=== PATIENT | female | born 1950 | race Caucasian/White ===

== ENCOUNTER → 2017-09-18 14:18 | Outpatient (CLI) | payer MEDICARE, OTHER, SELFPAY ==
[2017-09-18 15:44] LABS: Absolute Lymphocyte Count 3.12 X10^3/ul (0.83-4.51); Absolute Neutrophil Count 6.2 X10^3/uL (2.0-7.7); Basophil# 0.08 X10^3/uL; Basophil% 0.8 % (0-1); Eosinophil# 0.17 X10^3/uL; Eosinophils% 1.6 % (0-5); Hemoglobin 14.3 g/dl (12.0-15.0); Lymphocyte # 3.12 X10^3/ul (4.0); Lymphocyte % 29.4 % (19-41); Mean Corpuscular Hgb 29.7 pg (27.0-32.0); Mean Corpuscular Volume 87.3 fL (81-99); Mean Platelet Vol. 9.9 fl (6.2-12.0); Monocyte# 1.05 X10^3/uL; Monocyte% 9.9 % (0-10); Neutrophil # 6.16 X10^3/uL (2.7-7.7); Neutrophil % 58.1 % (47-70); Platelet Count 394 K/mm3 (150-450); RBC Distribution Width CV 14.7 % (11.6-14.6); RBC Distribution Width SD 46.4 fl (35.1-43.9); Red Blood Count 4.81 M/mm3 (4.2-5.4); White Blood Count 10.6 K/mm3 (4.4-11.0)
[2017-09-18 15:49] LABS: POSITIVE COUNT NO; POSITIVE DIFFERENTIAL NO; POSITIVE MORPHOLOGY NO
[2017-09-18 16:03] LABS: ALB/GLOB Ratio 1.1 RATIO (0.9-2.4); AST(SGOT) 21 U/L (15-37); Alanine Aminotransfer ALT/SGPT 29 U/L (13-56); Albumin, Serum 4.1 g/dL (3.2-5.0); Alkaline Phosphatase 84 U/L (45-117); Anion Gap 7 (5-15); BUN 15 mg/dL (7-18); BUN/Creat Ratio 17.7 RATIO (10-20); Calcium,Total 9.2 mg/dL (8.5-10.1); Chloride 105 mmol/L (98-107); Creatinine, Serum 0.85 mg/dL (0.55-1.02); EST Glomerular Filtration Rate 71 mL/min (>60); Est Glom Filt Rate - Afr Amer 86 mL/min (>60); Free T3 2.6 pg/mL (2.18-3.98); Globulin 3.7 g/dL (2.2-4.2); Glucose 93 mg/dL (74-106); Potassium 4.1 mmol/L (3.5-5.1); Protein, Total 7.8 g/dL (6.4-8.2); Sodium Level 137 mmol/L (136-145); T4 Free Direct 1.05 ng/dL (0.76-1.46); Thyroid Stim Hormone (TSH) 1.61 uIU/mL (0.358-3.74)
[2017-09-19 10:20] LABS: Vitamin D,25 Hydroxy 59.5 ng/mL (29.95-100.01)
== END ==
PROVIDERS: Family Provider Family Medicine; PCP Family Medicine; Visit Provider Family Medicine
DX: E03.9 Hypothyroidism, unspecified (principal); M79.7 Fibromyalgia; K21.9 Gastro-esophageal reflux disease without esophagitis
CPT/HCPCS: 36415; 80053; 82306; 84439; 84443; 84481; 85025

== ENCOUNTER → 2017-09-19 11:09 | Outpatient (CLI) | payer MEDICARE, OTHER, SELFPAY ==
[2017-09-24 11:34] LABS: H. PYLORI STOOL AG Negative (Negative)
== END ==
PROVIDERS: Family Provider Family Medicine; PCP Family Medicine; Visit Provider Family Medicine
DX: E03.9 Hypothyroidism, unspecified (principal); M79.7 Fibromyalgia; K21.9 Gastro-esophageal reflux disease without esophagitis
CPT/HCPCS: 83986

== ENCOUNTER → 2018-03-23 12:36 | Outpatient (CLI) | payer MEDICARE, SELFPAY ==
[2018-01-27 11:46] VITALS: BMI 26.7
--- NOTE | 2018-03-23 12:42 | BI_ITS ---
MAMMOGRAPHY - BILATERAL SCREENING REASON FOR EXAM: Female, 67 years old. Routine annual screening examination. PERTINENT HISTORY: Non-contributory. Remote right stereotactic biopsy. TECHNIQUE: Digital bilateral breast katalina (3D mammographic acquisition) in the CC and MLO projections. 2-D mediolateral oblique (MLO) and craniocaudad (CC) views of both breasts were obtained. CAD: Full Field Digital Mammography with Computer Added Detection was performed. COMPARISON: Comparison is made with prior study dated February 27, 2017. FINDINGS: Breast Composition: There are scattered areas of fibroglandular density. There are no dominant masses or suspicious calcifications. A tissue clip marker is once again seen in the upper anterior lateral portion of the right breast No other significant abnormalities are identified. There has been no significant change since the prior study. BI/SCREENING MAMM (CAD), BILAT IMPRESSION: Stable bilateral screening mammogram. Yearly follow-up mammogram recommended. (A) ASSESSMENT CATEGORY: BIRADS Category 2: Benign. A letter regarding these results will be sent to the patient by the facility within 30 days. Approximately 10% of breast cancers are not detected by mammography. A normal mammogram should not delay biopsy of a clinically suspicious abnormality. [id number] Electronically Signed: Charli Wayne MD at 8:34 EST , Service support ,
== END ==
PROVIDERS: Family Provider Family Medicine; PCP Family Medicine; Referring Provider Obstetrics & Gynecology; Visit Provider Obstetrics & Gynecology
DX: Z12.31 Encounter for screening mammogram for malignant neoplasm of breast (principal)
CPT/HCPCS: 77063; 77067

== ENCOUNTER → 2018-06-12 09:15 | Outpatient (CLI) | payer MEDICARE, SELFPAY ==
[2018-01-27 11:46] VITALS: BMI 26.7
[2018-06-12 10:11] LABS: Absolute Lymphocyte Count 2.01 X10^3/ul (0.83-4.51); Absolute Neutrophil Count 5.3 X10^3/uL (2.0-7.7); Basophil# 0.06 X10^3/uL; Basophil% 0.7 % (0-1); Eosinophil# 0.19 X10^3/uL; Eosinophils% 2.2 % (0-5); Hematocrit 42.8 % (37-47); Hemoglobin 14.7 g/dl (12.0-15.0); Lymphocyte # 2.01 X10^3/ul (4.0); Lymphocyte % 23.7 % (19-41); Mean Corp Hgb Conc 34.3 g/gl (32-36); Mean Corpuscular Hgb 29.5 pg (27.0-32.0); Mean Corpuscular Volume 85.8 fL (81-99); Mean Platelet Vol. 9.7 fl (6.2-12.0); Monocyte# 0.86 X10^3/uL; Monocyte% 10.1 % (0-10); Neutrophil # 5.34 X10^3/uL (2.7-7.7); Neutrophil % 63.1 % (47-70); Platelet Count 330 K/mm3 (150-450); RBC Distribution Width CV 14.2 % (11.6-14.6); RBC Distribution Width SD 43.8 fl (35.1-43.9); Red Blood Count 4.99 M/mm3 (4.2-5.4); White Blood Count 8.5 K/mm3 (4.4-11.0)
[2018-06-12 10:12] LABS: POSITIVE COUNT NO; POSITIVE DIFFERENTIAL NO; POSITIVE MORPHOLOGY NO
[2018-06-12 10:40] LABS: Vitamin D,25 Hydroxy 43.1 ng/mL (29.95-100.01)
[2018-06-12 11:26] LABS: ALB/GLOB Ratio 1.3 RATIO (0.9-2.4); AST(SGOT) 19 U/L (15-37); Alanine Aminotransfer ALT/SGPT 25 U/L (13-56); Albumin, Serum 4.1 g/dL (3.2-5.0); Alkaline Phosphatase 75 U/L (45-117); Anion Gap 8 (5-15); BUN 14 mg/dL (7-18); BUN/Creat Ratio 14.7 RATIO (10-20); Chloride 104 mmol/L (98-107); Creatinine, Serum 0.95 mg/dL (0.55-1.02); EST Glomerular Filtration Rate 62 mL/min (>60); Est Glom Filt Rate - Afr Amer 75 mL/min (>60); Free T3 2.9 pg/mL (2.18-3.98); Globulin 3.2 g/dL (2.2-4.2); Glucose 85 mg/dL (74-106); Potassium 4.3 mmol/L (3.5-5.1); Protein, Total 7.3 g/dL (6.4-8.2); Sodium Level 136 mmol/L (136-145); T4 Free Direct 1.36 ng/dL (0.76-1.46); Thyroid Stim Hormone (TSH) 2.25 uIU/mL (0.358-3.74)
== END ==
PROVIDERS: Family Provider Family Medicine; PCP Family Medicine; Referring Provider Family Medicine; Visit Provider Family Medicine
DX: E55.9 Vitamin D deficiency, unspecified (principal); E03.9 Hypothyroidism, unspecified; M79.7 Fibromyalgia
CPT/HCPCS: 36415; 80053; 82306; 84439; 84443; 84481; 84482; 85025

== ENCOUNTER → 2018-06-22 13:41 | Outpatient (CLI) | payer MEDICARE, SELFPAY ==
[2018-01-27 11:46] VITALS: BMI 26.7
[2018-06-22 13:43] LABS: Mucous, Urine 0 SEEN /hpf (<or=2+); Red Blood Cells-Urine 0 SEEN /hpf (0-5); Squamous Epithelial Cells - UA 0 SEEN /hpf (5-10)
[2018-06-22 15:31] LABS: Color, Urine Yellow (Yellow); Glucose, Dipstick Normal (Normal); Ketone-Dipstick 5 mg/dl (Negative); Leukocyte Esterase-Dipstick 25 /ul (Negative); Nitrite-Dipstick Positive (Negative); Occult Blood-Urine 10 /ul (Negative); Protein-Dipstick Negative (Negative); Specific Gravity, Urine 1.015 (1.002-1.030); Urine Clarity Cloudy (Clear); Urine Urobilinogen 1 mg/dl (Normal); Urine pH 6.5 (5.0 - 8.0)
[2018-06-22 15:34] LABS: Urine Bilirubin Dipstick 1 mg/dL (Negative)
[2018-06-22 15:44] LABS: Bacteria 4+ /hpf (None Seen); White Blood Cells 0-5 SEEN /hpf (0-5)
== END ==
PROVIDERS: Family Provider Family Medicine; PCP Family Medicine; Referring Provider Family Medicine; Visit Provider Family Medicine
DX: R39.9 Unspecified symptoms and signs involving the genitourinary system (principal)
CPT/HCPCS: 81001; 87086; 87088; 87186

== ENCOUNTER → 2018-07-23 | Outpatient (CLI) | payer MEDICARE, SELFPAY ==
[2018-01-27 11:46] VITALS: BMI 26.7
== END | disposition home or self-care (01) ==
LOC: LABSPEC 15:38
PROVIDERS: Family Provider Family Medicine; PCP Family Medicine; Referring Provider Family Medicine; Visit Provider Family Medicine
DX: N39.0 Urinary tract infection, site not specified (principal)
CPT/HCPCS: 87086; 87088; 87186

== ENCOUNTER → 2018-08-17 16:55 | Outpatient (CLI) | payer MEDICARE, SELFPAY ==
[2018-08-25 14:32] VITALS: BMI 26.7
== END ==
PROVIDERS: Family Provider Family Medicine; PCP Family Medicine; Referring Provider Obstetrics & Gynecology; Visit Provider Obstetrics & Gynecology
DX: R30.0 Dysuria (principal)
CPT/HCPCS: 87086

== ENCOUNTER → 2018-08-17 16:56 | Outpatient (CLI) | payer MEDICARE, SELFPAY ==
[2018-08-17 14:11] VITALS: BMI 26.7
== END ==
PROVIDERS: Family Provider Family Medicine; PCP Family Medicine; Referring Provider Obstetrics & Gynecology; Visit Provider Obstetrics & Gynecology
DX: R30.0 Dysuria (principal)
CPT/HCPCS: 87086; 87088; 87186

== ENCOUNTER → 2018-09-01 | Outpatient (CLI) | payer MEDICARE, SELFPAY ==
[2018-08-25 14:32] VITALS: BMI 26.7
[2018-09-01 13:15] LABS: Erythrocyte Sedimentation Rate 7 mm/hr (0-30)
[2018-09-01 13:17] LABS: Absolute Lymphocyte Count 3.12 X10^3/uL (0.83-4.51); Absolute Neutrophil Count 5.5 X10^3/uL (2.0-7.7); Basophil# 0.08 X10^3/uL; Basophil% 0.8 % (0-1); Eosinophil# 0.11 X10^3/uL; Eosinophils% 1.1 % (0-5); Hematocrit 44.2 % (37-47); Lymphocyte # 3.12 X10^3/ul (4.0); Lymphocyte % 31.6 % (19-41); Mean Corp Hgb Conc 33.9 g/dL (32-36); Mean Corpuscular Hgb 29.8 pg (27.0-32.0); Mean Corpuscular Volume 87.9 fL (81-99); Monocyte# 0.98 X10^3/uL; Monocyte% 9.9 % (0-10); NRBC Flagged by Analyzer 0 % (0-5); Neutrophil # 5.54 X10^3/uL (2.7-7.7); Neutrophil % 56.3 % (47-70); Platelet Count 338 K/mm3 (150-450); RBC Distribution Width CV 14.1 % (11.6-14.6); RBC Distribution Width SD 44.6 fl (35.1-43.9); Red Blood Count 5.03 M/mm3 (4.2-5.4); White Blood Count 9.9 K/mm3 (4.4-11.0)
[2018-09-01 13:22] LABS: CRP < 2.90 mg/L (0.0-3.0); Rheumatoid Factor < 10.0 IU/mL (<15)
[2018-09-02 14:38] LABS: ANTINUCLEAR ANTIBODIES DIRECT Negative (Negative)
== END | disposition home or self-care (01) ==
PROVIDERS: Family Provider Family Medicine; PCP Family Medicine; Referring Provider Family Medicine; Visit Provider Family Medicine
DX: M54.9 Dorsalgia, unspecified (principal)
CPT/HCPCS: 36415; 85025; 85652; 86038; 86140; 86431

== ENCOUNTER → 2018-09-15 09:56 | Outpatient (CLI) | payer MEDICARE, SELFPAY ==
[2018-08-25 14:32] VITALS: BMI 26.7
--- NOTE | 2018-09-15 09:59 | NM_ITS ---
CLINICAL: 68-year-old female with reported history of arthralgia and fibromyalgia. WHOLE BODY 99m Tc MDP RADIONUCLIDE BONE SCINTIGRAPHY COMPARISON: None available FINDINGS: Following the intravenous administration of 25.5 mCi of 99m Tc MDP, whole body bone images reveal: 1. Increased radiopharmaceutical concentration is identified in the upper cervical spine posteriorly on the left, lower cervical spine posteriorly on the right, the 10th-11th thoracic vertebra posteriorly on the right, left wrist, bilateral hands, the patellofemoral compartments of both knees. 2. The remaining skeletal structures are scintigraphically unremarkable with normal-appearing renal images and urinary bladder activity identified. NM/Bone Scan Whole Body IMPRESSION: 1. The increase in radiopharmaceutical concentration identified in the cervical and thoracic spine, left wrist, both hands, knee articulations bilaterally is commensurate with degenerative arthritis. 2. No other definitive scintigraphic abnormalities are visualized. There is no current evidence of large articulation synovial inflammation or trauma-fracture on the current examination. Electronically Signed: Alverto Roca DO at 23:32 EDT Tel , Service support ,
== END ==
PROVIDERS: Family Provider Family Medicine; PCP Family Medicine; Referring Provider Family Medicine; Visit Provider Family Medicine
DX: M54.9 Dorsalgia, unspecified (principal)
CPT/HCPCS: 78306

== ENCOUNTER → 2018-10-21 13:47 | Outpatient (CLI) | payer MEDICARE, SELFPAY ==
[2018-08-25 14:32] VITALS: BMI 26.7
--- NOTE | 2018-10-21 14:00 | US_ITS ---
STUDY: SUPERFICIAL ULTRASOUND - LYMPHADENOPATHY AND GROIN REASON FOR EXAM: Female, 68 years old. Bilateral lymphadenopathy TECHNIQUE: A superficial ultrasound was performed with real-time and static montoya-scale imaging. COMPARISON: None. FINDINGS: Bilateral inguinal lymph nodes measuring up to 1.3 x 2 x 0.5 cm on the right. The largest measures 2.3 x 1.2 x 0.4 cm in the medial thigh on the left. US/Ext Non Vasc Limited/Soft Tiss IMPRESSION: Bilateral nonspecific inguinal lymphadenopathy Electronically Signed: Jordi Loco MD at 22:39 EDT , Service support ,
--- NOTE | 2018-10-21 14:00 | US_ITS ---
STUDY: NECK ULTRASOUND REASON FOR EXAM: Female, 68 years old. Lymphadenopathy TECHNIQUE: Ultrasound evaluation of the neck was performed with real-time and static montoya-scale imaging. COMPARISON: None. FINDINGS: 2.6 x 1.6 x 0.7 cm lymph node with a fatty hilus is identified in the right neck. Superolateral to this is a 1.3 x 1.1 x 0.4 cm oval hypoechoic structure that may also be a lymph node. On the left, a 1.5 x 1.0 x 0.9 cm oval hypoechoic structure with a fatty hilus consistent with a lymph node is seen above the left lobe of thyroid gland. Nearby is a second 6 x 9 x 4 mm lymph node. There is no other demonstrated solid neck mass or fluid collection. US/Head/Neck Soft Tissue IMPRESSION: A few upper normal-sized bilateral cervical lymph nodes are identified. No suspicious adenopathy or other mass seen. Electronically Signed: Herman Bauman MD at 20:02 EDT , Service support ,
--- NOTE | 2018-10-21 14:30 | US_ITS ---
STUDY: SUPERFICIAL ULTRASOUND - AXILLAE - BILATERAL REASON FOR EXAM: Female, 68 years old. Axillary adenopathy. TECHNIQUE: Ultrasound of the bilateral axillae was performed with real-time and static montoya-scale imaging. COMPARISON: None. FINDINGS: There is no demonstrated soft tissue mass or fluid collection in the right axilla. No adenopathy demonstrated. On the left, a benign-appearing 11 x 7 x 4 mm lymph node with a fatty hilus was identified. No other adenopathy is apparent. No other demonstrated soft tissue mass or fluid collection. US/Ext Non Vasc Limited/Soft Tiss IMPRESSION: Single benign-appearing 11 mm left axillary lymph node noted. No other adenopathy or axillary mass seen. Electronically Signed: Herman Bauman MD at 20:04 EDT , Service support ,
[2018-10-21 17:23] LABS: Absolute Lymphocyte Count 3.31 X10^3/uL (0.83-4.51); Absolute Neutrophil Count 6.1 X10^3/uL (2.0-7.7); Basophil# 0.07 X10^3/uL; Basophil% 0.7 % (0-1); Eosinophil# 0.15 X10^3/uL; Eosinophils% 1.4 % (0-5); Hematocrit 41.2 % (37-47); Hemoglobin 13.8 g/dL (12.0-15.0); Lymphocyte # 3.31 X10^3/ul (4.0); Lymphocyte % 31.5 % (19-41); Mean Corp Hgb Conc 33.5 g/dL (32-36); Mean Corpuscular Hgb 29.5 pg (27.0-32.0); Mean Platelet Vol. 10.1 fl (6.2-12.0); Monocyte# 0.83 X10^3/uL; Monocyte% 7.9 % (0-10); NRBC Flagged by Analyzer 0 % (0-5); Neutrophil # 6.12 X10^3/uL (2.7-7.7); Neutrophil % 58.1 % (47-70); Platelet Count 339 K/mm3 (150-450); RBC Distribution Width CV 13.8 % (11.6-14.6); RBC Distribution Width SD 44.6 fl (35.1-43.9); Red Blood Count 4.68 M/mm3 (4.2-5.4); White Blood Count 10.5 K/mm3 (4.4-11.0)
== END ==
PROVIDERS: Family Provider Family Medicine; PCP Family Medicine; Referring Provider Family Medicine; Visit Provider Family Medicine
DX: R59.1 Generalized enlarged lymph nodes (principal)
CPT/HCPCS: 36415; 76536; 76882; 85025

== ENCOUNTER → 2019-01-13 14:39 | Outpatient (CLI) | payer MEDICARE, SELFPAY ==
[2018-08-25 14:32] VITALS: BMI 26.7
[2019-01-13 14:42] LABS: Bacteria 0 SEEN /hpf (None Seen); Mucous, Urine 0 SEEN /hpf (<or=2+); Red Blood Cells-Urine 0 SEEN /hpf (0-5); Squamous Epithelial Cells - UA 0 SEEN /hpf (5-10); White Blood Cells 0 SEEN /hpf (0-5)
[2019-01-13 17:44] LABS: Color, Urine Yellow (Yellow); Glucose, Dipstick Normal (Normal); Ketone-Dipstick Negative (Negative); Leukocyte Esterase-Dipstick Negative /ul (Negative); Nitrite-Dipstick Negative (Negative); Occult Blood-Urine 10 /ul (Negative); Protein-Dipstick Negative (Negative); Urine Bilirubin Dipstick Negative (Negative); Urine Clarity Clear (Clear); Urine Urobilinogen Normal (Normal)
== END ==
PROVIDERS: Family Provider Family Medicine; PCP Family Medicine; Referring Provider Family Medicine; Visit Provider Family Medicine
DX: N30.90 Cystitis, unspecified without hematuria (principal)
CPT/HCPCS: 81001; 87086

== ENCOUNTER 2019-03-19 10:30 | Outpatient (RCR) | payer MEDICARE, SELFPAY ==
[2018-08-25 14:32] VITALS: BMI 26.7
[2019-02-26 10:50] VITALS: BP 135/74; PULSE 94; RESP 16; TEMP 35.9; BMI 26.7
--- NOTE | 2019-02-26 14:01 | PCM.WC.HP ---
(1) Non-healing surgical wound Status: Chronic Current Visit: Yes Qualifiers: Encounter type: initial encounter Qualified Code(s): T81.89XA - Other complications of procedures, not elsewhere classified, initial encounter Code(s): T81.89XA - Other complications of procedures, not elsewhere classified, initial encounter (2) Open wound of right great toe Status: Chronic Current Visit: Yes Qualifiers: Encounter type: initial encounter Qualified Code(s): S91.101A - Unspecified open wound of right great toe without damage to nail, initial encounter Code(s): S91.101A - Unspecified open wound of right great toe without damage to nail, initial encounter (3) Open wound of second toe of right foot Status: Chronic Current Visit: Yes Qualifiers: Encounter type: initial encounter Qualified Code(s): S91.104A - Unspecified open wound of right lesser toe(s) without damage to nail, initial encounter Code(s): S91.104A - Unspecified open wound of right lesser toe(s) without damage to nail, initial encounter (4) Fibromyalgia Status: Chronic Current Visit: Yes Code(s): M79.7 - Fibromyalgia (5) Hypothyroidism Status: Chronic Current Visit: No Code(s): E03.9 - Hypothyroidism, unspecified (6) GERD (gastroesophageal reflux disease) Status: Chronic Current Visit: No Qualifiers: Esophagitis presence: without esophagitis Qualified Code(s): K21.9 - Gastro-esophageal reflux disease without esophagitis Code(s): K21.9 - Gastro-esophageal reflux disease without esophagitis History of Present Illness Date of Service: 02/26/19 Chief Complaint: Nonhealing surgcial wound of right great toe and right second toe History of Wound: Letha is a 68 yo female who presented to the wound healing center for consultation regarding treatment with hyperbaric oxygen for her nonhealing surgical wounds s/p surgery for bunion and hammer toes by Dr. Marx. During her evaluation, she requested to be seen for wound care at the wound healing center. Unfortunately, she is not eligible for hyperbaric oxygen treatment as her diagnosis is not a reimbursable diagnosis for hyperbaric oxygen treatment. If she were diabetic or if she had a failed/compromised skin graft or flap or chronic refractory osteomyelitis she would be eligible. She underwent surgery for hammertoe and bunionectomy on 01/18/2019 and was doing well with healing until 2 weeks ago when she had dehiscence of surgical incisions of her right second and great toes. She initially was using Aquacel but this dried the wounds out too much. She was prescribed Santyl to apply to the wounds but this was too exxpensive. She has been applying antibiotic ointment to the wounds daily and then gauze and she allows the wounds to be open to air usually twice daily. She was referred to ID to assess for infection by Dr. Marx and saw them yesterday. They did not feel that she had active infection and did not culture her wound per the patient. She had xrays which did not show osteomyelitis but showed appropriate post-operative changes for the surgery that she underwent. She is using a surgical shoe for offloading and ELIECER bandage for compression. She states that when she is on her feet she has significant swelling to her right foot. She denies any fever or chills, drainage or increased pain. Past Medical History Past Medical History: Chronic Problems (This Medical Record has been edited. Action required.) Non-healing surgical wound (Chronic) Open wound of right great toe (Chronic) Open wound of second toe of right foot (Chronic) Fibromyalgia (Chronic) Hypothyroidism (Chronic) GERD (gastroesophageal reflux disease) (Chronic) Lichen sclerosus et atrophicus (Chronic) clobetasol Surgical History: appendectomy, cholecystectomy, hysterectomy Allergies/Adverse Reactions: Allergies albuterol Allergy (Verified 12/04/18 14:50) Other gabapentin Adverse Reaction (Verified 12/04/18 14:50) Other Sulfa (Sulfonamide Antibiotics) Adverse Reaction (Verified 12/04/18 14:50) Vomiting Home Medications: Ambulatory Orders Medication Instructions Recorded Levothyroxine [Synthroid] 50 mcg PO DAILY 11/29/15 bupropion HCl 150 mg tablet,12 hr 150 mg PO BID 01/27/18 sustained-release clobetasol 0.05 % topical ointment 1 applic TOPICAL QHS #30 g 01/27/18 estradiol 0.5 mg tablet 0.5 mg PO DAILY 01/27/18 ipratropium bromide 17 1 puff INHALATION Q6H 01/27/18 mcg/actuation HFA aerosol inhaler - Family History Maternal Family History: Family History (This Medical Record has been edited. Action required.) Father Myocardial infarction Leukemia Mother Hypertension Alzheimer disease No pertinent history Lives: Spouse/ Significant Other Smoking Status: Never smoker Tobacco Use: Non-smoker Alcohol: None Drugs: None Review of Systems Constitutional: Denies: Chills, Fever, Weight Change Eyes: Denies: Pain, Vision Change HEENT: Denies: Difficulty Hearing, Difficulty Swallowing, Sinus Congestion Cardiovascular: Reports: Edema. Denies: Chest Pain, Palpitations Respiratory: Denies: Cough, Shortness of Breath Gastrointestinal: Denies: Diarrhea, Nausea, Vomiting Genitourinary: Denies: Dysuria, Hematuria Musculoskeletal: Reports: Foot Pain, Muscle pain Skin: Reports: Wounds Neurological: Denies: Balance problems, Numbness, Tingling Endocrine: Denies: Heat/ Cold Intolerance, Polydipsia, Polyuria Hematologic/ Lymphatic: Denies: Easy Bruising, Easy Bleeding - Physical Exam Vital Signs Temp Pulse Resp BP 96.6 F L 94 16 135/74 H 02/26/19 10:50 02/26/19 10:50 02/26/19 10:50 02/26/19 10:50 General: Alert, Oriented x3, Cooperative, No apparent distress HEENT: Atraumatic, Normocephalic Oral: Moist Mucosa Neck: Supple Lungs: Clear to auscultation Cardiovascular: Regular rate, Regular Rhythm Abdomen: Soft, Non Tender Extremities: Edema Skin: Ulcer/ Wound Wound Measurements and Assessment WC - Nurse 1 - General Ulcer Measurement Start: 02/26/19 10:50 Freq: Status: Active Protocol: Activity Type Activity Date Activity User E-Sign Co-Sign Detail Recorded Client Recorded Date Recorded By Document 02/26/19 10:50 MW [id number] 02/26/19 11:15 MW 02/26/19 10:50 Wound Center Nurse 1 [Ulcer Assessment] #2 R 2ND TOE DORSAL -Current Size (cm) - Length 3.4 -Current Size (cm) - Width 0.7 -Current Size (cm) - Depth 0.2 -Total Square Cm 2.38 -Photo Taken Yes -Classification - Thickness Full Thickness without Exposed Support Structure -Exudate Amt Small -Exudate Type Serosanguineous -Wound Margin Distinct, Outline Attached -Granulation Amt None Present (0 %) -Necrosis Amt Large (67-100%) -Necrotic Tissue Type Adherent Slough -Structure Exposed N/A -Texture (Re-wound Skin Appearance) Localized Edema ,Scarring -Moisture (Re-wound Skin Appearance No Abnormality ) -Color (Re-wound Skin Appearance) Erythema -Temperature (Re-wound Skin No Abnormality Appearance) (Pt Warm) -Tenderness on Palpation (Re-wound No Skin Appearance) -Ulcer Cleansing Wound Cleanser -Foul Odor after Cleansing No -Anesthetic Used 5% Lidocaine Gel #1 R GRT TOE DORSAL -Current Size (cm) - Length 1.8 -Current Size (cm) - Width 0.5 -Current Size (cm) - Depth 0.2 -Total Square Cm 0.90 -Photo Taken Yes -Classification - Thickness Full Thickness without Exposed Support Structure -Exudate Amt Small -Exudate Type Serosanguineous -Wound Margin Distinct, Outline Attached -Granulation Amt Small (1-33%) -Granulation Quality [place],Red -Necrosis Amt Small (1-33%) -Necrotic Tissue Type Adherent Slough -Structure Exposed N/A -Texture (Re-wound Skin Appearance) Localized Edema ,Scarring -Moisture (Re-wound Skin Appearance No Abnormality ) -Color (Re-wound Skin Appearance) Erythema,Rubor -Temperature (Re-wound Skin No Abnormality Appearance) (Pt Warm) -Tenderness on Palpation (Re-wound No Skin Appearance) -Ulcer Cleansing Wound Cleanser -Foul Odor after Cleansing No -Anesthetic Used 5% Lidocaine Gel WC - Nurse 2 - General Ulcer CM Notes Start: 02/26/19 10:50 Freq: Status: Active Protocol: Activity Type Activity Date Activity User E-Sign Co-Sign Detail Recorded Client Recorded Date Recorded By Document 02/26/19 11:35 MW [id number] 02/26/19 11:57 MW 02/26/19 11:35 Wound Center Nurse 2 [Procedure/Treatment] #2 R 2ND TOE DORSAL -Time 11:35 -Correct Patient Yes -Correct Side, Site, Position Yes -Correct Procedure Yes -Procedure Performed Yes -Type of Procedure Debridement -Clinical Debridement Subcutaneous -Post Debridement Size (cm) - Length 4.1 -Post Debridement Size (cm) - Width 0.9 -Post Debridement Size (cm) - Depth 0.2 -Total Square Cm 3.69 -Wound/Ulcer Outcome Not Healed -Ulcer Cleansing Rinsed/ Irrigated with Saline -Foul Odor after Cleansing No -Bioengineered Tissue No -Bleeding Controlled with Pressure -Offloading No -Treatment Response Procedure Tolerated Well #1 R GRT TOE DORSAL -Time 11:35 -Correct Patient Yes -Correct Side, Site, Position Yes -Correct Procedure Yes -Procedure Performed Yes -Type of Procedure Debridement -Clinical Debridement Subcutaneous -Post Debridement Size (cm) - Length 2.0 -Post Debridement Size (cm) - Width 0.5 -Post Debridement Size (cm) - Depth 0.3 -Total Square Cm 1.00 -Wound/Ulcer Outcome Not Healed -Ulcer Cleansing Rinsed/ Irrigated with Saline -Foul Odor after Cleansing No -Bioengineered Tissue No -Bleeding Controlled with Pressure -Offloading No -Treatment Response Procedure Tolerated Well [See Physician Procedure note for Specifics] Pain Scale: 0-10 Numeric [Pain] -Is Patient Pain Free? Yes Psych/Mental Status: Normal Affect, Appropriate Debridement Note Post-Debridement Measurements/Treatment WC - Nurse 2 - General Ulcer CM Notes Start: 02/26/19 10:50 Freq: Status: Active Protocol: Activity Type Activity Date Activity User E-Sign Co-Sign Detail Recorded Client Recorded Date Recorded By Document 02/26/19 11:35 MW [id number] 02/26/19 11:57 MW 02/26/19 11:35 Wound Center Nurse 2 #2 R 2ND TOE DORSAL -Time 11:35 -Correct Patient Yes -Correct Side, Site, Position Yes -Correct Procedure Yes -Procedure Performed Yes -Type of Procedure Debridement -Clinical Debridement Subcutaneous -Post Debridement Size (cm) - Length 4.1 -Post Debridement Size (cm) - Width 0.9 -Post Debridement Size (cm) - Depth 0.2 -Total Square Cm 3.69 -Wound/Ulcer Outcome Not Healed -Ulcer Cleansing Rinsed/ Irrigated with Saline -Foul Odor after Cleansing No -Bioengineered Tissue No -Bleeding Controlled with Pressure -Offloading No -Treatment Response Procedure Tolerated Well #1 R GRT TOE DORSAL -Time 11:35 -Correct Patient Yes -Correct Side, Site, Position Yes -Correct Procedure Yes -Procedure Performed Yes -Type of Procedure Debridement -Clinical Debridement Subcutaneous -Post Debridement Size (cm) - Length 2.0 -Post Debridement Size (cm) - Width 0.5 -Post Debridement Size (cm) - Depth 0.3 -Total Square Cm 1.00 -Wound/Ulcer Outcome Not Healed -Ulcer Cleansing Rinsed/ Irrigated with Saline -Foul Odor after Cleansing No -Bioengineered Tissue No -Bleeding Controlled with Pressure -Offloading No -Treatment Response Procedure Tolerated Well Pain Scale: 0-10 Numeric Is Patient Pain Free? Yes Wound debrided: right second toe dorsal Laterality: Right Type of Debridement: Excisional debridement Anesthesia Used: 4% Lidocaine Solution, 5% Lidocaine Gel Depth: Down to and including healthy tissue, in the subcutaneous layer, to muscle Percentage of wound debrided: 100 Instrument Used: 5mm curette Tissue Removed: yellow slough, devitalized tissue Severity: Fat Layer Exposed Amount of bleeding with debridement: Mild Bleeding Controlled with: Compression and gauze Patient tolerated procedure well - Additional Wound Wound debrided: right great toe dorsal Laterality: Right Type of Debridement: Excisional debridement Anesthesia Used: 4% Lidocaine Solution, 5% Lidocaine Gel Depth: Down to and including healthy tissue, in the subcutaneous layer Percentage of wound debrided: 100 Instrument Used: 5mm curette Tissue Removed: yellow slough, devitalized tissue Severity: Fat Layer Exposed Amount of bleeding with debridement: Mild Bleeding Controlled with: Compression and gauze Patient tolerated procedure: Patient tolerated procedure well Assessment/Plan Active Problems (This Medical Record has been edited. Action required.) Non-healing surgical wound (Chronic) Open wound of right great toe (Chronic) Open wound of second toe of right foot (Chronic) Fibromyalgia (Chronic) Assessment: nonhealing surgical wounds of right great and second toes Plan: Letha'ajith wounds were evaluated and debrided today. She tolerated procedure well. Wound culture was taken and she will be treated with antibiotics based on results of wound culture if needed. She will dress her wounds with collagen hydrogel and adaptic with changes daily and continue to use ELIECER wrap for compression and offload with her surgical shoe. She will follow post-op instructions per Dr. Marx as far as weight bearing status goes. She was encouraged to elevate and offload her foot to promote healing. She was also encouraged to increase protein intake. She was advised to call or go to ER if she develops fever, chills, increased erythema, excessive bleeding, odor, increased drainage or pain. She may benefit from application of advanced wound care treatments if she does not have improvement with standard wound care. She will follow up in 1 week.
[2019-03-05 12:11] VITALS: BP 130/78; PULSE 90; RESP 18; TEMP 36.1; BMI 26.7
--- NOTE | 2019-03-05 17:45 | PCM.WC.PN ---
(1) Non-healing surgical wound Status: Chronic Current Visit: Yes Qualifiers: Encounter type: initial encounter Qualified Code(s): T81.89XA - Other complications of procedures, not elsewhere classified, initial encounter Code(s): T81.89XA - Other complications of procedures, not elsewhere classified, initial encounter (2) Open wound of right great toe Status: Chronic Current Visit: Yes Qualifiers: Encounter type: subsequent encounter Qualified Code(s): S91.101D - Unspecified open wound of right great toe without damage to nail, subsequent encounter Code(s): S91.101A - Unspecified open wound of right great toe without damage to nail, initial encounter (3) Open wound of second toe of right foot Status: Chronic Current Visit: Yes Qualifiers: Encounter type: subsequent encounter Qualified Code(s): S91.104D - Unspecified open wound of right lesser toe(s) without damage to nail, subsequent encounter Code(s): S91.104A - Unspecified open wound of right lesser toe(s) without damage to nail, initial encounter (4) Fibromyalgia Status: Chronic Current Visit: Yes Code(s): M79.7 - Fibromyalgia (5) Hypothyroidism Status: Chronic Current Visit: No Code(s): E03.9 - Hypothyroidism, unspecified (6) GERD (gastroesophageal reflux disease) Status: Chronic Current Visit: No Qualifiers: Esophagitis presence: without esophagitis Qualified Code(s): K21.9 - Gastro-esophageal reflux disease without esophagitis Code(s): K21.9 - Gastro-esophageal reflux disease without esophagitis Type of Wound Date of Service: 03/05/19 Chief Complaint: Nonhealing surgcial wound of right great toe and right second toe History of Wound: Letha is a 68 yo female who presented to the wound healing center for consultation regarding treatment with hyperbaric oxygen for her nonhealing surgical wounds s/p surgery for bunion and hammer toes by Dr. Marx. During her evaluation, she requested to be seen for wound care at the wound healing center. Unfortunately, she is not eligible for hyperbaric oxygen treatment as her diagnosis is not a reimbursable diagnosis for hyperbaric oxygen treatment. If she were diabetic or if she had a failed/compromised skin graft or flap or chronic refractory osteomyelitis she would be eligible. She underwent surgery for hammertoe and bunionectomy on 01/18/2019 and was doing well with healing until 2 weeks ago when she had dehiscence of surgical incisions of her right second and great toes. She initially was using Aquacel but this dried the wounds out too much. She was prescribed Santyl to apply to the wounds but this was too exxpensive. She has been applying antibiotic ointment to the wounds daily and then gauze and she allows the wounds to be open to air usually twice daily. She was referred to ID to assess for infection by Dr. Marx and saw them yesterday. They did not feel that she had active infection and did not culture her wound per the patient. She had xrays which did not show osteomyelitis but showed appropriate post-operative changes for the surgery that she underwent. She is using a surgical shoe for offloading and ELIECER bandage for compression. She states that when she is on her feet she has significant swelling to her right foot. She denies any fever or chills, drainage or increased pain. Progress of Wound: Letha is here today for follow up of her nonhealing surgical wounds. She tolerated treatment with hydrogel and adaptic and was applying hydrogel twice daily to her wounds due to them being dry. She tolerated ELIECER bandage but still admits to swelling of her leg when she is on it for a significant amount of time. Wound culture was negative for infection. She denies any fever, chills, increased drainage, or erythema. - Physical Exam Vital Signs Temp Pulse Resp BP 97 F L 90 18 130/78 H 03/05/19 12:11 03/05/19 12:11 03/05/19 12:11 03/05/19 12:11 General: Alert, Oriented x3, Cooperative, No apparent distress HEENT: Atraumatic, Normocephalic Oral: Moist Mucosa Neck: Supple Extremities: Edema Skin: Ulcer/ Wound Wound Measurements and Assessment WC - Nurse 1 - General Ulcer Measurement Start: 02/26/19 10:50 Freq: Status: Active Protocol: Activity Type Activity Date Activity User E-Sign Co-Sign Detail Recorded Client Recorded Date Recorded By Document 03/05/19 12:11 RB [id number] 03/05/19 12:15 RB 03/05/19 12:11 Wound Center Nurse 1 [Ulcer Assessment] #2 R 2ND TOE DORSAL -Combined with other wound No -Current Size (cm) - Length 1 -Current Size (cm) - Width 0.7 -Current Size (cm) - Depth 0.2 -Total Square Cm 0.7 -Tunneling No -Undermining/Tunneling No -Circular Undermining No -Exudate Amt Small -Exudate Type Serosanguineous -Wound Margin Flat & Intact -Granulation Amt Medium (34-66%) -Granulation Quality Aucilla -Slough/Fibrin Yes -Necrosis Amt Small (1-33%) -Necrotic Tissue Type Adherent Slough -Structure Exposed N/A -Texture (Re-wound Skin Appearance) Assessed, Scarring -Moisture (Re-wound Skin Appearance Assessed ) -Color (Re-wound Skin Appearance) Assessed -Temperature (Re-wound Skin No Abnormality Appearance) (Pt Warm) -Tenderness on Palpation (Re-wound No Skin Appearance) -Ulcer Cleansing Wound Cleanser -Foul Odor after Cleansing No -Anesthetic Used 5% Lidocaine Gel #1 R GRT TOE DORSAL -Combined with other wound No -Current Size (cm) - Length 1.2 -Current Size (cm) - Width 0.6 -Current Size (cm) - Depth 0.3 -Total Square Cm 0.72 -Photo Taken No -Tunneling No -Undermining/Tunneling No -Circular Undermining No -Exudate Amt Small -Exudate Type Serosanguineous -Wound Margin Flat & Intact -Granulation Amt Medium (34-66%) -Granulation Quality Aucilla -Necrosis Amt Small (1-33%) -Necrotic Tissue Type Adherent Slough -Structure Exposed N/A -Texture (Re-wound Skin Appearance) Assessed, Scarring -Moisture (Re-wound Skin Appearance Assessed ) -Color (Re-wound Skin Appearance) Assessed -Temperature (Re-wound Skin No Abnormality Appearance) (Pt Warm) -Tenderness on Palpation (Re-wound No Skin Appearance) -Ulcer Cleansing Wound Cleanser -Foul Odor after Cleansing No -Anesthetic Used 5% Lidocaine Gel WC - Nurse 2 - General Ulcer CM Notes Start: 02/26/19 10:50 Freq: Status: Active Protocol: Activity Type Activity Date Activity User E-Sign Co-Sign Detail Recorded Client Recorded Date Recorded By Document 03/05/19 12:49 DV [id number] 03/05/19 12:53 DV 03/05/19 12:49 Wound Center Nurse 2 [Procedure/Treatment] #2 R 2ND TOE DORSAL -Time 12:50 -Correct Patient Yes -Correct Side, Site, Position Yes -Correct Procedure Yes -Procedure Performed Yes -Type of Procedure Debridement -Clinical Debridement Subcutaneous -Post Debridement Size (cm) - Length 1.3 -Post Debridement Size (cm) - Width 0.9 -Post Debridement Size (cm) - Depth 0.3 -Total Square Cm 1.17 -Wound/Ulcer Outcome Not Healed -Ulcer Cleansing Rinsed/ Irrigated with Saline -Foul Odor after Cleansing No -Bioengineered Tissue No -Bleeding Controlled with Pressure -Offloading Yes -Type of Offloading Surgical Shoe -Treatment Response Procedure Tolerated Well #1 R GRT TOE DORSAL -Time 12:50 -Correct Patient Yes -Correct Side, Site, Position Yes -Correct Procedure Yes -Procedure Performed Yes -Type of Procedure Debridement -Clinical Debridement Subcutaneous -Post Debridement Size (cm) - Length 3.8 -Post Debridement Size (cm) - Width 0.9 -Post Debridement Size (cm) - Depth 0.2 -Total Square Cm 3.42 -Wound/Ulcer Outcome Not Healed -Ulcer Cleansing Rinsed/ Irrigated with Saline -Foul Odor after Cleansing No -Bioengineered Tissue No -Bleeding Controlled with Pressure -Offloading Yes -Type of Offloading Surgical Shoe -Treatment Response Procedure Tolerated Well [See Physician Procedure note for Specifics] Pain Scale: 0-10 Numeric [Pain] -Is Patient Pain Free? Yes Psych/Mental Status: Normal Affect, Appropriate Debridement Note Post-Debridement Measurements/Treatment WC - Nurse 2 - General Ulcer CM Notes Start: 02/26/19 10:50 Freq: Status: Active Protocol: Activity Type Activity Date Activity User E-Sign Co-Sign Detail Recorded Client Recorded Date Recorded By Document 02/26/19 11:35 MW [id number] 02/26/19 11:57 MW Document 03/05/19 12:49 DV [id number] 03/05/19 12:53 DV 02/26/19 03/05/19 11:35 12:49 Wound Center Nurse 2 #2 R 2ND TOE DORSAL -Time 11:35 12:50 -Correct Patient Yes Yes -Correct Side, Site, Position Yes Yes -Correct Procedure Yes Yes -Procedure Performed Yes Yes -Type of Procedure Debridement Debridement -Clinical Debridement Subcutaneous Subcutaneous -Post Debridement Size (cm) - Length 4.1 1.3 -Post Debridement Size (cm) - Width 0.9 0.9 -Post Debridement Size (cm) - Depth 0.2 0.3 -Total Square Cm 3.69 1.17 -Wound/Ulcer Outcome Not Healed Not Healed -Ulcer Cleansing Rinsed/ Rinsed/ Irrigated with Irrigated with Saline Saline -Foul Odor after Cleansing No No -Bioengineered Tissue No No -Bleeding Controlled with Pressure Pressure -Offloading No Yes -Type of Offloading Surgical Shoe -Treatment Response Procedure Procedure Tolerated Well Tolerated Well #1 R GRT TOE DORSAL -Time 11:35 12:50 -Correct Patient Yes Yes -Correct Side, Site, Position Yes Yes -Correct Procedure Yes Yes -Procedure Performed Yes Yes -Type of Procedure Debridement Debridement -Clinical Debridement Subcutaneous Subcutaneous -Post Debridement Size (cm) - Length 2.0 3.8 -Post Debridement Size (cm) - Width 0.5 0.9 -Post Debridement Size (cm) - Depth 0.3 0.2 -Total Square Cm 1.00 3.42 -Wound/Ulcer Outcome Not Healed Not Healed -Ulcer Cleansing Rinsed/ Rinsed/ Irrigated with Irrigated with Saline Saline -Foul Odor after Cleansing No No -Bioengineered Tissue No No -Bleeding Controlled with Pressure Pressure -Offloading No Yes -Type of Offloading Surgical Shoe -Treatment Response Procedure Procedure Tolerated Well Tolerated Well Pain Scale: 0-10 Numeric Is Patient Pain Free? Yes Yes Wound debrided: right second toe dorsal Laterality: Right Type of Debridement: Excisional debridement Anesthesia Used: 4% Lidocaine Solution, 5% Lidocaine Gel Depth: Down to and including healthy tissue, in the subcutaneous layer, to muscle Percentage of wound debrided: 100 Instrument Used: 5mm curette Tissue Removed: yellow slough, devitalized tissue Severity: Fat Layer Exposed Amount of bleeding with debridement: Mild Bleeding Controlled with: Compression and gauze Patient tolerated procedure well - Additional Wound Wound debrided: right great toe dorsal Laterality: Right Type of Debridement: Excisional debridement Anesthesia Used: 4% Lidocaine Solution, 5% Lidocaine Gel Depth: Down to and including healthy tissue, in the subcutaneous layer, to muscle Percentage of wound debrided: 100 Instrument Used: 5mm curette Tissue Removed: yellow slough, devitalized tissue Severity: Fat Layer Exposed Amount of bleeding with debridement: Mild Bleeding Controlled with: Compression and gauze Patient tolerated procedure: Patient tolerated procedure well Assessment/Plan Active Problems (This Medical Record has been edited. Action required.) Non-healing surgical wound (Chronic) Open wound of right great toe (Chronic) Open wound of second toe of right foot (Chronic) Fibromyalgia (Chronic) Assessment: nonhealing surgical wounds of right great and second toes Plan: Letha'ajith wounds were evaluated and debrided today. She tolerated procedure well. Her right great toe wound does probe to the plate that is in place from her bunionectomy but there is tendon covering this partially. She will continue to dress her wounds with collagen hydrogel and adaptic with changes daily and continue to use ELIECER wrap for compression and offload with her surgical shoe. She will follow post-op instructions per Dr. Marx as far as weight bearing status goes. She was encouraged to elevate and offload her foot to promote healing. She was also encouraged to increase protein intake. She was advised to call or go to ER if she develops fever, chills, increased erythema, excessive bleeding, odor, increased drainage or pain. She may benefit from application of advanced wound care treatments to salvage her great toe and second toe due to the high risk of osteomyelitis given the depth of the wounds and lack of significant progress with conventional wound care treatments for 4 weeks. She will follow up in 1 week.
[2019-03-12 12:05] VITALS: BMI 26.7
--- NOTE | 2019-03-12 16:07 | PCM.WC.PN ---
(1) Non-healing surgical wound Status: Chronic Current Visit: Yes Qualifiers: Encounter type: initial encounter Qualified Code(s): T81.89XA - Other complications of procedures, not elsewhere classified, initial encounter Code(s): T81.89XA - Other complications of procedures, not elsewhere classified, initial encounter (2) Open wound of right great toe Status: Chronic Current Visit: Yes Qualifiers: Encounter type: subsequent encounter Qualified Code(s): S91.101D - Unspecified open wound of right great toe without damage to nail, subsequent encounter Code(s): S91.101A - Unspecified open wound of right great toe without damage to nail, initial encounter (3) Open wound of second toe of right foot Status: Chronic Current Visit: Yes Qualifiers: Encounter type: subsequent encounter Qualified Code(s): S91.104D - Unspecified open wound of right lesser toe(s) without damage to nail, subsequent encounter Code(s): S91.104A - Unspecified open wound of right lesser toe(s) without damage to nail, initial encounter (4) Fibromyalgia Status: Chronic Current Visit: Yes Code(s): M79.7 - Fibromyalgia (5) Hypothyroidism Status: Chronic Current Visit: No Code(s): E03.9 - Hypothyroidism, unspecified (6) GERD (gastroesophageal reflux disease) Status: Chronic Current Visit: No Qualifiers: Esophagitis presence: without esophagitis Qualified Code(s): K21.9 - Gastro-esophageal reflux disease without esophagitis Code(s): K21.9 - Gastro-esophageal reflux disease without esophagitis Type of Wound Date of Service: 03/12/19 Chief Complaint: Nonhealing surgcial wound of right great toe and right second toe History of Wound: Letha is a 68 yo female who presented to the wound healing center for consultation regarding treatment with hyperbaric oxygen for her nonhealing surgical wounds s/p surgery for bunion and hammer toes by Dr. Marx. During her evaluation, she requested to be seen for wound care at the wound healing center. Unfortunately, she is not eligible for hyperbaric oxygen treatment as her diagnosis is not a reimbursable diagnosis for hyperbaric oxygen treatment. If she were diabetic or if she had a failed/compromised skin graft or flap or chronic refractory osteomyelitis she would be eligible. She underwent surgery for hammertoe and bunionectomy on 01/18/2019 and was doing well with healing until 2 weeks ago when she had dehiscence of surgical incisions of her right second and great toes. She initially was using Aquacel but this dried the wounds out too much. She was prescribed Santyl to apply to the wounds but this was too exxpensive. She has been applying antibiotic ointment to the wounds daily and then gauze and she allows the wounds to be open to air usually twice daily. She was referred to ID to assess for infection by Dr. Marx and saw them yesterday. They did not feel that she had active infection and did not culture her wound per the patient. She had xrays which did not show osteomyelitis but showed appropriate post-operative changes for the surgery that she underwent. She is using a surgical shoe for offloading and ELIECER bandage for compression. She states that when she is on her feet she has significant swelling to her right foot. She denies any fever or chills, drainage or increased pain. Progress of Wound: Letha is here today for follow up of her nonhealing surgical wounds. She tolerated treatment with hydrogel and adaptic and continued applying hydrogel twice daily to her wounds. She was ill this week with a GI illness with vomiting and rested more than normal. She denies any fever, chills, increased drainage, or erythema. - Physical Exam Vital Signs Temp Pulse Resp BP 97 F L 90 18 130/78 H 03/05/19 12:11 03/05/19 12:11 03/05/19 12:11 03/05/19 12:11 General: Alert, Oriented x3, Cooperative, No apparent distress HEENT: Atraumatic, Normocephalic Oral: Moist Mucosa Extremities: Edema Skin: Ulcer/ Wound Wound Measurements and Assessment WC - Nurse 1 - General Ulcer Measurement Start: 02/26/19 10:50 Freq: Status: Active Protocol: Activity Type Activity Date Activity User E-Sign Co-Sign Detail Recorded Client Recorded Date Recorded By Document 03/12/19 12:05 DV [id number] 03/12/19 12:10 DV 03/12/19 12:05 Wound Center Nurse 1 [Ulcer Assessment] #2 R 2ND TOE DORSAL -Combined with other wound No -Current Size (cm) - Length 1.0 -Current Size (cm) - Width 0.7 -Current Size (cm) - Depth 0.3 -Total Square Cm 0.70 -Photo Taken No -Epithelialization None Present -Tunneling No -Undermining/Tunneling No -Circular Undermining No -Classification - Thickness Full Thickness without Exposed Support Structure -Exudate Amt Medium -Exudate Type Serosanguineous -Wound Margin Indistinct, Non -Visible -Granulation Quality N/A -Slough/Fibrin Yes -Necrosis Amt Large (67-100%) -Necrotic Tissue Type Adherent Slough -Structure Exposed None/Limited to Skin Breakdown -Texture (Re-wound Skin Appearance) Assessed, Scarring -Moisture (Re-wound Skin Appearance Assessed, ) Weeping -Color (Re-wound Skin Appearance) No Abnormality, Assessed -Temperature (Re-wound Skin No Abnormality Appearance) (Pt Warm) -Ulcer Cleansing Rinsed/ Irrigated with Saline -Foul Odor after Cleansing No -Anesthetic Used 4% Lidocaine Solution #1 R GRT TOE DORSAL -Combined with other wound No -Current Size (cm) - Length 1.3 -Current Size (cm) - Width 0.5 -Current Size (cm) - Depth 0.3 -Total Square Cm 0.65 -Photo Taken No -Epithelialization None Present -Tunneling No -Undermining/Tunneling No -Circular Undermining No -Classification - Thickness Full Thickness without Exposed Support Structure -Exudate Amt Medium -Exudate Type Serosanguineous -Wound Margin Indistinct, Non -Visible -Granulation Amt None Present (0 %) -Granulation Quality N/A -Slough/Fibrin Yes -Necrosis Amt Large (67-100%) -Necrotic Tissue Type Adherent Slough -Structure Exposed None/Limited to Skin Breakdown -Texture (Re-wound Skin Appearance) Assessed, Localized Edema ,Scarring -Moisture (Re-wound Skin Appearance Assessed, ) Weeping -Color (Re-wound Skin Appearance) No Abnormality, Assessed -Temperature (Re-wound Skin No Abnormality Appearance) (Pt Warm) -Ulcer Cleansing Rinsed/ Irrigated with Saline -Foul Odor after Cleansing No -Anesthetic Used 4% Lidocaine Solution WC - Nurse 2 - General Ulcer CM Notes Start: 02/26/19 10:50 Freq: Status: Active Protocol: Activity Type Activity Date Activity User E-Sign Co-Sign Detail Recorded Client Recorded Date Recorded By Document 03/12/19 12:11 DV [id number] 03/12/19 12:30 DV 03/12/19 12:11 Wound Center Nurse 2 [Procedure/Treatment] #2 R 2ND TOE DORSAL -Time 12:19 -Correct Patient Yes -Correct Side, Site, Position Yes -Correct Procedure Yes -Procedure Performed Yes -Type of Procedure Debridement -Clinical Debridement Subcutaneous -Post Debridement Size (cm) - Length 3.5 -Post Debridement Size (cm) - Width 0.4 -Post Debridement Size (cm) - Depth 0.2 -Total Square Cm 1.40 -Wound/Ulcer Outcome Not Healed -Ulcer Cleansing Rinsed/ Irrigated with Saline -Foul Odor after Cleansing No -Bioengineered Tissue No -Bleeding Controlled with Pressure -Offloading No -Type of Offloading Surgical Shoe -Treatment Response Procedure Tolerated Well #1 R GRT TOE DORSAL -Time 12:19 -Correct Patient Yes -Correct Side, Site, Position Yes -Correct Procedure Yes -Procedure Performed Yes -Type of Procedure Debridement -Clinical Debridement Subcutaneous -Post Debridement Size (cm) - Length 1.4 -Post Debridement Size (cm) - Width 0.5 -Post Debridement Size (cm) - Depth 0.3 -Total Square Cm 0.70 -Wound/Ulcer Outcome Not Healed -Ulcer Cleansing Rinsed/ Irrigated with Saline -Foul Odor after Cleansing No -Bioengineered Tissue No -Bleeding Controlled with Pressure -Offloading No -Type of Offloading Surgical Shoe -Treatment Response Procedure Tolerated Well [See Physician Procedure note for Specifics] Pain Scale: 0-10 Numeric [Pain] -Is Patient Pain Free? Yes Psych/Mental Status: Normal Affect, Appropriate Debridement Note Post-Debridement Measurements/Treatment WC - Nurse 2 - General Ulcer CM Notes Start: 02/26/19 10:50 Freq: Status: Active Protocol: Activity Type Activity Date Activity User E-Sign Co-Sign Detail Recorded Client Recorded Date Recorded By Document 02/26/19 11:35 MW [id number] 02/26/19 11:57 MW Document 03/05/19 12:49 DV [id number] 03/05/19 12:53 DV Document 03/12/19 12:11 DV [id number] 03/12/19 12:30 DV 02/26/19 03/05/19 03/12/19 11:35 12:49 12:11 Wound Center Nurse 2 #2 R 2ND TOE DORSAL -Time 11:35 12:50 12:19 -Correct Patient Yes Yes Yes -Correct Side, Site, Position Yes Yes Yes -Correct Procedure Yes Yes Yes -Procedure Performed Yes Yes Yes -Type of Procedure Debridement Debridement Debridement -Clinical Debridement Subcutaneous Subcutaneous Subcutaneous -Post Debridement Size (cm) - Length 4.1 1.3 3.5 -Post Debridement Size (cm) - Width 0.9 0.9 0.4 -Post Debridement Size (cm) - Depth 0.2 0.3 0.2 -Total Square Cm 3.69 1.17 1.40 -Wound/Ulcer Outcome Not Healed Not Healed Not Healed -Ulcer Cleansing Rinsed/ Rinsed/ Rinsed/ Irrigated with Irrigated with Irrigated with Saline Saline Saline -Foul Odor after Cleansing No No No -Bioengineered Tissue No No No -Bleeding Controlled with Pressure Pressure Pressure -Offloading No Yes No -Type of Offloading Surgical Shoe Surgical Shoe -Treatment Response Procedure Procedure Procedure Tolerated Well Tolerated Well Tolerated Well #1 R GRT TOE DORSAL -Time 11:35 12:50 12:19 -Correct Patient Yes Yes Yes -Correct Side, Site, Position Yes Yes Yes -Correct Procedure Yes Yes Yes -Procedure Performed Yes Yes Yes -Type of Procedure Debridement Debridement Debridement -Clinical Debridement Subcutaneous Subcutaneous Subcutaneous -Post Debridement Size (cm) - Length 2.0 3.8 1.4 -Post Debridement Size (cm) - Width 0.5 0.9 0.5 -Post Debridement Size (cm) - Depth 0.3 0.2 0.3 -Total Square Cm 1.00 3.42 0.70 -Wound/Ulcer Outcome Not Healed Not Healed Not Healed -Ulcer Cleansing Rinsed/ Rinsed/ Rinsed/ Irrigated with Irrigated with Irrigated with Saline Saline Saline -Foul Odor after Cleansing No No No -Bioengineered Tissue No No No -Bleeding Controlled with Pressure Pressure Pressure -Offloading No Yes No -Type of Offloading Surgical Shoe Surgical Shoe -Treatment Response Procedure Procedure Procedure Tolerated Well Tolerated Well Tolerated Well Pain Scale: 0-10 Numeric Is Patient Pain Free? Yes Yes Yes Wound debrided: right great toe dorsal Laterality: Right Type of Debridement: Excisional debridement Anesthesia Used: 4% Lidocaine Solution, 5% Lidocaine Gel Depth: Down to and including healthy tissue, in the subcutaneous layer Percentage of wound debrided: 100 Instrument Used: 3mm curette Tissue Removed: yellow slough, devitalized tissue Severity: Fat Layer Exposed Amount of bleeding with debridement: Mild Bleeding Controlled with: Compression and gauze Patient tolerated procedure well - Additional Wound Wound debrided: right second toe dorsal Laterality: Right Type of Debridement: Excisional debridement Anesthesia Used: 4% Lidocaine Solution, 5% Lidocaine Gel Depth: Down to and including healthy tissue, in the subcutaneous layer Percentage of wound debrided: 100 Instrument Used: 3mm curette Tissue Removed: yellow slough, devitalized tissue Severity: Fat Layer Exposed Amount of bleeding with debridement: Mild Bleeding Controlled with: Compression and gauze Patient tolerated procedure: Patient tolerated procedure well Assessment/Plan Active Problems (This Medical Record has been edited. Action required.) Non-healing surgical wound (Chronic) Open wound of right great toe (Chronic) Open wound of second toe of right foot (Chronic) Fibromyalgia (Chronic) Assessment: nonhealing surgical wounds of right great and second toes Plan: Letha'aijth wounds were evaluated and debrided today. She tolerated procedure well. Her right great toe wound continues to probe to the plate that is in place from her bunionectomy but hardware is not exposed. She is noncompliant with compression and elevation of her leg. She will continue to dress her wounds with collagen hydrogel and adaptic with changes daily and continue to use ELIECER wrap for compression and offload with her surgical shoe. She was encouraged to elevate and offload her foot to promote healing. She was also encouraged to increase protein intake. She was advised to call or go to ER if she develops fever, chills, increased erythema, excessive bleeding, odor, increased drainage or pain. She would benefit from application of advanced wound care treatments to salvage her great toe and second toe due to the high risk of osteomyelitis given the depth of the wounds and lack of significant progress with conventional wound care treatments for 4 weeks. She will follow up in 1 week.
[2019-03-19 10:36] VITALS: BMI 26.7
--- NOTE | 2019-03-19 17:08 | PCM.WC.PN ---
(1) Non-healing surgical wound Status: Chronic Current Visit: Yes Qualifiers: Encounter type: subsequent encounter Qualified Code(s): T81.89XD - Other complications of procedures, not elsewhere classified, subsequent encounter Code(s): T81.89XA - Other complications of procedures, not elsewhere classified, initial encounter (2) Open wound of right great toe Status: Chronic Current Visit: Yes Qualifiers: Encounter type: subsequent encounter Qualified Code(s): S91.101D - Unspecified open wound of right great toe without damage to nail, subsequent encounter Code(s): S91.101A - Unspecified open wound of right great toe without damage to nail, initial encounter (3) Open wound of second toe of right foot Status: Chronic Current Visit: Yes Qualifiers: Encounter type: subsequent encounter Qualified Code(s): S91.104D - Unspecified open wound of right lesser toe(s) without damage to nail, subsequent encounter Code(s): S91.104A - Unspecified open wound of right lesser toe(s) without damage to nail, initial encounter (4) Fibromyalgia Status: Chronic Current Visit: Yes Code(s): M79.7 - Fibromyalgia (5) Hypothyroidism Status: Chronic Current Visit: No Code(s): E03.9 - Hypothyroidism, unspecified (6) GERD (gastroesophageal reflux disease) Status: Chronic Current Visit: No Qualifiers: Esophagitis presence: without esophagitis Qualified Code(s): K21.9 - Gastro-esophageal reflux disease without esophagitis Code(s): K21.9 - Gastro-esophageal reflux disease without esophagitis Type of Wound Date of Service: 03/19/19 Chief Complaint: Nonhealing surgcial wound of right great toe and right second toe History of Wound: Letha is a 68 yo female who presented to the wound healing center for consultation regarding treatment with hyperbaric oxygen for her nonhealing surgical wounds s/p surgery for bunion and hammer toes by Dr. Marx. During her evaluation, she requested to be seen for wound care at the wound healing center. Unfortunately, she is not eligible for hyperbaric oxygen treatment as her diagnosis is not a reimbursable diagnosis for hyperbaric oxygen treatment. If she were diabetic or if she had a failed/compromised skin graft or flap or chronic refractory osteomyelitis she would be eligible. She underwent surgery for hammertoe and bunionectomy on 01/18/2019 and was doing well with healing until 2 weeks ago when she had dehiscence of surgical incisions of her right second and great toes. She initially was using Aquacel but this dried the wounds out too much. She was prescribed Santyl to apply to the wounds but this was too exxpensive. She has been applying antibiotic ointment to the wounds daily and then gauze and she allows the wounds to be open to air usually twice daily. She was referred to ID to assess for infection by Dr. Marx and saw them yesterday. They did not feel that she had active infection and did not culture her wound per the patient. She had xrays which did not show osteomyelitis but showed appropriate post-operative changes for the surgery that she underwent. She is using a surgical shoe for offloading and ELIECER bandage for compression. She states that when she is on her feet she has significant swelling to her right foot. She denies any fever or chills, drainage or increased pain. Progress of Wound: Letha is here today for follow up of her nonhealing surgical wounds. She tolerated treatment with hydrogel and adaptic to her second toe twice daily and there has been improvement in this wound. The great toe wound she tolerated dressings with Karen moistened with hydrogel. She continues to try to offload and remain off of her feet but finds it difficult. She denies any fever, chills, increased drainage, or erythema. - Physical Exam Vital Signs Temp Pulse Resp BP 97 F L 90 18 130/78 H 03/05/19 12:11 03/05/19 12:11 03/05/19 12:11 03/05/19 12:11 General: Alert, Oriented x3, Cooperative, No apparent distress HEENT: Atraumatic, Normocephalic Oral: Moist Mucosa Neck: Supple Lungs: Clear to auscultation Extremities: Edema Skin: Ulcer/ Wound Wound Measurements and Assessment WC - Nurse 1 - General Ulcer Measurement Start: 02/26/19 10:50 Freq: Status: Active Protocol: Activity Type Activity Date Activity User E-Sign Co-Sign Detail Recorded Client Recorded Date Recorded By Document 03/19/19 10:36 RB [id number] 03/19/19 10:50 RB 03/19/19 10:36 Wound Center Nurse 1 [Ulcer Assessment] #2 R 2ND TOE DORSAL -Combined with other wound No -Current Size (cm) - Length 0.3 -Current Size (cm) - Width 0.3 -Current Size (cm) - Depth 0.1 -Total Square Cm 0.09 -Tunneling No -Undermining/Tunneling No -Circular Undermining No -Exudate Amt Small -Exudate Type Serosanguineous -Wound Margin Flat & Intact -Granulation Amt Medium (34-66%) -Granulation Quality [place] -Slough/Fibrin Yes -Necrosis Amt Small (1-33%) -Necrotic Tissue Type Adherent Slough -Structure Exposed N/A -Texture (Re-wound Skin Appearance) Assessed -Moisture (Re-wound Skin Appearance Assessed ) -Color (Re-wound Skin Appearance) Assessed -Temperature (Re-wound Skin No Abnormality Appearance) (Pt Warm) -Tenderness on Palpation (Re-wound No Skin Appearance) -Ulcer Cleansing Wound Cleanser -Foul Odor after Cleansing No -Anesthetic Used 5% Lidocaine Gel #1 R GRT TOE DORSAL -Combined with other wound No -Current Size (cm) - Length 1.1 -Current Size (cm) - Width 0.4 -Current Size (cm) - Depth 0.3 -Total Square Cm 0.44 -Tunneling No -Undermining/Tunneling No -Circular Undermining No -Exudate Amt Small -Exudate Type Serosanguineous -Wound Margin Thickened & Rolled Under -Granulation Amt Small (1-33%) -Granulation Quality [place] -Necrosis Amt Large (67-100%) -Necrotic Tissue Type Adherent Slough -Structure Exposed N/A -Texture (Re-wound Skin Appearance) Scarring -Moisture (Re-wound Skin Appearance Assessed ) -Color (Re-wound Skin Appearance) Assessed -Temperature (Re-wound Skin No Abnormality Appearance) (Pt Warm) -Tenderness on Palpation (Re-wound No Skin Appearance) -Ulcer Cleansing Wound Cleanser -Foul Odor after Cleansing No -Anesthetic Used 5% Lidocaine Gel WC - Nurse 2 - General Ulcer CM Notes Start: 02/26/19 10:50 Freq: Status: Active Protocol: Activity Type Activity Date Activity User E-Sign Co-Sign Detail Recorded Client Recorded Date Recorded By Document 03/19/19 11:09 DV [id number] 03/19/19 11:12 DV 03/19/19 11:09 Wound Center Nurse 2 [Procedure/Treatment] #2 R 2ND TOE DORSAL -Time 11:10 -Correct Patient Yes -Correct Side, Site, Position Yes -Correct Procedure Yes -Procedure Performed Yes -Type of Procedure Debridement -Clinical Debridement Subcutaneous -Post Debridement Size (cm) - Length 0.5 -Post Debridement Size (cm) - Width 0.4 -Post Debridement Size (cm) - Depth 0.2 -Total Square Cm 0.20 -Wound/Ulcer Outcome Not Healed -Ulcer Cleansing Rinsed/ Irrigated with Saline -Foul Odor after Cleansing No -Bioengineered Tissue No -Bleeding Controlled with Pressure -Offloading No -Treatment Response Procedure Tolerated Well #1 R GRT TOE DORSAL -Time 11:10 -Correct Patient Yes -Correct Side, Site, Position Yes -Correct Procedure Yes -Procedure Performed Yes -Type of Procedure Debridement -Clinical Debridement Subcutaneous -Post Debridement Size (cm) - Length 1.8 -Post Debridement Size (cm) - Width 0.5 -Post Debridement Size (cm) - Depth 0.3 -Total Square Cm 0.90 -Wound/Ulcer Outcome Not Healed -Bleeding Controlled with Pressure -Offloading No -Treatment Response Procedure Tolerated Well [See Physician Procedure note for Specifics] Pain Scale: 0-10 Numeric [Pain] -Is Patient Pain Free? Yes Psych/Mental Status: Normal Affect, Appropriate Debridement Note Post-Debridement Measurements/Treatment WC - Nurse 2 - General Ulcer CM Notes Start: 02/26/19 10:50 Freq: Status: Active Protocol: Activity Type Activity Date Activity User E-Sign Co-Sign Detail Recorded Client Recorded Date Recorded By Document 02/26/19 11:35 MW [id number] 02/26/19 11:57 MW Document 03/05/19 12:49 DV [id number] 03/05/19 12:53 DV Document 03/12/19 12:11 DV [id number] 03/12/19 12:30 DV Document 03/19/19 11:09 DV [id number] 03/19/19 11:12 DV 02/26/19 03/05/19 03/12/19 11:35 12:49 12:11 Wound Center Nurse 2 #2 R 2ND TOE DORSAL -Time 11:35 12:50 12:19 -Correct Patient Yes Yes Yes -Correct Side, Site, Position Yes Yes Yes -Correct Procedure Yes Yes Yes -Procedure Performed Yes Yes Yes -Type of Procedure Debridement Debridement Debridement -Clinical Debridement Subcutaneous Subcutaneous Subcutaneous -Post Debridement Size (cm) - Length 4.1 1.3 3.5 -Post Debridement Size (cm) - Width 0.9 0.9 0.4 -Post Debridement Size (cm) - Depth 0.2 0.3 0.2 -Total Square Cm 3.69 1.17 1.40 -Wound/Ulcer Outcome Not Healed Not Healed Not Healed -Ulcer Cleansing Rinsed/ Rinsed/ Rinsed/ Irrigated with Irrigated with Irrigated with Saline Saline Saline -Foul Odor after Cleansing No No No -Bioengineered Tissue No No No -Bleeding Controlled with Pressure Pressure Pressure -Offloading No Yes No -Type of Offloading Surgical Shoe Surgical Shoe -Treatment Response Procedure Procedure Procedure Tolerated Well Tolerated Well Tolerated Well #1 R GRT TOE DORSAL -Time 11:35 12:50 12:19 -Correct Patient Yes Yes Yes -Correct Side, Site, Position Yes Yes Yes -Correct Procedure Yes Yes Yes -Procedure Performed Yes Yes Yes -Type of Procedure Debridement Debridement Debridement -Clinical Debridement Subcutaneous Subcutaneous Subcutaneous -Post Debridement Size (cm) - Length 2.0 3.8 1.4 -Post Debridement Size (cm) - Width 0.5 0.9 0.5 -Post Debridement Size (cm) - Depth 0.3 0.2 0.3 -Total Square Cm 1.00 3.42 0.70 -Wound/Ulcer Outcome Not Healed Not Healed Not Healed -Ulcer Cleansing Rinsed/ Rinsed/ Rinsed/ Irrigated with Irrigated with Irrigated with Saline Saline Saline -Foul Odor after Cleansing No No No -Bioengineered Tissue No No No -Bleeding Controlled with Pressure Pressure Pressure -Offloading No Yes No -Type of Offloading Surgical Shoe Surgical Shoe -Treatment Response Procedure Procedure Procedure Tolerated Well Tolerated Well Tolerated Well Pain Scale: 0-10 Numeric Is Patient Pain Free? Yes Yes Yes 03/19/19 11:09 Wound Center Nurse 2 #2 R 2ND TOE DORSAL -Time 11:10 -Correct Patient Yes -Correct Side, Site, Position Yes -Correct Procedure Yes -Procedure Performed Yes -Type of Procedure Debridement -Clinical Debridement Subcutaneous -Post Debridement Size (cm) - Length 0.5 -Post Debridement Size (cm) - Width 0.4 -Post Debridement Size (cm) - Depth 0.2 -Total Square Cm 0.20 -Wound/Ulcer Outcome Not Healed -Ulcer Cleansing Rinsed/ Irrigated with Saline -Foul Odor after Cleansing No -Bioengineered Tissue No -Bleeding Controlled with Pressure -Offloading No -Type of Offloading -Treatment Response Procedure Tolerated Well #1 R GRT TOE DORSAL -Time 11:10 -Correct Patient Yes -Correct Side, Site, Position Yes -Correct Procedure Yes -Procedure Performed Yes -Type of Procedure Debridement -Clinical Debridement Subcutaneous -Post Debridement Size (cm) - Length 1.8 -Post Debridement Size (cm) - Width 0.5 -Post Debridement Size (cm) - Depth 0.3 -Total Square Cm 0.90 -Wound/Ulcer Outcome Not Healed -Ulcer Cleansing -Foul Odor after Cleansing -Bioengineered Tissue -Bleeding Controlled with Pressure -Offloading No -Type of Offloading -Treatment Response Procedure Tolerated Well Pain Scale: 0-10 Numeric Is Patient Pain Free? Yes Wound debrided: right second toe dorsal Laterality: Right Type of Debridement: Excisional debridement Anesthesia Used: 4% Lidocaine Solution, 5% Lidocaine Gel Depth: Down to and including healthy tissue, in the subcutaneous layer Percentage of wound debrided: 100 Instrument Used: 3mm curette Tissue Removed: yellow slough, devitalized tissue Severity: Fat Layer Exposed Amount of bleeding with debridement: Mild Bleeding Controlled with: Compression and gauze Patient tolerated procedure well - Additional Wound Wound debrided: right great toe dorsal Laterality: Right Type of Debridement: Excisional debridement Anesthesia Used: 4% Lidocaine Solution, 5% Lidocaine Gel Depth: Down to and including healthy tissue, in the subcutaneous layer, to muscle Percentage of wound debrided: 100 Instrument Used: 3mm curette Tissue Removed: yellow slough, devitalized tissue Severity: Fat Layer Exposed Amount of bleeding with debridement: Mild Bleeding Controlled with: Compression and gauze Patient tolerated procedure: Patient tolerated procedure well Assessment/Plan Active Problems (This Medical Record has been edited. Action required.) Non-healing surgical wound (Chronic) Open wound of right great toe (Chronic) Open wound of second toe of right foot (Chronic) Fibromyalgia (Chronic) Assessment: nonhealing surgical wounds of right great and second toes Plan: Letha's wounds were evaluated and debrided today. She tolerated procedure well. Her right great toe wound continues to probe to the plate that is in place from her bunionectomy but hardware is not exposed and it is not improved but has not worsened. She is noncompliant with compression and elevation of her leg. She will continue to dress her wounds with collagen hydrogel and adaptic and Karen and hydrogel to her great toe with changes daily and continue to use ELIECER wrap for compression and offload with her surgical shoe. She was encouraged to elevate and offload her foot to promote healing. She was also encouraged to increase protein intake. She was advised to call or go to ER if she develops fever, chills, increased erythema, excessive bleeding, odor, increased drainage or pain. She would benefit from application of advanced wound care treatments to salvage her great toe and second toe due to the high risk of osteomyelitis given the depth of the wounds and lack of significant progress with conventional wound care treatments for 4 weeks. She will follow up in 1 week.
== END 2019-03-19 23:59 ==
LOC: WC 10:30
PROVIDERS: Family Provider Family Medicine; PCP Family Medicine; Referring Provider Family Medicine; Visit Provider Family Medicine
DX: T81.31XA Disruption of external operation (surgical) wound, not elsewhere classified, initial encounter (principal); Y83.8 Other surgical procedures as the cause of abnormal reaction of the patient, or of later complication, without mention of misadventure at the time of the procedure; M79.7 Fibromyalgia; E03.9 Hypothyroidism, unspecified; K21.9 Gastro-esophageal reflux disease without esophagitis; Z91.19 Patient's noncompliance with other medical treatment and regimen
CPT/HCPCS: 11042; 87070; 87075; 87205; 99213; G0463

== ENCOUNTER → 2019-03-24 10:20 | Outpatient (CLI) | payer MEDICARE, SELFPAY ==
[2018-08-25 14:32] VITALS: BMI 26.7
[2019-03-19 10:36] VITALS: BMI 26.7
--- NOTE | 2019-03-24 10:21 | BI_ITS ---
MAMMOGRAPHY - BILATERAL SCREENING REASON FOR EXAM: Female, 68 years old. Routine annual screening examination. PERTINENT HISTORY: Non-contributory. Remote right stereotactic breast biopsy. TECHNIQUE: Digital bilateral breast tanya (3D mammographic acquisition) in the CC and MLO projections. 2-D mediolateral oblique (MLO) and craniocaudad (CC) views of both breasts were obtained. CAD: Full Field Digital Mammography with Computer Added Detection was performed. COMPARISON: Comparison is made with prior study dated March 23, 2018 and February 27, 2017. FINDINGS: Breast Composition: There are scattered areas of fibroglandular density. There are no dominant masses or suspicious calcifications. Stable secretory calcifications. A tissue clip marker is once again seen in the upper anterior lateral aspect of the right breast. No other significant abnormalities are identified. There has been no significant change since the prior study. BI/SCREEN MAMM (CAD) W/TANYA BILAT IMPRESSION: Stable bilateral screening mammogram. Yearly follow-up mammogram recommended. (A) ASSESSMENT CATEGORY: BIRADS Category 2: Benign. A letter regarding these results will be sent to the patient by the facility within 30 days. Approximately 10% of breast cancers are not detected by mammography. A normal mammogram should not delay biopsy of a clinically suspicious abnormality. [id number] Electronically Signed: Charli Wayne, at 15:23 EST , Service support ,
== END ==
PROVIDERS: Family Provider Family Medicine; PCP Family Medicine; Referring Provider Obstetrics & Gynecology; Visit Provider Obstetrics & Gynecology
DX: Z12.31 Encounter for screening mammogram for malignant neoplasm of breast (principal)
CPT/HCPCS: 77063; 77067

== ENCOUNTER 2019-04-09 10:00 | Outpatient (RCR) | payer MEDICARE, SELFPAY ==
[2019-03-20 01:08] VITALS: BP 130/78; PULSE 90; RESP 18; TEMP 36.1
[2019-03-24 10:55] VITALS: BMI 26.7
[2019-03-26 10:33] VITALS: BP 142/78; PULSE 78; RESP 18; TEMP 36.4; BMI 26.7
--- NOTE | 2019-03-26 13:52 | PN.PCM_ITS ---
(1) Non-healing surgical wound Status: Chronic Current Visit: Yes Qualifiers: Encounter type: subsequent encounter Code(s): T81.89XA - Other complications of procedures, not elsewhere classified, initial encounter (2) Open wound of right great toe Status: Chronic Current Visit: Yes Qualifiers: Encounter type: subsequent encounter Code(s): S91.101A - Unspecified open wound of right great toe without damage to nail, initial encounter (3) Open wound of second toe of right foot Status: Chronic Current Visit: Yes Qualifiers: Encounter type: subsequent encounter Code(s): S91.104A - Unspecified open wound of right lesser toe(s) without damage to nail, initial encounter Type of Wound Date of Service: 03/26/19 Chief Complaint: Nonhealing surgcial wound of right great toe and right second toe History of Wound: Letha is a 68 yo female who presented to the wound healing center for consultation regarding treatment with hyperbaric oxygen for her nonhealing surgical wounds s/p surgery for bunion and hammer toes by Dr. Marx. During her evaluation, she requested to be seen for wound care at the wound healing center. Unfortunately, she is not eligible for hyperbaric oxygen treatment as her diagnosis is not a reimbursable diagnosis for hyperbaric oxygen treatment. If she were diabetic or if she had a failed/compromised skin graft or flap or chronic refractory osteomyelitis she would be eligible. She underwent surgery for hammertoe and bunionectomy on 01/18/2019 and was doing well with healing until 2 weeks ago when she had dehiscence of surgical incisions of her right second and great toes. She initially was using Aquacel but this dried the wounds out too much. She was prescribed Santyl to apply to the wounds but this was too exxpensive. She has been applying antibiotic ointment to the wounds daily and then gauze and she allows the wounds to be open to air usually twice daily. She was referred to ID to assess for infection by Dr. Marx and saw them yesterday. They did not feel that she had active infection and did not culture her wound per the patient. She had xrays which did not show osteo myelitis but showed appropriate post-operative changes for the surgery that she underwent. She is using a surgical shoe for offloading and ELIECER bandage for compression. She states that when she is on her feet she has significant swelling to her right foot. She denies any fever or chills, drainage or increased pain. Progress of Wound: Letha is here today for follow up of her nonhealing surgical wounds. She is tolerating treatment with hydrogel and adaptic to her second toe twice daily and there has been improvement in this wound. The great toe wound she tolerated dressings with Karen moistened with hydrogel but is not showing much improvement in the depth of the wound. She continues to try to offload and remain off of her feet as best as she can. She denies any fever, chills, increased drainage, or erythema. - Physical Exam Vital Signs Temp Pulse Resp BP 97.6 F L 78 18 142/78 H 03/26/19 10:33 03/26/19 10:33 03/26/19 10:33 03/26/19 10:33 General: Alert, Oriented x3, Cooperative, No apparent distress HEENT: Atraumatic, Normocephalic Oral: Moist Mucosa Extremities: Edema Skin: Ulcer/ Wound Wound Measurements and Assessment WC - Nurse 1 - General Ulcer Measurement Start: 03/26/19 10:33 Freq: Status: Active Protocol: Activity Type Activity Date Activity User E-Sign Co-Sign Detail Recorded Client Recorded Date Recorded By Document 03/26/19 10:33 DL [id number] 03/26/19 10:42 DL 03/26/19 10:33 Wound Center Nurse 1 [Ulcer Assessment] #2 R 2ND TOE DORSAL -Current Size (cm) - Length 1 -Current Size (cm) - Width 0.5 -Current Size (cm) - Depth 0.3 -Total Square Cm 0.5 -Photo Taken No -Exudate Amt Small -Exudate Type Serosanguineous -Wound Margin Distinct, Outline Attached -Granulation Amt None Present (0 %) -Necrosis Amt Large (67-100%) -Necrotic Tissue Type Adherent Slough -Structure Exposed N/A -Texture (Re-wound Skin Appearance) Scarring -Moisture (Re-wound Skin Appearance No Abnormality ) -Color (Re-wound Skin Appearance) Rubor -Temperature (Re-wound Skin No Abnormality Appearance) (Pt Warm) -Tenderness on Palpation (Re-wound No Skin Appearance) -Ulcer Cleansing Wound Cleanser -Foul Odor after Cleansing No -Anesthetic Used 4% Lidocaine Solution #1 R GRT TOE DORSAL -Current Size (cm) - Length 0.3 -Current Size (cm) - Width 0.2 -Current Size (cm) - Depth 0.1 -Total Square Cm 0.06 -Photo Taken No -Exudate Amt None Present -Wound Margin Distinct, Outline Attached -Granulation Amt None Present (0 %) -Slough/Fibrin Yes -Necrosis Amt Large (67-100%) -Necrotic Tissue Type Adherent Slough -Structure Exposed N/A -Texture (Re-wound Skin Appearance) Scarring -Moisture (Re-wound Skin Appearance No Abnormality ) -Color (Re-wound Skin Appearance) Rubor -Temperature (Re-wound Skin No Abnormality Appearance) (Pt Warm) -Tenderness on Palpation (Re-wound No Skin Appearance) -Ulcer Cleansing Wound Cleanser -Foul Odor after Cleansing No -Anesthetic Used 5% Lidocaine Gel WC - Nurse 2 - General Ulcer CM Notes Start: 03/26/19 10:33 Freq: Status: Active Protocol: Activity Type Activity Date Activity User E-Sign Co-Sign Detail Recorded Client Recorded Date Recorded By Document 03/26/19 10:52 MW [id number] 03/26/19 11:02 MW 03/26/19 10:52 Wound Center Nurse 2 [Procedure/Treatment] #2 R 2ND TOE DORSAL -Time 10:53 -Correct Patient Yes -Correct Side, Site, Position Yes -Correct Procedure Yes -Procedure Performed Yes -Type of Procedure Debridement -Clinical Debridement Subcutaneous -Post Debridement Size (cm) - Length 0.5 -Post Debridement Size (cm) - Width 0.2 -Post Debridement Size (cm) - Depth 0.1 -Total Square Cm 0.10 -Wound/Ulcer Outcome Not Healed -Ulcer Cleansing Rinsed/ Irrigated with Saline -Foul Odor after Cleansing No -Bioengineered Tissue No -Bleeding Controlled with Pressure -Offloading No -Treatment Response Procedure Tolerated Well #1 R GRT TOE DORSAL -Time 10:53 -Correct Patient Yes -Correct Side, Site, Position Yes -Correct Procedure Yes -Procedure Performed Yes -Type of Procedure Debridement -Clinical Debridement Subcutaneous -Post Debridement Size (cm) - Length 1.1 -Post Debridement Size (cm) - Width 0.4 -Post Debridement Size (cm) - Depth 0.3 -Total Square Cm 0.44 -Wound/Ulcer Outcome Not Healed -Ulcer Cleansing Rinsed/ Irrigated with Saline -Foul Odor after Cleansing No -Bioengineered Tissue No -Bleeding Controlled with Pressure -Offloading No -Treatment Response Procedure Tolerated Well [See Physician Procedure note for Specifics] Pain Scale: 0-10 Numeric [Pain] -Is Patient Pain Free? Yes Psych/Mental Status: Normal Affect, Appropriate Debridement Note Post-Debridement Measurements/Treatment WC - Nurse 2 - General Ulcer CM Notes Start: 03/26/19 10:33 Freq: Status: Active Protocol: Activity Type Activity Date Activity User E-Sign Co-Sign Detail Recorded Client Recorded Date Recorded By Document 03/26/19 10:52 MW [id number] 03/26/19 11:02 MW 03/26/19 10:52 Wound Center Nurse 2 #2 R 2ND TOE DORSAL -Time 10:53 -Correct Patient Yes -Correct Side, Site, Position Yes -Correct Procedure Yes -Procedure Performed Yes -Type of Procedure Debridement -Clinical Debridement Subcutaneous -Post Debridement Size (cm) - Length 0.5 -Post Debridement Size (cm) - Width 0.2 -Post Debridement Size (cm) - Depth 0.1 -Total Square Cm 0.10 -Wound/Ulcer Outcome Not Healed -Ulcer Cleansing Rinsed/ Irrigated with Saline -Foul Odor after Cleansing No -Bioengineered Tissue No -Bleeding Controlled with Pressure -Offloading No -Treatment Response Procedure Tolerated Well #1 R GRT TOE DORSAL -Time 10:53 -Correct Patient Yes -Correct Side, Site, Position Yes -Correct Procedure Yes -Procedure Performed Yes -Type of Procedure Debridement -Clinical Debridement Subcutaneous -Post Debridement Size (cm) - Length 1.1 -Post Debridement Size (cm) - Width 0.4 -Post Debridement Size (cm) - Depth 0.3 -Total Square Cm 0.44 -Wound/Ulcer Outcome Not Healed -Ulcer Cleansing Rinsed/ Irrigated with Saline -Foul Odor after Cleansing No -Bioengineered Tissue No -Bleeding Controlled with Pressure -Offloading No -Treatment Response Procedure Tolerated Well Pain Scale: 0-10 Numeric Is Patient Pain Free? Yes Wound debrided: right second toe dorsal Laterality: Right Type of Debridement: Excisional debridement Anesthesia Used: 4% Lidocaine Solution, 5% Lidocaine Gel Depth: Down to and including healthy tissue, in the subcutaneous layer Percentage of wound debrided: 100 Instrument Used: 3mm curette Tissue Removed: yellow slough, devitalized tissue Severity: Fat Layer Exposed Amount of bleeding with debridement: Mild Bleeding Controlled with: Compression and gauze Patient tolerated procedure well - Additional Wound Wound debrided: right great toe Laterality: Right Type of Debridement: Excisional debridement Anesthesia Used: 4% Lidocaine Solution, 5% Lidocaine Gel Depth: Down to and including healthy tissue, in the subcutaneous layer Percentage of wound debrided: 100 Instrument Used: 3mm curette Tissue Removed: yellow slough, devitalized tissue Severity: Fat Layer Exposed Amount of bleeding with debridement: Mild Bleeding Controlled with: Compression and gauze Patient tolerated procedure: Patient tolerated procedure well Operative Diagnosis: hardware visible Assessment/Plan Active Problems (Last Reviewed 03/24/19 @ 10:54 by Marilou Sahu) Non-healing surgical wound (Chronic) Open wound of right great toe (Chronic) Open wound of second toe of right foot (Chronic) Assessment: nonhealing surgical wounds of right great and second toes Plan: Letha's wounds were evaluated and debrided today. She tolerated procedure well. Her right great toe wound continues to probe to the plate and the screw is visible now. The length of the wound has decreased but the depth is unchanged and lacks granulation. She is using and ELIECER bandage for compression and continues to elevate her leg. She will continue to dress her wounds with collagen hydrogel and adaptic and Karen and hydrogel to her great toe with changes daily and continue to use ELIECER wrap for compression and offload with her surgical shoe. We have discussed removal of the hardware if she is not approved for any of the skin substitutes and does not have any improvement in her wound. She is agreeable to this. She was encouraged to elevate and offload her foot to promote healing. She was also encouraged to increase protein intake. She was advised to call or go to ER if she develops fever, chills, increased erythema, excessive bleeding, odor, increased drainage or pain. She would benefit from application of advanced wound care treatments to salvage her great toe and second toe due to the high risk of osteomyelitis given the depth of the wounds and lack of significant progress with conventional wound care treatments for 4 weeks. She will follow up in 1 week.
[2019-04-09 10:05] VITALS: BP 147/63; PULSE 75; RESP 16; TEMP 36.2; BMI 26.7
--- NOTE | 2019-04-09 10:10 | WC ---
DR TRINH PERFORED SURGERY ON RIGHT GREAT TOE REMOVED PLATE AND 2 SCREWS STATED BY PT. INCISION WELL APROXIMATED AND SUTURES INTACT ON RIGHT GREAT TOE
--- NOTE | 2019-04-09 12:30 | PCM.WC.PN ---
(1) Non-healing surgical wound Status: Chronic Current Visit: Yes Qualifiers: Encounter type: subsequent encounter Code(s): T81.89XA - Other complications of procedures, not elsewhere classified, initial encounter (2) Open wound of right great toe Status: Chronic Current Visit: Yes Qualifiers: Encounter type: subsequent encounter Code(s): S91.101A - Unspecified open wound of right great toe without damage to nail, initial encounter (3) Open wound of second toe of right foot Status: Chronic Current Visit: Yes Qualifiers: Encounter type: subsequent encounter Code(s): S91.104A - Unspecified open wound of right lesser toe(s) without damage to nail, initial encounter Type of Wound Date of Service: 04/09/19 Chief Complaint: Nonhealing surgcial wound of right great toe and right second toe History of Wound: Letha is a 68 yo female who presented to the wound healing center for consultation regarding treatment with hyperbaric oxygen for her nonhealing surgical wounds s/p surgery for bunion and hammer toes by Dr. Marx. During her evaluation, she requested to be seen for wound care at the wound healing center. Unfortunately, she is not eligible for hyperbaric oxygen treatment as her diagnosis is not a reimbursable diagnosis for hyperbaric oxygen treatment. If she were diabetic or if she had a failed/compromised skin graft or flap or chronic refractory osteomyelitis she would be eligible. She underwent surgery for hammertoe and bunionectomy on 01/18/2019 and was doing well with healing until 2 weeks ago when she had dehiscence of surgical incisions of her right second and great toes. She initially was using Aquacel but this dried the wounds out too much. She was prescribed Santyl to apply to the wounds but this was too exxpensive. She has been applying antibiotic ointment to the wounds daily and then gauze and she allows the wounds to be open to air usually twice daily. She was referred to ID to assess for infection by Dr. Marx and saw them yesterday. They did not feel that she had active infection and did not culture her wound per the patient. She had xrays which did not show osteomyelitis but showed appropriate post-operative changes for the surgery that she underwent. She is using a surgical shoe for offloading and ELIECER bandage for compression. She states that when she is on her feet she has significant swelling to her right foot. She denies any fever or chills, drainage or increased pain. Progress of Wound: Letha is here today for follow up of her nonhealing surgical wounds. She underwent surgery to remove the hardware from her bunionectomy on 03/31/[address] Marx with closure of the great toe wound. She has been doing well since surgery and feels much less pain. The sutures are intact and incision remains closed. She continues to try to offload and remain off of her feet as best as she can. She denies any fever, chills, increased drainage, or erythema. - Physical Exam Vital Signs Temp Pulse Resp BP 97.2 F L 75 16 147/63 H 04/09/19 10:05 04/09/19 10:05 04/09/19 10:05 04/09/19 10:05 General: Alert, Oriented x3, Cooperative, No apparent distress HEENT: Atraumatic, Normocephalic Oral: Moist Mucosa Neck: Supple Extremities: Edema Skin: Ulcer/ Wound Wound Measurements and Assessment WC - Nurse 1 - General Ulcer Measurement Start: 03/26/19 10:33 Freq: Status: Active Protocol: Activity Type Activity Date Activity User E-Sign Co-Sign Detail Recorded Client Recorded Date Recorded By Document 04/09/19 10:05 [facility] [id number] 04/09/19 10:13 [facility] 04/09/19 10:05 Wound Center Nurse 1 [Ulcer Assessment] #2 R 2ND TOE DORSAL -Combined with other wound No -Current Size (cm) - Length 0.1 -Current Size (cm) - Width 0.1 -Current Size (cm) - Depth 0.1 -Total Square Cm 0.01 -Tunneling No -Undermining/Tunneling No -Circular Undermining No -Exudate Amt None Present -Wound Margin Flat & Intact -Granulation Amt Medium (34-66%) -Granulation Quality [place] -Slough/Fibrin Yes -Necrosis Amt Small (1-33%) -Necrotic Tissue Type Adherent Slough -Structure Exposed N/A -Texture (Re-wound Skin Appearance) Assessed, Scarring -Moisture (Re-wound Skin Appearance Assessed ) -Color (Re-wound Skin Appearance) Assessed -Temperature (Re-wound Skin No Abnormality Appearance) (Pt Warm) -Tenderness on Palpation (Re-wound No Skin Appearance) -Ulcer Cleansing Wound Cleanser -Foul Odor after Cleansing No #1 R GRT TOE DORSAL POST OP -Combined with other wound No -Current Size (cm) - Length 0.1 -Current Size (cm) - Width 0.1 -Current Size (cm) - Depth 0.1 -Total Square Cm 0.01 -Exudate Amt Small -Exudate Type Serosanguineous -Wound Margin Flat & Intact -Granulation Amt Large (67-100%) -Granulation Quality [place] -Slough/Fibrin No -Necrosis Amt None Present (0 %) -Structure Exposed N/A -Texture (Re-wound Skin Appearance) Assessed -Moisture (Re-wound Skin Appearance Assessed ) -Color (Re-wound Skin Appearance) Assessed -Temperature (Re-wound Skin No Abnormality Appearance) (Pt Warm) -Tenderness on Palpation (Re-wound No Skin Appearance) -Ulcer Cleansing Wound Cleanser -Foul Odor after Cleansing No 04/09/19 10:10 Wound Center by Rae Goff DR PERFORED SURGERY ON RIGHT GREAT TOE REMOVED PLATE AND 2 SCREWS STATED BY PT. INCISION WELL APROXIMATED AND SUTURES INTACT ON RIGHT GREAT TOE Initialized on 04/09/19 10:10 - END OF NOTE WC - Nurse 2 - General Ulcer CM Notes Start: 03/26/19 10:33 Freq: Status: Active Protocol: Activity Type Activity Date Activity User E-Sign Co-Sign Detail Recorded Client Recorded Date Recorded By Document 04/09/19 10:24 MW [id number] 04/09/19 10:34 MW 04/09/19 10:24 Wound Center Nurse 2 [Procedure/Treatment] #2 R 2ND TOE DORSAL -Time 10:32 -Correct Patient Yes -Correct Side, Site, Position Yes -Correct Procedure Yes -Procedure Performed No -Post Debridement Size (cm) - Length 0 -Post Debridement Size (cm) - Width 0 -Post Debridement Size (cm) - Depth 0 -Total Square Cm 0 -Wound/Ulcer Outcome Healed- Epithelialized #1 R GRT TOE DORSAL POST OP -Time 10:33 -Correct Patient Yes -Correct Side, Site, Position Yes -Correct Procedure Yes -Procedure Performed No -Post Debridement Size (cm) - Length 0 -Post Debridement Size (cm) - Width 0 -Post Debridement Size (cm) - Depth 0 -Total Square Cm 0 -Wound/Ulcer Outcome Healed- Epithelialized [See Physician Procedure note for Specifics] Pain Scale: 0-10 Numeric [Pain] -Is Patient Pain Free? Yes Psych/Mental Status: Normal Affect, Appropriate Debridement Note Post-Debridement Measurements/Treatment WC - Nurse 2 - General Ulcer CM Notes Start: 03/26/19 10:33 Freq: Status: Active Protocol: Activity Type Activity Date Activity User E-Sign Co-Sign Detail Recorded Client Recorded Date Recorded By Document 03/26/19 10:52 MW [id number] 03/26/19 11:02 MW Document 04/09/19 10:24 MW [id number] 04/09/19 10:34 MW 03/26/19 04/09/19 10:52 10:24 Wound Center Nurse 2 #2 R 2ND TOE DORSAL -Time 10:53 10:32 -Correct Patient Yes Yes -Correct Side, Site, Position Yes Yes -Correct Procedure Yes Yes -Procedure Performed Yes No -Type of Procedure Debridement -Clinical Debridement Subcutaneous -Post Debridement Size (cm) - Length 0.5 0 -Post Debridement Size (cm) - Width 0.2 0 -Post Debridement Size (cm) - Depth 0.1 0 -Total Square Cm 0.10 0 -Wound/Ulcer Outcome Not Healed Healed- Epithelialized -Ulcer Cleansing Rinsed/ Irrigated with Saline -Foul Odor after Cleansing No -Bioengineered Tissue No -Bleeding Controlled with Pressure -Offloading No -Treatment Response Procedure Tolerated Well #1 R GRT TOE DORSAL POST OP -Time 10:53 10:33 -Correct Patient Yes Yes -Correct Side, Site, Position Yes Yes -Correct Procedure Yes Yes -Procedure Performed Yes No -Type of Procedure Debridement -Clinical Debridement Subcutaneous -Post Debridement Size (cm) - Length 1.1 0 -Post Debridement Size (cm) - Width 0.4 0 -Post Debridement Size (cm) - Depth 0.3 0 -Total Square Cm 0.44 0 -Wound/Ulcer Outcome Not Healed Healed- Epithelialized -Ulcer Cleansing Rinsed/ Irrigated with Saline -Foul Odor after Cleansing No -Bioengineered Tissue No -Bleeding Controlled with Pressure -Offloading No -Treatment Response Procedure Tolerated Well Pain Scale: 0-10 Numeric Is Patient Pain Free? Yes Yes Wound debrided: right great toe dorsal Laterality: Right No debridement was completed today - Sutures intact and incision closed - Additional Wound Wound debrided: right second toe dorsal Laterality: Right Patient tolerated procedure: Patient tolerated procedure well Operative Diagnosis: no debridement completed. Wound is healed. Assessment/Plan Active Problems (Last Reviewed 03/24/19 @ 10:54 by Marilou Sahu) Non-healing surgical wound (Chronic) Open wound of right great toe (Chronic) Open wound of second toe of right foot (Chronic) Assessment: nonhealing surgical wounds of right great and second toes Plan: Letha's wounds were evaluated today. She will continue to use ELIECER wrap for compression and offload with her surgical shoe. She was encouraged to elevate and offload her foot to promote healing. She was also encouraged to increase protein intake. She was advised to call or go to ER if she develops fever, chills, increased erythema, excessive bleeding, odor, increased drainage or pain. She will be discharged and will follow up if needed in the future.
== END 2019-04-17 23:59 ==
LOC: WC 10:00
PROVIDERS: Family Provider Family Medicine; PCP Family Medicine; Referring Provider Family Medicine; Visit Provider Family Medicine
DX: T81.31XA Disruption of external operation (surgical) wound, not elsewhere classified, initial encounter (principal); Y83.8 Other surgical procedures as the cause of abnormal reaction of the patient, or of later complication, without mention of misadventure at the time of the procedure; M79.89 Other specified soft tissue disorders
CPT/HCPCS: 11042; 99213; G0463

== ENCOUNTER → 2019-07-14 08:43 | Outpatient (CLI) | payer MEDICARE, SELFPAY ==
--- NOTE | 2019-07-14 09:00 | CT_ITS ---
STUDY: CT SOFT TISSUE NECK WITHOUT CONTRAST REASON FOR EXAM: Female, 68 years old. RT SUBMANDIBULAR SIALOADENITIS RADIATION DOSAGE (If Supplied By Facility): CTDIvol = ( 18.16 ) mGy, DLP = ( 498.76 ) mGycm TECHNIQUE: The patient was scanned in a multi-detector CT scanner. High resolution transaxial imaging was performed without the administration of intravenous contrast material. Sagittal and coronal images were reconstructed. Individualized dose optimization techniques were used for this CT. COMPARISON: None. FINDINGS: Normal bilateral parotid glands. Normal bilateral cable systems installer spaces. Normal bilateral parapharyngeal spaces. Normal bilateral carotid spaces. Normal bilateral sublingual and submandibular glands and spaces. Normal visualized nasopharynx. Normal retropharyngeal space. Normal perivertebral space. Normal visualized bilateral faucial tonsils. The visualized tongue, tongue base and oropharynx are normal. There are enlarged right cervical lymph nodes with the most prominent lymph node at the right jugulodigastric region measuring up to 2.3 cm There is no demonstrated solid or cystic mass lesion. Normal epiglottis, bilateral vallecula and hypopharynx. The pre-epiglottic and paraglottic adipose spaces are normal. Normal visualized bilateral piriform sinuses, aryepiglottic folds, vocal cords, and arytenoid-cricoid articulations. Normal subglottic trachea. Normal bilateral lobes of the thyroid gland. Normal visualized pulmonary apices. Normal visualized paranasal sinuses. There is multilevel degenerative changes of the cervical spine. CT/Soft Tissue Neck without Contr IMPRESSION: No demonstrated sialolithiasis. Right neck lymphadenopathy. Differential considerations are infectious, inflammatory and neoplastic disease. Electronically Signed: Denia Addison MD at 8:22 EDT Tel , Service support ,
[2019-07-14 09:46] LABS: Erythrocyte Sedimentation Rate 10 mm/hr (0-30)
[2019-07-14 09:50] LABS: PTHIN 35.1 pg/mL (18.4-80.1)
[2019-07-14 09:54] LABS: Vitamin D,25 Hydroxy 57.2 ng/mL
[2019-07-14 10:10] LABS: CRP < 2.90 mg/L (0.0-3.0); Rheumatoid Factor < 10.0 IU/mL (<15); Thyroid Stim Hormone (TSH) 2.22 uIU/mL (0.358-3.74)
[2019-07-15 13:45] LABS: ANTINUCLEAR ANTIBODIES DIRECT Negative (Negative)
== END ==
PROVIDERS: PCP Family Medicine; Referring Provider Otolaryngology Otolaryngology/Facial Plastic Surgery; Visit Provider Otolaryngology Otolaryngology/Facial Plastic Surgery
DX: K11.20 Sialoadenitis, unspecified (principal); M25.50 Pain in unspecified joint; M79.7 Fibromyalgia
CPT/HCPCS: 36415; 70490; 82306; 83970; 84443; 85652; 86038; 86140; 86431

== ENCOUNTER → 2019-07-26 15:12 | Outpatient (CLI) | payer MEDICARE, SELFPAY ==
[2019-07-26 17:45] LABS: Absolute Lymphocyte Count 4.37 X10^3/uL (0.83-4.51); Absolute Neutrophil Count 2.8 X10^3/uL (2.0-7.7); Basophil# 0.05 X10^3/uL; Basophil% 0.6 % (0-1); Eosinophil# 0.11 X10^3/uL; Eosinophils% 1.3 % (0-5); Hematocrit 39.9 % (37-47); Hemoglobin 13.2 g/dL (12.0-15.0); Lymphocyte # 4.37 X10^3/ul (4.0); Lymphocyte % 52.5 % (19-41); Mean Corp Hgb Conc 33.1 g/dL (32-36); Mean Corpuscular Hgb 29.3 pg (27.0-32.0); Mean Corpuscular Volume 88.7 fL (81-99); Mean Platelet Vol. 10.1 fl (6.2-12.0); Monocyte# 0.99 X10^3/uL; Monocyte% 11.9 % (0-10); NRBC Flagged by Analyzer 0 % (0-5); Neutrophil # 2.76 X10^3/uL (2.7-7.7); Neutrophil % 33.2 % (47-70); POSITIVE MORPHOLOGY YES; Platelet Count 238 K/mm3 (150-450); RBC Distribution Width CV 14.4 % (11.6-14.6); RBC Distribution Width SD 46.3 fl (35.1-43.9); White Blood Count 8.3 K/mm3 (4.4-11.0)
[2019-07-26 17:48] LABS: Differential Indicated SCAN CRITERIA MET
[2019-07-26 18:04] LABS: ALB/GLOB Ratio 0.9 RATIO (0.9-2.4); AST(SGOT) 43 U/L (15-37); Alanine Aminotransfer ALT/SGPT 64 U/L (13-56); Albumin, Serum 3.2 g/dL (3.2-5.0); Alkaline Phosphatase 126 U/L (45-117); Anion Gap 7 (5-15); BUN 7 mg/dL (7-18); BUN/Creat Ratio 8.7 RATIO (10-20); Calcium,Total 8.4 mg/dL (8.5-10.1); Chloride 105 mmol/L (98-107); EST Glomerular Filtration Rate 76 mL/min (>60); Est Glom Filt Rate - Afr Amer 91 mL/min (>60); Globulin 3.5 g/dL (2.2-4.2); Glucose 116 mg/dL (74-106); Potassium 3.4 mmol/L (3.5-5.1); Protein, Total 6.7 g/dL (6.4-8.2); Sodium Level 140 mmol/L (136-145)
[2019-07-26 18:32] LABS: Platelet Estimate ADEQUATE (ADEQ); Red Cell Morphology NORM C+C NORMAL (NORM C&C)
[2019-07-26 18:33] LABS: Atypical Lymphocyte 1+ %
== END ==
PROVIDERS: PCP Family Medicine; Visit Provider Family Medicine
DX: M79.7 Fibromyalgia (principal); R31.9 Hematuria, unspecified; E78.5 Hyperlipidemia, unspecified
CPT/HCPCS: 36415; 80053; 82140; 85025; 86141; 87086; 87088

== ENCOUNTER → 2019-07-29 12:18 | Outpatient (CLI) | payer MEDICARE, SELFPAY | PROVIDERS: PCP Family Medicine; Referring Provider Family Medicine; Visit Provider Family Medicine | DX: R19.7 Diarrhea, unspecified (principal) | CPT/HCPCS: 87506 ==

== ENCOUNTER → 2019-08-06 09:36 | Outpatient (CLI) | payer MEDICARE, SELFPAY ==
[2019-08-06 12:19] LABS: Absolute Lymphocyte Count 3.84 X10^3/uL (0.83-4.51); Absolute Neutrophil Count 3.5 X10^3/uL (2.0-7.7); Basophil# 0.07 X10^3/uL; Basophil% 0.9 % (0-1); Eosinophil# 0.03 X10^3/uL; Eosinophils% 0.4 % (0-5); Hematocrit 39.2 % (37-47); Hemoglobin 12.4 g/dL (12.0-15.0); Lymphocyte # 3.84 X10^3/ul (4.0); Lymphocyte % 47.1 % (19-41); Mean Corp Hgb Conc 31.6 g/dL (32-36); Mean Corpuscular Volume 91.8 fL (81-99); Mean Platelet Vol. 10.3 fl (6.2-12.0); Monocyte# 0.66 X10^3/uL; Monocyte% 8.1 % (0-10); NRBC Flagged by Analyzer 0 % (0-5); Neutrophil # 3.51 X10^3/uL (2.7-7.7); Neutrophil % 42.9 % (47-70); Platelet Count 210 K/mm3 (150-450); RBC Distribution Width CV 15.8 % (11.6-14.6); RBC Distribution Width SD 52.1 fl (35.1-43.9); Red Blood Count 4.27 M/mm3 (4.2-5.4); White Blood Count 8.2 K/mm3 (4.4-11.0)
[2019-08-06 13:27] LABS: ALB/GLOB Ratio 0.8 RATIO (0.9-2.4); AST(SGOT) 58 U/L (15-37); Alanine Aminotransfer ALT/SGPT 85 U/L (13-56); Alkaline Phosphatase 174 U/L (45-117); Anion Gap 10 (5-15); BUN 12 mg/dL (7-18); BUN/Creat Ratio 11.9 RATIO (10-20); Chloride 103 mmol/L (98-107); Creatinine, Serum 1.01 mg/dL (0.55-1.02); EST Glomerular Filtration Rate 58 mL/min (>60); Est Glom Filt Rate - Afr Amer 70 mL/min (>60); Globulin 3.9 g/dL (2.2-4.2); Glucose 238 mg/dL (74-106); Potassium 3.9 mmol/L (3.5-5.1); Protein, Total 6.9 g/dL (6.4-8.2); Sodium Level 137 mmol/L (136-145); Thyroid Stim Hormone (TSH) 3.36 uIU/mL (0.358-3.74)
[2019-08-11 09:03] LABS: Lipase 79 U/L (73-393)
[2019-08-11 09:51] LABS: Hemoglobin A1c 5.8 % (3.8-5.6)
== END ==
PROVIDERS: PCP Family Medicine; Visit Provider Family Medicine
DX: R53.81 Other malaise (principal); R73.9 Hyperglycemia, unspecified; R74.0 Nonspecific elevation of levels of transaminase and lactic acid dehydrogenase [LDH]
CPT/HCPCS: 36415; 80053; 83036; 83690; 84443; 85025; 86140

== ENCOUNTER → 2019-08-19 16:45 | Outpatient (CLI) | payer MEDICARE, SELFPAY ==
--- NOTE | 2019-08-19 16:48 | CT_ITS ---
STUDY: CT ABDOMEN AND PELVIS WITH CONTRAST REASON FOR EXAM: Female, 68 years old. ABD PAIN, BLOATING, NAUSEA, WT GAIN, CHOLECYSTECTOMY, APPENDECTOMY, PARTIAL HYSTERECTOMY RADIATION DOSAGE (If Supplied By Facility): CTDIvol = ( 20.29 ) mGy, DLP = ( 1151.28 ) mGycm TECHNIQUE: Transaxial images were obtained from the dome of the diaphragm to the symphysis pubis without oral contrast. Oral and amp; IV Readi-CAT and amp; 100mL Isovue-300 was administered. Sagittal and coronal images were reconstructed. Individualized dose optimization techniques were used for this CT. COMPARISON: None. FINDINGS: The visualized lung bases are unremarkable. The visualized portions of the heart are within normal limits. Normal liver. The gallbladder is surgically absent. Normal spleen. Normal pancreas. Normal bilateral adrenal glands. Normal right kidney. Normal left kidney. Normal visualized stomach. Normal small intestine. There is moderately severe sigmoid diverticulosis. There is no evidence of associated diverticulitis. There is non-visualization of the appendix. There are calcified plaques of the abdominal aorta. Normal inferior vena cava. Normal retroperitoneum. Normal urinary bladder. There is absence of the uterus consistent with a prior hysterectomy. Normal abdominal wall. There are diffuse degenerative changes of the visualized lumbar spine. CT/Abdomen/Pelvis WITH Contrast IMPRESSION: Status post hysterectomy, appendectomy, and cholecystectomy. Moderately severe sigmoid diverticulosis with no evidence of associated diverticulitis. There is no evidence of free intra-abdominal or intrapelvic air, fluid, or inflammatory process. Electronically Signed: Heber Escobar MD at 20:58 EDT , Service support ,
== END ==
PROVIDERS: PCP Family Medicine; Referring Provider Family Medicine; Visit Provider Family Medicine
DX: R74.0 Nonspecific elevation of levels of transaminase and lactic acid dehydrogenase [LDH] (principal)
CPT/HCPCS: 74177; Q9967; A4216

== ENCOUNTER → 2019-09-02 17:34 | Outpatient (CLI) | payer MEDICARE, SELFPAY | PROVIDERS: PCP Family Medicine; Referring Provider Family Medicine; Visit Provider Family Medicine | DX: R39.9 Unspecified symptoms and signs involving the genitourinary system (principal) | CPT/HCPCS: 87086; 87088; 87186 ==

== ENCOUNTER 2019-10-04 07:40 | Day surgery (SDC) | payer MEDICARE, SELFPAY ==
[2019-10-04 08:04] VITALS: BP 141/72; PULSE 73; RESP 16; TEMP 36.8; O2SAT 94; BMI 29.5
--- NOTE | 2019-10-04 08:18 | PCM.HP.STD ---
Problem List (1) Screening for intestinal cancer Status: Acute History of Present Illness Date of Admission: 10/04/19 The patient is a 69 year old F who presents for screening colonoscopy today. She presents via open access. Apparently at least a couple months ago she had some abdominal pain. She states that she had a CT scan that showed diverticulosis she does not recall being told that she had diverticulitis. In any case she currently is without pain. No bright red blood per rectum or melena. No family history of colon cancer. Her previous colonoscopy was about 12 years ago. Past Medical History Past Medical History (Chronic Problems): Chronic Problems (Last Reviewed 03/24/19 @ 10:54 by Marilou Sahu) Non-healing surgical wound (Chronic) Open wound of right great toe (Chronic) Open wound of second toe of right foot (Chronic) Fibromyalgia (Chronic) Hypothyroidism (Chronic) GERD (gastroesophageal reflux disease) (Chronic) Lichen sclerosus et atrophicus (Chronic) clobetasol Medical History: Medical History (Last Reviewed 03/24/19 @ 10:54 by Marilou Sahu) Fibromyalgia M79.7 Post concussion syndrome F07.81 Scoliosis M41.9 Allergies albuterol Allergy (Verified 09/23/19 10:21) Other gabapentin Adverse Reaction (Verified 09/23/19 10:21) Other Sulfa (Sulfonamide Antibiotics) Adverse Reaction (Verified 09/23/19 10:21) Vomiting Home Medications: Ambulatory Orders Medication Instructions Recorded Levothyroxine [Synthroid] 50 mcg PO DAILY 11/29/15 estradiol 1 g VAGINAL .TWICE WEEKLY 03/24/19 Duloxetine HCl 30 mg PO DAILY 09/23/19 Naltrexone HCl 2 mg PO DAILY 09/23/19 Omeprazole 20 mg PO BID 09/23/19 Pilocarpine HCl 5 mg PO TID 09/23/19 traZODone [Desyrel] 50 mg PO .SUPPER 09/23/19 traZODone [Desyrel] 100 mg PO QHS 09/23/19 Surgical History: Surgical History (Last Reviewed 03/24/19 @ 10:54 by Marilou Sahu) 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 History of bunionectomy Z98.890 Surgical History: appendectomy, cholecystectomy, hysterectomy Smoking Status: Former smoker Tobacco Use: Non-smoker - *Family History Maternal Family History: Family History (Last Reviewed 03/24/19 @ 10:54 by Marilou Sahu) Father Myocardial infarction Leukemia Mother Hypertension Alzheimer disease History Items: No pertinent history Review of Systems Constitutional: Denies: Fever HEENT: Denies: Dysphasia Cardiovascular: Denies: Chest Pain Respiratory: Denies: Cough Gastrointestinal: Denies: Abdominal Pain, Melena VTE Information - Inpt Only VTE Present on Admission: No Patient Problems: Active and Suspected Problems (Last Reviewed 03/24/19 @ 10:54 by Marilou Sahu) Screening for intestinal cancer (Acute) - Physical Exam Vitals/I&O's: Vital Signs Temp Pulse Resp BP Pulse Ox 98.2 F 73 16 141/72 H 94 10/04/19 08:04 10/04/19 08:04 10/04/19 08:04 10/04/19 08:04 10/04/19 08:04 Oxygen Delivery Method Room Air Weight: 177 lb 0.499 oz Body Mass Index (BMI) 29.5 General: Alert, Oriented x3, Cooperative Oral: Moist Mucosa Lungs: Clear to auscultation, Normal air movement Cardiovascular: Regular rate, Regular Rhythm Abdomen: Bowel Sounds Present, Soft, Non Tender Extremities: No Calf Tenderness Psych/Mental Status: Normal Affect Assessment/Plan All Active Problems (Last Reviewed 03/24/19 @ 10:54 by Marilou Sahu) Screening for intestinal cancer (Acute) Recurrent UTI (Acute) I recommended the patient a colonoscopy with possible biopsy or polypectomy is indicated. She has had an opportunity to ask and have questions answered. She presents via open access today. We will proceed as noted. Jordy Deluna M.D., F.A.C.S. Procedure Criteria Procedure Type: Elective COVID Risk Discussion: The surgeon/proceduralist and patient have discussed in detail the risk of exposure to and/or potential harm posed by the COVID-19 virus with having a surgery/procedure at this time versus the risk of delaying the surgery/procedure. It is not possible to know either the risk of delaying the surgery or procedure or chance of getting an infection with perfect accuracy, but a joint decision was made between the patient and the surgeon/proceduralist to proceed at this time with the scheduled surgery/procedure as indicated on the consent form.
[2019-10-04] MEDS: Lactated Ringers 1,000 ML 100 ML IV (08:19)
--- NOTE | 2019-10-04 08:45 | COLBX_PTH ---
PATIENT: GALLO STEELE LOC: EN U#:[id number] AGE/SX: 69/F ROOM: RE10/04/[address]: Dr. Jordy Deluna MD : 1950 BED: DIS: 10/04/2019 SPEC #: [id number] RECD: 10/04/19 10:41 STATUS: [place] #: [id number] RICK: 10/04/19 08:[address]: Jordy Deluna DEPT: SURGICAL PATHOLOGY RECD BY: Michoacano Hart ENTERED: 10/04/19 11:29 SP TYPE: COLON BX OTHR DR: Dr. Obi Woodward MD Tissues: A - Cecum, NOS B - Transverse colon Procedures: Surgery Specimen Level IV HEADER OPERATION: Colonoscopy - open access (MAC) PRE-OP DIAGNOSIS: Screening TISSUE SUBMITTED: A - Cecum biopsy, B - Distal transverse polyp biopsy MICROSCOPIC DIAGNOSIS A. Cecum, biopsy: A fragment of colonic mucosa with pigment laden macrophages consistent with melanosis coli. B. Distal transverse colon polyp, biopsy: Fragments of tubular adenoma. 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 DANE:lenora 10/05/19 MICROSCOPIC DESCRIPTION Slides are reviewed. GROSS DESCRIPTION A - Received in fixative is one container labeled with the patient's name and designated cecum biopsy. The specimen consists of one irregular fragment of light schroeder soft tissue that measures 0.5 x 0.3 x 0.1 cm. The specimen is totally submitted in one cassette. B - Received in fixative is one container labeled with the patient's name and designated distal transverse polyp biopsy. The specimen consists of multiple irregular fragments of light schroeder soft tissue that in aggregate measure 1 x 0.3 x 0.1 cm. The specimen is totally submitted in one cassette. / DANE:lenora 10/04/19 TC:1 CPT: 74810 x2
[2019-10-04 09:21] VITALS: BP 116/73; BP 141/72; PULSE 71; RESP 16; TEMP 36.2; O2SAT 98
--- NOTE | 2019-10-04 09:21 | OP.CCLET_ITS ---
10/04/2019 Obi Woodward [address] [place] [address] Re : Colonoscopy procedure for Letha Umer Dear Dr. Woodward This procedure was performed on Friday, October 04, 2019. My impressions and recommendations are as follows: Impressions : - Hemorrhoids found on perianal exam. - One 7 mm polyp in the distal transverse colon, removed with a cold biopsy forceps. Resected and retrieved. - Melanosis in the colon. Biopsied. - Diverticulosis in the sigmoid colon. Recommendations : - Discharge patient to home. - Resume previous diet. - Continue present medications. - Repeat colonoscopy in 5 years for surveillance based on pathology results. - Telephone my office for pathology results in 1 week. My findings are described in the full procedure note, which is enclosed. If I can be of further assistance, please feel free to contact me at Doctor phone number(s): Work: . Sincerely, Jordy Deluna MD 10/04/2019 9:21:03 AM This report has been signed electronically.
--- NOTE | 2019-10-04 09:21 | OP.COLON_ITS ---
Patient Name: Letha Owusu Procedure Date: 10/04/2019 8:48 AM Date of : 1950 Age: 69 Procedure: Colonoscopy Indications: Screening for colorectal malignant neoplasm Providers: Jordy Deluna MD Referring MD: Obi Woodward Medicines: See the Anesthesia note for documentation of the administered medications Patient Profile: Last Colonoscopy: more than 10 years ago. Complications: No immediate complications. Procedure: Pre-Anesthesia Assessment: - Prior to the procedure, a History and Physical was performed, and patient medications and allergies were reviewed. The patient's tolerance of previous anesthesia was also reviewed. The risks and benefits of the procedure and the sedation options and risks were discussed with the patient. All questions were answered, and informed consent was obtained. Prior Anticoagulants: The patient has taken no previous anticoagulant or antiplatelet agents. ASA Grade Assessment: II - A patient with mild systemic disease. After reviewing the risks and benefits, the patient was deemed in satisfactory condition to undergo the procedure. After I obtained informed consent, the scope was passed under direct vision. Throughout the procedure, the patient's blood pressure, pulse, and oxygen saturations were monitored continuously. The colonoscope was introduced through the anus and advanced to the cecum, identified by appendiceal orifice and ileocecal valve. The colonoscopy was performed without difficulty. The patient tolerated the procedure well. The quality of the bowel preparation was adequate to identify polyps. The ileocecal valve and the appendiceal orifice were photographed. The ileocecal valve and the appendiceal orifice were photographed. Scope In: 8:58:52 AM Scope Withdrawal Time 0 hours 8 minutes 28 seconds Scope Out: 9:14:55 AM Total Procedure Duration Time 0 hours 16 minutes 3 seconds Findings: Hemorrhoids were found on perianal exam. A 7 mm polyp was found in the distal transverse colon. The polyp was sessile. The polyp was removed with a cold biopsy forceps. Resection and retrieval were complete. A diffuse area of severe melanosis was found in the entire colon. Biopsies were taken with a cold forceps for histology of the cecum Multiple diverticula were found in the sigmoid colon. Impression: - Hemorrhoids found on perianal exam. - One 7 mm polyp in the distal transverse colon, removed with a cold biopsy forceps. Resected and retrieved. - Melanosis in the colon. Biopsied. - Diverticulosis in the sigmoid colon. Recommendation: - Discharge patient to home. - Resume previous diet. - Continue present medications. - Repeat colonoscopy in 5 years for surveillance based on pathology results. - Telephone my office for pathology results in 1 week. Procedure Code(s): --- Professional --- 55124, Colonoscopy, flexible; with biopsy, single or multiple Diagnosis Code(s): --- Professional --- Z12.11, Encounter for screening for malignant neoplasm of colon K64.9, Unspecified hemorrhoids D12.3, Benign neoplasm of transverse colon (hepatic flexure or splenic flexure) K63.89, Other specified diseases of intestine K57.30, Diverticulosis of large intestine without perforation or abscess without bleeding CPT copyright 2017 [employer]. All rights reserved. The codes documented in this report are preliminary and upon byproducts extractor review may be revised to meet current compliance requirements. Jordy Deluna MD 10/04/2019 9:21:03 AM This report has been signed electronically. Number of Addenda: 0 Note Initiated On: 10/04/2019 8:48 AM
[2019-10-04 09:25] VITALS: BP 117/76; BP 141/72; PULSE 77; RESP 16; O2SAT 97
[2019-10-04 09:30] VITALS: BP 117/68; BP 141/72; PULSE 68; RESP 16; O2SAT 98
[2019-10-04 09:36] VITALS: BP 126/72; BP 141/72; PULSE 67; RESP 16; TEMP 36.3; O2SAT 100
[2019-10-04 09:50] VITALS: BP 141/72
== END 2019-10-04 09:59 | disposition home or self-care (01) ==
LOC: EN 07:41 → AC 07:41
PROVIDERS: Anesthesiology; PCP Family Medicine; Referring Provider Family Medicine; Visit Provider Surgery
PROC: 0DJD8ZZ Inspection of Lower Intestinal Tract, Via Natural or Artificial Opening Endoscopic (ICD-10-PCS; CPT 45378; principal; 2019-10-04 08:40)
DX: Z12.11 Encounter for screening for malignant neoplasm of colon (principal); K64.9 Unspecified hemorrhoids; K63.89 Other specified diseases of intestine; D12.3 Benign neoplasm of transverse colon; K57.30 Diverticulosis of large intestine without perforation or abscess without bleeding; M79.7 Fibromyalgia; K21.9 Gastro-esophageal reflux disease without esophagitis; E03.9 Hypothyroidism, unspecified; M41.9 Scoliosis, unspecified; Z82.49 Family history of ischemic heart disease and other diseases of the circulatory system; Z87.440 Personal history of urinary (tract) infections; Z87.891 Personal history of nicotine dependence; Z88.2 Allergy status to sulfonamides; Z88.8 Allergy status to other drugs, medicaments and biological substances; Z90.49 Acquired absence of other specified parts of digestive tract; Z90.710 Acquired absence of both cervix and uterus
CPT/HCPCS: 45380; 87635; 88305; 94799; J7120; U0003

== ENCOUNTER → 2019-10-18 13:58 | Outpatient (CLI) | payer MEDICARE, SELFPAY ==
[2019-10-04 08:04] VITALS: BMI 29.5
--- NOTE | 2019-10-18 14:00 | US_ITS ---
STUDY: Right submandibular ULTRASOUND REASON FOR EXAM: Female, 69 years old. SIALOADENITIS TECHNIQUE: Ultrasound evaluation of the thyroid was performed with real-time and static montoya-scale imaging. COMPARISON: None. FINDINGS: Examination of the right submandibular gland demonstrates mildly enlarged gland measuring 2.3 x 1.4 x 1.8 cm which appears somewhat heterogeneous and increased vascularity consistent with nonspecific sialoadenitis. There is a heterogeneous appearing density within the gland measuring 1.8 x 2.3 x 1.4 cm. of indeterminate etiology. There are also mildly enlarged lymph nodes largest measuring 2 x 1.5 x 0.8 cm and US/Head/Neck Soft Tissue IMPRESSION: Enlarged right submandibular gland with heterogeneous nodule measuring 1.8 x 2.3 x 1.4 cm and mildly enlarged nodes. CT recommended for further evaluation Electronically Signed: Christopher Gallegos MD at 21:20 EDT , Service support ,
== END ==
PROVIDERS: PCP Family Medicine; Referring Provider Otolaryngology; Visit Provider Otolaryngology
DX: K11.23 Chronic sialoadenitis (principal)
CPT/HCPCS: 76536

== ENCOUNTER → 2019-10-28 08:53 | Outpatient (CLI) | payer MEDICARE, SELFPAY ==
[2019-10-04 08:04] VITALS: BMI 29.5
== END ==
PROVIDERS: PCP Family Medicine; Referring Provider Otolaryngology; Visit Provider Otolaryngology
DX: K11.23 Chronic sialoadenitis (principal)

== ENCOUNTER 2019-11-05 08:50 | Day surgery (SDC) | payer MEDICARE, SELFPAY ==
--- NOTE | 2019-10-28 08:59 | EKG12_ITS ---
Test Reason : PREOP Blood Pressure : / mmHG Vent. Rate : 079 BPM Atrial Rate : 079 BPM P-R Int : 118 ms QRS Dur : 078 ms QT Int : 382 ms P-R-T Axes : 043 -01 048 degrees QTc Int : 438 ms Normal sinus rhythm Increased R/S ratio in V1, consider early transition or posterior infarct Abnormal ECG When compared with ECG of 06-JUL-2008 05:15, No significant change was found Confirmed by POPEYE LUGO, HO ([id number]), managing editor SADIA OG ([id number]) on 11/01/2019 1:33:50 PM Referred By: CHILANGO Confirmed By:KEN NYE MD
[2019-10-28 11:57] LABS: Anion Gap 6 (5-15); BUN 10 mg/dL (7-18); BUN/Creat Ratio 9.8 RATIO (10-20); Calcium,Total 9.2 mg/dL (8.5-10.1); Chloride 105 mmol/L (98-107); Creatinine, Serum 1.02 mg/dL (0.55-1.02); EST Glomerular Filtration Rate 57 mL/min (>60); Est Glom Filt Rate - Afr Amer 69 mL/min (>60); Glucose 88 mg/dL (74-106); Sodium Level 136 mmol/L (136-145)
[2019-11-05 09:08] VITALS: BP 131/70; PULSE 72; RESP 16; TEMP 36.8; O2SAT 96; BMI 29.4
[2019-11-05] MEDS: Lactated Ringers 1,000 ML 100 ML IV ×2 (09:26→12:24)
--- NOTE | 2019-11-05 10:40 | SUBM_PTH ---
PATIENT: GALLO STEELE LOC: [facility] [place] U#:[id number] AGE/SX: 69/F ROOM: RE11/05/[address]: Dr. Obi Thurston MD : 1950 BED: DIS: 11/05/2019 SPEC #: [id number] RECD: 11/05/19 11:47 STATUS: [place]A REE[place]er #: [id number] RICK: 11/05/19 10:[address]: Obi Thurston DEPT: SURGICAL PATHOLOGY RECD BY: Darrin Gibson ENTERED: 11/05/19 13:15 SP TYPE: SUBMAN GL OTHR DR: Dr. Obi Woodward MD Tissues: Salivary gland, NOS Procedures: Surgery Specimen Level V HEADER OPERATION: Excision submandibular gland PRE-OP DIAGNOSIS: Chronic sialadenitis TISSUE SUBMITTED: Submandibular gland, right MICROSCOPIC DIAGNOSIS Submandibular gland, right, excision: Major salivary glands with marked chronic inflammation and extensive lymphoid aggregate formation, favor benign. See comment. DANE:lenora 11/08/19 COMMENT Clinical correlation and appropriate follow up are necessary. MICROSCOPIC DESCRIPTION Slides are reviewed. GROSS DESCRIPTION Received in fixative is one container labeled with the patient's name and designated submandibular gland, right. The specimen consists of a piece of glandular tissue weighing 7.9 gm and measuring 3.5 x 2.3 x 2 cm. The specimen is inked, serially sectioned and do not reveal any mass lesion. The entire specimen is submitted in seven cassettes from one end to another end. / DANE:lenora 11/05/19 TC:3 CPT: 79526
--- NOTE | 2019-11-05 11:55 | PCM.OPRPT ---
Problem List (1) Chronic sialoadenitis Status: Chronic Report of Operation Date of Procedure: 11/05/19 Pre-Operative Diagnosis: Chronic sialadenitis of right submandibular gland Post-Operative Diagnosis: Same Surgery/Procedure Performed:: Excision of right submandibular gland Description of Surgical Findings:: Letha is a 69-year-old female with persistent swelling and tenderness of the right submandibular gland. Initially this had had a stone within the duct however on extraction of this she continued to suffer tender nest and swelling over the gland and ultrasound showed possibility of a mass involving the entirety of the gland versus chronic inflammatory change but no further stone and excision for relief and further evaluation was offered. The risk of coronavirus exposure in this period was discussed and she is agreeable to accept this risk in exchange for relief of her chronic complaints. The risks, alternatives, potential complications, and benefits were discussed at length and any questions answered to the patient and/or caregiver's satisfaction. Witnessed informed consent was obtained in the office, and the patient and/or caregiver was agreeable to proceed. Procedure went as follows: The patient was identified in the preoperative holding area and brought to the operating room and were placed under general anesthesia and intubated. When appropriate anesthesia obtained, the right neck was prepped and draped in usual sterile fashion. Using a marking pen the planned incision was then marked 2 fingerbreadths below the angle of the mandible and injected with 1% lidocaine with 100,000 epinephrine for a total of 3 mL. After allowing for vasoconstriction, a 15 blade scalpel was then used to incise the skin and subcutaneous tissue. The platysma was then encountered and sharply transected. The inferior aspect of the submandibular gland was then identified. This was then dissected in a subcapsular fashion with the intervening connective tissue cauterized with bipolar cautery and sharply transected. Anteriorly the mylohyoid was then retracted and dissected free and the vascular connections individually clamped and ligated with 3-0 silk sutures. This was then dissected free along the digastric muscle and the hypoglossal and sublingual nerves identified. The submandibular duct was then clamped transected and ligated with 3-0 silk suture as was the nervous attachment at the ganglion. Posteriorly the arterial branches of the venous and arterial blood supplies were individually clamped and ligated freeing the gland which was then sent as pathologic specimen. The wound bed was then irrigated copiously with saline solution. This was then closed deeply to close the space with interrupted 3-0 Vicryl suture followed by reapproximation of the platysma and subcutaneous tissues. The skin was then closed with a running subcuticular stitch of 5-0 Monocryl suture. Cavilon and Steri-Strips were then applied. The patient was then returned to anesthesia revived and extubated without complication having tolerated the procedure well. Type of Anesthesia:: General Anesthesiologist: Enoc Whiting Special Medications: none Specimen's removed: right submandibular gland Drains: none Estimated Blood Loss (mL): 10 mL Fluids Replaced: 900 mL Grafts/Implants Used: none - Complications none - Admit VTE Documentation VTE Present on Admission: No VTE Mechan Device Prophylaxis: SCD's VTE Pharm Prophylaxis ordered?: No
[2019-11-05 12:05] VITALS: BP 131/70; BP 145/74; PULSE 88; RESP 16; TEMP 36.2; O2SAT 96
[2019-11-05 12:15] VITALS: BP 131/70; BP 142/75; PULSE 84; RESP 16; O2SAT 97
--- NOTE | 2019-11-05 12:21 | DCINST_ITS ---
- Discharge Diagnoses Current Active Problems: Current Active and Chronic Problems (Last Reviewed 03/24/19 @ 10:54 by Marilou Sahu) Chronic sialoadenitis (Chronic) You will use the following diet at home:: No restrictions Discharge Activity: Return to Normal Activity Call your doctor if your incision/area has: Increased Pain/ Swelling, Foul Smelling Discharge Call your doctor if you observe: Fever of 101 or Higher, Uncontrolled pain Allergies/Adverse Reactions: Allergies albuterol Allergy (Verified 11/05/19 09:05) Other gabapentin Adverse Reaction (Verified 11/05/19 09:05) Other Sulfa (Sulfonamide Antibiotics) Adverse Reaction (Verified 11/05/19 09:05) Vomiting Medications to take at Discharge Levothyroxine [Synthroid] 50 mcg PO DAILY 11/29/15 estradiol 1 g VAGINAL .TWICE WEEKLY 03/24/19 Duloxetine HCl 30 mg PO DAILY 09/23/19 Naltrexone HCl 2 mg PO DAILY 09/23/19 Omeprazole 20 mg PO BID 09/23/19 traZODone [Desyrel] 50 mg PO .SUPPER 09/23/19 traZODone [Desyrel] 100 mg PO QHS 09/23/19 Primary Care Physician: Obi Woodward MD [Primary Care Provider] - Test Results: Test results from this visit will be discussed in further detail at your follow- up appointment, if applicable. Please Follow Up With: Obi Thurston MD When: 10 days
[2019-11-05 12:32] VITALS: BP 131/70; BP 147/75; PULSE 83; RESP 16; O2SAT 94
[2019-11-05 12:34] VITALS: BP 131/70; BP 147/74; PULSE 80; RESP 16; TEMP 36.2; O2SAT 94
[2019-11-05] MEDS: Ibuprofen 200 MG Tablet 400 MG PO (13:18)
[2019-11-05 13:20] VITALS: BP 131/70; BP 146/76; PULSE 69; RESP 16; TEMP 36.2; O2SAT 95
== END 2019-11-05 13:45 | disposition home or self-care (01) ==
LOC: SDC 08:51 → AC 08:51
PROVIDERS: Anesthesiology; PCP Family Medicine; Referring Provider Otolaryngology; Visit Provider Otolaryngology
PROC: (CPT 42440; principal; 2019-11-05 10:10)
DX: K11.23 Chronic sialoadenitis (principal); Z87.891 Personal history of nicotine dependence
CPT/HCPCS: 00100; 42440; 36415; 80048; 87635; 88307; 93005; C9803; J7120; J2405; J3490; U0003

== ENCOUNTER → 2019-11-30 15:23 | Outpatient (CLI) | payer MEDICARE, SELFPAY ==
[2019-11-05 09:08] VITALS: BMI 29.4
--- NOTE | 2019-11-30 15:26 | RAD_ITS ---
STUDY: X-RAY - PELVIS AND BILATERAL HIPS REASON FOR EXAM: Female, 69 years old. chronic hip pain, left TECHNIQUE: AP view of the pelvis.? 2 views of the right hip, and 2 views of the left hip were obtained. COMPARISON: August 19 2019 FINDINGS: There is a non-specific bowel gas pattern. Normal visualized soft tissue structures. There are minor age appropriate changes in the greater trochanters. Normal bilateral iliac wings, sacroiliac joints and visualized sacrum. Normal bilateral superior and inferior pubic rami. Normal pubic symphysis. Normal bilateral ischial tuberosities. Normal visualized right femoral head. Normal right acetabulum. Normal right hip joint. Normal visualized left femoral head. Normal left acetabulum. Normal left hip joint. RAD/Hips B/L min 2 views w/ Pelvis IMPRESSION: Normal x-ray examination of the pelvis and bilateral hips. Electronically Signed: Jose Kathleen, at 9:38 EDT Tel , Service support ,
== END ==
PROVIDERS: PCP Family Medicine; Referring Provider Family Medicine; Visit Provider Family Medicine
DX: M25.552 Pain in left hip (principal)
CPT/HCPCS: 73521

== ENCOUNTER → 2019-12-07 15:17 | Outpatient (CLI) | payer MEDICARE, SELFPAY ==
--- NOTE | 2019-12-07 15:19 | RAD_ITS ---
STUDY: X-RAY - LUMBAR SPINE REASON FOR EXAM: Female, 69 years old. PAIN ACROSS LOW BACK ESPECIALLY ON RT SIDE. NO INJURY. HX OF OSTEO ARTHRITIS AND FIBROMYALGIA TECHNIQUE: 5 view(s) of the lumbar spine were obtained including oblique views. COMPARISON: None FINDINGS: There is an exaggerated lumbar lordosis. There is no substantial scoliosis. Minimal anterior listhesis of L4 on L5. There is multilevel endplate spondylosis of the lumbar vertebrae. Normal disc space heights. Facet joint osteoarthritis. The soft tissue structures are unremarkable. RAD/L/S Spine Min 4 Views IMPRESSION: Degenerative changes of the spine, as detailed above. Electronically Signed: Charli Wayne, at 13:00 EDT , Service support ,
--- NOTE | 2019-12-07 15:19 | RAD_ITS ---
STUDY: X-RAY - THORACIC SPINE REASON FOR EXAM: Female, 69 years old. PAIN IN RT SCAPULA AND ABOUT LEVELS OF T6-T8. NO INJURY . HX OF OSTEO ARTHRITIS AND FIBROMYALGIA TECHNIQUE: 3 view(s) of the thoracic spine were obtained. COMPARISON: None. FINDINGS: There is an increase in the normal thoracic kyphosis. There is no substantial scoliosis. There is demineralization of the thoracic spine with endplate spondylosis. There is multilevel disc space narrowing of the thoracic spine. The soft tissue structures are unremarkable. RAD/Thoracic Spine 3 Views IMPRESSION: Increased kyphosis. Multi level disc space narrowing and spondylosis. Electronically Signed: Charli Wayne, at 13:02 EDT , Service support ,
--- NOTE | 2019-12-07 15:20 | RAD_ITS ---
STUDY: X-RAY - CERVICAL SPINE REASON FOR EXAM: Female, 69 years old. PAIN IN LOWER NECK RADIATING DOWN INTO RIGHT SCAPULA. NO INJURY. HX OF FIBROMYALGIA AND OSTEO ARTHRITIS TECHNIQUE: 5 view(s) of the cervical spine were obtained including oblique views. COMPARISON: None FINDINGS: There are degenerative changes of the anterior atlantoaxial articulation. Normal odontoid process. Normal cervical lordosis. Normal vertebral bodies and endplates. Normal disc space heights. Normal visualized intervertebral neuroforamina. The soft tissue structures are unremarkable. RAD/Cerv Spine 4 or 5 Views IMPRESSION: No acute abnormality is seen. Electronically Signed: Charli Wayne, at 12:59 EDT , Service support ,
== END ==
PROVIDERS: PCP Family Medicine; Referring Provider Anesthesiology; Visit Provider Anesthesiology
DX: M54.6 Pain in thoracic spine (principal)
CPT/HCPCS: 72050; 72072; 72110

== ENCOUNTER 2020-01-25 10:03 | Outpatient (RCR) | payer MEDICARE, SELFPAY ==
--- NOTE | 2020-01-25 11:25 | HP.PTEVAL_ITS ---
Patient's Visit Information GALLO STEELE is a 69 year old F referred to Physical Therapy by Dr. Brittany Rodriguez MD with a diagnosis of BACK PAIN. Date of Evaluation: 01/25/20 Physical Therapist: Clay Thomas PT, Cert MDT, OCS - Visit Plan Frequency: 2x /Week Duration: 4 Weeks Plan: PT INTERVENTIONS DLS ABD/MARY ,POSTURAL EX'S,THORACIC STRENGTEHNING,UE/LE STRENGTHENING - Subjective This 69 y/o female presents to physical therapy with back pain. Patient has lumbar pain for for many years. Patient also has contributing factors with fibromalgia.Patient has more pain with thoracic region > lumbar . Patient seen DR Felder recommended . Patient wants to try different procedures -epidural injections. Patient has pain decresibed sharp,dull ache raditaing type of pain. In past tried ,aquatic therapy made symptoms wosre .Agrraveting b ending,lifting,standing worse with housework tasks and dishes ,sitting. Allevating factors rest. MEDS but tried vicodine. Tray parathesia/tingling some in hands. Coghing/sneezing -. Bowel/bladder-.Plan for MRI . Patient symptoms affects QOL and function due to pain. SOCIAL: . VOCATION: retired - Pain Bilateral Back Pain Intensity (Out of 10): 5 Pain Intensity Range: 10 Comment: thoracic - Objective POSTURE : mild thoracic kyphois. PALPATION: tender thoracic paraspinals. NEURO: denies paratehsai/tingling ,reflexes intact 2/3 C5-6-7,L3-4,L4-5,L5-S1 2/3. AROM: BUE WFL. MMT: BUE grossly 4/5 ,shoulder 4-/5,quads/hams 4-/5,3+/5 hip flexion. LUMBAR ROM: mild/mod loss,extension mod loss pain ,side glides mod loss. FLEXABLITY: hams mild tight - Special Tests Thoracic Sitting: Flexion - Mechanical Response: No effect Thoracic Sitting: Flexion - Symptoms During Testing: Increases Thoracic Sitting: Flexion - Symptoms After Testing: No worse Thoracic Sitting: Extension - Mechanical Response: No effect Thoracic Sitting: Extension - Symptoms During Testing: Abolishes Thoracic Sitting: Extension - Symptoms After Testing: No worse Thoracic Sitting: Right rotation - Mechanical Response: No effect Thoracic Sitting: Right Rotation - Symptoms During Testing: No effect Thoracic Sitting: Right Rotation - Symptoms After Testing: No effect Thoracic Sitting: Left rotation - Mechanical Response: No effect Thoracic Sitting: Left Rotation - Symptoms During Testing: No effect Thoracic Sitting: Left Rotation - Symptoms After Testing: No effect L/S Slump test left side: Negative L/S Slump test right side: Negative L/S Left Straight Leg Raise: Negative L/S Right Straight Leg Raise: Negative Lumbar Standing: Flexion - Mechanical Response: No effect Lumbar Standing: Flexion - Symptoms During Testing: Increases Lumbar Standing: Flexion - Symptoms After Testing: No worse Lumbar Standing: Extension - Mechanical Response: No effect Lumbar Standing: Extension - Symptoms During Testing: Increases Lumbar Standing: Extension - Symptoms After Testing: No worse Lumbar Standing: Right Side Glides - Mechanical Response: No effect Lumbar Standing: Right Side [place] - Symptoms During Testing: No effect Lumbar Standing: Right Side [place] - Symptoms After Testing: No effect Lumbar Standing: Left Side [place] - Mechanical Response: No effect Lumbar Standing: Left Side [place] - Symptoms During Testing: No effect Lumbar Standing: Left Side [place] - Symptoms After Testing: No effect - Goals Goal 1:: Patient to be I with HEP Goal Time Frame: 4-6 Weeks Goal 2:: Patient to improve posture for ADLS' Goal Time Frame: 4-6 Weeks Goal 3:: Patient decrease back pain by 40% or > to improve function and QOL . Goal Time Frame: 4-6 Weeks Goal 4:: Patient to improve lumbar ROM for function of recovery. Goal Time Frame: 4-6 Weeks Goal 5:: Patient to improrove back owestry score by 5 points or > to imporove QOL. Goal Time Frame: 4-6 Weeks Goal 6:: Patient to increase strength of UE/LE WFL to improvevfunction with walking as]nd standing Goal Time Frame: 4-6 Weeks - Rehabilitation Potential Physical Therapy Diagnosis: This patient has thoracic pain and lumbar pain with pain during position and motion testing aling with weakness impoairs activiteis with standing walking impairs ADLS'and housework tasks thus benifit from skilled PT Rehabilitation Potential: Good - Anticipated Interventions Patient/Client Instruction: Educate patient on: Condition, Plan of Care For the Purpose of:: To decrease pain, To increase ROM, To improve muscle performance and motor function, To improve ability to perform ADL's, To improve performance and independence with ADL's, To improve ability of physical actions for home/community/work/leisure, To improve health of tissue, To decrease soft tissue restriction, To increase flexibility/ROM, To reduce risk of recurrence Therapeutic Exercise to Include: Strength training, Postural training, Flexibilty training, Dynamic Lumbar Stabilization For the Purpose of:: To decrease pain, To increase ROM, To improve muscle performance and motor function, To increase tolerance to activity/condition/position, To improve ability of physical actions for home/community/work/leisure, To improve health of tissue, To decrease soft tissue restriction, To increase flexibility/ROM, To reduce risk of recurrence TENS: Yes IF ES: Yes Cryotherapy (ice pack, ice massage): Yes Thermo therapy (hot pack): Yes Ultrasound (thermal/non thermal): Yes For the Purpose of:: To decrease pain, To increase ROM, To improve health of tissue, To decrease soft tissue restriction, To increase flexibility/ROM Thank you for the opportunity to evaluate your patient. For Medicare and Medicare HMO plans, please review the plan of care and approve it. It will need to be FAXED BACK to us at [phone] for Medicare purposes. For Medicare only, by signing this I certify the plan of care. Please let me know if there are questions or concerns regarding this plan of care. Physician Signature: Date:
== END 2020-01-25 19:00 | disposition home or self-care (01) ==
LOC: PT 10:03
PROVIDERS: PCP Family Medicine; Referring Provider Anesthesiology Pain Medicine; Visit Provider Anesthesiology Pain Medicine
DX: M54.9 Dorsalgia, unspecified (principal)
CPT/HCPCS: 97110; 97162

== ENCOUNTER → 2020-02-03 16:48 | Outpatient (CLI) | payer MEDICARE, SELFPAY ==
[2020-02-03 14:05] VITALS: BMI 29.6
== END ==
PROVIDERS: PCP Family Medicine; Referring Provider Nurse Practitioner Women's Health; Visit Provider Nurse Practitioner Women's Health
DX: N39.0 Urinary tract infection, site not specified (principal)
CPT/HCPCS: 87086; 87088; 87186

== ENCOUNTER → 2020-02-21 13:18 | Outpatient (CLI) | payer MEDICARE, SELFPAY ==
[2020-02-03 14:05] VITALS: BMI 29.6
[2020-02-21 15:35] LABS: Amphetamine Urine VISTA NEGATIVE (<1000 ng/mL); Barbiturate Urine VISTA NEGATIVE (< 200 ng/mL); Benzodiazepine Urine VISTA NEGATIVE (< 200 ng/mL); Cocaine Urine VISTA NEGATIVE (< 300 ng/mL); Ecstacy Urine VISTA POSITIVE (< 500 ng/mL); Methadone Urine VISTA NEGATIVE (< 300 ng/mL); PCP Urine VISTA NEGATIVE (< 25 ng/mL); THC Urine VISTA NEGATIVE (< 50 ng/mL); Vista UDS pH Range 5
== END ==
PROVIDERS: PCP Family Medicine; Referring Provider Anesthesiology Pain Medicine; Visit Provider Anesthesiology Pain Medicine
DX: F11.20 Opioid dependence, uncomplicated (principal)
CPT/HCPCS: 80307

== ENCOUNTER → 2020-03-23 13:44 | Outpatient (CLI) | payer MEDICARE, SELFPAY ==
[2020-02-03 14:05] VITALS: BMI 29.6
--- NOTE | 2020-03-23 13:50 | RAD_ITS ---
HISTORY: MID- BACK PAIN COMPARISON: December 07, 2019 x-rays of the thoracic spine FINDINGS: # of images incl. paperwork: 3 XR Spine Thoracic 2 Views: Cholecystectomy clips remain Thoracic vertebral bodies are normal in height. No acute thoracic spine fracture or subluxation. Loss of disc height with endplate sclerosis and anterior enthesophytes is similar. Kyphosis is similar. RAD/Thoracic Spine 2 Views IMPRESSION: No acute thoracic spine fracture or subluxation. Kyphosis with degenerative disc disease and anterior enthesophytes to a similar degree severity the previous study of December 06 0.1 at 2242 Reported and signed by: Amarjit Prado MD Electronically Signed: Amarjit Prado MD at 22:41 EST Tel , Service support ,
== END ==
PROVIDERS: PCP Family Medicine; Referring Provider Anesthesiology Pain Medicine; Visit Provider Anesthesiology Pain Medicine
DX: M54.9 Dorsalgia, unspecified (principal)
CPT/HCPCS: 72070

== ENCOUNTER → 2020-03-27 13:58 | Outpatient (CLI) | payer MEDICARE, SELFPAY ==
[2020-02-03 14:05] VITALS: BMI 29.6
--- NOTE | 2020-03-27 14:00 | BI_ITS ---
MAMMOGRAPHY - BILATERAL SCREENING REASON FOR EXAM: Female, 69 years old. Routine annual screening examination. PERTINENT HISTORY: Non-contributory. Remote right stereotactic breast biopsy. TECHNIQUE: Digital bilateral breast tanya (3D mammographic acquisition) in the CC and MLO projections. 2-D mediolateral oblique (MLO) and craniocaudad (CC) views of both breasts were obtained. CAD: Full Field Digital Mammography with Computer Added Detection was performed. COMPARISON: Comparison is made with prior examination of 03/24/2019 and 03/23/2018. FINDINGS: Breast Composition: There are scattered areas of fibroglandular density. There are no dominant masses or suspicious calcifications. A tissue clip marker is once again seen in the upper anterior lateral aspect of the right breast. Stable secretory calcifications bilaterally. No other significant abnormalities are identified. There has been no significant change since the prior study. BI/SCRN MAMM (CAD)W/TANYA BILAT IMPRESSION: Stable bilateral screening mammogram. Yearly follow-up mammogram recommended. (A) ASSESSMENT CATEGORY: BIRADS Category 2: Benign. A letter regarding these results will be sent to the patient by the facility within 30 days. Approximately 10% of breast cancers are not detected by mammography. A normal mammogram should not delay biopsy of a clinically suspicious abnormality. [id number] Electronically Signed: Charli Wayne MD at 14:56 EST , Service support ,
== END ==
PROVIDERS: PCP Family Medicine; Referring Provider Obstetrics & Gynecology; Visit Provider Obstetrics & Gynecology
DX: Z12.31 Encounter for screening mammogram for malignant neoplasm of breast (principal)
CPT/HCPCS: 77063; 77067

== ENCOUNTER 2020-05-01 16:00 | Emergency (ER) | payer MEDICARE, SELFPAY ==
[2020-03-27 14:30] VITALS: BMI 31.4
[2020-05-01 16:01] VITALS: BP 140/78; PULSE 92; RESP 16; TEMP 36.7; O2SAT 97; BMI 29.9
--- NOTE | 2020-05-01 16:13 | CT_ITS ---
STUDY: CT FACIAL BONES WITHOUT CONTRAST REASON FOR EXAM: Female, 69 years old. FELL 3 DAYS AGO INTO BRICK FIREPLACE RADIATION DOSAGE (If Supplied By Facility): CTDIvol = ( 29.38 ) mGy, DLP = ( 584.19 ) mGycm TECHNIQUE: Axial CT images of the facial bones were obtained with multiplanar reconstruction. The protocol utilizes one or more of the following dose reduction techniques: automated exposure control, adjustment of the mA and/or KV according to the patient size, and/or use of iterative reconstruction techniques. Individualized dose optimization techniques were used for this CT. COMPARISON: Head CT dated May 01, 2020 FINDINGS: Soft Tissues: Mild soft tissue swelling present at the inferior aspect of the left orbital rim. A small subcutaneous focal hematoma is also present in the left mid facial region with surrounding swelling. Facial Bones: Normal: No fracture or destructive process. Mandible/TMJ: Normal. Orbital Contents: Normal globes, extraocular muscles, optic nerves, intraconal and extraconal spaces. Normal lamina papyracea. Visualized Paranasal Sinuses: Normal. Visualized Mastoid Air Cells: Normal. CT/Sinus/Facial Bone IMPRESSION: 1. Mild soft tissue swelling present at the inferior aspect of the left orbital rim. A small subcutaneous focal hematoma is also present in the left mid facial region with surrounding swelling. Electronically Signed: Efrain Mccray MD at 17:04 EDT , Service support ,
--- NOTE | 2020-05-01 16:13 | CT_ITS ---
STUDY: CT BRAIN WITHOUT CONTRAST REASON FOR EXAM: Female, 69 years old. FELL 3 DAYS AGO INTO BRICK FIREPLACE RADIATION DOSAGE (If Supplied By Facility): CTDIvol = ( 44.99 ) mGy, DLP = ( 846.73 ) mGycm TECHNIQUE: Transaxial CT imaging of the brain was performed without administration of intravenous contrast material. Individualized dose optimization techniques were used for this CT. COMPARISON: CT of the facial bones dated May 01, 2020 FINDINGS: Normal soft tissue structures. Normal calvarium. No visualized skull fracture or hemorrhagic contusions of the brain parenchyma. There is mild cerebral atrophy with widening of the extra-axial spaces and ventricular dilatation. There are areas of decreased attenuation within the white matter tracts of the supratentorial brain, consistent with microvascular disease changes. Normal basal ganglia and thalami. Normal brainstem. Normal cerebellum. There is no intracranial hemorrhage. There are no findings of an acute ischemic infarction. Normal visualized paranasal sinuses. Mild left inferior orbital rim soft tissue swelling is present. CT/Brain/Head without Contrast IMPRESSION: Chronic involutional changes of the brain. Electronically Signed: Efrain Mccray MD at 16:59 EDT , Service support ,
--- NOTE | 2020-05-01 16:18 | ED.VIS.GEN ---
History of Present Illness Chief Complaint: Fall Informant: Patient Onset: Days Context: Onset with activity Timing: Continuous Current Severity: Mild Maximum Severity: Mild Narrative: The patient is a 69-year-old female who is on no anticoagulants presents to the emergency department with left-sided facial injury. The patient states that she is kyphotic. She states that she walks hunched over. She does go to pain management. She states that she was reaching over the fireplace and fell forwards. She states that she struck her left face on the bricks. She did not lose consciousness. She was wearing glasses and her glasses broke. She states she had a little swelling around the eye over the weekend which it is improved. She denies any visual change. She denies any headaches. She states she also twisted and hurt her left ribs. Prior similar symptoms: No Recent Illness/Hospitalization: No Past Medical History - Allergies and Home Meds Allergies/Adverse Reactions: Allergies albuterol Allergy (Verified 05/01/20 16:01) Other gabapentin Adverse Reaction (Verified 05/01/20 16:01) Other Sulfa (Sulfonamide Antibiotics) Adverse Reaction (Verified 05/01/20 16:01) Vomiting Primary Care Physician: Obi Woodward MD [Primary Care Provider] - Prior records reviewed: Yes Past Medical History: - - Hypertension Surgical History: appendectomy, cholecystectomy, hysterectomy Smoking Status: Former smoker - Family History Maternal Family History: Family History (Last Reviewed 03/24/19 @ 10:54 by Marilou Sahu) Father Myocardial infarction Leukemia Mother Hypertension Alzheimer disease Family History: Reports: No pertinent history Review of Systems General: Denies: Chills, Fever, Sweats Eyes: Denies: Visual changes - bilaterally, Diplopia ENT: Denies: Rhinorrhea, Sore throat Cardiovascular: Denies: Chest pain, Palpitations Respiratory: Denies: Dyspnea, Cough, Dyspnea on exertion Gastrointestinal: Denies: Abdominal pain, Nausea, Vomiting, Diarrhea, Melena, Hematochezia Genitourinary: Denies: Dysuria, Hematuria, Frequency Musculoskeletal: Denies: Back pain, Extremity Pain Skin: Denies: Rash, Wounds Neurological: Denies: Headache, Weakness, Numbness Physical Exam Vital Signs/Narrative: Vital Signs Temp Pulse Resp BP Pulse Ox 05/01/20 16:01 98.1 F 92 16 140/78 H 97 Inital Vital Signs reviewed: Yes General: Well nourished, Well developed, No Acute Distress Head: Normocephalic, Trauma, - - Periorbital ecchymosis around the left eye. No entrapment. No hyphema. Eyes: Perrl, EOMI ENT: Moist mucous membranes, No rhinorrhea Neck: Supple, Nontender Cardiovascular: Regular rate, Regular rhythm, No murmurs Respiratory: No distress, CTA bilaterally, Chest nontender Abdomen: Soft, Nontender, Nondistended, Normal bowel sounds Back: Nontender, Normal Inspection Extremities: Nontender, No edema Skin: Normal color, No rash Neurological: Alert, Oriented x3, Cranial nerves II-XII grossly intact, Normal Strength, Normal Sensation Psychological: Normal affect, Normal Mood Diagnostic/Tx/Re-eval Clinical Impression(s) from Imaging Studies Brain CT 05/01/20 16:13 IMPRESSION: Chronic involutional changes of the brain. Electronically Signed: Efrain Mccray MD at 16:59 EDT , Service support , Facial/Sinus 05/01/20 16:13 IMPRESSION: 1. Mild soft tissue swelling present at the inferior aspect of the left orbital rim. A small subcutaneous focal hematoma is also present in the left mid facial region with surrounding swelling. Electronically Signed: Efrain Mccray MD at 17:04 EDT , Service support , Ribs w/Chest X-Ray 05/01/20 16:28 IMPRESSION: RIBS: Normal x-ray examination of the ribs. CHEST : no acute process Electronically Signed: Efrain Mccray MD at 16:52 EDT , Service support , - Medical Decision Making The patient presents with facial injury after mechanical fall. She did not lose consciousness. She is not on anticoagulants. She does have rather significant ecchymosis with hematoma surrounding the left eye. However, there is no abnormalities of extraocular motion. There is no evidence of hyphema or entrapment. CT imaging was obtained of the head and face. Both of these are unremarkable for acute process. Rib series was obtained. This was reviewed by both myself and the radiologist. There is no evidence of rib fracture, pneumothorax, other dangerous process. The patient is reassured on results. She will continue ice. She will turn with any worsening symptoms. She will be discharged home. Impression 1. Left periorbital contusion with hematoma 2. Left rib contusion status post fall ED Disposition - Plan for ED Patient: Instructions: ED Facial Contusion Referrals: Obi Woodward MD [Primary Care Provider] -
--- NOTE | 2020-05-01 16:28 | RAD_ITS ---
STUDY: X-RAY - UNILATERAL RIBS ( LEFT ) WITH CHEST REASON FOR EXAM: Female, 69 years old. FELL ON FRIDAY. PAIN IS ANTERIOR; FEELS LIKE RIGHT UNDER BREAST. TECHNIQUE - RIBS: 2 view(s) of the ribs. TECHNIQUE - CHEST: Single PA view of the chest. COMPARISON: Chest x-ray dated November 29, 2015 FINDINGS - RIBS: Normal visualized ribs without a demonstrated fracture. FINDINGS - CHEST: There are interstitial fibrotic changes of the lungs. There is no demonstrated pleural abnormality. Normal size heart. Normal mediastinum and jose. Normal visualized pulmonary arteries. There is atherosclerotic calcification of the aortic arch with tortuosity. Normal visualized thoracic spine. Normal visualized ribs, clavicles, and shoulders. There is no demonstrated abnormality of the visualized soft tissue structures of the upper abdomen. RAD/Ribs Uni Min 3V w/PA Chest IMPRESSION: RIBS: Normal x-ray examination of the ribs. CHEST : no acute process Electronically Signed: Efrain Mccray MD at 16:52 EDT , Service support ,
[2020-05-01 17:18] VITALS: BP 142/72; PULSE 84; RESP 16; O2SAT 96
== END 2020-05-01 17:19 | disposition home or self-care (01) ==
LOC: ED 16:40
PROVIDERS: Emergency Provider Emergency Medicine; PCP Family Medicine
DX: S00.12XA Contusion of left eyelid and periocular area, initial encounter (principal); S20.212A Contusion of left front wall of thorax, initial encounter; W22.8XXA Striking against or struck by other objects, initial encounter; Y92.89 Other specified places as the place of occurrence of the external cause; Y99.8 Other external cause status; I10 Essential (primary) hypertension; Z82.49 Family history of ischemic heart disease and other diseases of the circulatory system; Z87.891 Personal history of nicotine dependence; Z88.2 Allergy status to sulfonamides; Z88.8 Allergy status to other drugs, medicaments and biological substances; Z90.49 Acquired absence of other specified parts of digestive tract; Z90.710 Acquired absence of both cervix and uterus
CPT/HCPCS: 70450; 70486; 71101; 99282

== ENCOUNTER → 2020-06-30 09:20 | Outpatient (CLI) | payer MEDICARE, SELFPAY ==
[2020-06-30 12:07] LABS: Absolute Lymphocyte Count 3.24 X10^3/uL (0.83-4.51); Absolute Neutrophil Count 3.9 X10^3/uL (2.0-7.7); Basophil# 0.08 X10^3/uL; Eosinophil# 0.11 X10^3/uL; Eosinophils% 1.4 % (0-5); Hematocrit 42.2 % (37-47); Hemoglobin 13.7 g/dL (12.0-15.0); Lymphocyte # 3.24 X10^3/ul (0.83-4.51); Mean Corp Hgb Conc 32.5 g/dL (32-36); Mean Corpuscular Hgb 28.4 pg (27.0-32.0); Mean Corpuscular Volume 87.4 fL (81-99); Mean Platelet Vol. 9.9 fl (6.2-12.0); Monocyte# 0.81 X10^3/uL; NRBC Flagged by Analyzer 0 % (0-5); Neutrophil # 3.85 X10^3/uL (2.7-7.7); Neutrophil % 47.4 % (47-70); Platelet Count 345 K/mm3 (150-450); RBC Distribution Width SD 45.1 fl (35.1-43.9); Red Blood Count 4.83 M/mm3 (4.2-5.4); White Blood Count 8.1 K/mm3 (4.4-11.0)
[2020-06-30 13:13] LABS: Hemoglobin A1c 5.7 % (3.8-5.6)
[2020-06-30 15:07] LABS: ALB/GLOB Ratio 1.1 RATIO (0.9-2.4); AST(SGOT) 12 U/L (15-37); Alanine Aminotransfer ALT/SGPT 20 U/L (13-56); Alkaline Phosphatase 110 U/L (45-117); Anion Gap 8 (5-15); BUN 12 mg/dL (7-18); BUN/Creat Ratio 12.1 RATIO (10-20); Calcium,Total 9.4 mg/dL (8.5-10.1); Chloride 103 mmol/L (98-107); Creatinine, Serum 0.99 mg/dL (0.55-1.02); EST Glomerular Filtration Rate 59 mL/min (>60); Est Glom Filt Rate - Afr Amer 72 mL/min (>60); Free T3 2.2 pg/mL (2.18-3.98); Globulin 3.5 g/dL (2.2-4.2); Glucose 102 mg/dL (74-106); Potassium 4.1 mmol/L (3.5-5.1); Prolactin 13.6 ng/mL; Protein, Total 7.5 g/dL (6.4-8.2); Sodium Level 136 mmol/L (136-145); T4 Free Direct 1.04 ng/dL (0.76-1.46); Thyroid Stim Hormone (TSH) 2.29 uIU/mL (0.358-3.74)
[2020-07-03 14:08] LABS: DHEA Sulfate 54.4 ug/dL (20.4-186.6)
[2020-07-03 16:05] LABS: Adrenocorticotropic Hormone 19.3 pg/mL (7.2-63.3)
== END ==
PROVIDERS: PCP Family Medicine; Referring Provider Family Medicine; Visit Provider Family Medicine
DX: M48.061 Spinal stenosis, lumbar region without neurogenic claudication (principal); R27.0 Ataxia, unspecified; E03.9 Hypothyroidism, unspecified; R63.5 Abnormal weight gain
CPT/HCPCS: 36415; 80053; 82024; 82627; 83036; 84146; 84439; 84443; 84481; 85025; 82626

== ENCOUNTER → 2021-01-30 15:26 | Outpatient (CLI) | payer MEDICARE, SELFPAY | PROVIDERS: PCP Family Medicine; Visit Provider Family Medicine | DX: R30.0 Dysuria (principal) | CPT/HCPCS: 87086; 87088; 87186 ==

== ENCOUNTER 2021-03-28 13:20 | Emergency (ER) | payer MEDICARE, SELFPAY ==
[2021-03-28 13:20] VITALS: BP 161/81; PULSE 56; RESP 16; TEMP 36.3; O2SAT 99; BMI 30.4
[2021-03-28 13:26] VITALS: PULSE 82; RESP 16; O2SAT 97
--- NOTE | 2021-03-28 13:54 | CT_ITS ---
EXAM: CT CERVICAL SPINE WITHOUT INTRAVENOUS CONTRAST CLINICAL INDICATION: neck pain TECHNIQUE: Helically acquired images were obtained of the cervical spine without intravenous contrast. 2D reformatted images were reviewed. This CT exam was performed using one or more of the following dose reduction techniques: automated exposure control, adjustment of the mA and/or kV according to patient size, and/or use of iterative reconstruction technique. This report was created using [employer] report generation technology. COMPARISON: CT neck without contrast 07/14/2019. FINDINGS: VERTEBRAE: Unremarkable. No fracture. No traumatic subluxation. No discrete lytic or blastic abnormality. Normal alignment. Normal craniocervical junction and cervicothoracic junction. Moderately pronounced left C3-C4 degenerative facet arthropathy and moderate right C4-C5 degenerative facet arthropathy are unchanged. DISCS/SPINAL CANAL/NEURAL FORAMINA: Unremarkable. Disc heights are preserved. No critical stenosis. SOFT TISSUES: Unremarkable. No prevertebral soft tissue swelling. LYMPH NODES: Unremarkable. No cervical adenopathy. LUNG APICES: Unremarkable as visualized. Clear. CT/Spine Cervical without Contras IMPRESSION: 1. No CT evidence of acute fracture or malalignment of the cervical spine and the craniocervical junction. 2. No interval change when compared to 07/14/2019. Electronically Signed: Caleb Velasquez MD at 15:16 EST ,
--- NOTE | 2021-03-28 13:54 | CT_ITS ---
EXAM: CT HEAD WITHOUT INTRAVENOUS CONTRAST CLINICAL INDICATION: head injury TECHNIQUE: Multiple axial images were obtained of the head without intravenous contrast. This CT exam was performed using one or more of the following dose reduction techniques: automated exposure control, adjustment of the mA and/or kV according to patient size, and/or use of iterative reconstruction technique. This report was created using [employer] report generation technology. COMPARISON: CT head without contrast 05/01/2020. FINDINGS: BRAIN AND EXTRA-AXIAL SPACES: Hypodensities in the white matter of both cerebral hemispheres are chronic white matter ischemic changes. No intra- or extra-axial hemorrhage. No intracranial mass or mass effect. Posterior fossa structures are unremarkable. Ventricles are appropriate for age. No hydrocephalus. Basal cisterns are patent. BONES/JOINTS: Unremarkable. No discrete lytic or blastic abnormalities. SINUSES: Unremarkable as visualized. Clear. MASTOID AIR CELLS: Unremarkable. Clear. ORBITS: Visualized globes, extraocular muscles, optic nerves and retrobulbar fat appear unremarkable. CT/Brain/Head without Contrast IMPRESSION: 1. No acute findings in the head/brain. 2. Chronic white matter ischemic changes in both cerebral hemispheres. 3. No interval change when compared to 05/01/2020. Electronically Signed: Caleb Velasquez MD at 15:14 EST ,
--- NOTE | 2021-03-28 14:22 | ED.VIS.FALL ---
HPI HPI - Fall History of Present Illness Chief Complaint: Fall Narrative Narrative: 70-year-old female presenting with mild headache and neck pain. Patient states she had a mechanical fall after she slipped on ice and fell backward on her back. She has minimal lower back pain but states she is concerned about her head and neck pain. Patient states she was initially a little bit confused but is now feeling back to normal. She also states she needed to be helped up initially but now is able to ambulate. She denies any nausea or vomiting. She denies visual complaint. She is not on oral anticoagulation. [facility] Medical History Anxiety Fibromyalgia Insomnia Post concussion syndrome Scoliosis Home Medications levothyroxine 50 mcg PO DAILY 11/29/15 [History Last Taken Unknown] duloxetine 20 mg PO DAILY 09/23/19 [History Last Taken Unknown] omeprazole 20 mg PO BID 09/23/19 [History Last Taken Unknown] trazodone 50 mg PO DINNER 09/23/19 [History Last Taken Unknown] trazodone 100 mg PO QHS 09/23/19 [History Last Taken Unknown] hydrocodone-acetaminophen 5-325mg 5mg-325mg 1 tab PO QHS PRN 03/27/20 [History Last Taken Unknown] bupropion HCl 100 mg PO TID 03/28/21 [History Last Taken Unknown] hydroxyzine HCl 20 mg PO QHS 03/28/21 [History Last Taken Unknown] nabumetone 750 mg PO BID 03/28/21 [History Last Taken Unknown] tizanidine 4 mg PO QHS 03/28/21 [History Last Taken Unknown] Allergy/AdvReac Type Severity Reaction Status Date / Time albuterol Allergy Other Verified 03/28/21 13:23 gabapentin AdvReac Other Verified 03/28/21 13:23 Sulfa (Sulfonamide AdvReac Vomiting Verified 03/28/21 13:23 Antibiotics) Family History Father Myocardial infarction Leukemia Mother Hypertension Alzheimer disease Surgical History History of bunionectomy History of LAVH Salivary gland stone Social History number of children: 2 current occupational status: retired Smoking Status: Never smoker alcohol intake: current substance use type: does not use caffeine: Yes what type of physical activity do you participate in: none seatbelt use: always do you feel safe at home: Yes additional social history: works at [employer] ED Constitutional Constitutional ED: Denies chills or fever(s) Eyes Eyes: Denies blurry vision or diplopia ENT ENT ED: Denies rhinorrhea or sore throat Cardiovascular Cardiovascular: Denies chest pain or palpitations Respiratory/Chest Respiratory/Chest: Denies cough or dyspnea Gastrointestinal Gastrointestinal: Denies abdominal pain, diarrhea, nausea or vomiting Genitourinary Genitourinary ED: Denies dysuria or hematuria Musculoskeletal Musculoskeletal: Reports neck pain Integumentary Denies abscess, Abrasions or rash Neurologic Neurologic: Reports headache(s); Denies paresthesias or weakness EXAM Physical Exam Const Vital Signs: 03/28/21 13:20 03/28/21 13:26 Temperature 97.3 F L Temperature Source Temporal Pulse Rate 56 L 82 Respiratory Rate 16 16 Respiratory Effort Normal Respiratory Depth Normal Respiratory Pattern Normal Blood Pressure 161/81 H Blood Pressure Mean 107 Pulse Ox 99 97 Oxygen Delivery Method Room Air Room Air Positive well nourished General Appearance ED: NAD HEENT Reports normocephalic and TM's normal bilaterally atraumatic Eyes PERRL and EOMs intact bilaterally Neck full ROM and supple Neck Narrative: Tenderness to palpation left cervical paraspinal musculature and trapezius. No midline spinal deformity or step-off Chest Wall inspection of chest normal Resp normal respiratory effort and clear to auscultation bilaterally Cardio regular rate and regular rhythm GI non-tender Palpation: soft Back/Spine Back/Spine Narrative: Mild left lumbar paraspinal musculature tenderness. No midline spinal deformity or step-off. Extremity normal to inspection and full ROM Neuro oriented x3, CN's II-XII intact bilaterally, moves all extremities, no focal motor deficits and no sensory deficits noted Sensorium / Orientation: alert Motor Exam: strength 5/5 throughout Psych mental status grossly normal and thought process normal Skin Rashes: no rashes MDM MDM MDM Narrative Medical decision making narrative: Patient presenting after mechanical fall. She hit her head and her she has some neck pain in the left trapezius and left cervical paraspinal musculature. No midline spinal tenderness or deformity. I did obtain a CT brain and cervical spine which did identify any acute pathology. I did offer to do an x-ray of the lumbar spine however the patient states that this is not very tender and she does not need an x-ray. I offered analgesia to the patient but she stated that she did not need anything. And that her CAT scans are normal I feel she is safe to be discharged home. Impression: 1. Mechanical fall 2. Closed head injury 3. Cervical strain Radiography Diagnostic Testing: Clinical Impression(s) from Imaging Studies Brain CT 03/28/21 13:54 IMPRESSION: 1. No acute findings in the head/brain. 2. Chronic white matter ischemic changes in both cerebral hemispheres. 3. No interval change when compared to 05/01/2020. Electronically Signed: Caleb Velasquez MD at 15:14 EST , Cervical Spine CT 03/28/21 13:[address]: [address] evidence of acute fracture or malalignment of the cervical spine and the craniocervical junction. 2. No interval change when compared to 07/14/2019. Electronically Signed: Caleb Velasquez MD at 15:16 EST , Discharge Plan Triage Chief Complaint: Fall ED Provider: Mu Friedman Dx/Rx/DC Orders Instructions: ED Head Injury (Adult), ED Neck Sprain or Strain, ED Fall Prevention Prescriptions: No Action hydrocodone-acetaminophen [[place]] 5-325 mg tablet 1 tab PO QHS PRN (Reason: pain) RF: 0 levothyroxine 50 MCG tablet 50 mcg PO DAILY RF: 0 trazodone 50 MG tablet 50 mg PO DINNER RF: 0 trazodone 100 MG tablet 100 mg PO QHS RF: 0 omeprazole 20 MG capsule,delayed release(DR/EC) 20 mg PO BID RF: 0 duloxetine 30 MG capsule,delayed release(DR/EC) 20 mg PO DAILY RF: 0 nabumetone 750 mg tablet 750 mg PO BID RF: 0 tizanidine 4 mg tablet 4 mg PO QHS RF: 0 bupropion HCl 100 mg Tablet 100 mg PO TID RF: 0 hydroxyzine HCl 10 mg tablet 20 mg PO QHS RF: 0 Primary Care Provider: Obi Woodward Referrals: Obi Woodward MD [Primary Care Provider] - Disposition Disposition: Home, Self Care
[2021-03-28 15:33] VITALS: BP 148/74; PULSE 75; RESP 15; O2SAT 98
== END 2021-03-28 15:34 | disposition home or self-care (01) ==
PROVIDERS: Emergency Provider Student in an Organized Health Care Education/Training Program; PCP Family Medicine; Visit Provider Student in an Organized Health Care Education/Training Program
DX: S09.90XA Unspecified injury of head, initial encounter (principal); S16.1XXA Strain of muscle, fascia and tendon at neck level, initial encounter; W00.0XXA Fall on same level due to ice and snow, initial encounter
CPT/HCPCS: 70450; 72125; 99282

== ENCOUNTER 2021-04-10 15:24 | Outpatient (CLI) | payer MEDICARE, SELFPAY ==
--- NOTE | 2021-04-10 15:26 | BI_ITS ---
MAMMOGRAPHY - BILATERAL SCREENING REASON FOR EXAM: Female, 70 years old. Routine annual screening examination. PERTINENT HISTORY: Non-contributory. Remote right stereotactic breast biopsy. TECHNIQUE: Digital bilateral breast tanya (3D mammographic acquisition) in the CC and MLO projections. 2-D mediolateral oblique (MLO) and craniocaudad (CC) views of both breasts were obtained. CAD: Full Field Digital Mammography with Computer Added Detection was performed. COMPARISON: Comparison is made with prior study dated 03/27/2020 and 03/24/2019. FINDINGS: Breast Composition: The breasts are almost entirely fatty. There are no dominant masses or suspicious calcifications. A tissue clip marker is once again seen in the upper anterior lateral aspect of the right breast. Stable appearance of the bilateral secretory calcifications. No other significant abnormalities are identified. There has been no significant change since the prior study. BI/SCRN MAMM (CAD)W/TANYA BILAT IMPRESSION: Stable bilateral screening mammogram. Yearly follow-up mammogram recommended. (A) ASSESSMENT CATEGORY: BIRADS Category 2: Benign. A letter regarding these results will be sent to the patient by the facility within 30 days. Approximately 10% of breast cancers are not detected by mammography. A normal mammogram should not delay biopsy of a clinically suspicious abnormality. [id number] Electronically Signed: Charli Wayne MD at 8:18 EST ,
--- NOTE | 2021-04-10 15:30 | BD_ITS ---
STUDY: DUAL ENERGY X-RAY ABSORPTIOMETRY / DXA REASON FOR EXAM: Female, 70 years old. M810. The patient is postmenopausal. TECHNIQUE: Bone Mineral Density (BMD) measurements of lumbar spine and bilateral hips were obtained. COMPARISON: Comparison is made with prior study dated 02/27/2017. FINDINGS: Lumbar Spine (L1-L4): g/cm2 (0.961) / T-score (-0.8) / Z-score (1.3) Findings are suggestive of normal bone density with a low fracture risk. Left Femur Total: g/cm2 (0.811) / T-score (-1.1) / Z-score (0.4) Left Femoral Neck: g/cm2 (0.675) / T-score (-1.6) / Z-score (0.2) Right Femur Total: g/cm2 (0.801) / T-score (-1.2) / Z-score (0.3) Right Femoral Neck: g/cm2 (0.688) / T-score (-1.5) / Z-score (0.3) The T-Scores on the most recent prior examination were: Lumbar Spine (L1-L4): There has been worsening of bone density since the previous examination. Left Femur Total: which represents a worsening of 13.1%. Right Femur Total: which represents a worsening of 9%. BD/Dexa Bone Density Study IMPRESSION: The patient is considered osteopenic as outlined below according to World Andre Organization (WHO) criteria with a moderate fracture risk. There has been worsening of bone density since the previous examination. Reference Information: The T-score is the number of standard deviations above or below the standard which is normal for young adults at their peak bone mineral density. The World Health Organization (WHO) interprets the T-scores as follows: Above -1 Normal bone density Between -1 and -2.5 Osteopenia Equal to / or below -2.5 Osteoporosis As a practical clinical guideline, osteopenia may be graded as follows: Mild -1 through -1.5 Moderate -1.6 through -2.0 Severe -2.1 through -2.4 The Z-score is the number of standard deviations above or below age-matched controls. A Z-score of less than -1.5 would be considered abnormal. References: 1. NIH Osteoporosis and Related Bone Diseases www osteo.org 2. International Society for Clinical Densitometry www iscd.org 3. National Osteoporosis Foundation www nof.org Electronically Signed: Charli Wayne MD at 12:28 EST ,
== END 2021-04-10 23:59 | disposition home or self-care (01) ==
LOC: OPBD 15:24
PROVIDERS: PCP Family Medicine; Referring Provider Obstetrics & Gynecology; Visit Provider Obstetrics & Gynecology
DX: Z12.31 Encounter for screening mammogram for malignant neoplasm of breast (principal); Z13.820 Encounter for screening for osteoporosis
CPT/HCPCS: 77063; 77067; 77080

== ENCOUNTER → 2021-07-25 | Outpatient (CLI) | payer MEDICARE, SELFPAY ==
--- NOTE | 2021-07-25 12:49 | US_ITS ---
STUDY: RENAL ULTRASOUND - COMPLETE REASON FOR EXAM: Female, 70 years old. UTI TECHNIQUE: Ultrasound evaluation of the kidneys was performed with real-time and static bray-scale imaging. COMPARISON: None. FINDINGS: RIGHT KIDNEY: Normal location of the right kidney, which is normal in size. The right kidney measures 9.6 cm x 5.4cm x 4.7 cm. There is a normal cortex of the right kidney. The renal cortex measures 1.3 cm. There is no right renal mass or cyst. There are no right renal calculi. There is no right hydronephrosis. DISTAL RIGHT URETER: There is non-visualization of the distal right ureter. There is no demonstrated right ureterovesical junction calculus. There is a visualized right ureteral jet. LEFT KIDNEY: Normal location of the left kidney, which is normal in size. The left kidney measures 10 cm x 4.4 cm x 5.7 cm. There is a normal cortex of the left kidney. The renal cortex measures 1.7 cm. There is no left renal mass or cyst. There are no left renal calculi. There is no left hydronephrosis. DISTAL LEFT URETER: There is non-visualization of the distal left ureter. There is no demonstrated left ureterovesical junction calculus. There is no demonstrated left ureteral jet. BLADDER: The distended urinary bladder has a volume of 81 ml. There is a normal wall thickness of the distended urinary bladder. There is no demonstrated mass within the urinary bladder. There are no demonstrated bladder calculi. US/Kidney and Bladder IMPRESSION: Normal ultrasound of the kidneys and urinary bladder. Electronically Signed: Charli Wayne MD at 15:51 EDT ,
== END | disposition home or self-care (01) ==
LOC: US 12:48
PROVIDERS: PCP Family Medicine; Referring Provider Urology; Visit Provider Urology
DX: N39.0 Urinary tract infection, site not specified (principal)
CPT/HCPCS: 76770

== ENCOUNTER → 2021-11-16 | Outpatient (CLI) | payer MEDICARE, SELFPAY ==
[2021-11-16 15:32] LABS: Absolute Lymphocyte Count 3.67 X10^3/uL (0.83-4.51); Absolute Neutrophil Count 5.6 X10^3/uL (2.0-7.7); Basophil# 0.09 X10^3/uL; Basophil% 0.9 % (0-1); Eosinophil# 0.13 X10^3/uL; Eosinophils% 1.3 % (0-5); Hematocrit 41.3 % (37-47); Hemoglobin 13.9 g/dL (12.0-15.0); Lymphocyte # 3.67 X10^3/ul (0.83-4.51); Lymphocyte % 35.5 % (19-41); Mean Corp Hgb Conc 33.7 g/dL (32-36); Mean Corpuscular Hgb 28.4 pg (27.0-32.0); Mean Corpuscular Volume 84.5 fL (81-99); Mean Platelet Vol. 9.1 fl (6.2-12.0); Monocyte# 0.85 X10^3/uL; Monocyte% 8.2 % (0-10); NRBC Flagged by Analyzer 0 % (0-5); Neutrophil # 5.56 X10^3/uL (2.7-7.7); Neutrophil % 53.7 % (47-70); Platelet Count 304 K/mm3 (150-450); RBC Distribution Width CV 14.3 % (11.6-14.6); RBC Distribution Width SD 44.1 fl (35.1-43.9); Red Blood Count 4.89 M/mm3 (4.2-5.4); White Blood Count 10.3 K/mm3 (4.4-11.0)
[2021-11-16 16:23] LABS: Vitamin B12 508 pg/mL (211-911)
[2021-11-16 16:38] LABS: ALB/GLOB Ratio 1.2 RATIO (0.9-2.4); AST(SGOT) 17 U/L (15-37); Alanine Aminotransfer ALT/SGPT 31 U/L (13-56); Albumin, Serum 4.2 g/dL (3.2-5.0); Alkaline Phosphatase 100 U/L (45-117); Anion Gap 10 (5-15); BUN 12 mg/dL (7-18); Calcium,Total 9.6 mg/dL (8.5-10.1); Chloride 102 mmol/L (98-107); Creatinine, Serum 0.92 mg/dL (0.55-1.02); EST Glomerular Filtration Rate 64 mL/min (>60); Est Glom Filt Rate - Afr Amer 77 mL/min (>60); Globulin 3.5 g/dL (2.2-4.2); Glucose 115 mg/dL (74-106); Potassium 4.1 mmol/L (3.5-5.1); Protein, Total 7.7 g/dL (6.4-8.2); Sodium Level 135 mmol/L (136-145)
== END | disposition home or self-care (01) ==
LOC: LAB 14:55
PROVIDERS: PCP Family Medicine; Visit Provider Family Medicine
DX: M79.7 Fibromyalgia (principal)
CPT/HCPCS: 36415; 80053; 82607; 84443; 85025

== ENCOUNTER → 2022-04-22 | Outpatient (CLI) | payer MEDICARE, SELFPAY ==
--- NOTE | 2022-04-22 12:40 | RAD_ITS ---
EXAM: XR RIGHT HIP WITH PELVIS WHEN PERFORMED, 2 OR 3 VIEWS CLINICAL INDICATION: PAIN TECHNIQUE: Two or three views of the right hip with pelvis when performed. This report was created using [employer] report generation technology. COMPARISON: None. FINDINGS: BONES/JOINTS: Mild degenerative changes of the right hip. No displaced fracture. No destructive or sclerotic lesions. Note that overlapping bowel shadows may however obscure fine detail. Sacroiliac joint is unremarkable. No widening of the pubic symphysis. SOFT TISSUES: Unremarkable. No soft tissue swelling or gas. RAD/HIP, UNI W/ Pelvis 2-3 Views IMPRESSION: Mild degenerative changes of the right hip. Electronically Signed: Bart Bradshaw MD at 7:15 EST ,
--- NOTE | 2022-04-22 12:45 | RAD_ITS ---
EXAM: XR RIGHT KNEE COMPLETE, 4 OR MORE VIEWS CLINICAL INDICATION: PAIN TECHNIQUE: Four or more views of the right knee. This report was created using [employer] report generation technology. COMPARISON: None. FINDINGS: BONES/JOINTS: No acute fracture. No subluxation. Normal alignment. Mild degenerative changes of the patellofemoral compartment, with some joint space loss and marginal osteophyte formation. No sclerotic or destructive changes observed. SOFT TISSUES: Unremarkable. No soft tissue swelling or gas. No radiopaque foreign body. RAD/Knee 4 or More Views IMPRESSION: Mild degenerative changes of the patellofemoral compartment, otherwise unremarkable exam. Electronically Signed: Bart Bradshaw MD at 2:32 EST ,
== END | disposition home or self-care (01) ==
PROVIDERS: PCP Family Medicine; Visit Provider Family Medicine
DX: M25.561 Pain in right knee (principal); M25.551 Pain in right hip
CPT/HCPCS: 73502; 73564

== ENCOUNTER → 2022-05-22 | Outpatient (CLI) | payer MEDICARE, SELFPAY ==
--- NOTE | 2022-05-22 14:23 | RAD_ITS ---
INDICATION: sob/cough EXAMINATION/TECHNIQUE: X-RAY - XR Chest 2 Views COMPARISON: 05/01/2020. FINDINGS: LINES/DEVICES: None. LUNGS: No consolidation. Reticular opacity in the left lung base unchanged likely scar. No pneumothorax. MEDIASTINUM: Aorta is atherosclerotic. CARDIAC SILHOUETTE: Not enlarged. BONES AND SOFT TISSUES: Degenerative changes dorsal spine. RAD/Chest PA and Lateral IMPRESSION: No evidence of active intrathoracic disease. Electronically Signed: Ida Bergeron MD at 7:10 EDT ,
== END | disposition home or self-care (01) ==
LOC: MTRAD 14:21
PROVIDERS: PCP Family Medicine; Referring Provider Nurse Practitioner Family; Visit Provider Nurse Practitioner Family
DX: R06.02 Shortness of breath (principal)
CPT/HCPCS: 71046

== ENCOUNTER 2022-09-12 10:25 | Day surgery (SDC) | payer MEDICARE, SELFPAY ==
[2022-09-04 18:06] LABS: Hemoglobin 14.2 g/dL (12.0-15.0); Mean Corp Hgb Conc 33.8 g/dL (32-36); Mean Corpuscular Hgb 28.6 pg (27.0-32.0); Mean Corpuscular Volume 84.5 fL (81-99); Mean Platelet Vol. 9.7 fl (6.2-12.0); Platelet Count 321 K/mm3 (150-450); RBC Distribution Width CV 14.1 % (11.6-14.6); RBC Distribution Width SD 43.1 fl (35.1-43.9); Red Blood Count 4.97 M/mm3 (4.2-5.4); White Blood Count 10.5 K/mm3 (4.4-11.0)
[2022-09-04 18:45] LABS: Anion Gap 9 (5-15); BUN 11 mg/dL (7-18); BUN/Creat Ratio 11.9 RATIO (10-20); Calcium,Total 9.7 mg/dL (8.5-10.1); Chloride 104 mmol/L (98-107); Creatinine, Serum 0.93 mg/dL (0.55-1.02); EST Glomerular Filtration Rate 64 mL/min (>60); Est Glom Filt Rate - Afr Amer 77 mL/min (>60); Glucose 110 mg/dL (74-106); Potassium 4.5 mmol/L (3.5-5.1); Sodium Level 135 mmol/L (136-145)
[2022-09-12] VITALS (8 sets, daily range): BP systolic 107–127; BP diastolic 60–75; PULSE 72–81; RESP 15–16; TEMP 36.8; O2SAT 91–99; BMI 30.4
[2022-09-12] MEDS: Lactated Ringers 1,000 ML 15 ML IV (11:13)
--- NOTE | 2022-09-12 11:48 | DCINST_ITS ---
Discharge Instructions Diet Discharge Diet: No restrictions Activity Discharge Activity: Return to Normal Activity Dressing / Incision Call your doctor if you observe: Fever of 101 or Higher, Inability to urinate and Inability to have a bowel movement Follow Up Care Please Follow Up With: Jennifer Grayson MD When: The office will call to make arrangements for the patient to be seen next week. Test Results: Test results from this visit will be discussed in further detail at your follow- up appointment, if applicable. Discharge Plan Admission Attending Provider: Jennifer Grayson Primary Care Provider: Marcie Luis Discharge Orders/Prescriptions Prescriptions: New cephalexin [cephalexin] 500 mg capsule 500 mg PO Q12 3 Days Qty: 6 0RF Rx Instructions: Please hold the nightly 250 mg Keflex tablets while taking this 3-day course. Continued levothyroxine 50 MCG tablet 50 mcg PO DAILY trazodone 100 MG tablet 100 mg PO QHS omeprazole 20 MG capsule,delayed release(DR/EC) 20 mg PO BID duloxetine 30 MG capsule,delayed release(DR/EC) 20 mg PO DAILY hydroxyzine HCl 10 mg tablet 20 mg PO QHS cephalexin 250 mg capsule 250 mg PO QHS Patient Comments: TAKE 1 CAPSULE BY MOUTH AT BEDTIME Gemtesa 75 mg tablet 75 mg PO DAILY Referrals / Follow Up: Marcie Luis, [Primary Care Provider] - Disposition Disposition (needs filled in before D/C Order can be placed): Home, Self Care
--- NOTE | 2022-09-12 11:50 | PCM.OPRPT ---
Report of Operation Date of Procedure: 09/12/22 Pre-Operative Diagnosis: overactive bladder Post-Operative Diagnosis: same Surgery/Procedure Performed:: cystoscopy with botox 100 unit injection Surgeon: Jennifer Grayson Type of Anesthesia: MAC Description of Procedure: The patient is a 71-year-old female with uncontrolled overactive bladder. She now presents for Botox trial, informed consent has been obtained. The patient was taken to the operating room and placed on the operating room table. Anesthesia monitored the head, neck, airway, IV access and vital signs throughout the case. Once anesthesia was appropriately administered, the patient was placed into dorsolithotomy position was prepped and draped in usual sterile fashion. The cystoscope was inserted through the urethra under direct visualization. Once in the urinary bladder the mucosa was visualized in its entirety revealing no mass, ulceration or foreign body. In total twenty 0.5 cc injections of Botox solution were done in systematic fashion throughout the bladder. A normal saline flush was used prior to the Botox and following as well. Patient's bladder was then emptied and the cystoscope was removed. She tolerated the procedure without complication and was awakened and taken to the recovery room in good condition. Grafts/Implants Used: none Complications none Admit VTE Documentation VTE Present on Admission: Yes VTE Mechan Device Prophylaxis: SCD's VTE Pharm Prophylaxis ordered?: No Reason prophylaxis not ordered:: Treatment Not Indicated
[2022-09-12] MEDS: Cefazolin 2 GM in 0.9% Normal Saline 100 ML IV (11:52)
[2022-09-12] MEDS: 0.9% Normal Saline (Pres. free 10 ML Vial ×2 (12:06)
[2022-09-12] MEDS: Botulinum Toxin A 100 Units Vial IJ (12:09)
== END 2022-09-12 13:11 | disposition home or self-care (01) ==
LOC: SDC 10:29 → AC 10:30
PROVIDERS: PCP Family Medicine; Referring Provider Urology; Visit Provider Urology
PROC: 3E0K8GC Introduction of Other Therapeutic Substance into Genitourinary Tract, Via Natural or Artificial Opening Endoscopic (ICD-10-PCS; CPT 52287; principal; 2022-09-12 11:05)
DX: N32.81 Overactive bladder (principal); K21.9 Gastro-esophageal reflux disease without esophagitis; Z87.891 Personal history of nicotine dependence; E03.9 Hypothyroidism, unspecified; Z90.710 Acquired absence of both cervix and uterus; L90.0 Lichen sclerosus et atrophicus; F41.9 Anxiety disorder, unspecified
CPT/HCPCS: 52287; 00910; 36415; 80048; 85027; J7120; J0585; J2405; J3490

== ENCOUNTER 2022-10-22 12:58 | Emergency (ER) | payer MEDICARE, SELFPAY ==
[2022-10-22 12:59] VITALS: BP 152/74; PULSE 83; RESP 14; TEMP 36.7; O2SAT 97; BMI 29.1
--- NOTE | 2022-10-22 22:34 | EDS_ITS ---
HPI History of Present Illness Chief Complaint: Head Injury Narrative Narrative: 72-year-old male presenting with mild headache and some dizziness. She states she fell and hit her head on Friday. Patient denies LOC. She denies any neck pain. She states she called her primary care doctor who told her to come to the ER to make sure she does not have a brain bleed. This was 3 days ago that she hit her head. Patient was here earlier but left prior to being seen to go to the dentist appointment and then return. Patient not on any blood thinners. [facility] Medical History Alcohol use Ambulates with cane Anxiety Anxiety Arthritis Back pain Bladder disease Depression Fibromyalgia Former smoker Gastric reflux History of IBS History of stress test Injury of head and neck Insomnia Kyphoscoliosis Post-menopausal Restless legs Shortness of breath on exertion Thyroid disease Wears glasses Home Medications levothyroxine 50 mcg tablet 50 mcg PO DAILY 11/29/15 [History Last Taken Unknown] duloxetine 30 mg capsule,delayed release 20 mg PO DAILY 09/23/19 [History Last Taken Unknown] omeprazole 20 mg capsule,delayed release 20 mg PO BID 09/23/19 [History Last Taken Unknown] trazodone 100 mg tablet 100 mg PO QHS 09/23/19 [History Last Taken Unknown] hydroxyzine HCl 10 mg tablet 20 mg PO QHS 03/28/21 [History Last Taken Unknown] cephalexin 250 mg capsule 250 mg PO QHS 09/05/22 [History Last Taken Unknown] vibegron 75 mg tablet (Gemtesa) 75 mg PO DAILY 09/05/22 [History Last Taken Unknown] cephalexin 500 mg capsule 500 mg PO Q12 post-operative 3 days #6 CAPSULES 09/12/22 [Rx Last Taken Unknown] Allergy/AdvReac Type Severity Reaction Status Date / Time albuterol Allergy Other Verified 10/22/22 18:32 gabapentin AdvReac Other Verified 10/22/22 18:32 Sulfa (Sulfonamide AdvReac Vomiting Verified 10/22/22 18:32 Antibiotics) Family History Father Myocardial infarction Leukemia Mother Hypertension Alzheimer disease Surgical History History of bunionectomy History of LAVH Salivary gland stone Social History number of children: 2 current occupational status: retired Smoking Status: Former smoker alcohol intake: current details: social substance use type: does not use caffeine: Yes what type of physical activity do you participate in: none seatbelt use: always do you feel safe at home: Yes additional social history: [employer] ED Constitutional Constitutional ED: Denies chills, fever(s) or sweats Eyes Eyes: Denies blurry vision or change in vision ENT ENT ED: Denies ear pain or sore throat Cardiovascular Cardiovascular: Denies chest pain, palpitations or racing heartbeat Respiratory/Chest Respiratory/Chest: Denies cough, dyspnea or sputum Gastrointestinal Gastrointestinal: Reports nausea; Denies abdominal pain, constipation, diarrhea or vomiting Genitourinary Genitourinary ED: Denies dysuria, hematuria or urinary frequency Musculoskeletal Musculoskeletal: Denies arthralgias, myalgias or neck pain Integumentary Denies abscess, Abrasions or rash Neurologic Neurologic: Reports headache(s); Denies paresthesias or weakness Psychiatric Psychiatric: Denies anxiety, depression, suicidal ideation or suicidal thoughts Endocrine Endocrinology: Denies polydipsia or polyuria EXAM Physical Exam Const Vital Signs: 10/22/22 12:59 Temperature 98.1 F Temperature Source Temporal Pulse Rate 83 Respiratory Rate 14 Blood Pressure 152/74 H Blood Pressure Mean 100 Pulse Ox 97 Oxygen Delivery Method Room Air Positive well nourished General Appearance ED: NAD HEENT atraumatic Eyes PERRL and EOMs intact bilaterally Chest Wall inspection of chest normal Resp normal respiratory effort Cardio regular rhythm Neuro oriented x3 and CN's II-XII intact bilaterally Sensorium / Orientation: alert Motor Exam: strength 5/5 throughout Psych mental status grossly normal Skin no rashes or lesions noted and no wounds MDM MDM MDM Narrative Medical decision making narrative: Patient presenting with headache. She has no focal neurologic deficits or lateralizing signs or symptoms. I obtained a CT of the brain which was negative. Patient likely has mild concussion. She will follow-up with her PCP to ensure resolution. Return precautions discussed. Impression: 1. Concussion 2. Mechanical fall Discharge Plan Triage Chief Complaint: Head Injury ED Provider: Mu Friedman Dx/Rx/DC Orders Prescriptions: No Action levothyroxine 50 MCG tablet 50 mcg PO DAILY trazodone 100 MG tablet 100 mg PO QHS omeprazole 20 MG capsule,delayed release(DR/EC) 20 mg PO BID duloxetine 30 MG capsule,delayed release(DR/EC) 20 mg PO DAILY hydroxyzine HCl 10 mg tablet 20 mg PO QHS cephalexin 250 mg capsule 250 mg PO QHS Patient Comments: TAKE 1 CAPSULE BY MOUTH AT BEDTIME Gemtesa 75 mg tablet 75 mg PO DAILY cephalexin [cephalexin] 500 mg capsule 500 mg PO Q12 3 Days Qty: 6 0RF Rx Instructions: Please hold the nightly 250 mg Keflex tablets while taking this 3-day course. Primary Care Provider: Marcie Luis Disposition Disposition: LEFT WITHOUT BEING SEEN Discharge Date/Time: 10/22/22 14:20
== END 2022-10-22 14:20 | disposition home or self-care (01) ==
LOC: ED 14:23
PROVIDERS: PCP Family Medicine
DX: S06.0X0A Concussion without loss of consciousness, initial encounter (principal); Z87.891 Personal history of nicotine dependence; E07.9 Disorder of thyroid, unspecified; K21.9 Gastro-esophageal reflux disease without esophagitis; M79.7 Fibromyalgia; W18.09XA Striking against other object with subsequent fall, initial encounter

== ENCOUNTER 2022-10-22 18:31 | Emergency (ER) | payer MEDICARE, SELFPAY ==
[2022-10-22 18:31] VITALS: BP 148/70; PULSE 84; RESP 18; TEMP 36.1; O2SAT 99; BMI 31.6
--- NOTE | 2022-10-22 20:14 | CT_ITS ---
INDICATION: Trauma, fall, head injury EXAMINATION: CT BRAIN - CT Head or Brain W/O Contrast Injection TECHNIQUE: Multiple axial images were obtained of the head without intravenous contrast. A radiation dose optimization technique was used for this scan. IV Contrast dosage and agent: None. COMPARISON: 03/28/2021 FINDINGS: BRAIN PARENCHYMA: No intra- or extra-axial hemorrhage. No evidence of acute infarct. No intracranial mass or mass effect. Posterior fossa structures are unremarkable. Stable volume loss with low attenuation of the periventricular white matter typical of chronic small vessel disease. CSF SPACES: Stable. No hydrocephalus. Basal cisterns are patent. CALVARIUM, SKULL BASE, PARANASAL SINUSES AND MASTOID AIR CELLS: Clear. No acute fracture. High left posterior parietal cephalhematoma. CT/Brain/Head without Contrast IMPRESSION: Volume loss with chronic white matter changes. No acute intracranial findings. Electronically Signed: Juan Monroy MD at 20:42 EDT ,
== END 2022-10-22 21:03 | disposition home or self-care (01) ==
PROVIDERS: Emergency Provider Student in an Organized Health Care Education/Training Program; PCP Family Medicine; Visit Provider Student in an Organized Health Care Education/Training Program
DX: S06.0X0A Concussion without loss of consciousness, initial encounter (principal); Z87.891 Personal history of nicotine dependence; E07.9 Disorder of thyroid, unspecified; K21.9 Gastro-esophageal reflux disease without esophagitis; M79.7 Fibromyalgia; W18.09XA Striking against other object with subsequent fall, initial encounter
CPT/HCPCS: 70450; 99282

== ENCOUNTER → 2022-11-14 | Outpatient (CLI) | payer MEDICARE, SELFPAY | END | disposition home or self-care (01) | LOC: SL 20:47 | PROVIDERS: PCP Family Medicine; Referring Provider Nurse Practitioner Acute Care; Visit Provider Nurse Practitioner Acute Care | DX: G47.10 Hypersomnia, unspecified (principal) | CPT/HCPCS: 95810 ==

== ENCOUNTER 2022-12-14 21:42 | Inpatient (IN) | payer MEDICARE, SELFPAY ==
[2022-12-14 21:45] VITALS: BP 134/51; PULSE 75; RESP 16; TEMP 36.5; O2SAT 98
--- NOTE | 2022-12-14 22:21 | ED.VIS.FALL ---
HPI HPI - Fall History of Present Illness Chief Complaint: Fall Informant: patient, spouse/S.O. and EMS Narrative Narrative: Patient had a fall yesterday. She states she falls often due to feeling off balance frequently, causing her to fall backward. She states that she sometimes walks with a rollator. She was coming down a step from the house into the garage and missed stepped, falling to her left hip and left upper arm. She was eventually able to get up with help and ambulate with walker, today at 1 point while she was ambulating with a walker she turned and felt a crack and significant pain in her left hip, and since then she has been unable to bear any weight on the left lower extremity due to pain in the hip. Pain also in the left upper arm no other injuries. [facility] Medical History Alcohol use Ambulates with cane Anxiety Anxiety Arthritis Back pain Bladder disease Depression Fibromyalgia Former smoker Gastric reflux History of IBS History of stress test Injury of head and neck Insomnia Kyphoscoliosis Post-menopausal Restless legs Shortness of breath on exertion Thyroid disease Wears glasses Home Medications levothyroxine 50 mcg tablet 50 mcg PO DAILY 11/29/15 [History Last Taken Unknown] duloxetine 30 mg capsule,delayed release 20 mg PO DAILY 09/23/19 [History Last Taken Unknown] omeprazole 20 mg capsule,delayed release 20 mg PO BID 09/23/19 [History Last Taken Unknown] trazodone 100 mg tablet 150 mg PO QHS 09/23/19 [History Last Taken Unknown] hydroxyzine HCl 10 mg tablet 20 mg PO QHS 03/28/21 [History Last Taken Unknown] aripiprazole 5 mg tablet (Abilify) 5 mg PO QHS 11/07/22 [History Last Taken Unknown] Allergy/AdvReac Type Severity Reaction Status Date / Time albuterol Allergy Other Verified 12/14/22 21:49 gabapentin AdvReac Other Verified 12/14/22 21:49 Sulfa (Sulfonamide AdvReac Vomiting Verified 12/14/22 21:49 Antibiotics) Family History Father Myocardial infarction Leukemia Mother Hypertension Alzheimer disease Surgical History History of bunionectomy History of LAVH Salivary gland stone Social History number of children: 2 current occupational status: retired Smoking Status: Never smoker alcohol intake: current details: social substance use type: does not use caffeine: Yes what type of physical activity do you participate in: none seatbelt use: always do you feel safe at home: Yes additional social history: Ragini DHILLON ROS ED Constitutional Constitutional ED: Denies chills or fever(s) Eyes Eyes: Denies change in vision or diplopia ENT ENT ED: Denies ear pain, epistaxis, facial pain or rhinorrhea Cardiovascular Cardiovascular: Denies chest pain or palpitations Respiratory/Chest Respiratory/Chest: Denies cough or dyspnea Gastrointestinal Gastrointestinal: Denies abdominal pain, diarrhea, melena, nausea or vomiting Genitourinary Genitourinary ED: Denies dysuria or hematuria Musculoskeletal Musculoskeletal: Reports extremity pain; Denies back pain or neck pain Integumentary Denies abscess, Abrasions, laceration or rash Neurologic Neurologic: Denies confusion, headache(s), paresthesias or weakness EXAM Physical Exam Const Vital Signs: 12/14/22 21:45 12/14/22 22:40 Temperature 97.7 F L Temperature Source Temporal Pulse Rate 75 Respiratory Rate 16 Respiratory Effort Normal Non-Labored Blood Pressure 134/51 H Blood Pressure Mean 78 Pulse Ox 98 Oxygen Delivery Method Room Air Room Air Positive well nourished and well developed General Appearance ED: well developed and NAD HEENT Reports nasal mucous membranes and turbinates normal atraumatic Face and Sinus: Negative for facial tenderness Eyes PERRL and EOMs intact bilaterally Visual Acuity: other Other Details: no entrapment or pain with extraocular movements Neck full ROM and supple General: Negative for tenderness Chest Wall inspection of chest normal and palpation of chest normal Chest: symmetrical chest wall rise; Negative for crepitus or tenderness Resp normal respiratory effort and clear to auscultation bilaterally Percussion: other equal BS bilat Cardio no murmurs Rate: regular rate Rhythm: regular rhythm GI normal to inspection, nondistended, normoactive bowel sounds, soft to palpation and non-tender Back/Spine normal ROM Cervical Spine: Negative for cervical spine tenderness Thoracic Spine / Upper Back: Negative for thoracic spinal tenderness Lumbar Spine / Lower Back: Negative for lumbar spinal tenderness Extremity normal to inspection Extremity Narrative: Tender left hip no ASIS or pelvis tenderness. Very limited range of motion left hip due to significant pain, possibly some shortening difficult to tell. No gross deformity. Also tenderness at the distal aspect of the femur at the knee. No other left lower extremity bony tenderness. Limited range of the left shoulder due to pain in the left mid humerus where she is tender, there is no proximal humerus or shoulder girdle tenderness. No elbow bony tenderness, no pain with pronation and supination of the left forearm or other bony tenderness throughout the left upper, the right upper, over the right lower extremity General Extremety ED: Yes tenderness Neuro oriented x3, CN's II-XII intact bilaterally, moves all extremities, no focal motor deficits and no sensory deficits noted Aurelia Coma Scale: document GCS findings Spontaneous Obeys Commands Oriented 15 Sensorium / Orientation: awake and alert Psych mental status grossly normal and thought process normal Skin no wounds Lesions: no lesions Rashes: no rashes MDM MDM MDM Narrative Medical decision making narrative: X-rays of the left hip and femur were obtained, and on my interpretation, 4 views total of all of that shows a basicervical displaced left hip fracture. Discussed with orthopedics Dr. Casanova, will try to perform surgery in the morning. Left humerus 2 views of my interpretation negative for fracture. She was given morphine and is doing okay with the pain, after x-ray she was given another dose. Preoperative labs, EKG, chest x-ray all obtained, 1 view chest my interpretation unremarkable. EKG is normal. Discussed with hospitalist for admission. Lab Data Attestation: I reviewed the patient's lab results. Labs: Laboratory Results - last 24 hr 12/14/22 22:34 WBC 14.2 H RBC 4.81 Hgb 13.6 Hct 41.2 MCV 85.7 MCH 28.3 MCHC 33.0 RDW Std Deviation 45.8 H RDW Coeff of Kristofer 14.7 H Plt Count 305 MPV 9.6 Immature Gran % (Auto) 0.500 Neut % (Auto) 70.0 Lymph % (Auto) 15.4 L [place] % (Auto) 12.2 H Eos % (Auto) 1.3 Baso % (Auto) 0.6 Absolute Neuts (auto) 10.0 H Absolute Lymphs (auto) 2.19 Nucleated RBC % 0 Differential Comment SCANNED Diff Path Review May foll Sodium 135 L Potassium 3.7 Chloride 103 Carbon Dioxide 23.0 Anion Gap 9 BUN 11 Creatinine 0.99 Est GFR (MDRD) Af Amer 71 Est GFR (MDRD) Non-Af 59 L BUN/Creatinine Ratio 11.1 Glucose 184 H Calcium 9.2 Radiography Chest X-Ray - ED: 1 View, Read by ED Physician, No Acute Disease and No Infiltrates Diagnostic Testing: Clinical Impression(s) from Imaging Studies Chest X-Ray 12/14/22 22:45 IMPRESSION: Minimal left-sided atelectasis, otherwise no acute cardiopulmonary disease. Electronically Signed: Nurys Figueroa MD at 23:45 EDT Reading Location ID and State: [employer] , Service support , Femur X-Ray 12/14/22 22:45 IMPRESSION: Left femoral neck subcapital fracture with associated displacement. Normal articular alignment of the hip joint. Diffuse osteopenia, remainder of the femur unremarkable. Electronically Signed: Nurys Figueroa MD at 23:47 EDT Reading Location ID and State: [facility] [employer] , Service support , Humerus X-Ray 12/14/22 22:45 IMPRESSION: Remarkable x-ray examination of the humerus with no acute fracture or subluxation.. Electronically Signed: Nurys Figueroa MD at 23:47 EDT Reading Location ID and State: [facility] [employer] , Service support , Pelvis X-Ray 12/14/22 22:45 IMPRESSION: Displaced left femoral neck/subcapital fracture as described. No articular dislocation. Electronically Signed: Nurys Figueroa MD at 23:49 EDT Reading Location ID and State: [employer] / [employer] , Service support , Rhythm Strip Rhythm Strip: Sinus Rhythm Rate: 70 Ectopy: None EKG Initial EKG: Attestation: I personally reviewed and interpreted this EKG as follows: Interpretation: Sinus Rhythm and No Acute Injury Pattern Management Discussion w/another healthcare provider: Hospitalist and [employer] (tania Casanova) Discharge Plan Dx/Rx/DC Orders Clinical Impression: Closed basicervical fracture of neck of left femur, Frequent falls, Contusion of arm, left Disposition Disposition: Acute Care Hospital [facility]
[2022-12-14] MEDS: Morphine 4 MG/ML Syringe IV (22:36)
[2022-12-14] MEDS: Ondansetron 4 MG/2 ML Vial IV (22:36)
[2022-12-14 22:44] LABS: Absolute Lymphocyte Count 2.19 X10^3/uL (0.83-4.51); Basophil# 0.08 X10^3/uL; Basophil% 0.6 % (0-1); Eosinophil# 0.19 X10^3/uL; Eosinophils% 1.3 % (0-5); Hematocrit 41.2 % (37-47); Hemoglobin 13.6 g/dL (12.0-15.0); Lymphocyte # 2.19 X10^3/ul (0.83-4.51); Lymphocyte % 15.4 % (19-41); Mean Corpuscular Hgb 28.3 pg (27.0-32.0); Mean Corpuscular Volume 85.7 fL (81-99); Mean Platelet Vol. 9.6 fl (6.2-12.0); Monocyte# 1.74 X10^3/uL; Monocyte% 12.2 % (0-10); NRBC Flagged by Analyzer 0 % (0-5); Neutrophil # 9.97 X10^3/uL (2.7-7.7); POSITIVE DIFFERENTIAL YES; Platelet Count 305 K/mm3 (150-450); RBC Distribution Width CV 14.7 % (11.6-14.6); RBC Distribution Width SD 45.8 fl (35.1-43.9); Red Blood Count 4.81 M/mm3 (4.2-5.4); White Blood Count 14.2 K/mm3 (4.4-11.0)
--- NOTE | 2022-12-14 22:45 | RAD_ITS ---
STUDY: X-RAY - LEFT FEMUR REASON FOR STUDY: Female, 72 years old. fall/injury TECHNIQUE: 2 view(s) of the femur. COMPARISON: None. FINDINGS: Diffuse osteopenia. There is a left femoral neck/subcapital fracture with displacement. Otherwise normal visualized femur. Normal visualized soft tissue structure. RAD/Femur Min 2 Views IMPRESSION: Left femoral neck subcapital fracture with associated displacement. Normal articular alignment of the hip joint. Diffuse osteopenia, remainder of the femur unremarkable. Electronically Signed: Nurys Figueroa MD at 23:47 EDT ,
--- NOTE | 2022-12-14 22:45 | RAD_ITS ---
STUDY: X-RAY CHEST REASON FOR EXAM: Female, 72 years old. preop clearance TECHNIQUE: Single AP portable view of the chest. COMPARISON: 05/22/2022. FINDINGS: Trace left mid lower lung atelectasis. Otherwise the lungs are clear and expanded. There is no demonstrated pleural abnormality. Normal size heart. Normal mediastinum and jose. Normal visualized pulmonary arteries. Normal visualized aortic arch and descending thoracic aorta. There are diffuse degenerative changes of the visualized thoracic spine. There is degenerative osteoarthritis of the bilateral shoulders. There is no demonstrated abnormality of the visualized soft tissue structures of the upper abdomen. RAD/Chest 1 View IMPRESSION: Minimal left-sided atelectasis, otherwise no acute cardiopulmonary disease. Electronically Signed: Nurys Figueroa MD at 23:45 EDT ,
--- NOTE | 2022-12-14 22:45 | RAD_ITS ---
STUDY: X-RAY - PELVIS REASON FOR EXAM: Female, 72 years old. fall/pain L TECHNIQUE: One view of the pelvis was obtained. COMPARISON: None. FINDINGS: There is a non-specific bowel gas pattern. Normal visualized soft tissue structures. There is diffuse demineralization of the osseous structures. There is slight narrowing with cortical sclerosis and osteophyte formation of the sacroiliac joint consistent with mild degenerative osteoarthritic changes. Normal visualized bilateral superior and inferior pubic rami. Normal pubic symphysis. Normal ischial tuberosities. Normal visualized right femoral head. Normal right acetabulum. There is mild articular joint space narrowing of the right hip. There is a left femoral subcapital/neck fracture with cephalad displacement of the femoral shaft in relation to the femoral head. Normal left acetabulum. There is moderate articular joint space narrowing of the left hip. RAD/Pelvis 1 or 2 Views IMPRESSION: Displaced left femoral neck/subcapital fracture as described. No articular dislocation. Electronically Signed: Nurys Figueroa MD at 23:49 EDT ,
--- NOTE | 2022-12-14 22:45 | RAD_ITS ---
STUDY: X-RAY - LEFT HUMERUS REASON FOR EXAM: Female, 72 years old. fall/injury TECHNIQUE: 2 view(s) of the humerus. COMPARISON: None. FINDINGS: Normal visualized humerus. There is no demonstrated fracture or osseous destructive process. There is mild arthrosis of the visualized glenohumeral articulation. There is no demonstrated soft tissue abnormality. RAD/Humerus min 2 Views IMPRESSION: Remarkable x-ray examination of the humerus with no acute fracture or subluxation.. Electronically Signed: Nurys Figueroa MD at 23:47 EDT ,
[2022-12-14 22:52] LABS: Differential Indicated SCAN CRITERIA MET
[2022-12-14 23:12] LABS: Anion Gap 9 (5-15); BUN 11 mg/dL (7-18); BUN/Creat Ratio 11.1 RATIO (10-20); Calcium,Total 9.2 mg/dL (8.5-10.1); Chloride 103 mmol/L (98-107); Creatinine, Serum 0.99 mg/dL (0.55-1.02); EST Glomerular Filtration Rate 59 mL/min (>60); Est Glom Filt Rate - Afr Amer 71 mL/min (>60); Glucose 184 mg/dL (74-106); Potassium 3.7 mmol/L (3.5-5.1); Sodium Level 135 mmol/L (136-145)
[2022-12-14 23:18] LABS: Differential Comment SCANNED
--- NOTE | 2022-12-14 23:50 | PCM.HP.STD ---
HPI - General General Date of Admission: 12/14/22 Date of Service: 12/15/22 Chief Complaint: Fall HPI Narrative GALLO STEELE, is a 72 F significant history of hypothyroidism and anxiety disorder who presents emergency department with a fall. Reportedly the day before presentation while patient was moving from her kitchen to her garage she fell over a steep step/stair. She is unsure whether she lost her balance or not. She did not have any dizziness, presyncope or syncope. She reported that frequently she falls because she misses her steps. She has pain in the left hip and in her left arm as she fell to the left side. She was unable to get up so her picked her up from the floor. On the day of presentation patient moved her right knee the wrong way and heard a snap in her left hip. She then developed excruciating pain in the left hip. [facility] Medical History Alcohol use Ambulates with cane Anxiety Anxiety Arthritis Back pain Bladder disease Cholecystectomy planned Depression Fibromyalgia Former smoker Gastric reflux History of IBS History of stress test Injury of head and neck Insomnia Kyphoscoliosis Post-menopausal Restless legs Shortness of breath on exertion Thyroid disease Wears glasses Home Medications levothyroxine 50 mcg tablet 50 mcg PO DAILY 11/29/15 [History Last Taken Unknown] duloxetine 30 mg capsule,delayed release 20 mg PO DAILY 09/23/19 [History Last Taken Unknown] omeprazole 20 mg capsule,delayed release 20 mg PO BID 09/23/19 [History Last Taken Unknown] trazodone 100 mg tablet 150 mg PO QHS 09/23/19 [History Last Taken Unknown] hydroxyzine HCl 10 mg tablet 20 mg PO QHS 03/28/21 [History Last Taken Unknown] cream base no.175 (bulk) (Versatile Rich topical cream) 1 applic topical .twice a week UTI 12/15/22 [History Last Taken Unknown] estriol (bulk) 100 % powder 1 ea miscellaneous .twice a week uti 12/15/22 [History Last Taken Unknown] fluticasone propionate 50 mcg/actuation nasal spray,suspension 2 spray intranasal DAILY allergies 12/15/22 [History Last Taken Unknown] glycerin (bulk) 100 % liquid 1 ml miscellaneous .twice a week uti 10/29/23 [History Last Taken Unknown] Allergy/AdvReac Type Severity Reaction Status Date / Time albuterol Allergy Other Verified 12/14/22 21:49 gabapentin AdvReac Other Verified 12/14/22 21:49 Sulfa (Sulfonamide AdvReac Vomiting Verified 12/14/22 21:49 Antibiotics) Family History Father Myocardial infarction Leukemia Mother Hypertension Alzheimer disease Surgical History History of bunionectomy History of LAVH Salivary gland stone Social History number of children: 2 current occupational status: retired Smoking Status: Never smoker alcohol intake: current details: social substance use type: does not use caffeine: Yes what type of physical activity do you participate in: none seatbelt use: always do you feel safe at home: Yes additional social history: Ragini DHILLON Narrative Pertinent positives and pertinent negatives as noted in HPI. All other systems were reviewed and are negative Vital Signs Vital Signs Vital Signs: 12/14/22 21:45 12/14/22 22:40 Temperature 97.7 F L Temperature Source Temporal Pulse Rate 75 Respiratory Rate 16 Respiratory Effort Normal Non-Labored Blood Pressure 134/51 H Blood Pressure Mean 78 Pulse Ox 98 Oxygen Delivery Method Room Air Room Air Physical Exam Narrative Physical exam: General: Well-nourished, well-developed. Head: Normocephalic, atraumatic, no tenderness Eyes: Vision is grossly intact. EOMI ENT, no trauma, moist mucous membranes, no rhinorrhea Neck: Nontender, No thyromegaly. CVS: Regular rate and rhythm. S1-S2 present. No murmur, gallop or rub. Respiratory : clear to auscultation bilaterally, chest wall nontender Abdomen: Soft, nontender, nondistended, normal bowel sounds, no masses : Deferred Back: Nontender, no CVA tenderness, no midline spinal tenderness, deformities, step-offs Extremities: Tenderness of the left hip. Right hip nontender. Tenderness of left arm. Right arm nontender. Skin: Normal color, no trauma, abrasions Neuro: Alert, oriented, cranial nerves II through XII grossly intact. Psychiatry: Normal mood. Normal affect. Not depressed. Not anxious. Results Lab / Micro Data Attestation: I reviewed the patient's lab results. 12/15/22 05:02 12/14/22 22:34 Labs: Laboratory Results - last 24 hr 12/14/22 22:34: WBC 14.2 H, RBC 4.81, Hgb 13.6, Hct 41.2, MCV 85.7, MCH 28.3, MCHC 33.0, RDW Std Deviation 45.8 H, RDW Coeff of Kristofer 14.7 H, Plt Count 305, MPV 9.6, Immature Gran % (Auto) 0.500, Neut % (Auto) 70.0, Lymph % (Auto) 15.4 L, [place] % (Auto) 12.2 H, Eos % (Auto) 1.3, Baso % (Auto) 0.6, Absolute Neuts (auto) 10.0 H, Absolute Lymphs (auto) 2.19, Nucleated RBC % 0, Differential Comment SCANNED, Diff Path Review June, Sodium 135 L, Potassium 3.7, Chloride 103, Carbon Dioxide 23.0, Anion Gap 9, BUN 11, Creatinine 0.99, Est GFR (MDRD) Af Amer 71, Est GFR (MDRD) Non-Af 59 L, BUN/Creatinine Ratio 11.1, Glucose 184 H, Calcium 9.2 Rhythm Strip Rhythm Strip: Sinus Rhythm Rate: 70 Ectopy: None Radiology Impression Chest X-Ray 12/14/22 22:45 IMPRESSION: Minimal left-sided atelectasis, otherwise no acute cardiopulmonary disease. Electronically Signed: Nurys Figueroa MD at 23:45 EDT , Femur X-Ray 12/14/22 22:45 IMPRESSION: Left femoral neck subcapital fracture with associated displacement. Normal articular alignment of the hip joint. Diffuse osteopenia, remainder of the femur unremarkable. Electronically Signed: Nurys Figueroa MD at 23:47 EDT , Humerus X-Ray 12/14/22 22:45 IMPRESSION: Remarkable x-ray examination of the humerus with no acute fracture or subluxation.. Electronically Signed: Nurys Figueroa MD at 23:47 EDT Reading Location ID and State: [address] [place] [address] , Service support , Assessment & Plan Assessment/Plan (1) Contusion of arm, left: QUALIFIERS: Encounter type: initial encounter Qualified Code(s): S40.022A - Contusion of left upper arm, initial encounter (2) Frequent falls: (3) Closed basicervical fracture of neck of left femur: QUALIFIERS: Encounter type: initial encounter Fracture alignment: displaced Qualified Code(s): S72.042A - Displaced fracture of base of neck of left femur, initial encounter for closed fracture PLAN: Plan Left hip fracture/contusion of left/frequent falls Impressions of Prevex x-ray: Displaced left femoral neck/subcapital fracture. No articular dislocations. Femur x-ray was independently interpreted: Agrees to radiology interpretation. Emergent department doctor discussed the case with Dr Casanova. Inpatient consult for orthopedic surgery. Morphine IV and oxycodone as needed ordered. Tylenol as needed ordered. Bowel protocol and antiemetics IV ordered. Keep n.p.o. While n.p.o. maintenance normal saline IV hydration ordered. Check vitamin D level. Preoperative EKG unremarkable ACS NSQIP surgical risk calculator with below cardiopulmonary surgical risk . DVT prophylaxis SCDs ordered Time spent in the patient's overall evaluation,decision-making process, review of diagnostic data, adjustment of management, discussion with other providers, nursing and ancillary staff involved in patient's care documentation, 70 minutes. Charges/Coding Visit Charges Inpatient E&M: 51389 Init Hosp L3
[2022-12-15] VITALS (13 sets, daily range): BP systolic 81–146; BP diastolic 55–96; PULSE 63–79; RESP 14–18; TEMP 36.3–37.1; O2SAT 87–100; BMI 31.0
[2022-12-15] MEDS: Morphine 4 MG/ML Syringe IV ×2 (00:11→05:19)
[2022-12-15] MEDS: 0.9% Normal Saline (1000mL) 1,000 ML 75 ML IV ×2 (01:47→16:54)
[2022-12-15] MEDS: oxyCODONE 5 MG Tablet PO ×3 (01:47→20:49)
[2022-12-15 05:39] LABS: Absolute Lymphocyte Count 2.32 X10^3/uL (0.83-4.51); Absolute Neutrophil Count 7.8 X10^3/uL (2.0-7.7); Basophil# 0.07 X10^3/uL; Basophil% 0.6 % (0-1); Eosinophil# 0.09 X10^3/uL; Eosinophils% 0.8 % (0-5); Hemoglobin 13.1 g/dL (12.0-15.0); Lymphocyte # 2.32 X10^3/ul (0.83-4.51); Lymphocyte % 20.1 % (19-41); Mean Corp Hgb Conc 33.6 g/dL (32-36); Mean Corpuscular Hgb 28.7 pg (27.0-32.0); Mean Corpuscular Volume 85.5 fL (81-99); Mean Platelet Vol. 9.6 fl (6.2-12.0); Monocyte# 1.23 X10^3/uL; Monocyte% 10.6 % (0-10); NRBC Flagged by Analyzer 0 % (0-5); Neutrophil # 7.79 X10^3/uL (2.7-7.7); Neutrophil % 67.4 % (47-70); Platelet Count 285 K/mm3 (150-450); RBC Distribution Width SD 46.5 fl (35.1-43.9); Red Blood Count 4.56 M/mm3 (4.2-5.4); White Blood Count 11.6 K/mm3 (4.4-11.0)
[2022-12-15 06:35] LABS: ALB/GLOB Ratio 1.1 RATIO (0.9-2.4); AST(SGOT) 12 U/L (15-37); Alanine Aminotransfer ALT/SGPT 25 U/L (13-56); Albumin, Serum 3.4 g/dL (3.2-5.0); Alkaline Phosphatase 101 U/L (45-117); Anion Gap 5 (5-15); BUN 8 mg/dL (7-18); Calcium,Total 8.7 mg/dL (8.5-10.1); Chloride 106 mmol/L (98-107); Creatinine, Serum 0.73 mg/dL (0.55-1.02); EST Glomerular Filtration Rate 84 mL/min (>60); Est Glom Filt Rate - Afr Amer 102 mL/min (>60); Estimated Creatinine Clearance 44.56 ml/min; Globulin 3.2 g/dL (2.2-4.2); Glucose 114 mg/dL (74-106); Protein, Total 6.6 g/dL (6.4-8.2); Sodium Level 136 mmol/L (136-145); Thyroid Stim Hormone (TSH) 3.81 uIU/mL (0.358-3.74)
--- NOTE | 2022-12-15 08:32 | CON.PCM_ITS ---
Assessment & Plan Assessment/Plan (1) Left displaced femoral neck fracture: PLAN: Plan Proceed with left hip hemiarthroplasty respects alternatives of surgery reviewed. Ancef on-call the OR. Consent signed and placed on the chart. HPI Consult Data Date of Consult: 12/15/22 HPI Narrative HPI Narrative: GALLO STEELE, is a 72 F who presents after ground-level fall off of a step into her garage on 12/13/2022 patient had pain but was able to continue to ambulate with her assistive device that she normally uses until 12/14/2022 where she felt a crack and immediately had pain and then inability to further ambulate. Denies any other injury. [facility] Medical History Alcohol use Ambulates with cane Anxiety Anxiety Arthritis Back pain Bladder disease Cholecystectomy planned Depression Fibromyalgia Former smoker Gastric reflux History of IBS History of stress test Injury of head and neck Insomnia Kyphoscoliosis Post-menopausal Restless legs Shortness of breath on exertion Thyroid disease Wears glasses Home Medications levothyroxine 50 mcg tablet 50 mcg PO DAILY 11/29/15 [History Last Taken Unkn own] duloxetine 30 mg capsule,delayed release 20 mg PO DAILY 09/23/19 [History Last Taken Unknown] omeprazole 20 mg capsule,delayed release 20 mg PO BID 09/23/19 [History Last Taken Unknown] trazodone 100 mg tablet 150 mg PO QHS 09/23/19 [History Last Taken Unknown] hydroxyzine HCl 10 mg tablet 20 mg PO QHS 03/28/21 [History Last Taken Unknown] cream base no.175 (bulk) (Versatile Rich topical cream) 1 applic topical .twice a week UTI 12/15/22 [History Last Taken Unknown] estriol (bulk) 100 % powder 1 ea miscellaneous .twice a week uti 12/15/22 [History Last Taken Unknown] fluticasone propionate 50 mcg/actuation nasal spray,suspension 2 spray intranasal DAILY allergies 12/15/22 [History Last Taken Unknown] glycerin (bulk) 100 % liquid 1 ml miscellaneous .twice a week uti 12/15/22 [History Last Taken Unknown] Allergy/AdvReac Type Severity Reaction Status Date / Time albuterol Allergy Other Verified 12/14/22 21:49 gabapentin AdvReac Other Verified 12/14/22 21:49 Sulfa (Sulfonamide AdvReac Vomiting Verified 12/14/22 21:49 Antibiotics) Family History Father Myocardial infarction Leukemia Mother Hypertension Alzheimer disease Surgical History History of bunionectomy History of LAVH Salivary gland stone Social History number of children: 2 current occupational status: retired Smoking Status: Never smoker alcohol intake: current details: social substance use type: does not use caffeine: Yes what type of physical activity do you participate in: none seatbelt use: always do you feel safe at home: Yes additional social history: Ragini Benítez Physical Exam Const alert and oriented x3 General Appearance: cooperative and comfortable Extremity Extremity Narrative: Compartments soft neurovascular intact left lower extremity Lab / Micro Data 12/15/22 05:02 12/15/22 05:02 Labs: Laboratory Results - last 24 hr 12/14/22 22:34: WBC 14.2 H, RBC 4.81, Hgb 13.6, Hct 41.2, MCV 85.7, MCH 28.3, MCHC 33.0, RDW Std Deviation 45.8 H, RDW Coeff of Kristofer 14.7 H, Plt Count 305, MPV 9.6, Immature Gran % (Auto) 0.500, Neut % (Auto) 70.0, Lymph % (Auto) 15.4 L, [place] % (Auto) 12.2 H, Eos % (Auto) 1.3, Baso % (Auto) 0.6, Absolute Neuts (auto) 10.0 H, Absolute Lymphs (auto) 2.19, Nucleated RBC % 0, Differential Comment SCANNED, Diff Path Review June, Sodium 135 L, Potassium 3.7, Chloride 103, Carbon Dioxide 23.0, Anion Gap 9, BUN 11, Creatinine 0.99, Est GFR (MDRD) Af Amer 71, Est GFR (MDRD) Non-Af 59 L, BUN/Creatinine Ratio 11.1, Glucose 184 H, Calcium 9.2 12/15/22 05:02: WBC 11.6 H, RBC 4.56, Hgb 13.1, Hct 39.0, MCV 85.5, MCH 28.7, MCHC 33.6, RDW Std Deviation 46.5 H, RDW Coeff of Kristofer 15.0 H, Plt Count 285, MPV 9.6, Immature Gran % (Auto) 0.500, Neut % (Auto) 67.4, Lymph % (Auto) 20.1, [place] % (Auto) 10.6 H, Eos % (Auto) 0.8, Baso % (Auto) 0.6, Absolute Neuts (auto) 7.8 H, Absolute Lymphs (auto) 2.32, Nucleated RBC % 0, Sodium 136, Potassium 4.0, Chloride 106, Carbon Dioxide 25.0, Anion Gap 5, BUN 8, Creatinine 0.73, Estim Creat Clear Calc 44.56, Est GFR (MDRD) Af Amer 102, Est GFR (MDRD) Non-Af 84, BUN/Creatinine Ratio 11.0, Glucose 114 H, Calcium 8.7, Total Bilirubin 0.40, AST 12 L, ALT 25, Alkaline Phosphatase 101, Total Protein 6.6, Albumin 3.4, Globulin 3.2, Albumin/Globulin Ratio 1.1, TSH 3.81 H, Blood Type O POSITIVE, Antibody Screen NEGATIVE Rhythm Strip Rhythm Strip: Sinus Rhythm Rate: 70 Ectopy: None Radiology Impression Chest X-Ray 12/14/22 22:45 IMPRESSION: Minimal left-sided atelectasis, otherwise no acute cardiopulmonary disease. Electronically Signed: Nurys Figueroa MD at 23:45 EDT Reading Location ID and State: [employer] / [place] , Service support , Femur X-Ray 12/14/22 22:45 IMPRESSION: Left femoral neck subcapital fracture with associated displacement. Normal articular alignment of the hip joint. Diffuse osteopenia, remainder of the femur unremarkable. Electronically Signed: Nurys Figueroa MD at 23:47 EDT , Humerus X-Ray 12/14/22 22:45 IMPRESSION: Remarkable x-ray examination of the humerus with no acute fracture or subluxation.. Electronically Signed: Nurys Figueroa MD at 23:47 EDT , Pelvis X-Ray 12/14/22 22:45 IMPRESSION: Displaced left femoral neck/subcapital fracture as described. No articular dislocation. Electronically Signed: Nurys Figueroa MD at 23:49 EDT ,
--- NOTE | 2022-12-15 09:01 | NURSING ---
pt to surgery
[2022-12-15] MEDS: Cefazolin 2 GM in 0.9% Normal Saline (100mL Bag) 100 ML IV ×2 (09:12→22:47)
--- NOTE | 2022-12-15 09:26 | PCM.PN.HOSP ---
Subjective Subjective Doing well, pain is getting a little bit worse plan for operative intervention today Objective Data Objective Data Vital Signs: Vital Signs Temp Pulse Resp BP Pulse Ox O2 Del Method 98.2 F 75 16 136/64 H 95 Room Air 12/15/22 08:08 12/15/22 08:08 12/15/22 08:08 12/15/22 08:08 12/15/22 08:33 12/15/22 08:33 Oxygen Delivery Method Room Air Weight: 181 lb Body Mass Index (BMI) 31.0 Intake & Output: Intake and Output for Last 24 Hours 12/14/22 12/15/22 12/16/22 03:59 03:59 03:59 Intake Total 100 / 100 Output Total 400 / 400 Balance -300 / -300 Lab / Micro Data 12/15/22 05:02 12/15/22 05:02 Labs: Laboratory Results - last 24 hr 12/14/22 22:34: WBC 14.2 H, RBC 4.81, Hgb 13.6, Hct 41.2, MCV 85.7, MCH 28.3, MCHC 33.0, RDW Std Deviation 45.8 H, RDW Coeff of Kristofer 14.7 H, Plt Count 305, MPV 9.6, Immature Gran % (Auto) 0.500, Neut % (Auto) 70.0, Lymph % (Auto) 15.4 L, [place] % (Auto) 12.2 H, Eos % (Auto) 1.3, Baso % (Auto) 0.6, Absolute Neuts (auto) 10.0 H, Absolute Lymphs (auto) 2.19, Nucleated RBC % 0, Differential Comment SCANNED, Diff Path Review June, Sodium 135 L, Potassium 3.7, Chloride 103, Carbon Dioxide 23.0, Anion Gap 9, BUN 11, Creatinine 0.99, Est GFR (MDRD) Af Amer 71, Est GFR (MDRD) Non-Af 59 L, BUN/Creatinine Ratio 11.1, Glucose 184 H, Calcium 9.2 12/15/22 05:02: WBC 11.6 H, RBC 4.56, Hgb 13.1, Hct 39.0, MCV 85.5, MCH 28.7, MCHC 33.6, RDW Std Deviation 46.5 H, RDW Coeff of Kristofer 15.0 H, Plt Count 285, MPV 9.6, Immature Gran % (Auto) 0.500, Neut % (Auto) 67.4, Lymph % (Auto) 20.1, [place] % (Auto) 10.6 H, Eos % (Auto) 0.8, Baso % (Auto) 0.6, Absolute Neuts (auto) 7.8 H, Absolute Lymphs (auto) 2.32, Nucleated RBC % 0, Sodium 136, Potassium 4.0, Chloride 106, Carbon Dioxide 25.0, Anion Gap 5, BUN 8, Creatinine 0.73, Estim Creat Clear Calc 44.56, Est GFR (MDRD) Af Amer 102, Est GFR (MDRD) Non-Af 84, BUN/Creatinine Ratio 11.0, Glucose 114 H, Calcium 8.7, Total Bilirubin 0.40, AST 12 L, ALT 25, Alkaline Phosphatase 101, Total Protein 6.6, Albumin 3.4, Globulin 3.2, Albumin/Globulin Ratio 1.1, TSH 3.81 H, Blood Type O POSITIVE, Antibody Screen NEGATIVE Radiography Diagnostic Testing: Radiology Impression Chest X-Ray 12/14/22 22:45 IMPRESSION: Minimal left-sided atelectasis, otherwise no acute cardiopulmonary disease. Electronically Signed: Nurys Figueroa MD at 23:45 EDT Reading Location ID and State: [employer] , Service support , Femur X-Ray 12/14/22 22:45 IMPRESSION: Left femoral neck subcapital fracture with associated displacement. Normal articular alignment of the hip joint. Diffuse osteopenia, remainder of the femur unremarkable. Electronically Signed: Nurys Figueroa MD at 23:47 EDT Reading Location ID and State: [employer] / [employer] , Service support , Humerus X-Ray 12/14/22 22:45 IMPRESSION: Remarkable x-ray examination of the humerus with no acute fracture or subluxation.. Electronically Signed: Nurys Figueroa MD at 23:47 EDT Reading Location ID and State: [employer] , Service support , Pelvis X-Ray 12/14/22 22:45 IMPRESSION: Displaced left femoral neck/subcapital fracture as described. No articular dislocation. Electronically Signed: Nurys Figueroa MD at 23:49 EDT Reading Location ID and State: [facility] / [place] , Service support , Rhythm Strip Rhythm Strip: Sinus Rhythm Rate: 70 Ectopy: None Physical Exam Narrative General: Alert, Oriented x3, Cooperative, No apparent distress HEENT: Atraumatic, PERRLA, EOMI, Normocephalic Oral: Moist Mucosa Neck: Supple, No JVD Lungs: Diminished, Normal air movement, No rhonchi, No wheeze, No rales Cardiovascular: Regular rate, Regular Rhythm, Normal S1, Normal S2, No murmurs Abdomen: Soft, Non Tender, Non-Distended, No Hepato-splenomegaly Extremities: No edema, Capillary Refill Less than 3 Seconds Skin: No rashes, No breakdown Musculoskeletal: Tenderness to palpation of left hip Neurological: Cranial nerves II-XII grossly intact, Motor Exam 5/5 strength throughout, Sensory exam intact to light touch and pain Psych/Mental Status: Normal Affect, Appropriate Assessment & Plan Assessment/Plan (1) Contusion of arm, left: QUALIFIERS: Encounter type: initial encounter Qualified Code(s): S40.022A - Contusion of left upper arm, initial encounter (2) Frequent falls: (3) Closed basicervical fracture of neck of left femur: QUALIFIERS: Encounter type: initial encounter Fracture alignment: displaced Qualified Code(s): S72.042A - Displaced fracture of base of neck of left femur, initial encounter for closed fracture PLAN: Plan 1. Left hip fracture secondary to mechanical fall ? For operative repair today ? Pain management ? PT/OT ? Vitamin D levels pending, she is low risk for surgery 2. Hypothyroidism ? Stable ? Continue with Synthroid 3. GERD ? Stable ? Continue with PPI 4. Anxiety/depression ? Stable ? Continue with her home mental health medications DVT: SCDs Charges/Coding Visit Charges Inpatient E&M: 46618 Subs Hosp L2
[2022-12-15] MEDS: TRANEXAMIC ACID 2,000 MG in 0.9% Normal Saline (100mL Bag) 100 ML 360 MG IV (09:30)
--- NOTE | 2022-12-15 11:07 | OP.PCM_ITS ---
Operative Report Date of Procedure: 12/15/22 Preoperative diagnosis: Left hip femoral neck fracture displaced Postoperative diagnosis: Same Procedure: Left hip hemiarthroplasty Implants: [place] Accolade II stem size 5 127 degree neck angle 0 neck length 45 mm outer diameter bipolar head Anesthesia: General l EBL: 200 cc Complications: None Condition: Stable to PACU Indication for procedure: This is a 72-year-old female patient who had ground- level fall subsequently developed a painful snap the next day in her hip inability ambulate proceed to the ER [place] x-rays demonstrated a displaced femoral neck fracture. plans for definitive hemiarthroplasty were discussed including risks benefits and alternatives of the procedure were reviewed with the patient including risk of bleeding infection nerve artery tissue damage need for further surgery continue pain postoperative hip precaution restrictions leg length discrepancy and dislocation. Procedure: Patient was met in the preoperative holding area once again the operative extremity was identified by both patient and physician and was marked. Patient was met by anesthesia and brought to the operating room where anesthesia was started . The patient was then positioned in the lateral decubitus position on a well-padded pegboard with an axillary roll. All bony prominences were checked and padded. The patient was prepped and draped in the usual sterile fashion. A timeout was called to ensure the proper patient procedure and extremity were being contemplated. Anatomic landmarks were palpated and marked for a standard posterior lateral approach. A timeout was called to ensure the proper patient procedure and extremity were being contemplated. A 10 blade scalpel was used to make a posterior incision through the skin and subcutaneous tissue. In retractors were used and electrocautery was used to maintain meticulous hemostasis and dissect full-thickness flaps until the gluteal fascia was reached. The gluteal fascia was incised in line with the gluteal fibers. The bursal tissue was then freed from the underside and a Charnley retractor was placed. The fatpad was elevated off of the external rotators with electrocautery and the external rotators were dissected off of the greater trochanter including the piriformis and were tagged with #1 Ethibond for later repair. The joint capsule opened with posterior trapdoor technique. A femoral neck cutting guide was used to thierno the neck with a Bovie and an oscillating saw was used to complete the femoral neck cut. the fracture was visualized and with the use of a corkscrew and a skid the femoral head was removed and sized. We then trialed with the matching sizes . Hohmann was placed around the lesser trochanter. A femoral elevator was used. As well as a pointed wide Hohmann around the lesser trochanter and a Hohmann to help retract the gluteus medius. A box chisel was used to remove excess lateral neck followed by a canal finder and a lateralizing reamer. This was followed by sequential broaches. Attention was made of the version within the canal. Once the final broach was seated we then trialed and reduced the hip it was determined that a 127 degree neck angle with a 0 neck length was the appropriate size. We then checked stability with shuck testing as well as flexion and interminal rotation then proceeded with hip extension and checked leg lengths at the knees and heels. At this point trials were removed. The femoral stem was inserted. We re-trialed and then proceeded to impact the femoral head onto the Luis Alberto taper. We then surgically reduce the hip check stability again and leg lengths and were satisfied. irricept rinse was allowed to sit for 1 minutes while everyone changed their gloves. Thorough irrigation was performed. Followed by closure of the external rotators with #2 FiberWire followed by closure of gluteal fascia with #1 Ethibond. 0 Vicryl fat stitches and 2-0 Vicryl subcutaneous stitches and beba in the skin. Dressing was applied in the form of silverlon dressing and an abduction pillow was placed. Patient tolerated the procedure well there was no intraoperative complications all counts were correct and the patient was brought back to the PACU in stable condition
--- NOTE | 2022-12-15 11:20 | RAD_ITS ---
STUDY: X-RAY - PELVIS AND LEFT HIP REASON FOR EXAM: Female, 72 years old. Post Op -- AP both hips on single latanya/lateral of op hip PACU TECHNIQUE: 2 views of the pelvis and hip. COMPARISON: 12/14/2022 FINDINGS: There is a non-specific bowel gas pattern. Normal visualized soft tissue structures. Normal bilateral iliac wings, sacroiliac joints and visualized sacrum. Normal bilateral superior and inferior pubic rami. Normal pubic symphysis. Normal bilateral ischial tuberosities. Interval recent left hip hemiarthroplasty with skin beba and subcutaneous emphysema for treatment of femoral neck fracture. Normal acetabulum. Normal hip joint. RAD/Hip Min 2 Views (Portable) IMPRESSION: Interval recent left hip hemiarthroplasty for treatment of femoral neck fracture. Electronically Signed: Alverto Moore MD at 11:33 EDT ,
[2022-12-15] MEDS: Flu Vacc QS2023-24(65YR UP)/PF 240 MCG/0.7 ML Syringe IM (12:21)
[2022-12-15] MEDS: Pantoprazole Sodium 20 MG Tablet PO ×2 (12:22→20:44)
[2022-12-15] MEDS: Calcium Carbonate 500 MG Tablet PO ×2 (12:22→16:55)
[2022-12-15] MEDS: DULoxetine Hcl 20 MG Capsule PO (12:23)
[2022-12-15] MEDS: Senna/Docusate Sodium 1 Tablet 2 TABLET PO ×2 (12:23→20:44)
[2022-12-15] MEDS: Acetaminophen 325 MG Tablet 650 MG PO ×2 (14:07→20:49)
[2022-12-15] MEDS: ARIPiprazole 5 MG Tablet PO (20:43)
[2022-12-15] MEDS: traZODone 50 MG Tablet 150 MG PO (20:43)
[2022-12-15] MEDS: hydrOXYzine 10 MG Tablet 20 MG PO (20:43)
[2022-12-16 05:17] VITALS: BP 123/56; PULSE 78; RESP 18; TEMP 37.2; O2SAT 95
[2022-12-16] MEDS: Levothyroxine 50 MCG Tablet PO (05:23)
[2022-12-16] MEDS: Acetaminophen 325 MG Tablet 650 MG PO ×3 (05:26→22:38)
[2022-12-16] MEDS: oxyCODONE 5 MG Tablet PO ×2 (05:26→12:24)
[2022-12-16] MEDS: Cefazolin 2 GM in 0.9% Normal Saline (100mL Bag) 100 ML IV (05:30)
[2022-12-16 06:56] LABS: Absolute Neutrophil Count 8.4 X10^3/uL (2.0-7.7); Basophil# 0.05 X10^3/uL; Basophil% 0.4 % (0-1); Eosinophil# 0.03 X10^3/uL; Eosinophils% 0.2 % (0-5); Hematocrit 34.3 % (37-47); Hemoglobin 11.1 g/dL (12.0-15.0); Lymphocyte % 22.6 % (19-41); Mean Corp Hgb Conc 32.4 g/dL (32-36); Mean Corpuscular Hgb 28.7 pg (27.0-32.0); Mean Corpuscular Volume 88.6 fL (81-99); Mean Platelet Vol. 9.6 fl (6.2-12.0); Monocyte# 1.43 X10^3/uL; Monocyte% 11.1 % (0-10); NRBC Flagged by Analyzer 0.2 % (0-5); Neutrophil # 8.38 X10^3/uL (2.7-7.7); Neutrophil % 65.3 % (47-70); Platelet Count 255 K/mm3 (150-450); RBC Distribution Width CV 15.1 % (11.6-14.6); RBC Distribution Width SD 48.3 fl (35.1-43.9); Red Blood Count 3.87 M/mm3 (4.2-5.4); White Blood Count 12.8 K/mm3 (4.4-11.0)
[2022-12-16] MEDS: APIXABAN 2.5 MG TABLET (WCH) PO ×2 (07:03→22:29)
[2022-12-16 07:12] LABS: Anion Gap 5 (5-15); BUN 7 mg/dL (7-18); BUN/Creat Ratio 8.4 RATIO (10-20); Calcium,Total 8.2 mg/dL (8.5-10.1); Chloride 108 mmol/L (98-107); Creatinine, Serum 0.83 mg/dL (0.55-1.02); EST Glomerular Filtration Rate 72 mL/min (>60); Est Glom Filt Rate - Afr Amer 87 mL/min (>60); Estimated Creatinine Clearance 53.68 ml/min; Glucose 130 mg/dL (74-106); Potassium 3.8 mmol/L (3.5-5.1); Sodium Level 139 mmol/L (136-145)
[2022-12-16 07:24] VITALS: O2SAT 95
[2022-12-16] MEDS: Calcium Carbonate 500 MG Tablet PO ×3 (07:48→17:39)
[2022-12-16] MEDS: DULoxetine Hcl 20 MG Capsule PO (07:48)
[2022-12-16] MEDS: Cholecalciferol (VIT D3) 25 MCG TABLET (1,000 UNITS) PO (07:48)
[2022-12-16] MEDS: Senna/Docusate Sodium 1 Tablet 2 TABLET PO ×2 (07:48→22:29)
[2022-12-16] MEDS: Pantoprazole Sodium 20 MG Tablet PO ×2 (07:48→22:29)
[2022-12-16 08:04] VITALS: BP 135/57; PULSE 75; RESP 18; TEMP 36.9; O2SAT 92
--- NOTE | 2022-12-16 09:13 | PCM.PN.HOSP ---
Subjective Subjective Is controlled, no issues overnight. She did have surgery yesterday hemoglobin is stable and renal function is normal Objective Data Objective Data Vital Signs: Vital Signs Temp Pulse Resp BP Pulse Ox O2 Del Method O2 Flow Rate 98.5 F 75 18 135/57 H 92 Room Air 3 12/16/22 08:04 12/16/22 08:04 12/16/22 08:04 12/16/22 08:04 12/16/22 08:04 12/16/22 08:04 12/15/22 12:13 Oxygen Flow Rate (L/min) 3 Oxygen Delivery Method Room Air Weight: 181 lb Body Mass Index (BMI) 31.0 Intake & Output: Intake and Output for Last 24 Hours 12/15/22 12/16/22 12/17/22 03:59 03:59 03:59 Intake Total 2662.50 / 2662.50 569.5 / 569.5 Output Total 700 / 700 500 / 500 Balance 1962.50 / 1962.50 69.5 / 69.5 Lab / Micro Data 12/16/22 06:00 12/16/22 06:00 Labs: Laboratory Results - last 24 hr 12/16/22 06:00: WBC 12.8 H, RBC 3.87 L, Hgb 11.1 L, Hct 34.3 L, MCV 88.6, MCH 28.7, MCHC 32.4, RDW Std Deviation 48.3 H, RDW Coeff of Kristofer 15.1 H, Plt Count 255, MPV 9.6, Immature Gran % (Auto) 0.400, Neut % (Auto) 65.3, Lymph % (Auto) 22.6, [place] % (Auto) 11.1 H, Eos % (Auto) 0.2, Baso % (Auto) 0.4, Absolute Neuts (auto) 8.4 H, Absolute Lymphs (auto) 2.90, Nucleated RBC % 0.2, Sodium 139, Potassium 3.8, Chloride 108 H, Carbon Dioxide 26.0, Anion Gap 5, BUN 7, Creatinine 0.83, Estim Creat Clear Calc 53.68, Est GFR (MDRD) Af Amer 87, Est GFR (MDRD) Non-Af 72, BUN/Creatinine Ratio 8.4 L, Glucose 130 H, Calcium 8.2 L Radiography Diagnostic Testing: Radiology Impression Hip X-Ray 12/15/22 11:20 IMPRESSION: Interval recent left hip hemiarthroplasty for treatment of femoral neck fracture. Electronically Signed: Alverto Moore MD at 11:33 EDT , Rhythm Strip Rhythm Strip: Sinus Rhythm Rate: 70 Ectopy: None Physical Exam Narrative General: Alert, Oriented x3, Cooperative, No apparent distress HEENT: Atraumatic, PERRLA, EOMI, Normocephalic Oral: Moist Mucosa Neck: Supple, No JVD Lungs: Diminished, Normal air movement, No rhonchi, No wheeze, No rales Cardiovascular: Regular rate, Regular Rhythm, Normal S1, Normal S2, No murmurs Abdomen: Soft, Non Tender, Non-Distended, No Hepato-splenomegaly Extremities: No edema, Capillary Refill Less than 3 Seconds Skin: Dressing CDI Musculoskeletal: Tenderness to palpation of left hip Neurological: Cranial nerves II-XII grossly intact, Motor Exam 5/5 strength throughout, Sensory exam intact to light touch and pain Psych/Mental Status: Normal Affect, Appropriate Assessment & Plan Assessment/Plan (1) Contusion of arm, left: QUALIFIERS: Encounter type: initial encounter Qualified Code(s): S40.022A - Contusion of left upper arm, initial encounter (2) Frequent falls: (3) Closed basicervical fracture of neck of left femur: QUALIFIERS: Encounter type: initial encounter Fracture alignment: displaced Qualified Code(s): S72.042A - Displaced fracture of base of neck of left femur, initial encounter for closed fracture PLAN: Plan 1. Left hip fracture secondary to mechanical fall status post repair 12/15/2022 ? Pain management ? PT/OT ? Vitamin D levels pending ? May need placement, will consult case management 2. Hypothyroidism ? Stable ? Continue with Synthroid 3. GERD ? Stable ? Continue with PPI 4. Anxiety/depression ? Stable ? Continue with her home mental health medications DVT: SCDs Charges/Coding Visit Charges Inpatient E&M: 29819 Subs Hosp L2
--- NOTE | 2022-12-16 09:20 | FEM_PTH ---
PATIENT: GALLO STEELE LOC: [facility]3 U#:[id number] AGE/SX: 72/F ROOM: OH313 RE12/14/[address]: Dr. Salas Browne MD : 1950 BED: 1 DIS: 12/18/2022 SPEC #: [id number] RECD: 12/16/22 11:05 STATUS: [place] #: [id number] RICK: 12/16/22 09:[address]: Saravanan Casanova DEPT: SURGICAL PATHOLOGY RECD BY: Beena Webber ENTERED: 12/16/22 12:02 SP TYPE: FEM HEAD OTHR DR: MD Dr. Saravanan Jiang DO Kristin M Wenger, DO Dr. Nicholas F Kotsonis, MD Tissues: Femoral region, NOS Procedures: Decalcification bone/plaque Surgery Specimen Level V Comments: @ Ordering doctor for DEC edited from to DR.JBORRU Farias by BRIJESH at 12/20/22 0935 @ Ordering doctor for SUV edited from to @ by BRIJESH at 12/20/22 0935 @ Submitting doctor edited from to DR.JBORRU Farias by BRIJESH at 12/20/22 0935 HEADER OPERATION: Left hip hemiarthroplasty PRE-OP DIAGNOSIS: Left femoral neck subcapital fracture with associated displacement TISSUE SUBMITTED: Left femoral head MICROSCOPIC DIAGNOSIS Bone and soft tissue of left hip, total hip resection: Organizing fracture callus. AM:lenora 12/19/2022 MICROSCOPIC DESCRIPTION Slides are reviewed. GROSS DESCRIPTION Received is one container labeled with the patient's name and designated left femoral head. The specimen consists of a schroeder femoral head measuring 4.0 x 4.5 x 3.5 cm. The articular surface is smooth. Resection margin is irregular and hemorrhagic. Also present in the specimen container are multiple detached pieces of bone measuring in aggregate 6.5 x 6.0 x 1.5 cm. Cash Accountant sections are submitted in three cassettes after decalcification as follows: 1 & 2 - detached pieces of bone, 3 - femoral head. / DANE:lenora 12/16/2022 TC:5 CPT: 84343, 58816
--- NOTE | 2022-12-16 10:50 | CASEMGMT ---
RONALD GUZMÁN Assessment: Face to Face with pt for initial transition planning/care coordination assessment. RONALD GUZMÁN introduced self and role at [facility], pt voices understanding and consents to assessment. Pt is A&O x4 and answers all questions appropriately at this time. Care providers, pharmacy, and demographics verified/updated. Admitting Dx: Left Hip Fracture PCP: Pt. 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 Prescription Benefit: yes LNOK: Jordy Owusu () Living Will/HCPOA: Yes and Yes; , Jodry, is HCPOA Living Arrangements: Pt lives at home with in a 1 story home with [facility] (there is a basement but pt. states she does not go there). 1 step with no railing to enter ans 12 steps w/railing to basement. Prior to this admission pt. states se ambulated stairs slowly and grasping the handrail. Pt. states she is I in ADLs, her cooks, pt. does laundry, and they have a cleaning crew who comes to the house. Transportation: ( states she can drive if needed but doesn't normally as she hits curbs sometimes) DME: shower chair, cane, crutches, grab bars, hand held shower, rollator, W/C (does not use this), uses Shu in her bathroom for emergencies if needed (declines to receive information on medical alert systems). States she fee; she culd use a raised toilet seat. I asked Pt. if she could afford to purchase this and she is not sure. HHC/SNF: Unsure about SNF. Denies previous HHC. Pt states she felt she did okay with PT today. She states she would prefer to go home with HHC but is open to SNF if needed. 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 She states she does not have a plan for who could assist her during that time if needed. Pt states no further concerns/needs. CM to follow. Advised pt to ask CM if any further question/concerns/needs arise, voices understanding. Pt Goal: Home with HHC Plan: TBD - Home with HHC vs. SNF
[2022-12-16 12:05] LABS: Vitamin B12 388 pg/mL (211-911)
[2022-12-16 12:12] VITALS: BP 125/66; PULSE 85; RESP 18; TEMP 36.6; O2SAT 92
[2022-12-16 12:15] LABS: Vitamin D,25 Hydroxy 76.4 ng/mL
--- NOTE | 2022-12-16 12:57 | PCM.PN.ORT ---
Subjective Subjective Seen and examined pain controlled denies fevers chills nausea vomit shortness of breath or chest pain Objective Data Objective Data Vital Signs: Vital Signs Temp Pulse Resp BP Pulse Ox O2 Del Method O2 Flow Rate 97.9 F 85 18 125/66 H 92 Room Air 3 12/16/22 12:12 12/16/22 12:12 12/16/22 12:12 12/16/22 12:12 12/16/22 12:12 12/16/22 12:12 12/15/22 12:13 Oxygen Flow Rate (L/min) 3 Oxygen Delivery Method Room Air Weight: 181 lb Body Mass Index (BMI) 31.0 Intake & Output: Intake and Output for Last 24 Hours 12/14/22 12/15/22 12/16/22 23:59 23:59 23:59 Intake Total 2662.50 / 2662.50 569.5 / 569.5 Output Total 700 / 700 500 / 500 Balance 1962.50 / 1962.50 69.5 / 69.5 Lab / Micro Data 12/16/22 06:00 12/16/22 06:00 Labs: Laboratory Results - last 24 hr 12/15/22 05:02: Vitamin B12 388, Vitamin D 25-Hydroxy 76.4 12/16/22 06:00: WBC 12.8 H, RBC 3.87 L, Hgb 11.1 L, Hct 34.3 L, MCV 88.6, MCH 28.7, MCHC 32.4, RDW Std Deviation 48.3 H, RDW Coeff of Kristofer 15.1 H, Plt Count 255, MPV 9.6, Immature Gran % (Auto) 0.400, Neut % (Auto) 65.3, Lymph % (Auto) 22.6, [place] % (Auto) 11.1 H, Eos % (Auto) 0.2, Baso % (Auto) 0.4, Absolute Neuts (auto) 8.4 H, Absolute Lymphs (auto) 2.90, Nucleated RBC % 0.2, Sodium 139, Potassium 3.8, Chloride 108 H, Carbon Dioxide 26.0, Anion Gap 5, BUN 7, Creatinine 0.83, Estim Creat Clear Calc 53.68, Est GFR (MDRD) Af Amer 87, Est GFR (MDRD) Non-Af 72, BUN/Creatinine Ratio 8.4 L, Glucose 130 H, Calcium 8.2 L Rhythm Strip Rhythm Strip: Sinus Rhythm Rate: 70 Ectopy: None Physical Exam Const alert and oriented x3 General Appearance: cooperative Extremity Extremity Narrative: Left hip dressing clean dry intact compartment soft neurovascular intact left lower extremity Assessment & Plan Assessment/Plan (1) Left displaced femoral neck fracture: PLAN: Plan Postop day #1 left hip hemiarthroplasty PT OT weightbearing as tolerated with hip precautions Request 2.5 mg twice daily for 3 weeks postop Dressing to remain intact and undisturbed for 5 days postop then removed prior to for shower and clean daily with antibacterial soap and warm water after this replace with dry dressing daily after this point Oxycodone 5 to 10 mg every 4 hours as needed Follow-up in the office 2 weeks postop Patient may benefit from skilled or transitional care prior to returning home we will determine based on physical therapy assessment.
--- NOTE | 2022-12-16 15:39 | CASEMGMT ---
RONALD GUZMÁN updated by PT that pt. does need to be placed at this time. RONALD GUZMÁN in to pt. room to discuss this with pt. Pt. states she does not really want to go to a SNF but agrees to discuss this further with SW. Pt. states she has concerns about the length of stay at a SNF. RONALD GUZMÁN updated SW on this.
[2022-12-16 15:54] VITALS: BP 133/64; PULSE 74; RESP 18; TEMP 37.3; O2SAT 94
[2022-12-16] MEDS: traZODone 50 MG Tablet 150 MG PO (20:14)
[2022-12-16 22:27] VITALS: BP 136/60; PULSE 78; RESP 16; TEMP 37.2; O2SAT 93
[2022-12-16] MEDS: hydrOXYzine 10 MG Tablet 20 MG PO (22:28)
[2022-12-16] MEDS: ARIPiprazole 5 MG Tablet PO (22:29)
[2022-12-17 05:04] VITALS: BP 134/61; PULSE 69; RESP 16; TEMP 36.8; O2SAT 94
[2022-12-17] MEDS: Levothyroxine 50 MCG Tablet PO (05:07)
[2022-12-17] MEDS: 0.9% Saline Lock 10 ML Syringe IV (05:12)
[2022-12-17] MEDS: Acetaminophen 325 MG Tablet 650 MG PO ×3 (05:12→21:47)
[2022-12-17 07:17] LABS: Absolute Lymphocyte Count 2.94 X10^3/uL (0.83-4.51); Absolute Neutrophil Count 6.5 X10^3/uL (2.0-7.7); Basophil# 0.05 X10^3/uL; Basophil% 0.4 % (0-1); Eosinophil# 0.18 X10^3/uL; Eosinophils% 1.6 % (0-5); Hematocrit 34.4 % (37-47); Hemoglobin 11.3 g/dL (12.0-15.0); Lymphocyte # 2.94 X10^3/ul (0.83-4.51); Lymphocyte % 26.3 % (19-41); Mean Corp Hgb Conc 32.8 g/dL (32-36); Mean Corpuscular Hgb 28.5 pg (27.0-32.0); Mean Corpuscular Volume 86.9 fL (81-99); Mean Platelet Vol. 9.8 fl (6.2-12.0); Monocyte# 1.45 X10^3/uL; NRBC Flagged by Analyzer 0 % (0-5); Neutrophil # 6.53 X10^3/uL (2.7-7.7); Neutrophil % 58.3 % (47-70); Platelet Count 269 K/mm3 (150-450); RBC Distribution Width CV 14.8 % (11.6-14.6); RBC Distribution Width SD 47.6 fl (35.1-43.9); Red Blood Count 3.96 M/mm3 (4.2-5.4); White Blood Count 11.2 K/mm3 (4.4-11.0)
[2022-12-17 07:50] LABS: Anion Gap 5 (5-15); BUN 9 mg/dL (7-18); BUN/Creat Ratio 12.7 RATIO (10-20); Calcium,Total 8.7 mg/dL (8.5-10.1); Chloride 107 mmol/L (98-107); Creatinine, Serum 0.71 mg/dL (0.55-1.02); EST Glomerular Filtration Rate 87 mL/min (>60); Est Glom Filt Rate - Afr Amer 105 mL/min (>60); Estimated Creatinine Clearance 44.56 ml/min; Glucose 103 mg/dL (74-106); Potassium 3.6 mmol/L (3.5-5.1); Sodium Level 138 mmol/L (136-145)
[2022-12-17 08:15] VITALS: BP 124/52; PULSE 74; RESP 16; TEMP 36.8; O2SAT 94
[2022-12-17] MEDS: Calcium Carbonate 500 MG Tablet PO ×3 (08:24→18:00)
[2022-12-17 08:47] VITALS: O2SAT 97
--- NOTE | 2022-12-17 09:25 | CASEMGMT ---
Discharge Planning A list of?SNF providers including quality and resource use data and consistent with the patient's preferred geographic region, medical needs, and insurance network was created in [facility]Port Guide.? This list was provided to the SW. Georgette Nieto Discharge Planning Asst.
[2022-12-17] MEDS: DULoxetine Hcl 20 MG Capsule PO (09:51)
[2022-12-17] MEDS: APIXABAN 2.5 MG TABLET (WCH) PO ×2 (09:53→21:41)
[2022-12-17] MEDS: Pantoprazole Sodium 20 MG Tablet PO ×2 (09:54→21:42)
[2022-12-17] MEDS: Senna/Docusate Sodium 1 Tablet 2 TABLET PO ×2 (09:55→21:42)
[2022-12-17] MEDS: Cholecalciferol (VIT D3) 25 MCG TABLET (1,000 UNITS) PO (09:56)
[2022-12-17] MEDS: oxyCODONE 5 MG Tablet PO ×3 (09:57→21:46)
--- NOTE | 2022-12-17 10:09 | PCM.PN.HOSP ---
Reason for Visit Reason for Visit: Diagnoses Repeated falls (12/14/22) Contusion of left upper arm, initial encounter (12/14/22) Fracture of unspecified part of neck of left femur, initial encounter for closed fracture (12/14/22) Displaced fracture of base of neck of left femur, initial encounter for closed fracture (12/14/22) Subjective Subjective Patient is a 72-year-old lady admitted following a fall was found to have a left hip fracture underwent left hemiarthroplasty by Dr. Casanova on 12/15/2022 Objective Data Objective Data Vital Signs: Vital Signs Temp Pulse Resp BP Pulse Ox O2 Del Method O2 Flow Rate 98.2 F 74 16 124/52 H 94 Room Air 3 12/17/22 08:15 12/17/22 08:15 12/17/22 08:15 12/17/22 08:15 12/17/22 08:15 12/17/22 08:15 12/15/22 12:13 Oxygen Flow Rate (L/min) 3 Oxygen Delivery Method Room Air Weight: 82.1 kg Body Mass Index (BMI) 31.0 Intake & Output: Intake and Output for Last 24 Hours 12/15/22 12/16/22 12/17/22 23:59 23:59 23:59 Intake Total 2662.50 / 2662.50 569.5 / 769.5 400 / 400 Output Total 700 / 700 1200 / 1700 1000 / 1000 Balance 1962.50 / 1962.50 -630.5 / -930.5 -600 / -600 Lab / Micro Data 12/17/22 06:38 12/17/22 06:38 Labs: Laboratory Results - last 24 hr 12/15/22 05:02: Vitamin B12 388, Vitamin D 25-Hydroxy 76.4 12/17/22 06:38: WBC 11.2 H, RBC 3.96 L, Hgb 11.3 L, Hct 34.4 L, MCV 86.9, MCH 28.5, MCHC 32.8, RDW Std Deviation 47.6 H, RDW Coeff of Kristofer 14.8 H, Plt Count 269, MPV 9.8, Immature Gran % (Auto) 0.400, Neut % (Auto) 58.3, Lymph % (Auto) 26.3, [place] % (Auto) 13.0 H, Eos % (Auto) 1.6, Baso % (Auto) 0.4, Absolute Neuts (auto) 6.5, Absolute Lymphs (auto) 2.94, Nucleated RBC % 0, Sodium 138, Potassium 3.6, Chloride 107, Carbon Dioxide 26.0, Anion Gap 5, BUN 9, Creatinine 0.71, Estim Creat Clear Calc 44.56, Est GFR (MDRD) Af Amer 105, Est GFR (MDRD) Non-Af 87, BUN/Creatinine Ratio 12.7, Glucose 103, Calcium 8.7 Rhythm Strip Rhythm Strip: Sinus Rhythm Rate: 70 Ectopy: None Physical Exam Narrative GENERAL: cooperative HEENT: Atraumatic; normocephalic EYES; Anicteric, Normal Conjunctiva NECK; supple, normal thyroid, RESPIRATORY: Diminished to auscultation CARDIOVASCULAR: Regular S1 S2, GI: soft, normoactive bowel sounds, : No Renal angle tenderness; EXTREMITIES: No edema, no clubbing, MUSCULOSKELETAL: no muscle wasting NEURO: Awake; no lateralizing signs. SKIN: No Rash PSYCH; Flat affect Assessment & Plan Assessment/Plan (1) Contusion of arm, left: QUALIFIERS: Encounter type: initial encounter Qualified Code(s): S40.022A - Contusion of left upper arm, initial encounter (2) Frequent falls: (3) Closed basicervical fracture of neck of left femur: QUALIFIERS: Encounter type: initial encounter Fracture alignment: displaced Qualified Code(s): S72.042A - Displaced fracture of base of neck of left femur, initial encounter for closed fracture PLAN: Plan Patient is a 72-year-old lady admitted following a fall was found to have a left hip fracture underwent left hemiarthroplasty by Dr. Casanova on 12/15/2022 1. Fall with Left femoral neck subcapital fracture with associated displacement -underwent left hemiarthroplasty by Dr. Casanova on 12/15/2022. Patient subsequently was managed with PT/OT as tolerated pain management. Case management consulted to assist with discharge planning 2. Hypothyroidism - Patient is on levothyroxine home dose continued 3. Fibromyalgia ? Patient is on duloxetine did continue 4. ERD ? On PPI 5. Depression with anxiety - did continue home meds 6. Prophylaxis ? On apixaban 2.5 mg p.o. twice daily Time spent in the patient's overall evaluation,decision-making process, review of diagnostic data, adjustment of management, discussion with other providers, nursing nursing and ancillary staff involved in patient's care documentation,40 Minutes Charges/Coding Visit Charges Inpatient E&M: 18424 Subs Hosp L2
[2022-12-17 10:16] LABS: Pathologist Review Reviewed
[2022-12-17 10:36] VITALS: O2SAT 97
--- NOTE | 2022-12-17 10:38 | CASEMGMT ---
Social Work SW met with pt and introduced self and role of SW. SW discussed options of home with home health and SNF. Pt stating she does not want to go to a SNF and feels home health will be adequate. Pt states her will be able to assist her as needed at home. RNCM hortencia. PRASHANTH Lindsey
--- NOTE | 2022-12-17 10:50 | DS.PCM_ITS ---
Providers Date of Admission: 12/14/22 Date of Discharge: 12/17/22 Primary Care Physician: Marcie Luis, Consultations 12/15/22 01:13 Consult: Orthopedics Routine Consulting Provider: Saravanan Casanova Reason for Consult: Left hip fracture EMERGENT Consult: No MD Notified: Yes Date Notified: 12/15/22 Time Notified: 00:05 Method of Notification: ED Physician Initiated Reason For Visit: LEFT HIP FRACTURE Diagnosis Discharge Diagnosis (1) Contusion of arm, left: Status: Acute Code(s): S40.022A - Contusion of left upper arm, initial encounter Qualifiers: Encounter type: initial encounter Qualified Code(s): S40.022A - Contusion of left upper arm, initial encounter (2) Frequent falls: Status: Acute Code(s): R29.6 - Repeated falls (3) Closed basicervical fracture of neck of left femur: Status: Acute Code(s): S72.042A - Displaced fracture of base of neck of left femur, initial encounter for closed fracture Qualifiers: Encounter type: initial encounter Fracture alignment: displaced Qualified Code(s): S72.042A - Displaced fracture of base of neck of left femur, initial encounter for closed fracture Plan Patient is a 72-year-old lady admitted following a fall was found to have a left hip fracture underwent left hemiarthroplasty by Dr. Casanova on 12/15/2022 1. Fall with Left femoral neck subcapital fracture with associated displacement -underwent left hemiarthroplasty by Dr. Casanova on 12/15/2022. Patient subseque ntly was managed with PT/OT as tolerated pain management. Case management consulted to assist with discharge planning 2. Hypothyroidism - Patient is on levothyroxine home dose continued 3. Fibromyalgia ? Patient is on duloxetine did continue 4. ERD ? On PPI 5. Depression with anxiety - did continue home meds 6. Prophylaxis ? On apixaban 2.5 mg p.o. twice daily Time spent in the patient's overall evaluation,decision-making process, review of diagnostic data, adjustment of management, discussion with other providers, nursing nursing and ancillary staff involved in patient's care documentation,40 Minutes Medications at Discharge Home Medications levothyroxine 50 mcg tablet 50 mcg PO DAILY 11/29/15 duloxetine 30 mg capsule,delayed release 20 mg PO DAILY 09/23/19 omeprazole 20 mg capsule,delayed release 20 mg PO BID 09/23/19 trazodone 100 mg tablet 150 mg PO QHS 09/23/19 hydroxyzine HCl 10 mg tablet 20 mg PO QHS 03/28/21 cream base no.175 (bulk) (Versatile Rich topical cream) 1 applic topical .twice a week UTI 12/15/22 estriol (bulk) 100 % powder 1 ea miscellaneous .twice a week uti 12/15/22 fluticasone propionate 50 mcg/actuation nasal spray,suspension 2 spray intranasal DAILY allergies 12/15/22 glycerin (bulk) 100 % liquid 1 ml miscellaneous .twice a week uti 12/15/22 acetaminophen 325 mg tablet 650 mg (2 x 325 mg) PO Q6H PRN PRN Pain 1-10 Or Fever #0 tabs 12/17/22 apixaban 5 mg tablet (Eliquis) 2.5 mg (1/2 x 5 mg) PO BID #70 tabs 12/17/22 calcium carbonate 200 mg calcium (500 mg) chewable tablet 500 mg (2.5 x 200 mg calcium (500 mg)) PO TIDCM #90 tabs 12/17/22 cholecalciferol (vitamin D3) 25 mcg (1,000 unit) tablet 25 mcg PO DAILY #30 tabs 12/17/22 oxycodone 5 mg tablet 5 mg PO Q4H PRN PRN Pain Score 4-6 4 days #20 tabs 12/17/22 sennosides 8.6 mg-docusate sodium 50 mg tablet (Stool Softener-Stimulant Laxative) 2 tab PO BID #60 tabs 12/17/22 Hospital Course Summary of Care Provided Minutes Spent on Discharge: 35 Physical Exam Narrative GENERAL: cooperative HEENT: Atraumatic; normocephalic EYES; Anicteric, Normal Conjunctiva NECK; supple, normal thyroid, RESPIRATORY: Diminished to auscultation CARDIOVASCULAR: Regular S1 S2, GI: soft, normoactive bowel sounds, : No Renal angle tenderness; EXTREMITIES: No edema, no clubbing, MUSCULOSKELETAL: no muscle wasting NEURO: Awake; no lateralizing signs. SKIN: No Rash PSYCH; Flat affect Weight / BMI Weight Weight: 82.1 kg Body Mass Index (BMI) 31.0 ABG / Lab / Microbiology Data 12/17/22 06:38 12/17/22 06:38 Laboratory: Laboratory Results - last 24 hr 12/14/22 22:34: Diff Path Review Reviewed 12/15/22 05:02: Vitamin B12 388, Vitamin D 25-Hydroxy 76.4 12/17/22 06:38: WBC 11.2 H, RBC 3.96 L, Hgb 11.3 L, Hct 34.4 L, MCV 86.9, MCH 28.5, MCHC 32.8, RDW Std Deviation 47.6 H, RDW Coeff of Kristofer 14.8 H, Plt Count 269, MPV 9.8, Immature Gran % (Auto) 0.400, Neut % (Auto) 58.3, Lymph % (Auto) 26.3, [place] % (Auto) 13.0 H, Eos % (Auto) 1.6, Baso % (Auto) 0.4, Absolute Neuts (auto) 6.5, Absolute Lymphs (auto) 2.94, Nucleated RBC % 0, Sodium 138, Potassium 3.6, Chloride 107, Carbon Dioxide 26.0, Anion Gap 5, BUN 9, Creatinine 0.71, Estim Creat Clear Calc 44.56, Est GFR (MDRD) Af Amer 105, Est GFR (MDRD) Non-Af 87, BUN/Creatinine Ratio 12.7, Glucose 103, Calcium 8.7 D/C Instructions Discharge Diet: No restrictions Discharge Activity: Return to Normal Activity Call your doctor if you observe: Fever of 101 or Higher, Shortness of breath, Fainting spells and Chest pain Meaningful Use Info Meaningful Use Diagnoses (Choose all that apply): None applicable Discharge Plan Admission Admit Date/Time: 12/14/22 23:55 Attending Provider: Salas Browne Primary Care Provider: Marcie Luis Consulting Providers: Saravanan Casanova; Saravanan Valadez; Gurdeep Julio Discharge Orders/Prescriptions Prescriptions: New sennosides-docusate sodium [Stool Softener-Stimulant Laxat] 8.6-50 mg Tablet 2 tab PO BID Qty: 60 0RF calcium carbonate 200 mg calcium (500 mg) Tablet,Chewable 500 mg PO TIDCM Qty: 90 0RF oxycodone 5 mg Tablet 5 mg PO Q4H PRN PRN (Reason: Pain Score 4-6) 4 Days Qty: 20 0RF cholecalciferol (vitamin D3) 25 mcg (1,000 unit) Tablet 25 mcg PO DAILY Qty: 30 0RF Eliquis 5 mg Tablet 2.5 mg PO BID Qty: 70 0RF acetaminophen 325 mg Tablet 650 mg PO Q6H PRN PRN (Reason: Pain 1-10 Or Fever) Qty: 0 0RF Continued levothyroxine 50 MCG tablet 50 mcg PO DAILY trazodone 100 MG tablet 150 mg PO QHS omeprazole 20 MG capsule,delayed release(DR/EC) 20 mg PO BID duloxetine 30 MG capsule,delayed release(DR/EC) 20 mg PO DAILY hydroxyzine HCl 10 mg tablet 20 mg PO QHS Versatile Rich Cream 1 applic TOPICAL .twice a week Patient Comments: APPLY 1 GRAM (4 CLICKS)CINTRAVAGINALLY TWICE A WEEK Rx Instructions: friday and friday estriol (bulk) 100 % powder 1 ea miscellaneous .twice a week Patient Comments: APPLY 1 GRAM (4 CLICKS)CINTRAVAGINALLY TWICE A WEEK Rx Instructions: friday and friday fluticasone propionate 50 mcg/actuation spray,suspension 2 spray INTRANASAL DAILY glycerin (bulk) 100 % liquid 1 ml miscellaneous .twice a week Patient Comments: APPLY 1 GRAM (4 CLICKS)CINTRAVAGINALLY TWICE A WEEK Rx Instructions: friday and friday Referrals / Follow Up: Saravanan Casanova DO [Med Staff - Active Staff] - Within 2 Weeks Marcie Luis DO [Primary Care Provider] - Within 2 Weeks Disposition Disposition (needs filled in before D/C Order can be placed): Home Health Service Charges/Coding Visit Charges Inpatient E&M: 16012 Disch Hosp >30min
--- NOTE | 2022-12-17 11:35 | CASEMGMT ---
Discharge Planning A list of HH providers including quality and resource use data and consistent with the patient's preferred geographic region, medical needs, and insurance network was created in CarePort Guide.? This list was provided to the RN ARIELLE. Georgette Nieto, Discharge Planning Asst
--- NOTE | 2022-12-17 11:40 | CASEMGMT ---
Received vm from Beto at [facility], [place] [employer] cost of eliquis is $47 and he will apply a voucher card.
--- NOTE | 2022-12-17 11:55 | CASEMGMT ---
Addendum entered by Mica Dhillon 12/17/22 12:29: RONALD GUZMÁN sent C referrals via CarePort. Original Note: Pt. has order in for D/C. RONALD GUZMÁN in to room to discuss pt. needs at discharge. RONALD GUZMÁN provided a list of [facility] providers including quality and resource use data and consistent with the patient?s preferred geographic region, medical needs, and insurance network were provided from the CarePort Guide. Pt. provided her top 3 choices: (1) [facility] in [place], (2) [facility] in [place], and (3) [facility] in [place]. RONALD GUZMÁN informed p. we will start on these referrals and follow-up with pt on them. RONALD GUZMÁN also informed pt. that we did a aldridge check at [facility] and were informed that her Eliquis is $47, but they are going to try a free trial card (pt. states she has never been on Eliquis before). Pt. reiterates that she does have a rollator at home she plans to use. Pt. denies having any additional questions/concerns or needs concerning discharge at this time.
--- NOTE | 2022-12-17 13:40 | CASEMGMT ---
RONALD GUZMÁN informed by [facility] that they received notification from Youth Worker that Pt. has now decided she would like to go to a SNF instead of HHC. RONALD GUZMÁN in to pt. sabrina to discuss this with pt. Pt. states she has realized that I am just kidding myself if I think I can get around at home on my own. Pt. verbalizes that she realizes she will need more assistance when her is at work in the mornings and therefore has decided to go to a SNF. RONALD GUZMÁN informed pt. that I will update SW. Pt. denies having any additional questions/concerns at this time. RONALD GUZMÁN updated SW.
[2022-12-17 14:11] VITALS: BP 116/58; PULSE 81; RESP 16; TEMP 36.6; O2SAT 96
--- NOTE | 2022-12-17 14:12 | CASEMGMT ---
Addendum entered by Alysia Faye 12/17/22 15:05: Social Work [facility] does not have beds available. SW received return call from TCU and now a bed is available. Referral made and TCU is able to accept. Precert started at this time. Pt updated and appreciative of information. Plan: TCU, pending precert PRASHANTH Lindsey Original Note: Social Work SW received message that pt is not requesting to go to SNF. SW met with pt to discuss discharge plan. Pt stating she has had time to consider her condition and now realizes she cannot return home and will need a SNF for short term rehab prior to return home. A list of SNF providers including quality and resource use data and consistent with the patient?s preferred geographic region, medical needs, and insurance network were provided from the CarePort Guide. Pts first choice is TCU and second choice is [facility]. Referral made to [facility] in [facility] and there are no beds available in TCU nor [facility]. Referral to be sent to [facility]. Physician notified of change of discharge plan. PRASHANTH Lindsey
[2022-12-17] MEDS: traZODone 50 MG Tablet 150 MG PO (19:54)
[2022-12-17 21:40] VITALS: BP 130/60; PULSE 82; RESP 16; TEMP 36.8; O2SAT 97
[2022-12-17] MEDS: hydrOXYzine 10 MG Tablet 20 MG PO (21:42)
[2022-12-17] MEDS: ARIPiprazole 5 MG Tablet PO (21:42)
[2022-12-18 03:36] VITALS: BP 144/57; PULSE 66; RESP 16; TEMP 37.1; O2SAT 95
[2022-12-18] MEDS: Levothyroxine 50 MCG Tablet PO (06:09)
[2022-12-18] MEDS: oxyCODONE 5 MG Tablet PO (06:11)
[2022-12-18] MEDS: Acetaminophen 325 MG Tablet 650 MG PO (06:12)
[2022-12-18 06:46] LABS: Absolute Lymphocyte Count 2.66 X10^3/uL (0.83-4.51); Absolute Neutrophil Count 7.1 X10^3/uL (2.0-7.7); Basophil# 0.06 X10^3/uL; Basophil% 0.5 % (0-1); Eosinophil# 0.25 X10^3/uL; Eosinophils% 2.2 % (0-5); Hematocrit 34.2 % (37-47); Hemoglobin 11.3 g/dL (12.0-15.0); Lymphocyte # 2.66 X10^3/ul (0.83-4.51); Lymphocyte % 23.2 % (19-41); Mean Corpuscular Hgb 28.2 pg (27.0-32.0); Mean Corpuscular Volume 85.3 fL (81-99); Mean Platelet Vol. 9.8 fl (6.2-12.0); Monocyte# 1.32 X10^3/uL; Monocyte% 11.5 % (0-10); NRBC Flagged by Analyzer 0 % (0-5); Neutrophil # 7.13 X10^3/uL (2.7-7.7); Platelet Count 308 K/mm3 (150-450); RBC Distribution Width CV 14.6 % (11.6-14.6); RBC Distribution Width SD 45.2 fl (35.1-43.9); Red Blood Count 4.01 M/mm3 (4.2-5.4); White Blood Count 11.5 K/mm3 (4.4-11.0)
[2022-12-18 07:15] LABS: Anion Gap 7 (5-15); BUN 13 mg/dL (7-18); BUN/Creat Ratio 19.1 RATIO (10-20); Calcium,Total 8.7 mg/dL (8.5-10.1); Chloride 106 mmol/L (98-107); Creatinine, Serum 0.68 mg/dL (0.55-1.02); EST Glomerular Filtration Rate 90 mL/min (>60); Est Glom Filt Rate - Afr Amer 109 mL/min (>60); Estimated Creatinine Clearance 44.56 ml/min; Glucose 110 mg/dL (74-106); Magnesium 2.1 mg/dL (1.6-2.6); Potassium 3.4 mmol/L (3.5-5.1); Sodium Level 138 mmol/L (136-145)
--- NOTE | 2022-12-18 08:13 | PN.HOSP_ITS ---
Reason for Visit Reason for Visit: Diagnoses Repeated falls (12/14/22) Contusion of left upper arm, initial encounter (12/14/22) Fracture of unspecified part of neck of left femur, initial encounter for closed fracture (12/14/22) Displaced fracture of base of neck of left femur, initial encounter for closed fracture (12/14/22) Subjective Subjective Patient requested to be discharged home she however rescinded her decision and opted for discharge to [facility] around. Awaiting insurance precertification prior to transfer Objective Data Objective Data Vital Signs: Vital Signs Temp Pulse Resp BP Pulse Ox O2 Del Method O2 Flow Rate 98.7 F 66 16 144/57 H 95 Room Air 3 12/18/22 03:36 12/18/22 03:36 12/18/22 03:36 12/18/22 03:36 12/18/22 03:36 12/18/22 03:36 12/15/22 12:13 Oxygen Flow Rate (L/min) 3 Oxygen Delivery Method Room Air Weight: 82.1 kg Body Mass Index (BMI) 31.0 Intake & Output: Intake and Output for Last 24 Hours 12/16/22 12/17/22 12/18/22 23:59 23:59 23:59 Intake Total 569.5 / 769.5 400 / 700 500 / 500 Output Total 1200 / 1700 1000 / 1000 470 / 470 Balance -630.5 / -930.5 -600 / -300 Lab / Micro Data 12/18/22 06:12 12/18/22 06:12 Labs: Laboratory Results - last 24 hr 12/14/22 22:34: Diff Path Review Reviewed 12/18/22 06:12: WBC 11.5 H, RBC 4.01 L, Hgb 11.3 L, Hct 34.2 L, MCV 85.3, MCH 28.2, MCHC 33.0, RDW Std Deviation 45.2 H, RDW Coeff of Kristofer 14.6, Plt Count 308, MPV 9.8, Immature Gran % (Auto) 0.600, Neut % (Auto) 62.0, Lymph % (Auto) 23.2, [place] % (Auto) 11.5 H, Eos % (Auto) 2.2, Baso % (Auto) 0.5, Absolute Neuts (auto) 7.1, Absolute Lymphs (auto) 2.66, Nucleated RBC % 0, Sodium 138, Potassium 3.4 L , Chloride 106, Carbon Dioxide 25.0, Anion Gap 7, BUN 13, Creatinine 0.68, Estim Creat Clear Calc 44.56, Est GFR (MDRD) Af Amer 109, Est GFR (MDRD) Non-Af 90, BUN/Creatinine Ratio 19.1, Glucose 110 H, Calcium 8.7, Phosphorus 3.0, Magnesium 2.1 Rhythm Strip Rhythm Strip: Sinus Rhythm Rate: 70 Ectopy: None Physical Exam Narrative GENERAL: cooperative HEENT: Atraumatic; normocephalic EYES; Anicteric, Normal Conjunctiva NECK; supple, normal thyroid, RESPIRATORY: Diminished to auscultation CARDIOVASCULAR: Regular S1 S2, GI: soft, normoactive bowel sounds, : No Renal angle tenderness; EXTREMITIES: No edema, no clubbing, MUSCULOSKELETAL: no muscle wasting NEURO: Awake; no lateralizing signs. SKIN: No Rash PSYCH; Flat affect Assessment & Plan Assessment/Plan (1) Contusion of arm, left: QUALIFIERS: Encounter type: initial encounter Qualified Code(s): S40.022A - Contusion of left upper arm, initial encounter (2) Frequent falls: (3) Closed basicervical fracture of neck of left femur: QUALIFIERS: Encounter type: initial encounter Fracture alignment: displaced Qualified Code(s): S72.042A - Displaced fracture of base of neck of left femur, initial encounter for closed fracture PLAN: Plan Patient is a 72-year-old lady admitted following a fall was found to have a left hip fracture underwent left hemiarthroplasty by Dr. Casanova on 12/15/2022 1. Fall with Left femoral neck subcapital fracture with associated displacement -underwent left hemiarthroplasty by Dr. Casanova on 12/15/2022. Patient subsequently was managed with PT/OT as tolerated pain management. Case management consulted to assist with discharge planning ? 12/18/2022;Patient requested to be discharged home she however rescinded her decision and opted for discharge to [facility] around. Awaiting insurance precertification prior to transfer 2. Hypothyroidism - Patient is on levothyroxine home dose continued 3. Fibromyalgia ? Patient is on duloxetine did continue 4. ERD ? On PPI 5. Depression with anxiety - did continue home meds 6. Prophylaxis ? On apixaban 2.5 mg p.o. twice daily Time spent in the patient's overall evaluation,decision-making process, review of diagnostic data, adjustment of management, discussion with other providers, nursing nursing and ancillary staff involved in patient's care documentation,40 Minutes Charges/Coding Visit Charges Inpatient E&M: 85350 Subs Hosp L2
[2022-12-18] MEDS: Calcium Carbonate 500 MG Tablet PO ×2 (08:28→11:42)
[2022-12-18 08:45] VITALS: BP 127/65; PULSE 80; RESP 16; TEMP 36.9; O2SAT 97
[2022-12-18] MEDS: DULoxetine Hcl 20 MG Capsule PO (09:16)
[2022-12-18] MEDS: Pantoprazole Sodium 20 MG Tablet PO (09:16)
[2022-12-18] MEDS: Senna/Docusate Sodium 1 Tablet 2 TABLET PO (09:16)
[2022-12-18] MEDS: APIXABAN 2.5 MG TABLET (WCH) PO (09:16)
[2022-12-18] MEDS: Cholecalciferol (VIT D3) 25 MCG TABLET (1,000 UNITS) PO (09:17)
[2022-12-18 09:58] VITALS: O2SAT 97
[2022-12-18] MEDS: Potassium Chloride Oral Tablet 20 MEQ PO (10:21)
--- NOTE | 2022-12-18 11:35 | TREXTCAR_ITS ---
Diet Diet Order/Speech Therapy: 12/15/22 12:16 Diet: Regular - General Is pt able to select menu?: Yes Wound(s) left hip: Wound Type: Surgical Incision Therapies Occupational Therapy: Eval and Treat Speech Therapy: Eval and Treat Problem/Diagnosis (1) Contusion of arm, left: Status: Acute Code(s): S40.022A - Contusion of left upper arm, initial encounter (2) Frequent falls: Status: Acute Code(s): R29.6 - Repeated falls (3) Closed basicervical fracture of neck of left femur: Status: Acute Code(s): S72.042A - Displaced fracture of base of neck of left femur, initial encounter for closed fracture Plan Patient is a 72-year-old lady admitted following a fall was found to have a left hip fracture underwent left hemiarthroplasty by Dr. Casanova on 12/15/2022 1. Fall with Left femoral neck subcapital fracture with associated displacement -underwent left hemiarthroplasty by Dr. Casanova on 12/15/2022. Patient subsequently was managed with PT/OT as tolerated pain management. Case management consulted to assist with discharge planning ? 12/18/2022;Patient requested to be discharged home she however rescinded her decision and opted for discharge to [facility] around. Awaiting insurance precertification prior to transfer 2. Hypothyroidism - Patient is on levothyroxine home dose continued 3. Fibromyalgia ? Patient is on duloxetine did continue 4. ERD ? On PPI 5. Depression with anxiety - did continue home meds 6. Prophylaxis ? On apixaban 2.5 mg p.o. twice daily Time spent in the patient's overall evaluation,decision-making process, review of diagnostic data, adjustment of management, discussion with other providers, nursing nursing and ancillary staff involved in patient's care documentation,40 Minutes Allergies/Procedures Done in Hospital Allergies albuterol Allergy (Verified 12/14/22 21:49) Other gabapentin Adverse Reaction (Verified 12/14/22 21:49) Other Sulfa (Sulfonamide Antibiotics) Adverse Reaction (Verified 12/14/22 21:49) Vomiting Type of Care/Length of Stay Estimated LOS: Convalescent Care Less Than 30 days Type of Care Needed: Skilled Rehab Potential: Good Prognosis: Good Additional Orders/Day of Discharge Day of Discharge: 12/18/22 Discharge Plan Admission Admit Date/Time: 12/14/22 23:55 Attending Provider: Salas Browne Primary Care Provider: Marcie Luis Consulting Providers: Saravanan Casanova; Saravanan Valadez; Gurdeep Julio Discharge Orders/Prescriptions Prescriptions: New sennosides-docusate sodium [Stool Softener-Stimulant Laxat] 8.6-50 mg Tablet 2 tab PO BID Qty: 60 0RF calcium carbonate 200 mg calcium (500 mg) Tablet,Chewable 500 mg PO TIDCM Qty: 90 0RF oxycodone 5 mg Tablet 5 mg PO Q4H PRN PRN (Reason: Pain Score 4-6) 4 Days Qty: 20 0RF cholecalciferol (vitamin D3) 25 mcg (1,000 unit) Tablet 25 mcg PO DAILY Qty: 30 0RF Eliquis 5 mg Tablet 2.5 mg PO BID Qty: 70 0RF acetaminophen 325 mg Tablet 650 mg PO Q6H PRN PRN (Reason: Pain 1-10 Or Fever) Qty: 0 0RF Continued levothyroxine 50 MCG tablet 50 mcg PO DAILY trazodone 100 MG tablet 150 mg PO QHS omeprazole 20 MG capsule,delayed release(DR/EC) 20 mg PO BID duloxetine 30 MG capsule,delayed release(DR/EC) 20 mg PO DAILY hydroxyzine HCl 10 mg tablet 20 mg PO QHS Versatile Rich Cream 1 applic TOPICAL .twice a week Patient Comments: APPLY 1 GRAM (4 CLICKS)CINTRAVAGINALLY TWICE A WEEK Rx Instructions: friday and friday estriol (bulk) 100 % powder 1 ea miscellaneous .twice a week Patient Comments: APPLY 1 GRAM (4 CLICKS)CINTRAVAGINALLY TWICE A WEEK Rx Instructions: friday and friday fluticasone propionate 50 mcg/actuation spray,suspension 2 spray INTRANASAL DAILY glycerin (bulk) 100 % liquid 1 ml miscellaneous .twice a week Patient Comments: APPLY 1 GRAM (4 CLICKS)CINTRAVAGINALLY TWICE A WEEK Rx Instructions: friday and friday Referrals / Follow Up: Saravanan Casanova DO [Med Staff - Active Staff] - Within 2 Weeks Marcie Luis DO [Primary Care Provider] - Within 2 Weeks Disposition Disposition (needs filled in before D/C Order can be placed): [facility] Facility (1) Contusion of arm, left Qualifiers: Encounter type: initial encounter Qualified Code(s): S40.022A - Contusion of left upper arm, initial encounter (3) Closed basicervical fracture of neck of left femur Qualifiers: Encounter type: initial encounter Fracture alignment: displaced Qualified Code(s): S72.042A - Displaced fracture of base of neck of left femur, initial en counter for closed fracture
--- NOTE | 2022-12-18 11:37 | PCM.DC.SUM ---
Providers Date of Admission: 12/14/22 Date of Discharge: 12/18/22 Primary Care Physician: Marcie Luis, Consultations 12/15/22 01:13 Consult: Orthopedics Routine Consulting Provider: Saravanan Casanova Reason for Consult: Left hip fracture EMERGENT Consult: No MD Notified: Yes Date Notified: 12/15/22 Time Notified: 00:05 Method of Notification: ED Physician Initiated Reason For Visit: LEFT HIP FRACTURE Diagnosis Discharge Diagnosis (1) Contusion of arm, left: Status: Acute Code(s): S40.022A - Contusion of left upper arm, initial encounter Qualifiers: Encounter type: initial encounter Qualified Code(s): S40.022A - Contusion of left upper arm, initial encounter (2) Frequent falls: Status: Acute Code(s): R29.6 - Repeated falls (3) Closed basicervical fracture of neck of left femur: Status: Acute Code(s): S72.042A - Displaced fracture of base of neck of left femur, initial encounter for closed fracture Qualifiers: Encounter type: initial encounter Fracture alignment: displaced Qualified Code(s): S72.042A - Displaced fracture of base of neck of left femur, initial encounter for closed fracture Plan Patient is a 72-year-old lady admitted following a fall was found to have a left hip fracture underwent left hemiarthroplasty by Dr. Casanova on 12/15/2022 1. Fall with Left femoral neck subcapital fracture with associated displacement -underwent left hemiarthroplasty by Dr. Casanova on 12/15/2022. Patient subsequently was managed with PT/OT as tolerated pain management. Case management consulted to assist with discharge planning ? 12/18/2022;Patient requested to be discharged home she however rescinded her decision and opted for discharge to [facility] around. Awaiting insurance precertification prior to transfer 2. Hypothyroidism - Patient is on levothyroxine home dose continued 3. Fibromyalgia ? Patient is on duloxetine did continue 4. ERD ? On PPI 5. Depression with anxiety - did continue home meds 6. Prophylaxis ? On apixaban 2.5 mg p.o. twice daily Time spent in the patient's overall evaluation,decision-making process, review of diagnostic data, adjustment of management, discussion with other providers, nursing nursing and ancillary staff involved in patient's care documentation,40 Minutes Medications at Discharge Home Medications levothyroxine 50 mcg tablet 50 mcg PO DAILY 11/29/15 duloxetine 30 mg capsule,delayed release 20 mg PO DAILY 09/23/19 omeprazole 20 mg capsule,delayed release 20 mg PO BID 09/23/19 trazodone 100 mg tablet 150 mg PO QHS 09/23/19 hydroxyzine HCl 10 mg tablet 20 mg PO QHS 03/28/21 cream base no.175 (bulk) (Versatile Rich topical cream) 1 applic topical .twice a week UTI 12/15/22 estriol (bulk) 100 % powder 1 ea miscellaneous .twice a week uti 12/15/22 fluticasone propionate 50 mcg/actuation nasal spray,suspension 2 spray intranasal DAILY allergies 12/15/22 glycerin (bulk) 100 % liquid 1 ml miscellaneous .twice a week uti 12/15/22 acetaminophen 325 mg tablet 650 mg (2 x 325 mg) PO Q6H PRN PRN Pain 1-10 Or Fever #0 tabs 12/17/22 apixaban 5 mg tablet (Eliquis) 2.5 mg (1/2 x 5 mg) PO BID #70 tabs 12/17/22 calcium carbonate 200 mg calcium (500 mg) chewable tablet 500 mg (2.5 x 200 mg calcium (500 mg)) PO TIDCM #90 tabs 12/17/22 cholecalciferol (vitamin D3) 25 mcg (1,000 unit) tablet 25 mcg PO DAILY #30 tabs 12/17/22 oxycodone 5 mg tablet 5 mg PO Q4H PRN PRN Pain Score 4-6 4 days #20 tabs 12/17/22 sennosides 8.6 mg-docusate sodium 50 mg tablet (Stool Softener-Stimulant Laxative) 2 tab PO BID #60 tabs 12/17/22 Hospital Course Summary of Care Provided Minutes Spent on Discharge: 35 Physical Exam Narrative GENERAL: cooperative HEENT: Atraumatic; normocephalic EYES; Anicteric, Normal Conjunctiva NECK; supple, normal thyroid, RESPIRATORY: Diminished to auscultation CARDIOVASCULAR: Regular S1 S2, GI: soft, normoactive bowel sounds, : No Renal angle tenderness; EXTREMITIES: No edema, no clubbing, MUSCULOSKELETAL: no muscle wasting NEURO: Awake; no lateralizing signs. SKIN: No Rash PSYCH; Flat affect Weight / BMI Weight Weight: 82.1 kg Body Mass Index (BMI) 31.0 ABG / Lab / Microbiology Data 12/18/22 06:12 12/18/22 06:12 Laboratory: Laboratory Results - last 24 hr 12/18/22 06:12: WBC 11.5 H, RBC 4.01 L, Hgb 11.3 L, Hct 34.2 L, MCV 85.3, MCH 28.2, MCHC 33.0, RDW Std Deviation 45.2 H, RDW Coeff of Kristofer 14.6, Plt Count 308, MPV 9.8, Immature Gran % (Auto) 0.600, Neut % (Auto) 62.0, Lymph % (Auto) 23.2, [place] % (Auto) 11.5 H, Eos % (Auto) 2.2, Baso % (Auto) 0.5, Absolute Neuts (auto) 7.1, Absolute Lymphs (auto) 2.66, Nucleated RBC % 0, Sodium 138, Potassium 3.4 L, Chloride 106, Carbon Dioxide 25.0, Anion Gap 7, BUN 13, Creatinine 0.68, Estim Creat Clear Calc 44.56, Est GFR (MDRD) Af Amer 109, Est GFR (MDRD) Non-Af 90, BUN/Creatinine Ratio 19.1, Glucose 110 H, Calcium 8.7, Phosphorus 3.0, Magnesium 2.1 D/C Instructions Discharge Diet: No restrictions Discharge Activity: Return to Normal Activity Call your doctor if you observe: Fever of 101 or Higher, Shortness of breath, Fainting spells and Chest pain Meaningful Use Info Meaningful Use Diagnoses (Choose all that apply): None applicable Discharge Plan Admission Admit Date/Time: 12/14/22 23:55 Attending Provider: Salas Browne Primary Care Provider: Marcie Luis Consulting Providers: Saravanan Casanova; Saravanan Valadez; Gurdeep Julio Discharge Orders/Prescriptions Prescriptions: New sennosides-docusate sodium [Stool Softener-Stimulant Laxat] 8.6-50 mg Tablet 2 tab PO BID Qty: 60 0RF calcium carbonate 200 mg calcium (500 mg) Tablet,Chewable 500 mg PO TIDCM Qty: 90 0RF oxycodone 5 mg Tablet 5 mg PO Q4H PRN PRN (Reason: Pain Score 4-6) 4 Days Qty: 20 0RF cholecalciferol (vitamin D3) 25 mcg (1,000 unit) Tablet 25 mcg PO DAILY Qty: 30 0RF Eliquis 5 mg Tablet 2.5 mg PO BID Qty: 70 0RF acetaminophen 325 mg Tablet 650 mg PO Q6H PRN PRN (Reason: Pain 1-10 Or Fever) Qty: 0 0RF Continued levothyroxine 50 MCG tablet 50 mcg PO DAILY trazodone 100 MG tablet 150 mg PO QHS omeprazole 20 MG capsule,delayed release(DR/EC) 20 mg PO BID duloxetine 30 MG capsule,delayed release(DR/EC) 20 mg PO DAILY hydroxyzine HCl 10 mg tablet 20 mg PO QHS Versatile Rich Cream 1 applic TOPICAL .twice a week Patient Comments: APPLY 1 GRAM (4 CLICKS)CINTRAVAGINALLY TWICE A WEEK Rx Instructions: friday and friday estriol (bulk) 100 % powder 1 ea miscellaneous .twice a week Patient Comments: APPLY 1 GRAM (4 CLICKS)CINTRAVAGINALLY TWICE A WEEK Rx Instructions: friday and friday fluticasone propionate 50 mcg/actuation spray,suspension 2 spray INTRANASAL DAILY glycerin (bulk) 100 % liquid 1 ml miscellaneous .twice a week Patient Comments: APPLY 1 GRAM (4 CLICKS)CINTRAVAGINALLY TWICE A WEEK Rx Instructions: friday and friday Referrals / Follow Up: Saravanan Casanova DO [Med Staff - Active Staff] - Within 2 Weeks Marcie Luis DO [Primary Care Provider] - Within 2 Weeks Disposition Disposition (needs filled in before D/C Order can be placed): [facility] Charges/Coding Visit Charges Inpatient E&M: 90925 Disch Hosp >30min
--- NOTE | 2022-12-18 12:06 | CASEMGMT ---
Social Work Precert has been obtained for pt to admit to TCU today. Physician updated and pt is ready for discharge. Discharge orders faxed to TCU and [facility] notified of admission today. SW met with pt and updated on discharge plan today. Pt agreeable and will notified spouse. Nursing updated. Disposition: TCU, skilled level of care PRASHANTH Virk
[2022-12-18 14:07] VITALS: BP 121/72; PULSE 80; RESP 16; TEMP 36.8; O2SAT 98
== END 2022-12-18 15:22 | disposition skilled nursing facility (03) | DRG 522 ==
LOC: ED 22:46 → MS3 12-15 03:42
PROVIDERS: Family Medicine; Orthopaedic Surgery; Admitting Provider Hospitalist; Emergency Provider Emergency Medicine; PCP Family Medicine; Visit Provider Internal Medicine
PROC: 0SRS0JA Replacement of Left Hip Joint, Femoral Surface with Synthetic Substitute, Uncemented, Open Approach (ICD-10-PCS; CPT 27125; principal; 2022-12-15 09:00)
DX: S72.042A Displaced fracture of base of neck of left femur, initial encounter for closed fracture (principal); E03.9 Hypothyroidism, unspecified; S40.022A Contusion of left upper arm, initial encounter; F41.8 Other specified anxiety disorders; K21.9 Gastro-esophageal reflux disease without esophagitis; M79.7 Fibromyalgia; W10.9XXA Fall (on) (from) unspecified stairs and steps, initial encounter; R29.6 Repeated falls
CPT/HCPCS: 36415; 71045; 72170; 73060; 73502; 73552; 80048; 80053; 82306; 82607; 83735; 84100; 84443; 85025; 86850; 86900; 86901; 88307; 88311; 93005; 97110; 97116; 97162; 97166; 97530; 97535; 99285; C1776; J7030; 90662; A4216; J2405

== ENCOUNTER 2022-12-18 15:43 | Inpatient (IN) | payer MEDICARE, SELFPAY ==
[2022-12-18 16:08] VITALS: BP 135/69; PULSE 80; RESP 16; TEMP 36.1; O2SAT 96; BMI 29.7
[2022-12-18] MEDS: Calcium Carbonate 500 MG Tablet PO (18:48)
--- NOTE | 2022-12-18 19:21 | HP.PCM_ITS ---
HPI - General General Date of Admission: 12/18/22 Date of Service: 12/18/22 Chief Complaint: Here for rehabilitation. HPI Narrative 12/14/2022 GALLO STEELE, is a 72 Female who presents to [facility] Emergency Department with fall. Fell 1 day prior, sometimes walks with rollator, chronic imbalance. Fell on left hip, left arm, able to walk after fall. Today, turned, felt left hip crack, severe left hip pain. Unable to walk. X-ray shows left hip fracture. 12/14/2022 Admit to Hospital. Prepare for surgery for left hip fracture. Tylenol, Oxycodone, Morphine for pain. IV fluids for hydration. 12/15/2022 Dr. Casanova performed left hip hemiarthroplasty. 12/16/2022 No overnight issues. PT/OT for debility. 12/17/2022 PT/OT for SNF. Eliquis 2.5mg bid for DVT prophylaxis. 12/18/2022 Patient requested discharge home, then changed her mind. 12/18/2022 Admit to TCU with debility, here for rehabilitation, strengthening, prior to discharge home with . [facility] Medical History (Updated 12/18/22 @ 19:[address] Alcon Aleman MD) Alcohol use Ambulates with cane Anxiety Anxiety Arthritis Back pain Bladder disease Cholecystectomy planned Depression Fibromyalgia Former smoker Gastric reflux History of IBS History of stress test Injury of head and neck Insomnia Kyphoscoliosis Post-menopausal Restless legs Shortness of breath on exertion Thyroid disease Wears glasses Home Medications levothyroxine 50 mcg tablet 50 mcg PO DAILY Thyroid 11/29/15 [History Last Taken 12/18/22] duloxetine 30 mg capsule,delayed release 20 mg PO DAILY Mood 09/23/19 [History Last Taken 12/18/22] omeprazole 20 mg capsule,delayed release 20 mg PO BID GERD 09/23/19 [History Last Taken 12/18/22] trazodone 100 mg tablet 150 mg PO QHS Sleep 09/23/19 [History Last Taken 12/17/22] hydroxyzine HCl 10 mg tablet 20 mg PO QHS Anxiety 03/28/21 [History Last Taken 12/17/22] cream base no.175 (bulk) (Versatile Rich topical cream) 1 applic topical .twice a week UTI 12/15/22 [History Last Taken Unknown] estriol (bulk) 100 % powder 1 ea miscellaneous .twice a week uti 12/15/22 [History Last Taken Unknown] fluticasone propionate 50 mcg/actuation nasal spray,suspension 2 spray intranasal DAILY allergies 12/15/22 [History Last Taken Unknown] glycerin (bulk) 100 % liquid 1 ml miscellaneous .twice a week uti 12/15/22 [History Last Taken Unknown] acetaminophen 325 mg tablet 650 mg (2 x 325 mg) PO Q6H PRN PRN Pain 1-10 Or Fever #0 tabs 12/17/22 [Rx Last Taken 12/18/22] apixaban 5 mg tablet (Eliquis) 2.5 mg (1/2 x 5 mg) PO BID Anticoagulant #70 tabs 12/17/22 [Rx Last Taken 12/18/22 09:15] calcium carbonate 200 mg calcium (500 mg) chewable tablet 500 mg (2.5 x 200 mg calcium (500 mg)) PO TIDCM Indigestion #90 tabs 12/17/22 [Rx Last Taken Unknown] cholecalciferol (vitamin D3) 25 mcg (1,000 unit) tablet 25 mcg PO DAILY Supplment #30 tabs 12/17/22 [Rx Last Taken 12/18/22] oxycodone 5 mg tablet 5 mg PO Q4H PRN PRN Pain Score 4-6 4 days #20 tabs 12/17/22 [Rx Last Taken 12/18/22 06:15] sennosides 8.6 mg-docusate sodium 50 mg tablet (Stool Softener-Stimulant Laxative) 2 tab PO BID Constipation #60 tabs 12/17/22 [Rx Last Taken 12/17/22] Allergy/AdvReac Type Severity Reaction Status Date / Time albuterol Allergy Other Verified 12/14/22 21:49 gabapentin AdvReac Other Verified 12/14/22 21:49 Sulfa (Sulfonamide AdvReac Vomiting Verified 12/14/22 21:49 Antibiotics) Family History Father Myocardial infarction Leukemia Mother Hypertension Alzheimer disease Surgical History History of bunionectomy History of LAVH Salivary gland stone Social History (Updated 12/18/22 @ 19:[address] Alcon Aleman MD) household members: spouse number of children: 2 current occupational status: retired Smoking Status: Never smoker alcohol intake: current details: social substance use type: does not use caffeine: Yes what type of physical activity do you participate in: none seatbelt use: always do you feel safe at home: Yes additional social history: Ragini DHILLON Constitutional Constitutional: Denies chills, fever(s) or weight gain ENT HEENT: Denies headache(s), nasal congestion or nasal discharge Cardiovascular Cardiovascular: Denies chest pain or palpitations Respiratory/Chest Respiratory/Chest: Denies cough, excessive phlegm production or shortness of breath with exertion Gastrointestinal Gastrointestinal: Denies abdominal pain, nausea or vomiting Genitourinary Genitourinary: Denies dysuria Musculoskeletal Musculoskeletal: Denies joint pain or joint swelling Integumentary Integumentary: Denies rash or wounds Neurologic Neurologic: Denies focal weakness, numbness or tingling Psychiatric Psychiatric: Denies anxiety, auditory hallucinations, depression, homicidal ideation or suicidal ideation Vital Signs Vital Signs Vital Signs: 12/18/22 16:08 12/18/22 16:08 Temperature 96.9 F L Temperature Source Temporal Pulse Rate 80 80 Pulse Rhythm Regular Pulse Strength Normal (2+) Respiratory Rate 16 16 Respiratory Effort Normal Non-Labored Respiratory Depth Normal Respiratory Pattern Normal Blood Pressure 135/69 H Blood Pressure Mean 91 Blood Pressure Source Monitor Blood Pressure Position Semi-Fowlers Blood Pressure Location Right Arm Pulse Ox 96 Oxygen Delivery Method Room Air Room Air Oxygen Flow Rate (L/min) 96 Weight Weight: 81.102 kg Body Mass Index (BMI) 29.7 Physical Exam Const alert General Appearance: cooperative HEENT normocephalic Eyes PERRL and EOMs intact bilaterally Neck supple, no JVD and no carotid bruits Resp normal respiratory effort, normal air movement and clear to auscultation bilaterally Cardio regular rate and regular rhythm GI normal to inspection, nondistended, normoactive bowel sounds, non-tender and non-distended Extremity normal capillary refill General Extremity: Negative for edema Skin no rashes or lesions noted General Skin Exam: no breakdown Psych affect normal Appearance: appropriate Assessment & Plan Assessment/Plan (1) Debility: (2) Closed left hip fracture: (3) Hypothyroidism: (4) Depression: (5) GERD (gastroesophageal reflux disease): QUALIFIERS: Esophagitis presence: without esophagitis Qualified Code(s): K21.9 - Gastro-esophageal reflux disease without esophagitis (6) Insomnia: (7) Alcohol use: PLAN: Plan 72 year old female with below past medical history hospitalized for left hip fracture, underwent left hip hemiarthroplasty 12/15/[address] Casanova, admitted to TCU with debility, here for rehabilitation, strengthening, prior to discharge home with . * Debility - PT/OT. * Pain - Tylenol 1000mg q8, Tramadol 50mg q6 prn pain (1-5), Oxycodone 5mg q4 prn pain (6-10). * Bowel - Miralax 17gm daily, senna/colace 2 tablets bid, Magnesium citrate 300ml po daily prn. * Adult immunization - Administer pneumonia vaccine, covid19 vaccine, flu vaccine as appropriate. * DVT prophylaxis - Eliquis 2.5mg bid thru 01/05/2023. * Calcium deficiency - TUMS 500mg tidcm. * Vitamin D deficiency - D3 25mcg daily. * Depression - Duloxetine 20mg daily, stable chronic [employer] use, GDR not recommended. * Allergic rhinitis - Flonase 2 sprays nasal daily. * Insomnia - Hydroxyzine 50mg qhs, Trazodone 150mg qhs, stable chronic penitentiary use, GDR not recommended. * Hypothyroidism - Levothyroxine 50mcg daily. * GERD - Pantoprazole 20mg bid.
[2022-12-18] MEDS: traZODone 100 MG Tablet 150 MG PO (20:29)
[2022-12-18] MEDS: oxyCODONE 5 MG Tablet PO (20:31)
[2022-12-18] MEDS: Acetaminophen 500 MG Tablet 1000 MG PO (20:31)
[2022-12-18] MEDS: APIXABAN 2.5 MG TABLET (WCH) PO (22:33)
[2022-12-18] MEDS: hydrOXYzine 10 MG Tablet 20 MG PO (22:36)
[2022-12-18] MEDS: Senna/Docusate Sodium 1 Tablet 2 TABLET PO (22:37)
[2022-12-18] MEDS: Pantoprazole Sodium 20 MG Tablet PO (22:37)
[2022-12-19 06:03] LABS: Absolute Lymphocyte Count 3.05 X10^3/uL (0.83-4.51); Absolute Neutrophil Count 5.7 X10^3/uL (2.0-7.7); Basophil# 0.06 X10^3/uL; Basophil% 0.6 % (0-1); Hematocrit 33.9 % (37-47); Hemoglobin 11.1 g/dL (12.0-15.0); Lymphocyte # 3.05 X10^3/ul (0.83-4.51); Lymphocyte % 30.3 % (19-41); Mean Corp Hgb Conc 32.7 g/dL (32-36); Mean Corpuscular Volume 85.6 fL (81-99); Mean Platelet Vol. 9.6 fl (6.2-12.0); Monocyte# 0.99 X10^3/uL; Monocyte% 9.8 % (0-10); NRBC Flagged by Analyzer 0 % (0-5); Neutrophil # 5.71 X10^3/uL (2.7-7.7); Neutrophil % 56.8 % (47-70); Platelet Count 314 K/mm3 (150-450); RBC Distribution Width CV 14.4 % (11.6-14.6); Red Blood Count 3.96 M/mm3 (4.2-5.4); White Blood Count 10.1 K/mm3 (4.4-11.0)
[2022-12-19] MEDS: Levothyroxine 50 MCG Tablet PO (06:22)
[2022-12-19] MEDS: Acetaminophen 500 MG Tablet 1000 MG PO ×3 (06:23→20:40)
[2022-12-19 07:01] LABS: Anion Gap 8 (5-15); BUN 12 mg/dL (7-18); BUN/Creat Ratio 17.1 RATIO (10-20); Calcium,Total 8.9 mg/dL (8.5-10.1); Chloride 105 mmol/L (98-107); EST Glomerular Filtration Rate 88 mL/min (>60); Est Glom Filt Rate - Afr Amer 106 mL/min (>60); Estimated Creatinine Clearance 44.56 ml/min; Glucose 111 mg/dL (74-106); Potassium 3.7 mmol/L (3.5-5.1); Sodium Level 138 mmol/L (136-145)
[2022-12-19] MEDS: Cholecalciferol (VIT D3) 25 MCG TABLET (1,000 UNITS) PO (08:52)
[2022-12-19] MEDS: DULoxetine Hcl 20 MG Capsule PO (08:52)
[2022-12-19] MEDS: Senna/Docusate Sodium 1 Tablet 2 TABLET PO ×2 (08:53→23:28)
[2022-12-19] MEDS: Pantoprazole Sodium 20 MG Tablet PO ×2 (08:53→23:28)
[2022-12-19] MEDS: Polyethylene Glycol 3350 17 GM PACKET PO (08:53)
[2022-12-19] MEDS: Calcium Carbonate 500 MG Tablet PO ×3 (08:53→18:23)
[2022-12-19] MEDS: APIXABAN 2.5 MG TABLET (WCH) PO ×2 (08:53→23:28)
[2022-12-19] MEDS: Fluticasone 0.05% 1 SPRAY NASAL.SRY 2 SPRAY NASAL (08:53)
[2022-12-19] MEDS: Tuberculin,Purif.prot.deriv. 50 TU/ML Vial 0.1 ML ID (12:30)
--- NOTE | 2022-12-19 12:39 | NURSING ---
Removed IV in left hand per pt request.
[2022-12-19 14:53] VITALS: BP 108/57; PULSE 76; RESP 16; TEMP 36; O2SAT 98
--- NOTE | 2022-12-19 16:05 | PHA.CONS_ITS ---
TCU RX Drug Regimen Review Subjective/Objective Subjective/Objective: Subjective: 72 YOF admitted to TCU 12/18/22 s/p fall resulting in hospitalization at [facility]. While hospitalized, pt underwent a left hip hemiarthroplasty to repair the hip s/p fall. Admitted to TCU for strengthening and rehabilitation prior to discharge home where she resides alone. Objective: Allergies albuterol Allergy (Verified 12/14/22 21:49) Other gabapentin Adverse Reaction (Verified 12/14/22 21:49) Other Sulfa (Sulfonamide Antibiotics) Adverse Reaction (Verified 12/14/22 21:49) Vomiting Current Medications Generic Name Dose Route Start Last Admin Trade Name Freq PRN Reason Stop Dose Admin Acetaminophen 1,000 mg 12/18/22 22:00 12/19/22 13:12 Acetaminophen 500 Mg Tablet PO 1,000 mg Q8 MANUELA Administration Apixaban 2.5 mg 12/18/22 22:00 12/19/22 08:53 Apixaban 2.5 Mg Tablet ([facility]) PO 01/05/23 23:59 2.5 mg BID MANUELA Administration Calcium Carbonate 500 mg 12/18/22 17:45 12/19/22 12:30 Calcium Carbonate 500 Mg Tablet PO 500 mg TIDCM MANUELA Administration Cholecalciferol 25 mcg 12/19/22 10:00 12/19/22 08:52 Cholecalciferol (Vit D3) 25 Mcg Tablet (1,000 Units) PO 25 mcg DAILY MANUELA Administration Duloxetine HCl 20 mg 12/19/22 10:00 12/19/22 08:52 Duloxetine Hcl 20 Mg Capsule PO 20 mg DAILY MANUELA Administration Fluticasone Propionate 2 spray 12/19/22 10:00 12/19/22 08:53 Fluticasone 0.05% 1 [place]comb Nasal.Sry NASAL 2 spray DAILY MANUELA Administration Hydroxyzine HCl 20 mg 12/18/22 22:00 12/18/22 22:36 Hydroxyzine 10 Mg Tablet PO 20 mg QHS MANUELA Administration Levothyroxine Sodium 50 mcg 12/19/22 06:00 12/19/22 06:22 Levothyroxine 50 Mcg Tablet PO 50 mcg DAILY@0600 MANUELA Administration Magnesium Citrate 300 ml 12/18/22 19:39 Magnesium Citrate 300 Ml PO DAILY PRN CONSTIPATION Oxycodone HCl 5 mg 12/18/22 19:40 12/18/22 20:31 Oxycodone 5 Mg Tablet PO 5 mg Q4H PRN PRN Administration Pain Score 6-10 Pantoprazole Sodium 20 mg 12/18/22 22:00 12/19/22 08:53 Pantoprazole Sodium 20 Mg Tablet PO 20 mg BID MANUELA Administration Polyethylene Glycol 17 gm 12/19/22 10:00 12/19/22 08:53 Polyethylene Glycol 3350 17 Gm Packet PO 17 gm DAILY MANUELA Administration Senna/Docusate Sodium 2 tablet 12/18/22 22:00 12/19/22 08:53 Senna/Docusate Sodium 1 Tablet PO 2 tablet BID MANUELA Administration Sodium Chloride 10 - 40 ml 12/18/22 16:26 0.9% Saline Lock 10 Ml Syringe IV UD PRN SALINE FLUSH Tramadol HCl 50 mg 12/18/22 19:39 Tramadol 50 Mg Tablet PO Q6H PRN PRN Pain Score 1-5 Trazodone HCl 150 mg 12/19/22 20:00 Trazodone 100 Mg Tablet PO 2000 [facility] Tuberculin PPD 0.1 ml 12/26/22 10:00 Tuberculin,Purif.Prot.Deriv. 50 Tu/Ml Vial ID 12/26/22 10:01 X1 ONE Problem List (Updated 12/18/22 @ 19:[address] Alcon Aleman MD) Alcohol use (Acute) Insomnia (Acute) Depression (Acute) Closed left hip fracture (Acute) Debility (Acute) GERD (gastroesophageal reflux disease) (Chronic) Hypothyroidism (Chronic) Vital Signs Temp Pulse Resp BP Pulse Ox O2 Del Method O2 Flow Rate 96.8 F L 76 16 108/57 L 98 Room Air 96 12/19/22 14:53 12/19/22 14:53 12/19/22 14:53 12/19/22 14:53 12/19/22 14:53 12/19/22 14:53 12/18/22 16:08 Oxygen Flow Rate (L/min) 96 Oxygen Delivery Method Room Air Weight: 81.102 kg Body Mass Index (BMI) 29.7 Sodium 138 mmol/L (136-145) 12/19/22 05:44 Potassium 3.7 mmol/L (3.5-5.1) 12/19/22 05:44 Chloride 105 mmol/L (98-107) 12/19/22 05:44 Carbon Dioxide 25.0 mmol/L (21.0-32.0) 12/19/22 05:44 Anion Gap 8 (5-15) 12/19/22 05:44 BUN 12 mg/dL (7-18) 12/19/22 05:44 Creatinine 0.70 mg/dL (0.55-1.02) 12/19/22 05:44 Est GFR (MDRD) Af Amer 106 mL/min (>60) 12/19/22 05:44 Est GFR (MDRD) Non-Af 88 mL/min (>60) 12/19/22 05:44 BUN/Creatinine Ratio 17.1 RATIO (10-20) 12/19/22 05:44 Glucose 111 mg/dL (74-106) H 12/19/22 05:44 Assessment/Plan: 1. Pain: Tylenol 1000mg PO Q8h, Tramadol 50mg PO Q6h PRN Pain 1-5, Oxycodone 5mg PO Q4h PRN Pain 6-10. Please continue to monitor for increased/decreased S/S pain, PRN medication usage, constipation/oversedation/falls with narcotic usage. - To date, the patient has used only 1 dose of PRN oxycodone with pre-med pain rated 6/10, post medication pain rated 0/10. Patient's pain appears controlled at this time. 2. DVT prophylaxis s/p surgery: Eliquis 2.5mg PO BID thru 01/05/23. Please continue to monitor for S/S bleeding/bruising, H/H (Hgb 11.1, Hct 33.9 on 12/19/22), S/S blood clot formation. 3. Hypothyroidism: Synthroid 50mcg PO Daily. Please continue to monitor for S/S hypothyroidism, Thyroid function tests (3.81 on 12/15/22). Please continue to monitor closely and consider increasing dose if TSH remains elevated, thank you. 4. GERD: Protonix 20mg PO BID. Please continue to monitor for S/S GERD flare-up, GI upset, gas. Please also encourage non-pharmcologic treatments to also help minimize exacerbations of GERD, thank you. 5. Allergic Rhinitis: Flonase 2 sprays nasally daily. Please continue to monitor for runny nose, nasal irritation, medication effectiveness. 6. General Wellness: Vitamin D 25mcg PO Daily, Calcium carbonate 500mg PO TID. 7. Bowel: Miralax 17g PO Daily, Senna/Docusate 2 tab PO BID, Magnesium citrate 300mL PO Daily PRN. Please continue to monitor for increased/decreased constipation and/or diarrhea. - To date, the patient has not had a BM. Please continue to monitor closely, and consider giving PRN medication if its been >48-72hr without a BM, thank you. Assessment/Plan for indications treated with psychotropic medications: 1. Insomnia: Hydroxyzine 20mg PO QHS, Trazodone 150mg PO QHS. Please consider a GDR by 06/2023 if clinically indicated, thank you. 2. Depression: Cymbalta 20mg PO daily. Please consider a GDR by 06/2023 if clinically indicated, thank you. Medical chart and medication regimen reviewed. The following medication irregularities or issues were identified: 1. Hypothyroidism: Patient with elevated TSH, already on Synthroid 50mcg PO Daily. Consider rechecking level and consider a dose increase if TSH remains elevated, thank you. 2. Insomnia: Hydroxyzine 20mg PO QHS, Trazodone 150mg PO QHS. Please consider a GDR by 06/2023 if clinically indicated, thank you. 3. Depression: Cymbalta 20mg PO daily. Please consider a GDR by 06/2023 if clinically indicated, thank you. Date Date of Note:: 12/19/22
[2022-12-19] MEDS: oxyCODONE 5 MG Tablet PO (20:40)
[2022-12-19] MEDS: traZODone 100 MG Tablet 150 MG PO (20:41)
[2022-12-19] MEDS: hydrOXYzine 10 MG Tablet 20 MG PO (23:27)
[2022-12-20] MEDS: Acetaminophen 500 MG Tablet 1000 MG PO ×3 (05:47→22:40)
[2022-12-20] MEDS: Levothyroxine 50 MCG Tablet PO (05:47)
[2022-12-20] MEDS: oxyCODONE 5 MG Tablet PO ×3 (06:45→20:48)
[2022-12-20] MEDS: DULoxetine Hcl 20 MG Capsule PO (08:06)
[2022-12-20] MEDS: Polyethylene Glycol 3350 17 GM PACKET PO (08:06)
[2022-12-20] MEDS: Pantoprazole Sodium 20 MG Tablet PO ×2 (08:06→22:41)
[2022-12-20] MEDS: APIXABAN 2.5 MG TABLET (WCH) PO ×2 (08:06→22:41)
[2022-12-20] MEDS: Calcium Carbonate 500 MG Tablet PO ×3 (08:06→17:47)
[2022-12-20] MEDS: Fluticasone 0.05% 1 SPRAY NASAL.SRY 2 SPRAY NASAL (08:07)
[2022-12-20] MEDS: Cholecalciferol (VIT D3) 25 MCG TABLET (1,000 UNITS) PO (08:07)
--- NOTE | 2022-12-20 11:11 | CASEMGMT ---
Social Work Met with patient to complete initial assessment. Introduced self and role. Verified/updated contacts. Verified full code. Educated to [facility] [place] insurance with [employer] 12/20 and continued stay is not guaranteed with each review. Pt's goal is to return home with . Requested pt ask to bring in copies of advanced directives. SW will continue to follow for DC planning. Kathie Woodward, PAOLO LEALW
--- NOTE | 2022-12-20 12:40 | NURSING ---
Manager Intensive Care Unit Note; Activity Asset: Alix Monae is independent in her choice of daily activities. Her prefers to do activities in her room over group and have her door closed to cut down on the noise. She has her computer, smartphone and word search puzzles. She will also watch tv and read independently when not in therapy or w/family. Staff will remind her of daily activities and respect her right to say no. She has stated she would prefer not to have visits from the gut snatcher but therapy dog is fine.
[2022-12-20 16:43] VITALS: BP 114/60; PULSE 69; RESP 16; TEMP 35.7; O2SAT 98
[2022-12-20] MEDS: hydrOXYzine 10 MG Tablet 20 MG PO (20:46)
[2022-12-20] MEDS: traZODone 100 MG Tablet 150 MG PO (20:47)
--- NOTE | 2022-12-21 02:42 | NURSING ---
Patient requests to speak with drug abuse social worker on Friday to discuss discharge planning, confidential voicemail left for drug abuse social worker regarding patient request.
[2022-12-21] MEDS: oxyCODONE 5 MG Tablet PO ×2 (05:20→20:32)
[2022-12-21] MEDS: Acetaminophen 500 MG Tablet 1000 MG PO ×3 (05:20→22:23)
[2022-12-21] MEDS: Levothyroxine 50 MCG Tablet PO (05:21)
--- NOTE | 2022-12-21 05:27 | NURSING ---
Sx dressing removed per order at this time per patient request, 20 beba observed intact to surgical site, no drainage, patient tolerated well, ecchymotic, no redness, no heat, slight edema. Non-pitting edema to BLE. PRN Oxy administered at this this time for hip pain per patient request. No further requests at this time. Call light in reach.
[2022-12-21] MEDS: Calcium Carbonate 500 MG Tablet PO ×3 (09:45→18:31)
[2022-12-21] MEDS: Fluticasone 0.05% 1 SPRAY NASAL.SRY 2 SPRAY NASAL (09:45)
[2022-12-21] MEDS: Pantoprazole Sodium 20 MG Tablet PO ×2 (09:45→22:19)
[2022-12-21] MEDS: DULoxetine Hcl 20 MG Capsule PO (09:45)
[2022-12-21] MEDS: Cholecalciferol (VIT D3) 25 MCG TABLET (1,000 UNITS) PO (09:45)
[2022-12-21] MEDS: APIXABAN 2.5 MG TABLET (WCH) PO ×2 (09:45→22:18)
[2022-12-21 15:01] VITALS: BP 124/56; PULSE 75; RESP 12; TEMP 36; O2SAT 97
[2022-12-21] MEDS: traZODone 100 MG Tablet 150 MG PO (20:33)
[2022-12-21] MEDS: hydrOXYzine 10 MG Tablet 20 MG PO (22:20)
[2022-12-22] MEDS: oxyCODONE 5 MG Tablet PO ×2 (05:45→20:48)
[2022-12-22] MEDS: Acetaminophen 500 MG Tablet 1000 MG PO ×3 (05:45→22:29)
[2022-12-22] MEDS: Levothyroxine 50 MCG Tablet PO (05:45)
[2022-12-22] MEDS: DULoxetine Hcl 20 MG Capsule PO (08:41)
[2022-12-22] MEDS: Calcium Carbonate 500 MG Tablet PO ×3 (08:41→17:01)
[2022-12-22] MEDS: Polyethylene Glycol 3350 17 GM PACKET PO (08:42)
[2022-12-22] MEDS: Pantoprazole Sodium 20 MG Tablet PO ×2 (08:42→22:30)
[2022-12-22] MEDS: APIXABAN 2.5 MG TABLET (WCH) PO ×2 (08:42→22:30)
[2022-12-22] MEDS: Cholecalciferol (VIT D3) 25 MCG TABLET (1,000 UNITS) PO (08:43)
[2022-12-22] MEDS: Fluticasone 0.05% 1 SPRAY NASAL.SRY 2 SPRAY NASAL (08:43)
[2022-12-22 15:04] VITALS: BP 141/54; PULSE 75; RESP 16; TEMP 36.6; O2SAT 99
[2022-12-22] MEDS: traZODone 100 MG Tablet 150 MG PO (20:48)
[2022-12-22] MEDS: Senna/Docusate Sodium 1 Tablet 2 TABLET PO (22:30)
[2022-12-22] MEDS: hydrOXYzine 10 MG Tablet 20 MG PO (22:30)
[2022-12-23] MEDS: Acetaminophen 500 MG Tablet 1000 MG PO ×3 (05:32→21:43)
[2022-12-23] MEDS: Levothyroxine 50 MCG Tablet PO (05:32)
[2022-12-23] MEDS: traMADol 50 MG Tablet PO ×2 (06:27→21:43)
[2022-12-23 08:38] VITALS: BP 123/55; PULSE 79; RESP 16; TEMP 36.4; O2SAT 95
[2022-12-23] MEDS: Fluticasone 0.05% 1 SPRAY NASAL.SRY 2 SPRAY NASAL (08:41)
[2022-12-23] MEDS: Polyethylene Glycol 3350 17 GM PACKET PO (08:41)
[2022-12-23] MEDS: DULoxetine Hcl 20 MG Capsule PO (08:43)
[2022-12-23] MEDS: Calcium Carbonate 500 MG Tablet PO ×3 (08:43→17:31)
[2022-12-23] MEDS: Pantoprazole Sodium 20 MG Tablet PO ×2 (08:44→21:43)
[2022-12-23] MEDS: Senna/Docusate Sodium 1 Tablet 2 TABLET PO (08:44)
[2022-12-23] MEDS: Cholecalciferol (VIT D3) 25 MCG TABLET (1,000 UNITS) PO (08:44)
[2022-12-23] MEDS: APIXABAN 2.5 MG TABLET (WCH) PO ×2 (10:22→21:43)
--- NOTE | 2022-12-23 16:40 | CASEMGMT ---
Social Work SW spoke with pt about request to DC 12/25. IDT agreeable. to transport after work about 1200. Pt noted she was previously referred to [facility] but instead admitted to TCU and would like to use that [facility] agency. SW agreed. Confirmed no DME needs. pt also asked this worker to complete advanced directives. SW assisted in completing. Original and copy provided to pt. Copies placed on chart. Referral sent to [facility] via [facility]. Plan: DC home with 12/25, [facility] PT/OT. 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
--- NOTE | 2022-12-23 19:46 | PCM.DC.SUM ---
Providers Date of Admission: 12/18/22 Primary Care Physician: Marcie Luis DO Reason For Visit: L HIP FX Diagnosis Discharge Diagnosis (1) Debility: Status: Acute Code(s): R53.81 - Other malaise (2) Closed left hip fracture: Status: Acute Code(s): S72.002A - Fracture of unspecified part of neck of left femur, initial encounter for closed fracture (3) Hypothyroidism: Status: Chronic Code(s): E03.9 - Hypothyroidism, unspecified (4) Depression: Status: Acute Code(s): F32.A - Depression, unspecified (5) GERD (gastroesophageal reflux disease): Status: Chronic Code(s): K21.9 - Gastro-esophageal reflux disease without esophagitis Qualifiers: Esophagitis presence: without esophagitis Qualified Code(s): K21.9 - Gastro-esophageal reflux disease without esophagitis (6) Insomnia: Status: Acute Code(s): G47.00 - Insomnia, unspecified (7) Alcohol use: Status: Acute Code(s): Z78.9 - Other specified health status Plan 72 year old female with below past medical history hospitalized for left hip fracture, underwent left hip hemiarthroplasty 12/15/[address] Casanova, admitted to TCU with debility, here for rehabilitation, strengthening, prior to discharge home with . Debility - PT/OT. Pain - Tylenol 1000mg q8, Tramadol 50mg q6 prn pain (1-5), Oxycodone 5mg q4 prn pain (6-10). Bowel - Miralax 17gm daily, senna/colace 2 tablets bid, Magnesium citrate 300ml po daily prn. Adult immunization - Administer pneumonia vaccine, covid19 vaccine, flu vaccine as appropriate. DVT prophylaxis - Eliquis 2.5mg bid thru 01/05/2023. Calcium deficiency - TUMS 500mg tidcm. Vitamin D deficiency - D3 25mcg daily. Depression - Duloxetine 20mg daily, stable chronic mcfp use, GDR not recommended. Allergic rhinitis - Flonase 2 sprays nasal daily. Insomnia - Hydroxyzine 50mg qhs, Trazodone 150mg qhs, stable chronic mcfp use, GDR not recommended. Hypothyroidism - Levothyroxine 50mcg daily. GERD - Pantoprazole 20mg bid. Medications at Discharge Home Medications levothyroxine 50 mcg tablet 50 mcg PO DAILY Thyroid 11/29/15 duloxetine 30 mg capsule,delayed release 20 mg PO DAILY Mood 09/23/19 omeprazole 20 mg capsule,delayed release 20 mg PO BID GERD 09/23/19 trazodone 100 mg tablet 150 mg PO QHS Sleep 09/23/19 hydroxyzine HCl 10 mg tablet 20 mg PO QHS Anxiety 03/28/21 cream base no.175 (bulk) (Versatile Rich topical cream) 1 applic topical .twice a week UTI 12/15/22 estriol (bulk) 100 % powder 1 ea miscellaneous .twice a week uti 12/15/22 fluticasone propionate 50 mcg/actuation nasal spray,suspension 2 spray intranasal DAILY allergies 12/15/22 glycerin (bulk) 100 % liquid 1 ml miscellaneous .twice a week uti 12/15/22 calcium carbonate 200 mg calcium (500 mg) chewable tablet 500 mg (2.5 x 200 mg calcium (500 mg)) PO TIDCM Indigestion #90 tabs 12/17/22 cholecalciferol (vitamin D3) 25 mcg (1,000 unit) tablet 25 mcg PO DAILY Supplment #30 tabs 12/17/22 acetaminophen 500 mg tablet 1,000 mg (2 x 500 mg) PO Q8 #0 tabs 12/23/22 apixaban 5 mg tablet (Eliquis) 2.5 mg (1/2 x 5 mg) PO BID 11 days #11 tabs 12/23/22 oxycodone 5 mg tablet 5 mg PO Q4H PRN PRN Pain Score 6-10 7 days #42 tabs 12/23/22 sennosides 8.6 mg-docusate sodium 50 mg tablet (Stool Softener-Stimulant Laxative) 2 tab PO BID 30 days #120 tabs 12/23/22 tramadol 50 mg tablet 50 mg PO Q6H PRN PRN Pain Score 1-5 7 days #28 tabs 12/23/22 Hospital Course Operations - (Left hip hemiarthroplasty.) Procedures None Summary of Care Provided Minutes Spent on Discharge: 35 Hospital Course: 72 year old female with below past medical history hospitalized for left hip fracture, underwent left hip hemiarthroplasty 12/15/[address] Casanova, admitted to TCU with debility, here for rehabilitation, strengthening, prior to discharge home with . Discharge home with 12/25/2022, [facility] PT/OT. Physical Exam Const alert General Appearance: cooperative HEENT normocephalic Eyes PERRL and EOMs intact bilaterally Neck supple, no JVD and no carotid bruits Resp normal respiratory effort, normal air movement and clear to auscultation bilaterally Cardio regular rate and regular rhythm GI normal to inspection, nondistended, normoactive bowel sounds, non-tender and non-distended Extremity normal capillary refill General Extremity: Negative for edema Skin no rashes or lesions noted General Skin Exam: no breakdown Psych affect normal Appearance: appropriate Weight / BMI Weight Weight: 81.102 kg Body Mass Index (BMI) 29.7 ABG / Lab / Microbiology Data 12/19/22 05:44 12/19/22 05:44 D/C Instructions Discharge Diet: No restrictions Discharge Activity: Return to Normal Activity, May Shower and Use Walker Weight Bearing Status: Weight bearing as tolerated Call your doctor if you observe: Fever of 101 or Higher, Inability to urinate, Inability to have a bowel movement, Shortness of breath, Dizziness, Fainting spells, Swelling in the ankles, Chest pain and Uncontrolled pain Additional Instructions: Discharge home with 12/25/2022, [facility] PT/OT. Please Follow Up With: Saravanan Casanova DO When: As scheduled. Meaningful Use Info Meaningful Use Diagnoses (Choose all that apply): None applicable Discharge Plan Admission Admit Date/Time: 12/18/22 15:43 Primary Reason for Your Visit: Debility. Attending Provider: Alcon Aleman Chi Primary Care Provider: Marcie Luis Instructions Additional Instructions / Restrictions: Discharge home with 12/25/2022, [facility] PT/OT. Discharge Orders/Prescriptions Prescriptions: New sennosides-docusate sodium [Stool Softener-Stimulant Laxat] 8.6-50 mg Tablet 2 tab PO BID 30 Days Qty: 120 0RF tramadol 50 mg Tablet 50 mg PO Q6H PRN PRN (Reason: Pain Score 1-5) 7 Days Qty: 28 0RF acetaminophen 500 mg Tablet 1,000 mg PO Q8 Qty: 0 0RF oxycodone 5 mg Tablet 5 mg PO Q4H PRN PRN (Reason: Pain Score 6-10) 7 Days Qty: 42 0RF Eliquis 5 mg Tablet 2.5 mg PO BID 11 Days Qty: 11 0RF Continued levothyroxine 50 MCG tablet 50 mcg PO DAILY trazodone 100 MG tablet 150 mg PO QHS omeprazole 20 MG capsule,delayed release(DR/EC) 20 mg PO BID duloxetine 30 MG capsule,delayed release(DR/EC) 20 mg PO DAILY hydroxyzine HCl 10 mg tablet 20 mg PO QHS Versatile Rich Cream 1 applic TOPICAL .twice a week Patient Comments: APPLY 1 GRAM (4 CLICKS)CINTRAVAGINALLY TWICE A WEEK Rx Instructions: friday and friday estriol (bulk) 100 % powder 1 ea miscellaneous .twice a week Patient Comments: APPLY 1 GRAM (4 CLICKS)CINTRAVAGINALLY TWICE A WEEK Rx Instructions: friday and friday fluticasone propionate 50 mcg/actuation spray,suspension 2 spray INTRANASAL DAILY glycerin (bulk) 100 % liquid 1 ml miscellaneous .twice a week Patient Comments: APPLY 1 GRAM (4 CLICKS)CINTRAVAGINALLY TWICE A WEEK Rx Instructions: friday and friday calcium carbonate 200 mg calcium (500 mg) Tablet,Chewable 500 mg PO TIDCM Qty: 90 0RF cholecalciferol (vitamin D3) 25 mcg (1,000 unit) Tablet 25 mcg PO DAILY Qty: 30 0RF Discontinued sennosides-docusate sodium [Stool Softener-Stimulant Laxat] 8.6-50 mg Tablet 2 tab PO BID Qty: 60 0RF oxycodone 5 mg Tablet 5 mg PO Q4H PRN PRN (Reason: Pain Score 4-6) 4 Days Qty: 20 0RF Eliquis 5 mg Tablet 2.5 mg PO BID Qty: 70 0RF acetaminophen 325 mg Tablet 650 mg PO Q6H PRN PRN (Reason: Pain 1-10 Or Fever) Qty: 0 0RF Referrals / Follow Up: Saravanan Casanova DO [Med Staff - Active Staff] - 12/30/22 1:30 pm Marcie Luis DO [Primary Care Provider] - 12/27/22 2:50 pm (Will see Dr. Burciaga) Disposition Disposition (needs filled in before D/C Order can be placed): Home Health Service
[2022-12-23] MEDS: traZODone 100 MG Tablet 150 MG PO (20:01)
[2022-12-23] MEDS: hydrOXYzine 10 MG Tablet 20 MG PO (20:02)
[2022-12-24] MEDS: oxyCODONE 5 MG Tablet PO ×2 (02:50→20:11)
[2022-12-24] MEDS: Acetaminophen 500 MG Tablet 1000 MG PO ×3 (05:41→22:13)
[2022-12-24] MEDS: Levothyroxine 50 MCG Tablet PO (05:41)
[2022-12-24 08:31] VITALS: BP 119/55; PULSE 86; RESP 17; TEMP 36.4; O2SAT 96
[2022-12-24] MEDS: Calcium Carbonate 500 MG Tablet PO ×3 (08:34→17:47)
[2022-12-24] MEDS: Fluticasone 0.05% 1 SPRAY NASAL.SRY 2 SPRAY NASAL (08:35)
[2022-12-24] MEDS: DULoxetine Hcl 20 MG Capsule PO (08:35)
[2022-12-24] MEDS: Cholecalciferol (VIT D3) 25 MCG TABLET (1,000 UNITS) PO (08:35)
[2022-12-24] MEDS: APIXABAN 2.5 MG TABLET (WCH) PO ×2 (08:35→22:14)
[2022-12-24] MEDS: Pantoprazole Sodium 20 MG Tablet PO ×2 (08:35→22:14)
[2022-12-24] MEDS: Polyethylene Glycol 3350 17 GM PACKET PO (08:35)
[2022-12-24 10:20] VITALS: BMI 30.1
--- NOTE | 2022-12-24 11:27 | CASEMGMT ---
Social Work BIMS () and PHQ-2 () completed for MDS assessment. Kathie Woodward MSW COMMUNITY REPRESENTATIVE
[2022-12-24] MEDS: traMADol 50 MG Tablet PO (13:00)
--- NOTE | 2022-12-24 17:53 | NURSING ---
Patient's COVID vac not on unit at this time. Pharmacy states medication was dispensed this morning, however unit's tube system was down this morning. Pharmacy will re-time medication to be given tomorrow morning before patient's discharge.
[2022-12-24 19:52] VITALS: BP 128/68; PULSE 75; RESP 18; TEMP 35.8; O2SAT 97
[2022-12-24] MEDS: hydrOXYzine 10 MG Tablet 20 MG PO (20:11)
[2022-12-24] MEDS: traZODone 100 MG Tablet 150 MG PO (20:12)
[2022-12-24 20:19] VITALS: PULSE 83; RESP 16
[2022-12-24] MEDS: Senna/Docusate Sodium 1 Tablet 2 TABLET PO (22:14)
[2022-12-25] MEDS: Acetaminophen 500 MG Tablet 1000 MG PO (06:31)
[2022-12-25] MEDS: Levothyroxine 50 MCG Tablet PO (06:31)
[2022-12-25 06:38] VITALS: PULSE 77; RESP 14; O2SAT 98
[2022-12-25] MEDS: APIXABAN 2.5 MG TABLET (WCH) PO (08:08)
[2022-12-25] MEDS: Senna/Docusate Sodium 1 Tablet 2 TABLET PO (08:08)
[2022-12-25] MEDS: Cholecalciferol (VIT D3) 25 MCG TABLET (1,000 UNITS) PO (08:08)
[2022-12-25] MEDS: Calcium Carbonate 500 MG Tablet PO (08:08)
[2022-12-25] MEDS: DULoxetine Hcl 20 MG Capsule PO (08:08)
[2022-12-25] MEDS: Polyethylene Glycol 3350 17 GM PACKET PO (08:09)
[2022-12-25] MEDS: Pantoprazole Sodium 20 MG Tablet PO (08:09)
[2022-12-25] MEDS: Fluticasone 0.05% 1 SPRAY NASAL.SRY 2 SPRAY NASAL (08:09)
[2022-12-25] MEDS: COVID VAC 23-24(12UP)(ANDU)/PF 50 MCG/0.5 ML SYRINGE IM (08:14)
--- NOTE | 2022-12-25 08:51 | NURSING ---
Special Services Director Note; MDS Complete
--- NOTE | 2022-12-26 13:51 | MDS.RN ---
Information for the mds was obtained from review of the clinical record, interview of resident, staff, and direct observation of resident's care.
== END 2022-12-25 12:21 | disposition home health service (06) | DRG 561 ==
PROVIDERS: Admitting Provider Family Medicine Geriatric Medicine; PCP Family Medicine; Visit Provider Family Medicine Geriatric Medicine
DX: S72.002D Fracture of unspecified part of neck of left femur, subsequent encounter for closed fracture with routine healing (principal); E03.9 Hypothyroidism, unspecified; F32.A Depression, unspecified; E55.9 Vitamin D deficiency, unspecified; K21.9 Gastro-esophageal reflux disease without esophagitis; J30.9 Allergic rhinitis, unspecified; M79.7 Fibromyalgia; F41.9 Anxiety disorder, unspecified; G47.00 Insomnia, unspecified; Z79.01 Long term (current) use of anticoagulants; X50.1XXD Overexertion from prolonged static or awkward postures, subsequent encounter; Z79.899 Other long term (current) drug therapy; Z79.890 Hormone replacement therapy; Z96.642 Presence of left artificial hip joint; Z23 Encounter for immunization
CPT/HCPCS: 36415; 80048; 85025; 90480; 92523; 97110; 97112; 97116; 97162; 97166; 97530; 97535; 97802; 91322

== ENCOUNTER 2023-02-27 09:53 | Day surgery (SDC) | payer MEDICARE, SELFPAY ==
[2023-02-27] MEDS: Lactated Ringers 1,000 ML 15 ML IV (10:26)
[2023-02-27 10:28] VITALS: BP 144/69; PULSE 73; RESP 18; TEMP 36.1; O2SAT 98; BMI 31.1
--- OUTSIDE RECORDS SUMMARY | 2023-02-27 10:44 | XMS RPT_ITS | CCD ---
Author Name Unknown Address [address] [place] [address] Organization [facility] Care Team Providers Care Putty Glazer Name Role Phone RONALD Fox RN, Mica William Unavailable Unavailbay Fox RN RN, Mica A Unavailable Unavailabl chiquita Win MD, Maeve Watson Unavailable [phone] [facility] Unavailable Unavailable WOODWARD, AYLA A Unavailable Unavailable [facility] Unavailable Unavailable WOODWARD, AYLA A Unavailable Unavailable [facility] Unavailable Unavailable WOODWARD, AYLA A Unavailable Unavailable [facility] Unavailable Unavailable WOODWARD, AYLA A Unavailable Unavailable [facility] Unavailable Unavailable WOODWARD, AYLA A Unavailable Unavailable [facility] Unavailable Unavailable WOODWARD, AYLA A Unavailable Unavailable [facility] Unavailable Unavailable WOODWARD, AYLA A Unavailable Unavailable [facility] Unavailable Unavailable WOODWARD, AYLA A Unavailable Unavailable [facility] Unavailable Unavailable WOODWARD, AYLA A Unavailable Unavailable Beena Brown Unavailable Unavailab le LOUGHRIN, GODFREY (PA-C) Referring Unavaila ble LOUGHRIN, GODFREY (PA-C) Referring Unavaila ble LOUGHRIN, GODFREY (PA-C) Referring Unavaila ble LOUGHRIN, GODFREY (PA-C) Referring Unavaila ble LOUGHRIN, GODFREY (PA-C) Referring Unavaila ble LOUGHRIN, GODFREY (PA-C) Referring Unavaila ble LOUGHRIN, GODFREY (PA-C) Referring Unavaila ble LOUGHRIN, GODFREY (PA-C) Referring Unavaila ble Ayla Woodward MD Unavailable Ayla Woodward MD Primary Care Provider Ayla Woodward MD Unavailable Ayla Woodward MD Primary Care Provider AYLA WOODWARD Primary Care Unavailable TIFFANIE VAN Attending Unavailable AYLA WOODWARD Referring Unavailable AYLA WOODWARD Primary Care Unavailable TIM SHERWOOD Referring Unavailable AYLA WOODWARD Primary Care Unavailable TIM SHERWOOD Attending Unavailable RHEA DEL CID Attending Unavailable AYLA WOODWARD Primary Care Unavailable Ayla Woodward MD Unavailable Ayla Woodward MD Primary Care Provider [phone] Allergies Allergy Classification Reported Allergen(s) Allergy Type Date of Onset Reaction(s) Facility (5 sources) albuterol Drug Allergy 7 [facility] (8 sources) gabapentin; Translations: [GABAPENTIN] Drug Allergy 0 [facility] (5 sources) Sulfonamides (Antibiotic) drug allergy 7 [facility] (7 sources) Albuterol; Translations: [ALBUTEROL] Drug Allergy 5 Shortness of Breath [facility] (7 sources) Sulfonamides (Antibiotic); Translations: [SULFA (SULFONAMIDE ANTIBIOTICS)] Propensity to adverse reactions (disorder) 5 Vomiting [facility] (4 sources) gabapentin Drug Allergy 0 [facility] Medications Current Medications Medication Drug Class(es) Dates Sig (Normalized) Sig (Original) nitrofurantoin, macrocrystals 25 mg / nitrofurantoin, monohydrate 75 mg oral capsule (2 sources) Nitrofuran Antibacterial Start: 04-30-2022 End: 05-07-2022 take 1 capsule by mouth twice daily nitrofurantoin monohydrate and macrocrystal (MACROBID) 100 mg capsule Take 1 capsule by mouth twice daily for 7 days. 14 capsule 0 04/30/2022 05/07/2022 Active Completed/Discontinued Medications Medication Drug Class(es) Dates Sig (Normalized) Sig (Original) acetaminophen 325 mg / HYDROcodone bitartrate 5 mg oral tablet (4 sources) Opioid Agonist take 1 tablet by abdisa th every twenty-four hours as needed HYDROcodone-acetami nophen (NORCO) 5-325 mg per tablet Take 1 tablet by mouth at bedtime as needed for pain. 0 Active Problems Active Problems Problem Classification Problem Date Documented Da te Episodic/Chronic Acquired foot deformities (8 sources) Acquired hallux valgus; Translations: [Hallux valgus (acquired), unspecified foot] Onset: 8 06-29-2007 Chronic Anxiety disorders (1 source) Anxiety disorder, unspecified; Translations: [Anxiety and depression] Onset: 2 Chronic Disorders of lipid metabolism (4 sources) Hyperlipidemia; Translations: [Hyperlipidemia, unspecified] Onset: 6 01-06-2019 Chronic Esophageal disorders (4 sources) Gastroesophageal reflux disease; Translations: [Gastro-esophageal reflux disease without esophagitis] 03-30-2019 Chronic Gastrointestinal hemorrhage (4 sources) Hemorrhage of rectum and anus; Translations: [Hemorrhage of anus and rectum] 05-16-2008 Episodic Genitourinary symptoms and ill-defined conditions (2 sources) Scalding pain on urination ; Translations: [Dysuria] Onset: 3 Episodic Menopausal disorders (6 sources) Atrophy of vagina; Translations: [Postmenopausal atrophic vaginitis] Onset: 4 08-19-2013 Chronic Mood disorders (8 sources) Depressive disorder; Translations: [Depression] Onset: 0 10-12-2009 Chronic Mood disorders (1 source) Mood disorders; Translations: [Anxiety and depression] Onset: 2 Other female genital disorders (4 sources) Dyspareunia; Translations: [Dyspareunia] Onset: 4 08-19-2013 Chronic Other gastrointestinal disorders (4 sources) Irritable bowel syndrome; Translations: [Irritable bowel syndrome without diarrhea] Onset: 6 03-30-2019 Chronic Other hereditary and degenerative nervous system conditions (1 source) Mild cognitive impairment, so stated; Translations: [Mild cognitive impairment, so stated] Onset: 8 Chronic Other hereditary and degenerative nervous system conditions (4 sources) Impaired cognition; Translations: [Mild cognitive impairment, so stated] Onset: 8 11-24-2017 Chronic Other screening for suspected conditions (not mental disorders or infectious disease) (3 sources) Patient encounter status; Translations: [Encounter for screening mammogram for malignant neoplasm of breast] Onset: 3 Episodic Other screening for suspected conditions (not mental disorders or infectious disease) (1 source) No current problems or disability 12-09-2016 Thyroid disorders (4 sources) Hypothyroidism; Translations: [Hypothyroidism, unspecified] Onset: 9 03-30-2019 Chronic Unclassified (4 sources) Screening for osteoporosis ; Translations: [Other specified health status] Onset: 7 01-01-2017 Unclassified (4 sources) Screening mammography ; Translations: [Encounter for screening mammogram for malignant neoplasm of breast] Onset: 7 01-01-2017 Unclassified (4 sources) Superficial (introital) dyspareunia; Translations: [Superficial (introital) dyspareunia] Onset: 7 01-01-2017 Unclassified (4 sources) Gynecologic examination ; Translations: [Encounter for gynecological examination (general) (routine) with abnormal findings] Onset: 7 01-01-2017 Unclassified (1 source) Unknown / UNK(Unknown) Onset: 8 Past or Other Problems Problem Classification Problem Date Documented Date Episodic/Chronic Abdominal hernia (4 sources) Diaphragmatic hernia; Translations: [Diaphragmatic hernia without obstruction or gangrene] Onset: 03-13-2006 03-13-2006 Episodic Allergic reactions (8 sources) Eczema; Translations: [Dermatitis, unspecified] Onset: 03-28-2013 03-28-2013 Episodic Esophageal disorders (4 sources) Esophagitis; Translations: [Esophagitis, unspecified] Onset: 03-13-2006 01-06-2019 Episodic Gastritis and duodenitis (4 sources) Acute gastritis; Translations: [Acute gastritis without bleeding] Onset: 03-13-2006 03-13-2006 Episodic Hemorrhoids (4 sources) Internal hemorrhoids; Translations: [Other hemorrhoids] Onset: 05-28-2005 05-28-2005 Episodic Menopausal disorders (4 sources) Decreased estrogen level; Translations: [Other primary ovarian failure] Onset: 01-01-2017 01-01-2017 Episodic Miscellaneous mental health disorders (4 sources) Emotional problems; Translations: [Other symptoms and signs involving emotional state] Onset: 06-18-2006 06-18-2006 Episodic Other and unspecified benign neoplasm (4 sources) Melanocytic nevus of trunk; Translations: [Melanocytic nevi of trunk] Onset: 03-28-2013 03-28-2013 Episodic Other and unspecified benign neoplasm (4 sources) Senile angioma; Translations: [Hemangioma of skin and subcutaneous tissue] Onset: 03-28-2013 03-28-2013 Episodic Other connective tissue disease (4 sources) Muscle pain; Translations: [Myalgia and myositis, unspecified] Onset: 05-28-2005 05-28-2005 Episodic Other connective tissue disease (4 sources) Fibromyalgia; Translations: [Fibromyalgia] Onset: 08-06-2016 08-06-2016 Episodic Other female genital disorders (4 sources) Disorder of female genital system; Translations: [Unspecified condition associated with female genital organs and menstrual cycle] Onset: 01-14-2011 01-14-2011 Episodic Other non-traumatic joint disorders (4 sources) Disorder of joint of foot; Translations: [Other specified joint disorders, right ankle and foot] Onset: 01-06-2019 01-06-2019 Episodic Other skin disorders (4 sources) Asteatosis cutis; Translations: [Xerosis cutis] Onset: 03-28-2013 03-28-2013 Episodic Other skin disorders (4 sources) Skin tag; Translations: [Other hypertrophic disorders of the skin] Onset: 03-28-2013 03-28-2013 Episodic Other skin disorders (4 sources) Solar lentigo; Translations: [Other melanin hyperpigmentation] Onset: 03-28-2013 03-28-2013 Episodic Residual codes; unclassified (4 sources) Postoperative state; Translations: [Other specified postprocedural states] Onset: 05-04-2019 05-04-2019 Episodic Spondylosis; intervertebral disc disorders; other back problems (9 sources) Spinal stenosis of lumbar region; Translations: [Spinal stenosis, lumbar region without neurogenic claudication] Onset: 12-14-2007 Episodic Unclassified (1 source) Mild cognitive impairment, so stated Onset: 12-15-2017 Results Test Name Value Interpretation Reference Range Facil ity Vital Signs Date Time Vital Sign Value Performing Clinician Melani merida 04-30-2022 14:16-0400 Body weight 81.19 kg Tim Sherwood MD Work Phone: [facility] 04-30-2022 14:16-0400 Diastolic blood pressure 78 mm[Hg] Tim Sherwood MD Work Phone: [facility] 04-30-2022 14:16-0400 Systolic blood pressure 132 mm[Hg] Tim Sherwood MD Work Phone: [facility] 01-01-2017 10:04-0500 BMI (Body Mass Index) 25.85 kg/m2 Maeve Win MD [facility] 01-01-2017 10:04-0500 BP Diastolic 64 mm[Hg] Maeve Win MD [facility] 01-01-2017 10:04-0500 BP Systolic 118 mm[Hg] Maeve Win MD [facility] 01-01-2017 10:04-0500 Height 167.64 cm Maeve Win MD [facility] 01-01-2017 10:04-0500 Weight 72.67 kg Maeve Win MD [facility] Encounters Encounter Date Encounter Type Care Provider Facility Start: 05-13-2022 Documentation procedure Mammog gallo Coordinator [facility] Start: 05-13-2022 Letter encounter Mammography Coordinator [facility] Department Start: 05-10-2022 End: 05-10-2022 ambulatory AYLA WOODWARD Facility:[facility] Start: 05-10-2022 End: 05-10-2022 Subsequent hospital visit by physician Screen Mammo [facility] Mammogram Procedures Date Procedure Procedure Detail Performing Clinician Start: 05-10-2022 End: 05-10-2022 Mammography Tim Sherwood MD Work Phone: Start: 04-30-2022 Urnls dip stick/tabl et rgnt auto w/o microscopy Tim Sherwood MD Work Phone: Start: 04-10-2021 Mammography Tiffanie Jacks on PT Start: 10-04-2019 Colonoscopy Tiffanie Jacks on PT Start: 01-20-2014 Lipid 1996 panel - S liliya or Plasma Screen Wstr Plan of Treatment Date Care Activity Detail Author Start: 10-03-2029 Colonoscopy COLONOSCOPY [facility] Start: 10-03-2029 COLORECTAL CANCER SCREENING COLORECTAL CANCER SCREENING [facility] Start: 06-01-2025 Urine microalbumin profile [facility] Start: 05-11-2023 Mammography [facility] Start: 10-18-2022 Covid-19 Vaccine () Covid-19 Vaccine () [facility] Start: 10-18-2022 Influenza vaccination Influenza Vaccine (#1) [facility] Start: 04-10-2022 Mammography MAMMOGRAM [facility] Start: 02-17-2022 ADVANCE DIRECTIVE DISCUSSION ADVANCE DIRECTIVE DISCUSSION [facility] Start: 01-06-2022 DIABETES SCREEN DIABETES SCREEN [facility] Start: 01-06-2022 Diabetes Screening Diabetes Screening [facility] Start: 07-19-2021 COVID-19 VACCINE (5 - Booster for Pfizer series) COVID-19 VACCINE (5 - Booster for Pfizer series) [facility] Start: 02-17-2021 ADVANCE DIRECTIVE DISCUSSION ADVANCE DIRECTIVE DISCUSSION [facility] Start: 01-20-2019 Lipid 1996 panel - Serum or Plasma Lipid Screening [facility] Start: 01-20-2019 LIPID SCREEN LIPID SCREEN [facility] Start: 01-01-2017 End: 01-01-2017 Dxa bone density study 1/> sites axial skel Dual-energy X-ray absorptiometry (DXA), bone density study, 1 or more sites; [facility] Start: 01-01-2017 End: 01-01-2017 Mammogram, screening Mammogram, Screening, both breasts [facility] Start: 01-01-2017 End: 01-01-2017 Appointment Appointment [facility] Start: 09-14-2016 Pneumococcal Vaccine: 65+ (1 - PCV) Pneumococcal Vaccine: 65+ (1 - PCV) [facility] Start: 09-14-2016 PNEUMOCOCCAL: 65+ (1 - PCV) PNEUMOCOCCAL: 65+ (1 - PCV) [facility] Start: 06-20-2013 SIGMOIDOSCOPY SIGMOIDOSCOPY [facility] Start: 12-10-2011 SHINGRIX VACCINE (2 of 3) SHINGRIX VACCINE (2 of 3) [facility] Start: 2011 RSV Vaccine (1 - 1-dose 60+ series) RSV Vaccine (1 - 1-dose 60+ series) [facility] Start: 09-14-1996 COLOGUARD (FIT-DNA) COLOGUARD (FIT-DNA) [facility] Start: 09-14-[address] COLONOGRAPHY [facility] Start: 09-14-1996 FECAL OCCULT BLOOD FECAL OCCULT BLOOD [facility] Start: 09-14-1969 ANNUAL PCP TEAM CHRONIC DISEASE VISIT ANNUAL PCP TEAM CHRONIC DISEASE VISIT [facility] Start: 09-14-1969 HEPATITIS C SCREENING HEPATITIS C SCREENING [facility] Bacteria identified in Urine by Culture URINE CULTURE Microbiology Routine Burning with urination 04/30/2022 3:29 PM EDT [facility] Work Phone: End: 05-30-2023 BIBIANA SCREENING BIBIANA SCREENING Radiology Routine Encounter for screening mammogram for malignant neoplasm of breast 1 Occurrences starting 04/30/2022 until 05/30/2023 [facility] Work Phone: Immunizations Immunization Date Immunization Notes Care Provider Fa robert 12-04-2021 influenza virus vacc ine, unspecified formulation Screen Wstr [facility] 12-12-2018 influenza, high dose seasonal, preservative-free Tiffanie Van [facility] 11-29-2017 influenza, high dose seasonal, preservative-free Tiffanie Van [facility] 06-02-2015 tetanus toxoid, redu diana diphtheria toxoid, and acellular pertussis vaccine, adsorbed Tiffanie Van [facility] 12-31-2014 influenza, injectabl e, quadrivalent, contains preservative Tiffanie Van [facility] Work Phone: 12-01-2013 influenza, seasonal, injectable Tiffanie Van [facility] Work Phone: 12-12-2012 influenza virus vacc ine, unspecified formulation Tiffanie Van [facility] Work Phone: 10-15-2011 zoster vaccine, live Tiffanie Van [facility] Work Phone: 03-03-2009 novel influenza-H1N1 -09, all formulations Tiffanie Van [facility] 12-23-2007 influenza virus vacc ine, unspecified formulation Tiffanie Van [facility] 12-17-2006 influenza virus vacc ine, unspecified formulation Tiffanie Van [facility] Work Phone: 05-15-2006 hepatitis B vaccine, adult dosage Tiffanie Van [facility] Work Phone: 12-10-2005 hepatitis B vaccine, adult dosage Tiffanie Van [facility] Work Phone: 11-12-2005 hepatitis B vaccine, adult dosage Tiffanie Van [facility] Work Phone: 08-21-2004 tetanus and diphther ia toxoids, not adsorbed, for adult use Tiffanie Van PT [facility] Work Phone: Payers Date Payer Category Payer Medicare [id number] 2018 Private Health Insurance [id number] 1950 Unknown [id number] 2.16.8 [id number] 1950 Unknown [id number] 2.16.8 [id number] 1950 Unknown [id number] 2.16.8 [id number] 1950 Unknown [id number] 2.16.8 [id number] 1950 Unknown [id number] 2.16.8 [id number] 1950 Unknown [id number] 2.16.8 [id number] 1950 Unknown [id number] 2.16.8 [id number] 1950 Unknown [id number] 2.16.8 [id number] 1950 Unknown [id number] 2.16.8 [id number] Medicare [id number] Medicare [id number] Unknown [id number] Social History Date Type Detail Facility Start: 03-30-2019 End: 04-30-2022 Tobacco smoking status NEIS Ex-smoker [facility] End: 07-18-1972 History of tobacco use Current smoker [facility] End: 07-18-1972 History of tobacco use Cigarette Smoker [facility] Start: 03-30-2019 End: 04-30-2022 Tobacco use and exposure Smokeless tobacco non-user [facility] Start: 03-30-2021 End: 04-30-2022 Alcohol intake Ex-drinker (finding) [facility] Start: 04-20-2019 History SDOH Alcohol Frequency 2 [facility] Start: 04-20-2019 History SDOH Alcohol Std Drinks 1 [facility] Start: 1950 Sex Assigned At Female [facility] Start: 04-30-2022 Tobacco Comment quit many years ago [facility] Start: 04-20-2019 End: 03-14-2022 History of Social function [facility] Start: 04-20-2019 End: 03-14-2022 Alcohol Use Disorder Identification Test - Consumption [AUDIT-C] [facility] How often to you hav e a drink containing alcohol? Monthly or less [facility] How many standard dr inks containing alcohol do you have on a typical day? 1 or 2 [facility] How often do you hav e 6 or more drinks on 1 occasion? Never [facility] Adult Depression Scr eening Assessment 6 [facility] Start: 12-03-2018 Gender identity Identifies as female gender (finding) [facility] Start: 12-03-2018 Sexual orientation Heterosexual (fin vashti) [facility] Medical Equipment Procedure Code Equipment Code Equipment Origin al Text Equipment Identifier Dates Neox Cord [id number] Start: 03-31-2019 Plate Low Profil e Mtp Plate Standard Contour Titanium Bone Fusion Module - [id number] Start: 01-18-2019 Screw Quickfix 2 mm Full Thread Green Titanium 13mm Bone 3 Prong Self Drill - [id number] Start: 01-18-2019 Guidewire .045in Orthopedic Calibrate Trocar Mini Standard Compression Ft - [id number] Start: 01-18-2019 Clinical Notes 08-06-2016 to 05-13-2022 Letter - Mammography Coordinator - 05/13/2022 7:32 AM Charo Matthews RT(R) - 05/10/2022 2:50 PM Sandra Sherwood MD - 04/30/2022 2:32 PM Bonnie Van PT - 12/27/2021 4:20 PM EST Note Date & Type Note Facility 05-13-2022 Miscellaneous Notes May 13, 2022 PID: [id number] Letha Owusu [address] [place] [address] Dear Ms. Owusu, We are pleased to inform you that the results of your recent breast imaging exam on 05/10/2022 are normal. Early detection of cancer is very important. We also understand recommendations regarding breast cancer screening are controversial. Please discuss with your primary care provider which strategy is best for you and whether a mammogram is right for you. Your imaging studies and report will be kept on file at [facility] as part of your permanent medical record and are available for your continuing care. Thank you for allowing us to help in meeting your health care needs. Sincerely, Dr. Claudio Interpreting Radiologist [facility] (Normal over 40) documented in this encounter [facility] 05-10-2022 Note HNO ID: [id number] Author: RT Benedict(R) Service: Radiology Author Type: Police Captain Type: Progress Notes Filed: 05/10/2022 2:53 PM Note Text: Radiology Service Progress Note PATIENT NAME: Letha Owusu DATE OF SERVICE: May 10, 2022 TIME: 2:39 PM PATIENT IDENTITY VERIFICATION COMPLETED USING TWO (2) IDENTIFIERS: Name and Date of confirmed by patient verbally. FALL SCREENING: Has the patient had 2 falls in the last year or 1 fall with injury or currently using an Ambulatory Assistive Device (Walker, Cane, Wheelchair, Crutches, etc.)? Yes, Patient High Risk for Falls What interventions were put in place to prevent falls during this visit? Instructed Patient to Call for Help if Needed and Offered Assistance with Transfers/Clothing PATIENT GENDER DATA: Female. status: : No status: NO. PATIENT RELEVANT IMPLANT DATA REVIEWED: Yes RADIOLOGY DEPARTMENT: Mammography PERIPHERAL IV DATA: Not applicable SIGNED BY: RT Benedict(R) May 10, 2022 2:39 PM [facility] 05-10-2022 History of Presen t illness Narrative Radiology Service Progress Note PATIENT NAME: Letha Owusu DATE OF SERVICE: May 10, 2022 TIME: 2:39 PM PATIENT IDENTITY VERIFICATION COMPLETED USING TWO (2) IDENTIFIERS: Name and Date of confirmed by patient verbally. FALL SCREENING: Has the patient had 2 falls in the last year or 1 fall with injury or currently using an Ambulatory Assistive Device (Walker, Cane, Wheelchair, Crutches, etc.)? Yes, Patient High Risk for Falls What interventions were put in place to prevent falls during this visit? Instructed Patient to Call for Help if Needed and Offered Assistance with Transfers/Clothing PATIENT GENDER DATA: Female. status: : No status: NO. PATIENT RELEVANT IMPLANT DATA REVIEWED: Yes RADIOLOGY DEPARTMENT: Mammography PERIPHERAL IV DATA: Not applicable SIGNED BY: RT Benedict(R) May 10, 2022 2:39 PM documented in this encounter [facility] 04-30-2022 Note HNO ID: [id number] Author: Tim Sherwood MD Service: ? Author Type: Physician Type: Progress Notes Filed: 04/30/2022 3:26 PM Note Text: Letha Owusu is a 71 year old female who presents for problem visit. HPI: Patient presents with urinary frequency AND pain. Also her urine is cloudy. She is following with AND plans to have a procedure to help woth her frequent UTI's. Patient denies recent antibiotic use. 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 History Comments: Sexual Activity: Yes; Male; ANTONY/Ovaries Remain Contraception: Tubal Ligation PAST MEDICAL HISTORY Diagnosis Date Acute gastritis without mention of hemorrhage Acute gastritis without mention of hemorrhage Anxiety state, unspecified Attention deficit disorder Depression Diaphragmatic hernia without mention of obstruction or gangrene Esophageal reflux Esophagitis, unspecified Fibromyalgia Hemorrhage of rectum and anus Hypothyroidism Internal hemorrhoids without mention of complication 05/28/2005 Irritable bowel syndrome Irritable bowel syndrome 05/28/2005 Malaise and fatigue Mild tricuspid regurgitation 2013 Myalgia and myositis, unspecified Myalgia and myositis, unspecified 05/28/2005 fibromyalgia Other and unspecified hyperlipidemia Hyperlipidemia Other and unspecified hyperlipidemia 05/28/2005 Other malaise and fatigue 05/28/2005 chronic fatigue, immune dysfunction Unspecified tinnitus Walking pneumonia when patient was 19 PAST SURGICAL HISTORY Procedure Laterality Date APPENDECTOMY BIOPSY BREAST R BREAST-BENIGN COLONOSCOPY 09/24/04 EGD TRANSORAL BIOPSY SINGLE/MULTIPLE 03/13/06 EGD TRANSORAL BIOPSY SINGLE/MULTIPLE 06/06/10 LAPAROSCOPY SURG CHOLECYSTECTOMY Cholecystectomy, lap, appendectomy PAST SURGICAL HISTORY OF ABDOMINOPLAStY PULMONARY FUNCTION TEST complete SIGMOIDOSCOPY FLX DX W/COLLJ SPEC BR/WA IF PFRMD 06/20/2008 Sigmoidoscopy, flexible TOTAL ABDOMINAL HYSTERECT W/WO RMVL TUBE OVARY Hysterectomy, ANTONY partial no ovaries FAMILY HISTORY Problem Relation Age of Onset Hypertension Mother Thyroid Mother other (CHF) Mother other (Dementia) Mother COPD Father Heart Father CHF Cancer Father multiple myeloma Stroke Father massive Headache Sister other (obesity) Sister Colon Cancer Maternal Grandfather Arthritis Daughter Rheumatoid Thyroid Child daughter No Family History Other of MS Social History Tobacco Use Smoking status: Former Types: Cigarettes Quit date: 07/18/1972 Years since quittin.8 Smokeless tobacco: Never Tobacco comments: quit many years ago Vaping Use Vaping Use: Never used Substance Use Topics Alcohol use: Not Currently Drug use: No Current Outpatient Medications Medication Sig estradiol (CPD) Use vaginally once daily. [facility] buPROPion (WELLBUTRIN) 100 mg tablet 1 tablet three times daily. DULoxetine (CYMBALTA) 20 mg capsule 1 capsule once daily. fluticasone (FLONASE) 50 mcg/actuation nasal spray as needed. hydrOXYzine HCl (ATARAX) 10 mg tablet 2 tablets daily at bedtime. Ipratropium [place] (ATROVENT) 21 mcg (0.03 %) nasal spray ipratropium bromide 21 mcg (0.03 %) nasal spray mirabegron (MYRBETRIQ) 25 mg Tb24 1 tablet once daily. traZODone (DESYREL) 50 mg tablet 2 tablets daily at bedtime. tiZANidine (ZANAFLEX) 4 mg tablet Take 4 mg by mouth every 8 hours as needed. HYDROcodone-acetaminophen (NORCO) 5-325 mg per tablet Take 1 tablet by mouth at bedtime as needed for pain. MEDICATION, NON-DATABASE Cbd oil - take 1 tab 3 times daily CALCIUM CITRATE-VITAMIN D3 ORAL Take by mouth once daily. (Patient not taking: Reported on 02/26/2021 ) Melatonin 5 mg cap Take by mouth daily at bedtime. Magnesium Oxide 250 mg tab Take 500 mg by mouth three times daily. Cholecalciferol, Vitamin D3, (VITAMIN D) 1,000 unit cap Take 1,000 Units by mouth once daily. levothyroxine (SYNTHROID) 50 mcg tablet Take 1 tablet by mouth once daily. omeprazole (PRILOSEC) 20 mg capsule Take 1 capsule by mouth twice daily. No current facility-administered medications for this visit. Allergies As of Date: 04/30/2022 Allergen Noted Reaction ALBUTEROL 10/16/2004 Shortness of Breath GABAPENTIN 10/12/2009 SULFA (SULFONAMIDE ANTIBIOTICS) 10/16/2004 Vomiting Fully Assessed 03/30/2021 Allergies and current medication updated:Yes EXAM: BP 132/78 Wt 179 lb (81.2kg) GENERAL: pleasant, female in no apparent distress ASSESSMENT AND PLAN: 71yo female with UTI AND atrophic vaginitis UTI - UA AND urine culture. Rx macrobid given. Continue compounded estrogen cream (refilled by recently) Screening mammogram ordered Medical Decision Making: Problems: Low: 2+ self-limited or minor problems Data: Unique test(s) ordered: 3+ Risk: Moderate (more content not included)... [facility] 04-30-2022 History of Presen t illness Narrative Letha Owusu is a 71 year old female who presents for problem visit. HPI: Patient presents with urinary frequency & pain. Also her urine is cloudy. She is following with & plans to have a procedure to help woth her frequent UTI's. Patient denies recent antibiotic use. 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 History Comments: Sexual Activity: Yes; Male; ANTONY/Ovaries Remain Contraception: Tubal Ligation PAST MEDICAL HISTORY Diagnosis Date Acute gastritis without mention of hemorrhage Acute gastritis without mention of hemorrhage Anxiety state, unspecified Attention deficit disorder Depression Diaphragmatic hernia without mention of obstruction or gangrene Esophageal reflux Esophagitis, unspecified Fibromyalgia Hemorrhage of rectum and anus Hypothyroidism Internal hemorrhoids without mention of complication 05/28/2005 Irritable bowel syndrome Irritable bowel syndrome 05/28/2005 Malaise and fatigue Mild tricuspid regurgitation 2013 Myalgia and myositis, unspecified Myalgia and myositis, unspecified 05/28/2005 fibromyalgia Other and unspecified hyperlipidemia Hyperlipidemia Other and unspecified hyperlipidemia 05/28/2005 Other malaise and fatigue 05/28/2005 chronic fatigue, immune dysfunction Unspecified tinnitus Walking pneumonia when patient was 19 PAST SURGICAL HISTORY Procedure Laterality Date APPENDECTOMY BIOPSY BREAST R BREAST-BENIGN COLONOSCOPY 09/24/04 EGD TRANSORAL BIOPSY SINGLE/MULTIPLE 03/13/06 EGD TRANSORAL BIOPSY SINGLE/MULTIPLE 06/06/10 LAPAROSCOPY SURG CHOLECYSTECTOMY Cholecystectomy, lap, appendectomy PAST SURGICAL HISTORY OF ABDOMINOPLAStY PULMONARY FUNCTION TEST complete SIGMOIDOSCOPY FLX DX W/COLLJ SPEC BR/WA IF PFRMD 06/20/2008 Sigmoidoscopy, flexible TOTAL ABDOMINAL HYSTERECT W/WO RMVL TUBE OVARY Hysterectomy, ANTONY partial no ovaries FAMILY HISTORY Problem Relation Age of Onset Hypertension Mother Thyroid Mother other (CHF) Mother other (Dementia) Mother COPD Father Heart Father CHF Cancer Father multiple myeloma Stroke Father massive Headache Sister other (obesity) Sister Colon Cancer Maternal Grandfather Arthritis Daughter Rheumatoid Thyroid Child daughter No Family History Other of MS Social History Tobacco Use Smoking status: Former Types: Cigarettes Quit date: 07/18/1972 Years since quittin.8 Smokeless tobacco: Never Tobacco comments: quit many years ago Vaping Use Vaping Use: Never used Substance Use Topics Alcohol use: Not Currently Drug use: No Current Outpatient Medications Medication Sig estradiol (CPD) Use vaginally once daily. [facility] buPROPion (WELLBUTRIN) 100 mg tablet 1 tablet three times daily. DULoxetine (CYMBALTA) 20 mg capsule 1 capsule once daily. fluticasone (FLONASE) 50 mcg/actuation nasal spray as needed. hydrOXYzine HCl (ATARAX) 10 mg tablet 2 tablets daily at bedtime. Ipratropium [place] (ATROVENT) 21 mcg (0.03 %) nasal spray ipratropium bromide 21 mcg (0.03 %) nasal spray mirabegron (MYRBETRIQ) 25 mg Tb24 1 tablet once daily. traZODone (DESYREL) 50 mg tablet 2 tablets daily at bedtime. tiZANidine (ZANAFLEX) 4 mg tablet Take 4 mg by mouth every 8 hours as needed. HYDROcodone-acetaminophen (NORCO) 5-325 mg per tablet Take 1 tablet by mouth at bedtime as needed for pain. MEDICATION, NON-DATABASE Cbd oil - take 1 tab 3 times daily CALCIUM CITRATE-VITAMIN D3 ORAL Take by mouth once daily. (Patient not taking: Reported on 02/26/2021 ) Melatonin 5 mg cap Take by mouth daily at bedtime. Magnesium Oxide 250 mg tab Take 500 mg by mouth three times daily. Cholecalciferol, Vitamin D3, (VITAMIN D) 1,000 unit cap Take 1,000 Units by mouth once daily. levothyroxine (SYNTHROID) 50 mcg tablet Take 1 tablet by mouth once daily. omeprazole (PRILOSEC) 20 mg capsule Take 1 capsule by mouth twice daily. No current facility-administered medications for this visit. Allergies As of Date: 04/30/2022 Allergen Noted Reaction ALBUTEROL 10/16/2004 Shortness of Breath GABAPENTIN 10/12/2009 SULFA (SULFONAMIDE ANTIBIOTICS) 10/16/2004 Vomiting Fully Assessed 03/30/2021 Allergies and current medication updated:Yes EXAM: BP 132/78 Wt 179 lb (81.2kg) GENERAL: pleasant, female in no apparent distress ASSESSMENT AND PLAN: 71yo female with UTI & atrophic vaginitis UTI - UA & urine culture. Rx macrobid given. Continue compounded estrogen cream (refilled by recently) Screening mammogram ordered Medical Decision Making: Problems: Low: 2+ self-limited or minor problems Data: Unique test(s) ordered: 3+ Risk: Moderate: Drug management Medical Decision Making Level: 4 - Moderate Tim Sherwood MD documented in this encounter [facility] 12-27-2021 Note HNO ID: [id number] Author: Tiffanie Van PT Service: ? Author Type: Physical Therapist Type: Progress Notes Filed: 12/27/2021 4:28 PM Note Text: Episode Visit Count: 1 Therapist That Will Accept/Oversee The Plan Of Care: Tiffanie Van Start of Care Date: 12/27/21 Onset Date: 12/28/75 Plan of Care Certification Date: 12/27/21 Next Certification Due Date: 03/29/22 Patient Identified by Name and Date of : Yes REHABILITATION AND SPORTS THERAPY PHYSICAL THERAPY EVALUATION PLAN OF CARE: Assessment: Letha Owusu presents with chief complaint of LBP and frequent falls that interferes with rising from a chair;standing;walking;bending; heavy exertion;lifting;physical activities . She presents with impairments in ADL's, balance, gait, independence in exercise, overall function, strength , and symptom management. PROMIS? (Patient-Reported Outcomes Measurement Information System) scores were reviewed and all domains identified as a rehabilitation concern. Prognosis for therapy is Fair due to: clinical presentation;multiple co- morbidities;chronic nature of impairments;limited tolerance to activity . She will benefit from skilled therapy services to meet the goals established for this plan of care as noted below. Assessment Fall Risk : Complex at risk Classification Low Back Pain Subgroup Classification: Core stabilization subgroup: recommended visits 10. Core Stabilization Subgroup Classification based on: catching/giving way;history of locking/catching;pain with transitional movements Goals for Episode of Care: created on 12/27/21 through 03/29/22 Independent in home exercises. Patient will decrease pain rating by 2 points to meet minimal clinical important difference for numeric pain rating scale. Stand / Walk as needed for ADLs without pain/symptoms. Patient will increase strength of trunk/core and BLE to 4 to 4+/5 to allow for improve gait mechanics/gait pattern and improve ability to complete ADLs. Patient will report no falls. Improve score on Timed Up and Go Test to 10 seconds to reflect decreased fall risk. Improve score on 30 Second Chair Stand to 10 repetitions to reflect decreased fall risk. Improve performance on 4 Stage Balance Test to 5 seconds/side in SLS to reflect decreased fall risk. Planned Interventions, Frequency, and Duration: Current Frequency: 2x/week Duration: 12 weeks Total Number of Visits Planned: 24 Planned Treatment Interventions: Therapeutic exercise (54491);Neuromuscular re-education (87358);Manual therapy (90443);Therapeutic activities (66442);Self-long term management (42278);Gait Training (75481);Patient/Family/Caregive r Education;Body Mechanics Training PLAN FOR NEXT VISIT: Progress BLE strengthening, lumbar traction, continue flexion bias and neutral spine strengthening Patient demonstrates good understanding of plan of care and treatment. The above goals and plan of care were discussed and agreed upon by patient/family. SUBJECTIVE: Letha Owusu is a 71 year old female seen today for Back and right hip/leg pain for years, but recently she has been falling a lot and the pain is increasing. She notes her legs feel weak and often give out on her. She has had multiple falls with injuries this year alone, even using a cane. She has PMH of fibromylagia, back injections, and arthritis. Functional Limitations: rising from a chair;standing;walking;bending; heavy exertion;lifting;physical activities Intake Information: Prescription present Falls History # of falls in past year: 10 # of falls resulting in an injury in past year: 3 Pain: Pain Pain Level: 7 Pain Location: Low Back/Lumbar Spine - Right;Thoracic Spine Description: Sharp;Aching;Shooting Frequency: Continuous PROMIS Scales Higher is Better 11/29/2020 02/19/2021 12/27/2021 Phys Func - Score - 33 (moderate dysfunction) 29 (severe dysfunction) Phys Func - Percentile - 4 % 2 % Social Roles - Score - 25 (severe dysfunction) - Social Role - Percentile - 1 % - GH Physical - Score 26.7 (Poor) - 23.5 (Poor) GH Physical - Percentile 1 % - 0 % GH Mental - Score 28.4 (Poor) - 21.2 (Poor) GH Mental - Percentile 2 % - 0 % Self-Eff Symptom - Score - - 29 (Very Low) Self-Eff Symptom - Percentile - - 2 % T-scores: mean of general population = 50. 5 points is clinically meaningfully difference Percentiles provide an indication of how the patient's score ranks in relation to the general population. Higher percentile rankings indicate better function/quality of life. 50th percentile is the average of the general population and indicates half of respondents had a worse score. Lower is Better 02/19/2021 Fatigue - Score 78 (severe) Fatigue - Percentile 0 % T-scores: mean of general population = 50. 5 points is clinically meaningfully difference Percentiles provide an indication of how the patient's score ranks in relation to the general populat (more content not included)... [facility] 12-27-2021 History of Presen t illness Narrative Episode Visit Count: 1 Therapist That Will Accept/Oversee The Plan Of Care: Tiffanie Van Start of Care Date: 12/27/21 Onset Date: 12/28/75 Plan of Care Certification Date: 12/27/21 Next Certification Due Date: 03/29/22 Patient Identified by Name and Date of : Yes REHABILITATION AND SPORTS THERAPY PHYSICAL THERAPY EVALUATION PLAN OF CARE: Assessment: Letha Owusu presents with chief complaint of LBP and frequent falls that interferes with rising from a chair;standing;walking;bending; heavy exertion;lifting;physical activities . She presents with impairments in ADL's, balance, gait, independence in exercise, overall function, strength , and symptom management. PROMIS (Patient-Reported Outcomes Measurement Information System) scores were reviewed and all domains identified as a rehabilitation concern. Prognosis for therapy is Fair due to: clinical presentation;multiple co- morbidities;chronic nature of impairments;limited tolerance to activity . She will benefit from skilled therapy services to meet the goals established for this plan of care as noted below. Assessment Fall Risk : Complex at risk Classification Low Back Pain Subgroup Classification: Core stabilization subgroup: recommended visits 10. Core Stabilization Subgroup Classification based on: catching/giving way;history of locking/catching;pain with transitional movements Goals for Episode of Care: created on 12/27/21 through 03/29/22 Independent in home exercises. Patient will decrease pain rating by 2 points to meet minimal clinical important difference for numeric pain rating scale. Stand / Walk as needed for ADLs without pain/symptoms. Patient will increase strength of trunk/core and BLE to 4 to 4+/5 to allow for improve gait mechanics/gait pattern and improve ability to complete ADLs. Patient will report no falls. Improve score on Timed Up and Go Test to 10 seconds to reflect decreased fall risk. Improve score on 30 Second Chair Stand to 10 repetitions to reflect decreased fall risk. Improve performance on 4 Stage Balance Test to 5 seconds/side in SLS to reflect decreased fall risk. Planned Interventions, Frequency, and Duration: Current Frequency: 2x/week Duration: 12 weeks Total Number of Visits Planned: 24 Planned Treatment Interventions: Therapeutic exercise (72956);Neuromuscular re-education (71592);Manual therapy (92133);Therapeutic activities (68691);Self-long term management (00263);Gait Training (12842);Patient/Family/Caregive r Education;Body Mechanics Training PLAN FOR NEXT VISIT: Progress BLE strengthening, lumbar traction, continue flexion bias and neutral spine strengthening Patient demonstrates good understanding of plan of care and treatment. The above goals and plan of care were discussed and agreed upon by patient/family. SUBJECTIVE: Letha Owusu is a 71 year old female seen today for Back and right hip/leg pain for years, but recently she has been falling a lot and the pain is increasing. She notes her legs feel weak and often give out on her. She has had multiple falls with injuries this year alone, even using a cane. She has PMH of fibromylagia, back injections, and arthritis. Functional Limitations: rising from a chair;standing;walking;bending; heavy exertion;lifting;physical activities Intake Information: Prescription present Falls History # of falls in past year: 10 # of falls resulting in an injury in past year: 3 Pain: Pain Pain Level: 7 Pain Location: Low Back/Lumbar Spine - Right;Thoracic Spine Description: Sharp;Aching;Shooting Frequency: Continuous PROMIS Scales Higher is Better 11/29/2020 02/19/2021 12/27/2021 Phys Func - Score - 33 (moderate dysfunction) 29 (severe dysfunction) Phys Func - Percentile - 4 % 2 % Social Roles - Score - 25 (severe dysfunction) - Social Role - Percentile - 1 % - GH Physical - Score 26.7 (Poor) - 23.5 (Poor) GH Physical - Percentile 1 % - 0 % GH Mental - Score 28.4 (Poor) - 21.2 (Poor) GH Mental - Percentile 2 % - 0 % Self-Eff Symptom - Score - - 29 (Very Low) Self-Eff Symptom - Percentile - - 2 % T-scores: mean of general population = 50. 5 points is clinically meaningfully difference Percentiles provide an indication of how the patient's score ranks in relation to the general population. Higher percentile rankings indicate better function/quality of life. 50th percentile is the average of the general population and indicates half of respondents had a worse score. Lower is Better 02/19/2021 Fatigue - Score 78 (severe) Fatigue - Percentile 0 % T-scores: mean of general population = 50. 5 points is clinically meaningfully difference Percentiles provide an indication of how the patient's score ranks in relation to the general population. Higher percentile rankings indicate better function/quality of life. 50th percentile is the average of the general population and indicates half of respondents had a worse score. OBJECTIVE MEASURES WITH LEVEL OF FUNCTION: Lumbar Spine AROM Lumbar Flexion: Moderate limitation Lumbar Extension: Major limitation Lumbar R Side-Bend: Moderate limitation Lumbar L Side-Bend: Moderate limitation Lumbar R Rotation: Moderate limitation Lumbar L Rotation: Moderate limitataion Repeated Test Movements - Lumbar RFIL - Symptoms During: decreases RFIL - Symptoms After: better LE Strength Trunk Strength: 3/5 R LE Strength: 3+/5 grossly L LE Strength: 4-/5 grossly Special Tests - Hip and Spine Hip and Spine Special Tests: SLR Test;ANA LAURA Test;FADDIR Test;Scour Test SLR Test: Right Positive;Left Positive ANA LAURA Test: Right Negative;Left Negative FADDIR Test: Right Negative;Left Negative Scour Test: Right Negative;Left Negative Functional Performance Test Results 30 Second Chair Stand Test: 6 reps Timed Up and Go (sec): 15.77 sec 4 Stage Balance Test Narrow base of support (sec): 10 sec Semi-tandem base of support (sec): 10 sec Tandem base of support (sec): 10 sec Single leg stance - right (sec): 0 sec Single leg stance - left (sec): 0 sec Education: Education Learning/educational needs: Safety;Home exercise program;Plan of Care;Changes in Plan of Care;Gait Training;Body Mechanics TREATMENT: PT Treatment Interventions: Therapeutic Exercise;Self-Halfway Management Evaluation Therapeutic Exercise: 1: *SKC 3x30 sec/side 2: *DKC 3x30 sec 3: *PPT 3x10, 5 sec holds 4: *STS 3x10 Skilled Intervention: Patient was educated in proper exercise technique and purpose for exercises. Skilled judgment was provided in selection of appropriate interventions. Provided written instruction for home exercise program to facilitate proper performance and compliance. Correct performance of therapeutic exercises was facilitated with verbal, visual, and tactile cuing. Self-Halfway Management: 1: Discussed falls prevention with patient in depth Skilled Intervention: Skilled judgment in the selection of proper modification for activity of daily living/home management based on clinical presentation, deficits, and needs. Reviewed patient specific diagnosis in relation to activities of daily living/home management. Billing * Evaluation Moderate Complexity: 1 Unit Therapeutic Exercise Treatment Minutes: 10 Self-Care/Home Management Treatment Minutes: 15 Total Treatment Time Minutes (timed/untimed): 50 Tiffanie Van PT documented in this encounter [facility] 09-04-2021 Note HNO ID: [id number] Author: Rhea Del Cid, PhD Service: ? Author Type: Psychologist Type: Progress Notes Filed: 09/04/2021 5:08 PM Note Text: [facility] Progress Note Letha Owusu 09/04/2021 [id number] Provider: Rhea Del Cid, PhD CPT Code: 41628 Psychotherapy 38-52 minutes Time: Approximately 50 minutes was spent in therapy. Parties Present: Patient Patient Presentation/Concerns: easily agitated and concerns about some worsened balance/gait and mild but stable cognitive decline PLAN: did PMR relaxation technique HMWK: once an hour repeat and create a bodily memory... she has done son in the past making this familiar PLAN: notice how she SUFFERS by wishing anticipating she can make things she thinks should be true true... or make things true not true... GOAL: notice the actual NATURE OF THINGS and attend to what she can actually influence Neighbor tells lies and now some are about her.... upset about Putin and women's rights and Trump Mental Status: Mood: variable, irritable Affect: mood-congruent Thoughts/Associations:goal directed Suicidal/Homicidal Ideation: None expressed or evidenced Other Observations: None Therapy Focus Self-care, Stress management, Mood/affect regulation, Interpersonal and Self-esteem MEDICATIONS: Per medical record: Current Outpatient Medications Medication Sig - estradiol (CPD) Use vaginally once daily. [facility] - buPROPion (WELLBUTRIN) 100 mg tablet 1 tablet three times daily. - DULoxetine (CYMBALTA) 20 mg capsule 1 capsule once daily. - fluticasone (FLONASE) 50 mcg/actuation nasal spray as needed. - hydrOXYzine HCl (ATARAX) 10 mg tablet 2 tablets daily at bedtime. - Ipratropium [place] (ATROVENT) 21 mcg (0.03 %) nasal spray ipratropium bromide 21 mcg (0.03 %) nasal spray - mirabegron (MYRBETRIQ) 25 mg Tb24 1 tablet once daily. - traZODone (DESYREL) 50 mg tablet 2 tablets daily at bedtime. - tiZANidine (ZANAFLEX) 4 mg tablet Take 4 mg by mouth every 8 hours as needed. - HYDROcodone-acetaminophen (NORCO) 5-325 mg per tablet Take 1 tablet by mouth at bedtime as needed for pain. - MEDICATION, NON-DATABASE Cbd oil - take 1 tab 3 times daily - CALCIUM CITRATE-VITAMIN D3 ORAL Take by mouth once daily. (Patient not taking: Reported on 02/26/2021 ) - Melatonin 5 mg cap Take by mouth daily at bedtime. - Magnesium Oxide 250 mg tab Take 500 mg by mouth three times daily. - Cholecalciferol, Vitamin D3, (VITAMIN D) 1,000 unit cap Take 1,000 Units by mouth once daily. - levothyroxine (SYNTHROID) 50 mcg tablet Take 1 tablet by mouth once daily. - omeprazole (PRILOSEC) 20 mg capsule Take 1 capsule by mouth twice daily. No current facility-administered medications for this visit. Psychiatric Medication Issues: No change from previous appointment DIAGNOSIS: [place] I: Anxiety and Depression Family turmoil concerns w cognitive wellbeing and back issues ? [place] II: deferred [place] III: see med record [place] IV: family stress [place] V: ?48-55 Treatment Modality/Interventions: Cognitive Behavioral Reassurance/Supportive Insight oriented Problem solving Treatment planning Psychoeducation TREATMENT ASSESSMENT/PROGRESS: . Progressing satisfactorily. TREATMENT PLAN/GOALS: Continue in therapy focusing on self-care, assertiveness skills, stress management, affect management, anxiety management and self-esteem. Next appointment: as scheduled Rhea Del Cid, PhD [facility] documented as of this encounter (statuses as of 12/27/2021) [facility]2017 History of Past illness Narrative* Problem Noted Date Resolved Date Paresthesias 08/06/2016 03/30/2019 Other malaise and fatigue 05/28/20052019 Overview: chronic fatigue, immune dysfunction documented as of this encounter (statuses as of 04/30/2022) [facility] History of Past illness Narrative* Problem Noted Date Resolved Date Paresthesias 08/06/2016 03/30/2019 Other malaise and fatigue 05/28/20052019 Overview: chronic fatigue, immune dysfunction documented as of this encounter (statuses as of 05/15/2022) [facility] History of Past illness Narrative* Problem Noted Date Diagnosed Date Resolved Date Paresthesias 08/06/2016 03/30/2019 Other malaise and fatigue 05/28/2005 Overview: chronic fatigue, immune dysfunction documented as of this encounter (statuses as of 12/21/2022) [facility] note* Diagnosis Spinal stenosis, lumbar region, without neurogenic claudication- Primary documented in this encounter [facility] note* Diagnosis Burning with urination- Primary Dysuria Encounter for screening mammogram for malignant neoplasm of breast Other screening mammogram Vaginal atrophy Postmenopausal atrophic vaginitis documented in this encounter [facility] note* Diagnosis Encounter for screening mammogram for malignant neoplasm of breast Other screening mammogram documented in this encounter [facility] for referral (narrative)* Diagnostic Procedure Only (Routine) - Pending Review Specialty Diagnoses / Procedures Referred By Max singleton Referred To Contact [facility] Diagnoses Encounter for screening mammogram for malignant neoplasm of breast Procedures [place] SCREENING SCREENING MAMMOGRAPHY BI 2-VIEW BREAST INC Tim Bunch MD [address] [place] [address] [facility] [address] [address] Referral ID Status Reason Start Date Expiration Date Visits Requested Visits Authorized [id number] Pending Review Auto-Generat ed Referral 04/30/2022 05/30/2023 1 1 T [facility] for referral (narrative)* Diagnostic Procedure Only (Routine) - Closed Specialty Diagnoses / Procedures Referred By Max singleton Referred To Contact [facility] Diagnoses Encounter for screening mammogram for malignant neoplasm of breast Procedures [place]IB[place]NA SCREENING SCREENING MAMMOGRAPHY BI 2-VIEW BREAST INC Tim Bunch MD [address] [place] [address] [facility] [address] [address] Referral ID Status Reason Start Date Expiration Date V isits Requested Visits Authorized [id number] Closed Auto-Generate d Referral 04/30/2022 05/30/2023 1 1 [facility] for visit Narrative* Diagnostic Procedure Only (Routine) - Closed Specialty Diagnoses / Procedures Referred By Max singleton Referred To Contact [facility] Diagnoses Encounter for screening mammogram for malignant neoplasm of breast Procedures BIB[place] SCREENING SCREENING MAMMOGRAPHY BI 2-VIEW BREAST INC Tim Bunch MD [address] [place] [address] [facility] [address] [place] [address] Referral ID Status Reason Start Date Expiration Date V isits Requested Visits Authorized [id number] Closed Auto-Generate d Referral 04/30/2022 05/30/2023 1 1 [facility] Summary Purpose Family History No Family History Records FoundNo Family History Records FoundNo Family History Records FoundNo Family History Records Found Advance Directives Documents on File Type Date Recorded Patient Knife Glazer Expl anation Advance Directive(s) 03/30/2019 8:26 AM Documents on File Type Date Recorded Patient Knife Glazer Expl anation Advance Directive(s) 03/30/2019 8:26 AM Procedure Findings Note HNO ID: [id number] Author: Meagan Irizarry Service: Podiatry Author Type: Resident Type: Brief Op Note Filed: 01/18/2019 12:37 PM Note Text: BRIEF OPERATIVE / PROCEDURE NOTE LOG ID: [id number] SURGERY/PROCEDURE DATE: 01/18/2019 INCISION/PROCEDURE START TIME: 7:59 AM INCISION CLOSE/PROCEDURE END TIME: 12:17 PM SURGEON(S)/PROCEDURALIST(S) AND RADIOLOGY SPECIALIST(S): Surgeon(s) and Role: * Hussein Marx - Primary * Viridiana Irizarry - Resident - Assisting Physician Tip Bander: Mireille Virk SURGERY/PROCEDURE(S): Right 1st MPJ fusion Right 2nd to IPJ fusion Forrest osteotomy right 2nd metatarsal EDL tendon lengthening right 2nd toe FDL tendon transfer right 2nd digit Derotational arthroplasty right 5th digit ANESTHESIA: General FINDINGS: see op report ESTIMATED BLOOD LOSS: 25 mls SPECIMENS: None COMPLICATIONS: None PRE-OP/PRE-PROCEDURE DIAGNOSIS: Right hallux rigidus Acquired hallux valgus of right foot 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 Reason for Referral Specialty Diagnoses / Procedures Referred By Max singleton Referred To Contact [facility] Diagnoses Spinal stenosis, lumbar region, without neurogenic claudication Procedures PT REHAB FOLLOW UP ORDER THERAPEUTIC EXERCISES RE, EA 15 MIN. Tiffanie Van, E[facility] [place] [address] [place] [address] Referral ID Status Reason Start Date Expiration Date Visits Requested Visits Authorized [id number] Pending Review PCP Requested Referral Auto-Generate d Referral 2 03/27/2022 1 1 Additional Source Comments INFORMATION SOURCE (unrecogn ized section and content) DATE CREATED AUTHOR AUTHOR'S ORGANIZ ATION 04/08/2018 [facility] DATE CREATED AUTHOR AUTHOR'S ORGANIZ ATION 05/04/2019 [facility] DATE CREATED AUTHOR AUTHOR'S ORGANIZ ATION 05/18/2022 [facility] Source Comments (unrecognize d section and content) In the event this informatio n is protected by the Federal Confidentiality of Alcohol and Drug Abuse Patient Records regulations: The Federal rules restrict any use of the information to criminally investigate or prosecute any alcohol or drug abuse patient.[facility] the event this information is protected by the Federal Confidentiality of Alcohol and Drug Abuse Patient Records regulations: The Federal rules restrict any use of the information to criminally investigate or prosecute any alcohol or drug abuse patient.[facility] the event this information is protected by the Federal Confidentiality of Alcohol and Drug Abuse Patient Records regulations: The Federal rules restrict any use of the information to criminally investigate or prosecute any alcohol or drug abuse patient.[facility] the event this information is protected by the Federal Confidentiality of Alcohol and Drug Abuse Patient Records regulations: The Federal rules restrict any use of the information to criminally investigate or prosecute any alcohol or drug abuse patient.[facility] Reason for Visit (unrecogniz ed section and content) Specialty Diagnoses / Procedures Referred By Max t Referred To Contact Physical Therapy / PHYSICAL THERAPY Diagnoses PT - CONSULT AND EVALUATION - SPINAL STENOSIS Procedures PHYSICAL THERAPY EVALUATION HIGH COMPLEX 45 MINS NEW RS PT SPINE Ayla Woodward MD [address] [place] [address] Tiffanie Van PT Referral ID Status Reason Start Date Expiration Date Visits Re quested Visits Authorized [id number] Closed 12/27/2021 03/27/2022 1 1 Care Teams (unrecognized sec tion and content) Putty Glazer Relationship Specialty Start Date End Date Ayla Woodward MD PCP - General Family Medicine 09/13/16 Ayla Woodward MD Referring Family Medicine 07/24/16 Putty Glazer Relationship Specialty Start Date End Date Ayla Woodward MD PCP - General Family Medicine 09/13/16 Ayla Woodward MD Referring Family Medicine 07/24/16 Putty Glazer Relationship Specialty Start Date End Date Ayla Woodward MD PCP - General Family Medicine 09/13/16 Ayla Woodward MD Referring Family Medicine 07/24/16 FOR RECORDS PERTAINING TO PATIENTS WHO ARE OR HAVE BEEN ENROLLED IN A CHEMICAL DEPENDENCY/SUBSTANCEABUSE PROGRAM, SOME INFORMATION MAY BE OMITTED. This clinical summary was aggregated from multiple sources. Caution should be exercised in using it in the provision of clinical care. This summary normalizes information from multiple sources, and as a consequence, information in this document may materially change the coding, format and clinical context of patient data. In addition, data may be omitted in some cases. CLINICAL DECISIONS SHOULD BE BASED ON THE PRIMARY CLINICAL RECORDS. [facility] [employer] [facility]. provides no warranty or guarantee of the accuracy or completeness of information in this document.
--- NOTE | 2023-02-27 11:00 | PCM.OPRPT ---
Report of Operation Date of Procedure: 02/27/23 Pre-Operative Diagnosis: Overactive bladder, urge incontinence Post-Operative Diagnosis: Same Surgery/Procedure Performed:: Cystoscopy, Botox injection 100 units Surgeon: Jennifer Grayson Type of Anesthesia: MAC Description of Procedure: The patient is a 72-year-old female with overactive bladder and urge incontinence who does very well with cystoscopy and 100 units of Botox. Her last injection was approximately 6 to 7 months ago. Informed consent has been obtained. The patient was taken to the operating room and placed on the operating room table. Anesthesia monitored the head, neck, airway, IV access and vital signs throughout the case. Once anesthesia was appropriate ministered, the patient was placed into dorsolithotomy position was prepped and draped in usual sterile fashion. The cystoscope was inserted through the urethra under direct visualization into the urinary bladder. There were no masses, erythema or foreign body identified. Using the Botox needle, a total of 21 injections of 0.5 cc each were made in a systematic fashion throughout the bladder, focused on areas of significant detrusor hypertrophy. When all the injections were completed, the patient's bladder was emptied and the cystoscope was removed. She was awakened and taken to the recovery room in good condition. There were no complications during this procedure. Complications none Admit VTE Documentation VTE Present on Admission: Yes VTE Mechan Device Prophylaxis: SCD's VTE Pharm Prophylaxis ordered?: No Reason prophylaxis not ordered:: Treatment Not Indicated
--- NOTE | 2023-02-27 11:03 | DCINST_ITS ---
Discharge Instructions Diet Discharge Diet: No restrictions Activity Discharge Activity: Return to Normal Activity Dressing / Incision Call your doctor if you observe: Fever of 101 or Higher, Inability to urinate and Inability to have a bowel movement Follow Up Care Please Follow Up With: Jennifer Grayson MD When: The office will make arrangements for follow-up in 1 to 2 weeks. Test Results: Test results from this visit will be discussed in further detail at your follow- up appointment, if applicable. Discharge Plan Admission Attending Provider: Jennifer Grayson Primary Care Provider: Marcie Luis Discharge Orders/Prescriptions Prescriptions: Continued levothyroxine 50 MCG tablet 75 mcg PO DAILY trazodone 100 MG tablet 150 mg PO QHS omeprazole 20 MG capsule,delayed release(DR/EC) 20 mg PO BID duloxetine 30 MG capsule,delayed release(DR/EC) 20 mg PO DAILY hydroxyzine HCl 10 mg tablet 20 mg PO QHS Versatile Rich Cream 1 applic TOPICAL .twice a week Patient Comments: APPLY 1 GRAM (4 CLICKS)CINTRAVAGINALLY TWICE A WEEK Rx Instructions: friday and friday fluticasone propionate 50 mcg/actuation spray,suspension 2 spray INTRANASAL DAILY calcium carbonate 200 mg calcium (500 mg) Tablet,Chewable 500 mg PO TIDCM Qty: 90 0RF cholecalciferol (vitamin D3) 25 mcg (1,000 unit) Tablet 25 mcg PO DAILY Qty: 30 0RF Probiotic 10 billion cell capsule 100 mmu cells PO DAILY magnesium 200 mg tablet 400 mg PO QHS acetaminophen 500 mg Tablet 1,000 mg PO Q8 PRN (Reason: fever or pain) oxycodone 5 mg Tablet 5 mg PO Q4H PRN PRN (Reason: Pain Score 6-10) 7 Days Qty: 42 0RF Referrals / Follow Up: Marcie Luis DO [Primary Care Provider] - Disposition Disposition (needs filled in before D/C Order can be placed): Home, Self Care
[2023-02-27] MEDS: Cefazolin 2 GM in 0.9% Normal Saline (100mL Bag) 100 ML IV (11:12)
[2023-02-27] MEDS: 0.9% Normal Saline (Pres. free 10 ML Vial (11:25)
[2023-02-27] MEDS: Botulinum Toxin A 100 Units Vial IJ (11:25)
[2023-02-27 11:33] VITALS: BP 120/59; BP 144/69; PULSE 73; RESP 16; TEMP 36.5; O2SAT 93
[2023-02-27 11:35] VITALS: BP 120/58; BP 144/69; PULSE 76; RESP 16; O2SAT 93
[2023-02-27 11:40] VITALS: BP 109/57; BP 144/69; PULSE 76; RESP 16; O2SAT 91
[2023-02-27 11:45] VITALS: BP 112/59; BP 144/69; PULSE 73; RESP 16; TEMP 36.3; O2SAT 91
[2023-02-27 12:13] VITALS: BP 144/69
== END 2023-02-27 12:30 | disposition home or self-care (01) ==
LOC: SDC 09:54 → AC 09:56
PROVIDERS: PCP Family Medicine; Referring Provider Urology; Visit Provider Urology
PROC: 3E0K8GC Introduction of Other Therapeutic Substance into Genitourinary Tract, Via Natural or Artificial Opening Endoscopic (ICD-10-PCS; CPT 52287; principal; 2023-02-27 11:10)
DX: N32.81 Overactive bladder (principal); N39.41 Urge incontinence; K21.9 Gastro-esophageal reflux disease without esophagitis; E03.9 Hypothyroidism, unspecified; R05.3 Chronic cough; Z90.710 Acquired absence of both cervix and uterus; Z87.19 Personal history of other diseases of the digestive system; F41.9 Anxiety disorder, unspecified; Z96.642 Presence of left artificial hip joint; R35.1 Nocturia; N39.0 Urinary tract infection, site not specified
CPT/HCPCS: 52287; 00910; J7120; A4216; J0585; J2405; J3490

== ENCOUNTER → 2024-01-06 | Outpatient (CLI) | payer MEDICARE, SELFPAY ==
[2024-01-06 17:36] LABS: Hematocrit 41.3 % (37-47); Hemoglobin 13.7 g/dL (12.0-15.0); Mean Corp Hgb Conc 33.2 g/dL (32-36); Mean Corpuscular Volume 87.3 fL (81-99); Mean Platelet Vol. 10.5 fl (6.2-12.0); Platelet Count 328 K/mm3 (150-450); RBC Distribution Width SD 44.2 fl (35.1-43.9); Red Blood Count 4.73 M/mm3 (4.2-5.4); White Blood Count 12.7 K/mm3 (4.4-11.0)
[2024-01-06 17:55] LABS: Vitamin D,25 Hydroxy 59.7 ng/mL
[2024-01-06 18:21] LABS: AST(SGOT) 14 U/L (15-37); Alanine Aminotransfer ALT/SGPT 20 U/L (13-56); Albumin, Serum 3.7 g/dL (3.2-5.0); Alkaline Phosphatase 102 U/L (45-117); Anion Gap 8 (5-15); BUN 14 mg/dL (7-18); BUN/Creat Ratio 13.1 RATIO (10-20); Calcium,Total 9.9 mg/dL (8.5-10.1); Chloride 106 mmol/L (98-107); Cholesterol 226 mg/dL (200); Creatinine, Serum 1.07 mg/dL (0.55-1.02); EST Glomerular Filtration Rate 54 mL/min (>60); Est Glom Filt Rate - Afr Amer 65 mL/min (>60); Ferritin 22 ng/mL (8-252); Globulin 3.8 g/dL (2.2-4.2); Glucose 119 mg/dL (74-106); High Density Lipoprotein 63 mg/dL; Iron 70 ug/dL (50-170); Iron Binding Capacity,Total 394 ug/dL (250-450); PERCENT IRON SATURATION 17.8 % (15.0-55.0); Potassium 3.7 mmol/L (3.5-5.1); Protein, Total 7.5 g/dL (6.4-8.2); Sodium Level 137 mmol/L (136-145); Triglycerides 257 mg/dL; Very Low Density Lipoprotein 51 mg/dL (5-40)
== END | disposition home or self-care (01) ==
LOC: CT 14:26
PROVIDERS: Family Medicine; Referring Provider Orthopaedic Surgery; Visit Provider Orthopaedic Surgery
DX: E03.9 Hypothyroidism, unspecified (principal); D64.9 Anemia, unspecified; Z13.220 Encounter for screening for lipoid disorders
CPT/HCPCS: 36415; 80053; 80061; 82306; 82728; 83540; 83550; 84443; 85027

== ENCOUNTER 2024-01-22 05:37 | Day surgery (SDC) | payer MEDICARE, SELFPAY ==
--- NOTE | 2024-01-06 14:11 | EKG12_ITS ---
Test Reason : PRE OP Blood Pressure : */* mmHG Vent. Rate : 81 BPM Atrial Rate : 81 BPM P-R Int : 118 ms QRS Dur : 70 ms QT Int : 364 ms P-R-T Axes : 36 -8 50 degrees QTcB Int : 422 ms Normal sinus rhythm Normal ECG Confirmed by CARMELO LUGO, LEONEL ([id number]), videotape editor MELISSA ROBINS ([id number]) on 01/07/2024 8:25:13 AM Referred By: Saravanan Casanova Confirmed By: LEONEL RHODES MD
--- NOTE | 2024-01-06 14:12 | CT_ITS ---
CT LEFT LOWER EXTREMITY WITH 3-D IMAGING CLINICAL INDICATION: Templating for left TKA. TECHNIQUE: Axial CT images of the left lower extremity (including left hip, left knee, and left ankle) was performed without IV contrast material. Coronal and sagittal reformats were provided. The protocol utilizes one or more of the following dose reduction techniques: automated exposure control, adjustment of mA and/or kV according to patient size, and/or use of iterative reconstruction technique. RADIATION DOSAGE (If Supplied By Facility): CTDIvol = ( 18.28 ) mGy, DLP = ( 1423.17 ) mGycm COMPARISON: Left knee radiographs dated 11/24/2023. FINDINGS: Bones: There is a left hip arthroplasty in place, with no periprosthetic fracture. There is severe degenerative arthrosis of the patellofemoral compartment of the left knee with severe joint space narrowing, small marginal osteophyte formation, and subchondral sclerosis. There is mild osteoarthritic spur formation of the medial femorotibial compartments of the left knee. Unremarkable left ankle. Osseous structures are normal without evidence of fracture or dislocation. No lytic or blastic osseous masses. Soft Tissues: There is a tiny left knee joint effusion. The deep soft tissue structures are unremarkable. The superficial soft tissues are unremarkable without evidence of edema, hematoma, or foreign body. CT/Extremity Lower without Contra IMPRESSION: Tricompartment degenerative arthrosis of the left knee, most severe in the patellofemoral compartment. Tiny left knee joint effusion. Electronically Signed: Nadir Walker MD at 15:01 EST ,
[2024-01-14 12:31] LABS: Absolute Lymphocyte Count 2.44 X10^3/uL (0.83-4.51); Absolute Neutrophil Count 4.6 X10^3/uL (2.0-7.7); Basophil# 0.09 X10^3/uL; Basophil% 1.2 % (0-1); Eosinophils% 1.3 % (0-5); Hematocrit 44.2 % (37-47); Hemoglobin 14.4 g/dL (12.0-15.0); Lymphocyte # 2.44 X10^3/ul (0.83-4.51); Lymphocyte % 31.5 % (19-41); Mean Corp Hgb Conc 32.6 g/dL (32-36); Mean Corpuscular Hgb 28.5 pg (27.0-32.0); Mean Corpuscular Volume 87.4 fL (81-99); Mean Platelet Vol. 10.3 fl (6.2-12.0); Monocyte# 0.52 X10^3/uL; Monocyte% 6.7 % (0-10); NRBC Flagged by Analyzer 0 % (0-5); Neutrophil # 4.56 X10^3/uL (2.7-7.7); Neutrophil % 58.8 % (47-70); Platelet Count 303 K/mm3 (150-450); RBC Distribution Width SD 44.7 fl (35.1-43.9); Red Blood Count 5.06 M/mm3 (4.2-5.4); White Blood Count 7.8 K/mm3 (4.4-11.0)
[2024-01-14 12:46] LABS: Partial Thromboplast Time 23.4 Seconds (24.1-36.2); Prothrombin Time (Protime)PT. 13.2 SECONDS (11.7-14.9)
[2024-01-14 13:09] LABS: Magnesium 2.1 mg/dL (1.6-2.6)
[2024-01-15 09:08] LABS: Fructosamine 260 umol/L (0-285)
[2024-01-22] VITALS (14 sets, daily range): BP systolic 131–151; BP diastolic 62–70; PULSE 66–87; RESP 16–17; TEMP 35.9–37.1; O2SAT 95–100; BMI 30.7
[2024-01-22] MEDS: Magnesium 1 GM over 15 mins IV (06:23)
[2024-01-22] MEDS: Acetaminophen 500 MG Tablet 1000 MG PO ×2 (06:24→14:41)
[2024-01-22] MEDS: Celecoxib 200 MG Capsule 400 MG PO (06:24)
[2024-01-22] MEDS: Lactated Ringers 1,000 ML 15 ML IV (06:24)
[2024-01-22] MEDS: Scopolamine 1mg/72hr Patch 1 PATCH TD (06:24)
--- NOTE | 2024-01-22 06:47 | PCM.PRE.AN2 ---
ASA Classification* ASA Classification ASA Classification: 2 Assessment & Plan Anesthesia* Anesthesia Assessment Anesthesia Assessment: Discussed sedation and/or anesthesia options, risks, benefits, and alternatives with patient/parents/legal guardian/POA. Questions invited. The patient/parents/legal guardian/POA seems to understand and agrees to proceed with anesthesia plan. Reviewed the physical assessment, medical history, allergy history and patient home medications list prior to surgery/procedure/anesthetic and documented any changes. Performed airway and anesthesia risk assessments. Anesthesia Type Anesthesia Type: Spinal and Block (Consented for adductor canal block) History Source History Obtained from:: Patient and Chart Anesthesia Focused Assessment* Temperature: 98.6 F Pulse Rate: 66 Blood Pressure: 132/64 Respiratory Rate: 17 Pulse Ox: 98 Oxygen Delivery Method: Room Air Airway Assessment Mouth opens: >3 cm Mallampati Score: II Teeth Condition: Missing (Patient has 1 missing tooth right upper canine. Also missing teeth on the left lower molars.) Neck Range of motion (ROM): Limited ROM (Slight decrease in extension) Focused Labs Anesthesia Preop lab: CBC WBC 7.8 K/mm3 (4.4-11.0) 01/14/24 11:44 RBC 5.06 M/mm3 (4.2-5.4) 01/14/24 11:44 Hgb 14.4 g/dL (12.0-15.0) 01/14/24 11:44 Hct 44.2 % (37-47) 01/14/24 11:44 Plt Count 303 K/mm3 (150-450) 01/14/24 11:44 CHEMISTRY Potassium 3.7 mmol/L (3.5-5.1) 01/06/24 15:58 Sodium 137 mmol/L (136-145) 01/06/24 15:58 Magnesium 2.1 mg/dL (1.6-2.6) 01/14/24 11:44 Phosphorus 3.0 mg/dL (2.5-4.9) 12/18/22 06:12 BUN 14 mg/dL (7-18) 01/06/24 15:58 Creatinine 1.07 mg/dL (0.55-1.02) H 01/06/24 15:58 Glucose 119 mg/dL (74-106) H 01/06/24 15:58 TSH 1.660 uIU/mL (0.358-3.740) 01/14/24 11:44 COAG PT 13.2 SECONDS (11.7-14.9) 01/14/24 11:44 Pre-Assessment Diagnosis/Proposed Procedure Planned Operative Procedure(s): LEFT TOTAL KNEE ARTHROPLASTY Anesthesia History Anesthesia History - metal bonding helper: Anesthesia History - metal bonding helper Hx Hospitalization No 12/30/23 13:57 Any Problems With Anesthesia No 12/30/23 13:57 Cholinesterase deficiency No 12/30/23 13:57 You/Your Family Experience No 12/30/23 13:57 fever (hyperthermia) with Relationship Recent Exposure to Contagious No 01/22/24 06:28 Disease Does patient have nerve No 12/30/23 13:57 stimulator Patient instructed to have device shut off --Does patient have Pacemaker No 01/22/24 06:28 or ICD? When Was Last Pacemaker Check QUESTION #4 FULL TEXT: You/Your Family Experience fever (hyperthermia) with Anesthesia Last Oral Intake Last Oral intake: Last Oral Intake NPO since 00:00 01/22/24 06:28 Meds taken in AM with sips of No 01/22/24 06:28 water? Meds patient instructed to take am of surgery PONV PONV - metal bonding helper: PONV - metal bonding helper Female Yes 12/30/23 13:57 HX of Motion Sickness No 12/30/23 13:57 HX of N/V After Surgery No 12/30/23 13:57 Non-Smoker Yes 12/30/23 13:57 Duration of Surgery greater Yes 12/30/23 13:57 than 60 minutes Number of Risk Factors 3 12/30/23 13:57 PONV Score Moderate Risk 12/30/23 13:57 Height & Weight Height & Weight: Anesthesia: Height & Weight Height 5 ft 5 in 01/22/24 06:28 Weight: 83.915 kg 01/22/24 06:28 Body Mass Index (BMI) 30.7 01/22/24 06:28 Respiratory Assessment Respiratory Assessment - metal bonding helper: Respiratory Tract Infection Hx - metal bonding helper Hx Respiratory Tract Infection No 12/30/23 13:57 Any additional information?: Yes Hx Respiratory Tract Infection: Yes (Patient had chronic cough. No recent infections.) STOP Sleep Apnea STOP Sleep Apnea - metal bonding helper: STOP Sleep Apnea - metal bonding helper Hx Hypertension No 12/30/23 13:57 Hx Sleep Apnea No 12/30/23 13:57 CPAP BIPAP Do you snore loudly (louder No 12/30/23 13:57 than talking or can be heard Do you often feel tired/ Yes 12/30/23 13:57 fatigued/ sleepy during daytime? Has anyone observed you stop No 12/30/23 13:57 breathing during sleep? STOP Results Negative 12/30/23 13:57 QUESTION #5 FULL TEXT : Do you snore loudly (louder than talking or can be heard through closed doors)? Tobacco Use History Tobacco Use History - metal bonding helper: Tobacco Use History - metal bonding helper Tobacco Use Smoking Status Never smoker 12/30/23 13:57 Hx Tobacco Use No 12/30/23 13:57 Years Smoking Packs Smoked per Day Smoking Cessation Date was within the last 15 years Hx Smoking Cessation Date Hx Smoking Cessation Counseling Hematologic Medial History Hematologic Hx - metal bonding helper: Hematologic Medical Hx - event staff Hx of Blood Transfusion No 12/30/23 13:57 Hx of Transfusion in last 3 No 12/30/23 13:57 Months Date of Last Transfusion (if within last 3 months) Ever experience any problems No 12/30/23 13:57 with transfusion(s)? Specify any problems Hx of Preganancy in last 3 No 12/30/23 13:57 Months Nurse Filling Out Transfusion DSCHRIBER 12/30/23 13:57 & Questions: Date: 12/30/23 12/30/23 13:57 Time: 13:59 12/30/23 13:57 Patient unable to answer at this time (ie. confused, unrespo /Reproduction History /Reproductive History - metal bonding helper: /Reproductive Hx- metal bonding helper Hx Now No 12/30/23 13:57 Gestational Age (in weeks): EDC: Hx Hx Para Hx Section SAB No 12/30/23 13:57 Active Medications Active Medications: Current Medications Generic Name Dose Route Start Last Admin Trade Name Freq PRN Reason Stop Dose Admin Acetaminophen 1,000 mg 01/22/24 07:30 01/22/24 06:28 Acetaminophen 500 Mg Tablet PO 01/22/24 07:31 Not Given X1 ONE Celecoxib 400 mg 01/22/24 07:30 01/22/24 06:28 Celecoxib 200 Mg Capsule PO 01/22/24 07:31 Not Given X1 ONE Dexamethasone Sodium Phosphate 10 mg 01/22/24 07:30 01/22/24 06:28 Dexamethasone 10 Mg/Ml Vial IV 01/22/24 07:31 Not Given X1 ONE Tranexamic Acid 1,000 mg/ 110 mls @ 660 mls/hr 01/22/24 07:30 Sodium Chloride IV 01/22/24 07:39 X1 ONE Tranexamic Acid 1,000 mg/ 110 mls @ 660 mls/hr 01/22/24 07:30 Sodium Chloride IV 01/22/24 07:39 X1 ONE Lactated Ringer's 1,000 mls @ 125 mls/hr 01/22/24 07:30 IV 01/22/24 15:29 .Q8H MANUELA Magnesium Sulfate 1 gm/ 102 mls @ 408 mls/hr 01/22/24 07:30 01/22/24 06:23 Dextrose IV 01/22/24 07:44 408 mls/hr X1 ONE Administration Cefazolin Sodium 2 gm/ N/A 20 mls @ 400 mls/hr 01/22/24 07:30 IV 01/22/24 07:32 PREOP ONE Lactated Ringer's 1,000 mls @ 15 mls/hr 01/22/24 06:30 01/22/24 06:24 IV 01/27/24 19:49 15 mls/hr .Q48H MANUELA Administration Protocol Insulin Human Lispro 1 - 6 unit 01/22/24 07:30 Insulin Lispro 100 Unit/Ml Insuln.Pen SC Q4H PRN PRN BG>/= 180, SEE PROTOCOL Protocol Scopolamine HBr 1 patch 01/22/24 07:30 01/22/24 06:27 Scopolamine 1mg/72hr Patch TD 01/22/24 07:31 Not Given X1 ONE PFSH Medical History UTI (urinary tract infection) History of pain when walking Non-smoker Kyphoscoliosis Wears glasses Post-menopausal Depression Anxiety Alcohol use Thyroid disease Arthritis Ambulates with cane Bladder disease Restless legs Back pain Injury of head and neck History of IBS Gastric reflux Former smoker Shortness of breath on exertion History of stress test Insomnia Anxiety Fibromyalgia Home Medications ?Medication ?Instructions ?Recorded ?Last Taken ?Type duloxetine 30 mg capsule,delayed 20 mg PO DAILY Mood 09/23/19 02/27/23 History release omeprazole 20 mg capsule,delayed 20 mg PO BID GERD 09/23/19 01/21/24 History release trazodone 100 mg tablet 150 mg PO QHS Sleep 09/23/19 01/21/24 History fluticasone propionate 50 2 spray intranasal DAILY PRN PRN 12/15/22 01/21/24 History mcg/actuation nasal allergies spray,suspension cholecalciferol (vitamin D3) 25 25 mcg PO DAILY Supplment #30 tabs 12/17/22 02/26/23 Rx mcg (1,000 unit) tablet Lactobacillus acidophilus 10 100 mmu cells PO DAILY 02/20/23 01/21/24 History billion cell capsule (Probiotic) magnesium 200 mg tablet 400 mg PO QHS 02/20/23 01/21/24 History pregabalin 100 mg capsule 100 mg PO QHS 11/24/23 01/21/24 History levothyroxine 75 mcg tablet 75 mcg PO DAILY 12/30/23 01/21/24 History methylsulfonylmethane 1,000 mg 2,000 mg PO DAILY 12/30/23 01/21/24 History tablet (MSM) nitrofurantoin 1 cap PO BID UTI 12/30/23 01/21/24 History monohydrate/macrocrystals 100 mg capsule tolterodine 4 mg capsule,extended 4 mg PO DAILY 12/30/23 01/21/24 History release 24 hr Allergy/AdvReac Type Severity Reaction Status Date / Time albuterol Allergy Other Verified 01/22/24 06:21 gabapentin AdvReac Other Verified 01/22/24 06:21 Sulfa (Sulfonamide AdvReac Vomiting Verified 01/22/24 06:21 Antibiotics) Family History Father Myocardial infarction Leukemia Mother Hypertension Alzheimer disease Surgical History Hx of cystoscopy Status post left hip replacement Salivary gland stone History of bunionectomy [facility] Social History household members: spouse number of children: 2 current occupational status: retired Smoking Status: Never smoker alcohol intake: current details: social substance use type: does not use caffeine: Yes what type of physical activity do you participate in: none seatbelt use: always do you feel safe at home: Yes additional social history: Ragini Benítez Review of Systems (Anesthesia) ROS Narrative System reviewed and no additional complaints, except as documented.
[2024-01-22 07:00] LABS: Bedside Glucose 123 mg/dL (74-106)
--- NOTE | 2024-01-22 07:19 | PCM.HP.BLA ---
History and Physical Date of Admission: 01/22/24 [facility] [address] [place] [address] OFFICE VISIT Date of Service: 11/24/23 MR#: [id number] Acct: [id number] Name: GALLO STEELE Rep #: [id number] : 1950 Provider: Dr. Saravanan Casanova DO Age/Sex: 73/F [place] [facility] [place] Status: Signed Intake Vital Signs 02/27/2409:28 11/19/2412:17 Height 5 ft 5 in 5 ft 5 in Intake Visit Reasons: LEFT KNEE Accompanied by: Self Is patient in pain?: Yes (when touching it) Pain scale (1-10): 9 Allergies albuterol Allergy (Verified 11/24/23 13:04) Othergabapentin Adverse Reaction (Verified 11/24/23 13:04) OtherSulfa (Sulfonamide Antibiotics) Adverse Reaction (Verified 11/24/23 13:04) Vomiting Medications ?Medication ?Instructions ?Recorded ?Confirmed ?Type levothyroxine 50 mcg tablet 75 mcg PO DAILY Thyroid 11/29/15 11/24/23 History duloxetine 30 mg capsule,delayed 20 mg PO DAILY Mood 09/23/19 11/24/23 History release omeprazole 20 mg capsule,delayed 20 mg PO BID GERD 09/23/19 11/24/23 History release trazodone 100 mg tablet 150 mg PO QHS Sleep 09/23/19 11/24/23 History hydroxyzine HCl 10 mg tablet 20 mg PO QHS Anxiety 03/28/21 11/24/23 History fluticasone propionate 50 2 spray intranasal DAILY allergies 12/15/22 11/24/23 History mcg/actuation nasal spray,suspension cholecalciferol (vitamin D3) 25 25 mcg PO DAILY Supplment #30 tabs 12/17/22 11/24/23 Rx mcg (1,000 unit) tablet Lactobacillus acidophilus 10 100 mmu cells PO DAILY 02/20/23 11/24/23 History billion cell capsule (Probiotic) magnesium 200 mg tablet 400 mg PO QHS 02/20/23 11/24/23 History pregabalin 100 mg capsule mg PO QDAY 10/07/24 10/07/24 History Have you fallen in the past year?: [facility] Medical History Non-smoker Cholecystectomy planned Kyphoscoliosis Wears glasses Post-menopausal Depression Anxiety Alcohol use Thyroid disease Arthritis Ambulates with cane Bladder disease Restless legs Back pain Injury of head and neck History of IBS Gastric reflux Former smoker Shortness of breath on exertion History of stress test Insomnia Anxiety Fibromyalgia Surgical History Status post left hip replacement Salivary gland stone History of bunionectomy History of LAVH Family History Father Myocardial infarction LeukemiaMother Hypertension Alzheimer disease Social History household members: spouse number of children: 2 current occupational status: retired Smoking Status: Never smoker alcohol intake: current details: social substance use type: does not use caffeine: Yes what type of physical activity do you participate in: none seatbelt use: always do you feel safe at home: Yes additional social history: Ragini MCDONALD LEFT KNEE Details: This documentation accurately reflects the service provided and the decisions made by me, Dr. Saravanan Casanova, DO 11/24/23 0837. Part of today?s visit was documented by [ ], acting as scribe. GALLO STEELE is a 73 year old F here today for Left knee pain. Patient states she fell in her yard a couple days ago. Patient states she was bending over to adjust a sign in her yard and she fell forward, patient crawled to her porch and and she was trying to hold on to the porch post and she said her knees weren't cooperate and then gave out and she had to call her home from work to pick her up. Patient states her knees give out on her especially her left knee. Patient only has pain in her knees when she is touching them. Patient has had steroid injection in the past her last one was 01/20/23. Patient can't remember how long it lasted her. Her pain is over her anterior knee. Her pain is affecting her ADLs she can not walf for any significant distance. . She states that her knee pain was also very significant prior to her fall. Ortho Exam General General: Yes no acute distress Neurologic: Yes alert and Yes oriented x3 Psychologic: Yes reasonable and appropriate Right Knee Patella Translation: 1 Left Knee Skin/Wound: Yes CDI, No ecchymosis, No erythema and No swelling Homans Sign: No Knee ROM: Yes ROM-Extension -20 to 0 and Yes ROM-Flexion 0-140 (105) Examination: No med jt line tenderness, No Lat jt line tenderness, Yes Crepitus, No Audra's Test and Yes Nunes's Stability: NML: Anterior Drawer, NML: Posterior Drawer, NML: Valgus 0, NML: Valgus 30, NML: Varus 0 and NML: Varus 30 Patella Translation: 1 Patella Grind: Yes KNEE: intact quad tendon, mild swelling in legs bilaterally. Head: Normocephalic Atraumatic Chest: symmetrical rise, non-labored breathing, no audible wheeze Abdomen: no guarding, non-rigid Supplemental Info 11/24/2023 x-ray left knee:Advanced patellofemoral arthrosis lateral patellar tracking moderate spurring noted particularly the medial compartment 01/20/2023 x-ray left hip: Status post bipolar hemiarthroplasty without concern 01/20/2023 x-ray left knee: Advanced patellofemoral arthrosis lateral patellar tracking moderate spurring noted particularly the medial compartment 12/15/2022 left hip hemiarthroplasty: Dr. Casanova Coding Level of Care Code Off vis,est,level 4 Diagnoses Primary osteoarthritis of left knee M17.12 Osteoarthritis type: primary Assessment and Plan Assessment and Plan (1) Osteoarthritis of left knee: Status: Acute Qualifiers: Osteoarthritis type: primary Qualified Code(s): M17.12 - Unilateral primary osteoarthritis, left knee Orders: Orders Knee 4 or More Views Today M25.562 - Pain in left knee Plan Spoke with the patient about irritating her osteoarthritis with her pain. Her options- steroid injection, viscosupplementation injection, oral anti-inflammatory, total knee arthroplasty. Spoke with the patient about a total knee arthroplasty procedure and recovery. Spoke with her about having a mechanical feel after surgery. She may have a patch of numbness over her lateral knee. Patient will need to do formal physical therapy post op. She is at an increased risk of stiffness due to preop stiffness. Spoke with her about a possibility of a knee manipulation under anesthesia at 6 weeks post op. Recommended prehab for range of motion. She will be on a blood thinner post op due to the risk of a blood clot. She is not able to take NSAIDs 1 week prior to surgery and 2 weeks post op. Spoke with the patient about iovera. She may take up to 2 years to fully recover from surgery. She sees her dentist next week for an implant. She should get the implant before the surgery or wait a couple months after surgery. She will let us know about her dental work. Spoke with the patient about continuing to have fibromyalgia pain, and she is at an increased risk of continued pain. Patient will be same day surgery. Risks, benefits and alternatives of surgery reviewed including but not limited to bleeding, infection, nerve, artery and/or tissue damage, fracture, VTE, mechanical feel of the knee, continued pain, stiffness and expected post-operative course. Tentatively scheduling as a same-day surgery we will await to hear from her. Follow up for iovera or 2 week post op or sooner if pain, swelling, numbness or associated symptoms, or concerns develop. All questions answered. Patient in agreement of plan. Clinical Quality Measures Falls Risk Screening/Assistive Devices Have you fallen in the past year?: Yes 11/24/23 1399 <Electronically signed by Saravanan Casanova DO> Date Saravanan Casanova DO Cosigner Signature: Date (if applicable) I have examined the patient and the H&P has been reviewed. There are no clinical changes since date of exam.
--- NOTE | 2024-01-22 07:30 | KNEE_PTH ---
PATIENT: GALLO STEELE [place] [facility] [id number] AGE/SX: 73/F ROOM: RE01/22/[address]: Dr. Saravanan Casanova DO : 1950 BED: DIS: 01/22/2024 SPEC #: [id number] RECD: 01/22/24 11:37 STATUS: SANTA REQ #: [id number] RICK: 01/22/24 07:[address]: Saravanan Casanova DEPT: SURGICAL PATHOLOGY RECD BY: Bhavya Connolly ENTERED: 01/22/24 12:16 SP TYPE: TOTAL KNEE OTHR DR: Iesha Burciaga MD Tissues: Knee, NOS Procedures: Decalcification bone/plaque Surgery Specimen Level IV HEADER OPERATION: Left total knee replacement robotic arm assist PRE-OP DIAGNOSIS: Osteoarthritis of left knee TISSUE SUBMITTED: Left knee bone and tissue MICROSCOPIC DIAGNOSIS Bone and soft tissue, left knee, total knee replacement/resection: Pieces of bone with degenerative osteoarthritic changes. Fragments of cartilaginous tissue with reactive changes. Focal changes consistent with pseudogout. SJ: 01/28/2024 MICROSCOPIC DESCRIPTION Slides are reviewed. GROSS DESCRIPTION Received is one container designated bone and soft tissue left knee. The specimen consists of multiple fragments of schroeder-yellow bone measuring in aggregate 15.0 x 11.0 x 2.0cm. Also in the specimen container are multiple fragments of yellow-white soft tissue measuring in aggregate 4.0 x 3.0 x 0.5cm. A number of bony fragments contain articular surfaces consistent with tibial plateau and femoral condyle and displaying prominent osteophyte formation, eburnation and bone erosion. Cargo Services Coordinator sections are submitted in two cassettes as follows: 1 - soft tissue, 2 - bone after decalcification. / AM. 01/22/2024 TC:5 CPT: 34835, 29795
[2024-01-22] MEDS: TXA 1000mg in NS100 100ml (IVPB at Incision) 660 MG IV (07:42)
[2024-01-22] MEDS: Cefazolin 2 GM in Syringe IV ×2 (07:43→13:21)
[2024-01-22] MEDS: TXA 1000mg in NS100 100ml (IVPB at Closure) 660 MG IV (08:10)
[2024-01-22] MEDS: dexAMETHasone 4 MG/ML Vial (09:05)
[2024-01-22] MEDS: Epinephrine (1 mg/ml) 1 MG/ML VIAL (09:05)
[2024-01-22] MEDS: Bupivacaine 0.5% PF 10 ML VIAL (09:05)
[2024-01-22] MEDS: 0.9% Normal Saline (Pres. free 10 ML Vial (09:05)
--- NOTE | 2024-01-22 09:40 | OP.PCM_ITS ---
Operative Report (Standard) Operative Information Surgery/Procedure Performed: t Surgeon: Saravanan Casanova Date of Procedure: 01/22/24 Procedure Start Time: 07:57 Procedure Stop Time: 09:38 Pre-Operative Diagnosis: Left knee DJD Post-Operative Diagnosis: Same Select all DRAINS/GRAFTS/IMPLANTS that apply: None Type of Anesthesia: Spinal Estimated Blood Loss: 150 Specimen collected: Yes Description of specimen(s) removed: Bone Description of surgery: Preoperative diagnosis: Left knee DJD Postoperative diagnosis: Same Procedure: Left total knee arthroplasty CT guided Robotic Assisted Implant: [place] triathlon press fit, femoral component size 4, tibial baseplate size 4, asymmetric patella size 32, polyethylene X3 size 9 CS Anesthesia: Spinal with adductor canal block Tourniquet time: 12 minutes at 300 mmHg Complications: None Condition: Stable to PACU Estimated blood loss: 150 cc Senior Systems Engineer Hussein Xie. My physician floral assistant was a vital part of this case. He was important in appropriate retraction during the case, and protection of soft tissues during procedure. His intimate knowledge of the case and my steps aided in safe and expedient completion of the procedure as well as appropriate position of the extremity during the case. He was also vital in assisting with closure under my direct supervision. Indication for procedure: This is a 73-year-old female with long standing degenerative joint disease of the knee who has failed conservative treatment and wished to proceed with elective total knee arthroplasty. Risk benefits and alternatives were reviewed including; risk of bleeding, infection, nerve artery and tissue damage, continued pain, postoperative stiffness, venous thromboembolism, need for postoperative rehabilitation, mechanical feel to the knee, and expected postoperative course. The pre- operative CT and templating was performed with component sizing. Procedure: The patient was met in the preoperative holding area. The operative extremity was identified by both patient and physician and was marked. Patient was met by anesthesia. An adductor canal block was placed by anesthesia postoperatively the patient was brought back to the operating room on a wheeled cart and transferred to the operating table in the supine position. Anesthesia was started. A well-padded tourniquet was placed on the operative extremity. The patient was prepped and draped in the usual sterile fashion. A timeout was called to ensure the proper patient procedure and extremity were being contemplated. An esmarch was used to exsanguinate the extremity. The tourniquet was inflated. A 10 blade scalpel was used to make a midline incision down through the skin and subcutaneous tissue. Skin retractors placed. Bovie and Aquamantis were used to perform meticulous hemostasis. full-thickness flaps were elevated medial and lateral along the joint capsule. A deep blade scalpel was used to perform a medial parapatellar arthrotomy. The knee was brought to full extension. A bovie was used to release the soft tissues off the most proximal aspect of the medial tibial plateau, a three-quarter inch curved osteotome was also used in this process. The infrapatellar fat pad was excised. The suprapatellar fat pad was excised partially anteriorolateraly and portion the anterioromedial pad was elevated from the femur. At this point our intra- articular femoral array was placed at a 45 degree angle proximal and posterior to the medial epicondyle. femoral checkpoint was placed at this time. Our tibial array was placed partially intra incisional 1 stab incision was made for the inferior pin with a 15 blade scaple, and pins were placed and attached to the tibial array , tibial checkpoint was placed in the proximal tibial metaphysis. Tourniquet was let down. At this point registration bess were taken throughout the knee . Once the knee was registered we then tensioned the medial and lateral ligaments in extension and 90 degrees of flexion. We then used these numbers to adjust our components within parameters to balance the knee in both flexion and extension once this was done on our monitor we then proceeded with using the robotic arm to make our tibial plateau cut, anterior and posterior chamfer and distal femur cuts. we removed the cut fragments with the use of a bovie and Mamta, we did use a lamina radioactivity technician to insure we visualized and removed all posterior osteophytes and at this time also used the Aquamantis on the posterior joint capsule. we then trialed and achieved the desired plan with a well-balanced knee. we used the green probe to thierno the corresponding tibial rotation based on our CT template. Lug holes were drilled in the femur the tibia preparation was completed with the appropriate sized base plate pinned based on previous rotation thierno. An appropriate sized fin punch was used on the tibia and 4 corner drill was used for the press fit component and the patella was prepared by first using a caliper to ensure sufficient bone stock and a patellar reamer to remove the desired amount of bone. lug holes drilled for an asymmetric poly. We then brought the knee through range of motion with excellent patellar tracking. We thoroughly irrigated the knee. Trial components were removed a posterior capsular injection was preformed with our standard cocktail. In addition the aqua Mantis was also used to aid in hemostasis. Betadine rinse was allowed to sit and washed out completely. Components were press-fit into place. Aricept rinse was then used followed by several more liters of irrigation after it was allowed to sit. The joint capsule was closed with #1 Ethibond [id number] in the upper part of the arthrotomy and #1 Vicryl in the lower part of the arthrotomy. , Followed by 2-0 Vicryl in the subcutaneous tissues with beba in the skin. Arrays and checkpoints were removed prior to closure all counts were correct stab incisions were closed with a staple standard dressing in the form of Mepilex AG for the main incision and a small Mepilex over the pin holes. Thigh-high DMITRIY hose applied over top of dressing. Patient tolerated the procedure well and was directed to PACU in stable condition . There were no intraoperative complications. Surgical Findings: DJD knee On Site Construction Superintendent home energy consultant: Yes Property Consultant: Hussein Xie Tasks completed by podiatric assistant: Opening & closing Complications Complications: No
--- NOTE | 2024-01-22 09:42 | EX.PCM.DISCH ---
Discharge Instructions Diet Discharge Diet: No restrictions Activity Weight Bearing Status: Full weight bearing Dressing / Incision Call your doctor if you observe: Shortness of breath and Chest pain Additional Dressing/Incision Instructions:: Ice and elevate lower extremities 2 weeks while not ambulating. Ambulation is encouraged. Weight bearing as tolerated. Use assistive devise for stability. Encourage FULL knee extension and flexion 1 time EVERY time you get up and down and MULTIPLE times per day. No showering until 72 hours after surgery. May begin showering postop day #3. Remove the dressing prior to shower and gently wash with warm water and antibacterial soap then pat dry and place abdominal pad (or plain gauze) and DMITRIY hose over top. This is to be done daily. Do not submerge for 3 weeks. If not showering daily after the initial 72 hours then you must clean incision and change dressing daily after the dressing comes off, must come off by 7 days postop. Do not allow animals near the incision area. Keep clean. Follow anti-coagulation recommendations as prescribed. Do not take any NSAIDs while on blood thinner. Do not take any additional narcotic pain medication other than what was prescribed on your surgery day without discussing with physician. Narcotic medication can be addictive. Do not drink alcohol while taking narcotics. Supplement narcotic prescription with acetaminophen 1000 mg 4 times a day. Start physical therapy. If you are not currently scheduled for physical therapy or you are unsure of appointment time please call office [facility] to arrange. Call Dr. Casanova with any concerns. Follow Up Care Please Follow Up With: Saravanan Casanova DO When: 2 weeks Test Results: Test results from this visit will be discussed in further detail at your follow-up appointment, if applicable. Discharge Plan Admission Primary Reason for Your Visit: Left total knee arthroplasty Attending Provider: Saravanan Casanova Primary Care Provider: Iesha Burciaga Instructions Print Language: Georgian Discharge Orders/Prescriptions Prescriptions: New acetaminophen 500 mg tablet 1,000 mg PO Q6H Qty: 90 0RF cephalexin 500 mg capsule 1,000 mg PO Q8H Qty: 4 0RF Rx Instructions: Take 2 tabs before you go to bed and 2 tabs after 5 AM morning after surgery when you wake up oxycodone 5 mg tablet 5 - 10 mg PO Q6H PRN (Reason: pain) 7 Days Qty: 60 0RF Eliquis 2.5 mg tablet 2.5 mg PO BID Qty: 30 0RF Rx Instructions: Begin morning after surgery. Continued pregabalin 100 mg capsule 100 mg PO QHS trazodone 100 MG tablet 150 mg PO QHS omeprazole 20 MG capsule,delayed release(DR/EC) 20 mg PO BID duloxetine 30 MG capsule,delayed release(DR/EC) 20 mg PO DAILY fluticasone propionate 50 mcg/actuation spray,suspension 2 spray INTRANASAL DAILY PRN PRN (Reason: allergies) cholecalciferol (vitamin D3) 25 mcg (1,000 unit) Tablet 25 mcg PO DAILY Qty: 30 0RF Probiotic 10 billion cell capsule 100 mmu cells PO DAILY magnesium 200 mg tablet 400 mg PO QHS levothyroxine 75 mcg tablet 75 mcg PO DAILY nitrofurantoin monohyd/m-cryst 100 mg capsule 1 cap PO BID tolterodine 4 mg capsule,extended release 24hr 4 mg PO DAILY methylsulfonylmethane [MSM] 1,000 mg tablet 2,000 mg PO DAILY Referrals / Follow Up: Care Physician,No Primary [Non-Staff] - Disposition Disposition (needs filled in before D/C Order can be placed): Home, Self Care
--- NOTE | 2024-01-22 09:50 | RAD_ITS ---
STUDY: X-RAY - LEFT KNEE REASON FOR EXAM: Female, 73 years old. Post op -- in PACU TECHNIQUE: 2 view(s) of the knee. COMPARISON: Comparison is made with prior study November 24, 2023. FINDINGS: Normal visualized distal femur. Normal visualized proximal tibia and fibula. Normal proximal tibiofibular articulation. The patient is status post left total knee replacement. There is good alignment. Postoperative soft tissue changes. Postoperative soft tissue changes. RAD/Knee 1 or 2 Views IMPRESSION: Status post total knee replacement. There is good alignment. Postoperative soft tissue changes. Electronically Signed: Charli Wayne MD at 10:06 EST ,
--- NOTE | 2024-01-22 10:30 | PCM.POST.ANE ---
Anesthesia: Postop Eval I Current Vital Signs Temperature: 97 F Pulse Rate: 87 Blood Pressure: 140/68 Respiratory Rate: 16 Pulse Ox: 95 Oxygen Delivery Method: Room Air Assessment Airway patent: Yes Spontaneous unlabored respirations: Yes Mental status: Awake and Calm nausea: No Vomiting: No Anesthesia Complication: No Fluid Hydration Crystalloid volume administer (ml): 1,200 Total IV fluid infused: 1,200 Progress Note Anesthesia document: Postop Eval 1 completed: Yes
--- NOTE | 2024-01-22 10:31 | POSTOPAN2_ITS ---
Anesthesia Postop Eval I Sum Postop Eval Completion status Anesthesia document: Postop Eval 1 completed: Yes Anesthesia Postop Eval I Summary Anesthesia Postop Eval I Summary: Anesthesia Postop Eval I: Assessment Summary Airway patent Yes 01/22/24 10:31 DIRECTOR OF DIAGNOSTIC IMAGING.MDOT Spontaneous unlabored Yes 01/22/24 10:31 DIRECTOR OF DIAGNOSTIC IMAGING.MDOT respirations Mental status Awake,Calm 01/22/24 10:31 DIRECTOR OF DIAGNOSTIC IMAGING.MDOT nausea No 01/22/24 10:31 DIRECTOR OF DIAGNOSTIC IMAGING.MDOT Vomiting No 01/22/24 10:31 DIRECTOR OF DIAGNOSTIC IMAGING.MDOT Anesthesia Postop Eval I: Fluid Summary Crystalloid volume administer 1,200 01/22/24 10:31 DIRECTOR OF DIAGNOSTIC IMAGING.MDOT (ml) Colloids volume administered ( ml) Blood Product volume administered (ml) Total IV fluid infused 1,200 01/22/24 10:31 DIRECTOR OF DIAGNOSTIC IMAGING.MDOT Anesthesia Postop Eval I: Summary Notes Anesthesia Complication No 01/22/24 10:31 DIRECTOR OF DIAGNOSTIC IMAGING.MDOT Anesthesia Complication Comment: Post-operative progress note Anesthesia: Postop Eval II Evaluation Mental status: Awake and Calm Pain Level: 0 nausea: No Vomiting: No Complications Anesthesia Complication: No
--- NOTE | 2024-01-22 10:31 | PCM.POSTANE2 ---
Anesthesia Postop Eval I Sum Postop Eval Completion status Anesthesia document: Postop Eval 1 completed: Yes Anesthesia Postop Eval I Summary Anesthesia Postop Eval I Summary: Anesthesia Postop Eval I: Assessment Summary Airway patent Yes 01/22/24 10:31 FINANCE PROFESSOR.MDOT Spontaneous unlabored Yes 01/22/24 10:31 FINANCE PROFESSOR.MDOT respirations Mental status Awake,Calm 01/22/24 10:31 FINANCE PROFESSOR.MDOT nausea No 01/22/24 10:31 FINANCE PROFESSOR.MDOT Vomiting No 01/22/24 10:31 FINANCE PROFESSOR.MDOT Anesthesia Postop Eval I: Fluid Summary Crystalloid volume administer 1,200 01/22/24 10:31 FINANCE PROFESSOR.MDOT (ml) Colloids volume administered ( ml) Blood Product volume administered (ml) Total IV fluid infused 1,200 01/22/24 10:31 FINANCE PROFESSOR.MDOT Anesthesia Postop Eval I: Summary Notes Anesthesia Complication No 01/22/24 10:31 FINANCE PROFESSOR.MDOT Anesthesia Complication Comment: Post-operative progress note Anesthesia: Postop Eval II Evaluation Mental status: Awake and Calm Pain Level: 0 nausea: No Vomiting: No Complications Anesthesia Complication: No
[2024-01-22] MEDS: oxyCODONE 5 MG Tablet PO ×2 (12:31→13:35)
== END 2024-01-22 16:40 | disposition home or self-care (01) ==
LOC: SDC 05:41 → AC 05:41
PROVIDERS: Anesthesiology; PCP Family Medicine; Referring Provider Orthopaedic Surgery; Visit Provider Orthopaedic Surgery
PROC: 0SRD0JZ Replacement of Left Knee Joint with Synthetic Substitute, Open Approach (ICD-10-PCS; CPT 27447; principal; 2024-01-22 07:00)
DX: M17.12 Unilateral primary osteoarthritis, left knee (principal); M25.561 Pain in right knee; Z87.891 Personal history of nicotine dependence; G47.00 Insomnia, unspecified; M79.7 Fibromyalgia; E07.9 Disorder of thyroid, unspecified; Z01.818 Encounter for other preprocedural examination
CPT/HCPCS: 27447; 01402; 36415; 73560; 73700; 82962; 82985; 83036; 83735; 84443; 85025; 85610; 85730; 86850; 86900; 86901; 87081; 88305; 88311; 93005; 97162; C1776; J3475

== ENCOUNTER → 2024-02-04 | Outpatient (CLI) | payer MEDICARE, SELFPAY ==
--- NOTE | 2024-02-04 13:58 | VDLE_ITS ---
Reason For Study: LLE Pain RIGHT LEFT FV is compressible, spontaneous, phasic, GSV is normal. competent and demonstrates normal CFV is compressible, spontaneous, phasic, augmentation. competent, and demonstrates normal Procedure augmentation. This is a venous duplex using B-mode, color FV is compressible, spontaneous, phasic, flow and spectral Doppler. competent and demonstrates normal Exam performed in department. augmentation. The exam was diagnostic. POP V is compressible, spontaneous, phasic, A preliminary report was called and/or faxed competent and demonstrates normal to Dr. Casanova / [facility]. augmentation. T/P Trunk is compressible. PTV is compressible. LT PerV is compressible. VL/Venous Duplex US, Unilateral Interpretation Summary Deep veins of the left lower extremity are patent and compressible segmentally. There is no evidence of left lower extremity deep vein thrombosis. Valvular competence appears intac t within the proximal deep venous system on the left . The left great saphenous vein appears patent a nd compressible segmentally. The right femoral vein is patent and compressible. Ordering Physician: Saravanan Casanova Referring Physician: Iesha Burciaga Performed By: Ghulam Gutiérrez, KAZ
== END | disposition home or self-care (01) ==
PROVIDERS: PCP Family Medicine; Referring Provider Orthopaedic Surgery; Visit Provider Orthopaedic Surgery
DX: M79.89 Other specified soft tissue disorders (principal); I82.409 Acute embolism and thrombosis of unspecified deep veins of unspecified lower extremity
CPT/HCPCS: 93971

== ENCOUNTER 2024-02-17 14:00 | Outpatient (RCR) | payer MEDICARE, SELFPAY ==
--- NOTE | 2024-02-05 11:55 | HP.PTEVAL ---
Patient's Visit Information Visit Information Visit Information: GALLO STEELE is a 73 year old F referred to Physical Therapy by Dr. Saravanan Casanova DO with a diagnosis of L TKA 01/22/24. Date of Evaluation: 02/05/24 Physical Therapist: Bart Allred, PT, ATC Visit Plan Frequency: 2-3x /Week Duration: 6-8 weeks Plan: L knee PROM/mobs, stretching and strengthening, balance and proprio, core strengthening, nustep, and HEP Subjective Subjective: DOS: 01/22/24. Pt reports she had a L TKA performed at that time. Pt reports her L knee would give out on her prior to surgery. Pt notes he knee was really sore prior to surgery. Pt reports she has been home with her for the last 2 weeks, and just had her beba taken out yesterday. Pt reports she has been hesitant to come into PT because she is in so much pain. Pt notes sleep difficulty at this time secondary to pain. Pt denies tingling or numbness in L LE at this time. Pt notes she has stairs in her house, and steps to get into her house that she has to negotiate one step at a time. No PMHx of L knee surgeries prior to this episode. 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 Pt still needs help with donning/doffing her shoes, socks, and pants. 7/10 pain while pt is sitting here at rest, 10/10 pain at worst (when she sits down fast.) Pain L knee: Pain Intensity (Out of 10): 7 Pain Intensity Range: 10 Objective Objective: Neuro: B LE sensation is WNL to light touch Girth: R knee 43 cm, L knee 48 cm ROM: L knee 0-25-80 degrees ; R knee 0-115 degrees MMT: R knee flex= 26, ext= 32 #F; R knee flex= 4, ext= 0 #F TU sec Gait: Pt is able to ambulate 140 feet with slow cadance and cane until becoming fatigued Balance/Special Test Scores WOMAC Total Score: 78 WOMAC Percentatge: 18.7500 Goals Goal 1:: Decrease L knee pain x 50% to aid with sleep Goal Time Frame: 6-8 Weeks Goal 2:: Increase L knee strength x 30 #F to aid with stair negotiation Goal Time Frame: 6-8 Weeks Goal 3:: Increase L knee ROM x 30 degrees to aid with restoring a more normalized gait pattern Goal 4:: Perform the TUG in under 20 sec Goal Time Frame: 6-8 Weeks Goal 5:: I with HEP Goal Time Frame: 4-6 Weeks Rehabilitation Potential Physical Therapy Diagnosis: Pt has L knee pain, weakness, and limited ROM secondary to L TKA Rehabilitation Potential: Good Anticipated Interventions Patient/Client Instruction: Educate patient on: Condition and Plan of Care For the Purpose of:: To improve self management Therapeutic Exercise to Include: Strength training, Endurance training, Balance training, Flexibilty training, Gait and locomotor training, Passive ROM, Active ROM and Dynamic Lumbar Stabilization For the Purpose of:: To decrease pain, To increase ROM and To improve muscle performance and motor function Manual Therapy Techniques to Include: Mobilization and Passive ROM For the Purpose of:: To decrease pain and To increase ROM Cryotherapy (ice pack, ice massage): Yes For the Purpose of:: To decrease pain Text: Thank you for the opportunity to evaluate your patient. For Medicare and Medicare HMO plans, please review the plan of care and approve it. It will need to be FAXED BACK to us at [phone] for Medicare purposes. For Medicare only, by signing this I certify the plan of care. Please let me know if there are questions or concerns regarding this plan of care. Physician Signature: Date:
--- NOTE | 2024-03-25 12:18 | HP.PT.NRP ---
Patient Information Patient Information: GALLO STEELE was seen in my office for initial evaluation on 02/05/24. The following Plan of Care was established for this patient: POC Established Initial Frequency: 2-3x /Week Initial Duration: 6-8 weeks Anticipated Interventions Patient/Client Instruction: Educate patient on: Condition and Plan of Care For the Purpose of:: To improve self management Therapeutic Exercise to Include: Strength training, Endurance training, Balance training, Flexibilty training, Gait and locomotor training, Passive ROM, Active ROM and Dynamic Lumbar Stabilization For the Purpose of:: To decrease pain, To increase ROM and To improve muscle performance and motor function Manual Therapy Techniques to Include: Mobilization and Passive ROM For the Purpose of:: To decrease pain and To increase ROM Cryotherapy (ice pack, ice massage): Yes For the Purpose of:: To decrease pain Last Seen Last Seen: This patient was last seen in our office . Pertinent comments regarding their Physical therapy will appear below: Pt has not returned in 30 days. Discontinue at this time At this point I will be discontinuing this patient from physical therapy. I would be happy to see this patient again in the future if found appropriate by the physician. Thank you! Bart Allred, PT, ATC Balance/Gait/Functional tests Balance/Special Test Scores WOMAC Total Score: 78 WOMAC Percentage: 18.7500
== END 2024-02-17 19:00 | disposition home or self-care (01) ==
LOC: PT 14:00
PROVIDERS: Referring Provider Orthopaedic Surgery; Visit Provider Orthopaedic Surgery
DX: M17.12 Unilateral primary osteoarthritis, left knee (principal); Z96.652 Presence of left artificial knee joint
CPT/HCPCS: 97110; 97161

== ENCOUNTER 2024-03-11 11:00 | Day surgery (SDC) | payer MEDICARE, SELFPAY ==
[2024-03-11] VITALS (8 sets, daily range): BP systolic 113–134; BP diastolic 61–70; PULSE 71–81; RESP 14–18; TEMP 36.5–36.9; O2SAT 94–98; BMI 30.8
--- NOTE | 2024-03-11 11:57 | PRE.ANES_ITS ---
ASA Classification* ASA Classification ASA Classification: 3 Assessment & Plan Anesthesia* Anesthesia Assessment Anesthesia Assessment: Discussed sedation and/or anesthesia options, risks, benefits, and alternatives with patient/parents/legal guardian/POA. Questions invited. The patient/parents/legal guardian/POA seems to understand and agrees to proceed with anesthesia plan. Reviewed the physical assessment, medical history, allergy history and patient home medications list prior to surgery/procedure/anesthetic and documented any changes. Performed airway and anesthesia risk assessments. Anesthesia Type Anesthesia Type: MAC History Source History Obtained from:: Patient and Chart Anesthesia Focused Assessment* Temperature: 97.7 F Pulse Rate: 73 Blood Pressure: 134/66 Respiratory Rate: 17 Pulse Ox: 98 Oxygen Delivery Method: Room Air Airway Assessment Mouth opens: >3 cm Mallampati Score: I Teeth Condition: Missing (Patient is missing #6 tooth.) Neck Range of motion (ROM): Full ROM Focused Labs Anesthesia Preop lab: CBC WBC 7.8 K/mm3 (4.4-11.0) 01/14/24 11:44 RBC 5.06 M/mm3 (4.2-5.4) 01/14/24 11:44 Hgb 14.4 g/dL (12.0-15.0) 01/14/24 11:44 Hct 44.2 % (37-47) 01/14/24 11:44 Plt Count 303 K/mm3 (150-450) 01/14/24 11:44 CHEMISTRY Potassium 3.7 mmol/L (3.5-5.1) 01/06/24 15:58 Sodium 137 mmol/L (136-145) 01/06/24 15:58 Magnesium 2.1 mg/dL (1.6-2.6) 01/14/24 11:44 Phosphorus 3.0 mg/dL (2.5-4.9) 12/18/22 06:12 BUN 14 mg/dL (7-18) 01/06/24 15:58 Creatinine 1.07 mg/dL (0.55-1.02) H 01/06/24 15:58 Glucose 119 mg/dL (74-106) H 01/06/24 15:58 POC Glucose 123 mg/dL (74-106) H 01/22/24 06:10 TSH 1.660 uIU/mL (0.358-3.740) 01/14/24 11:44 COAG PT 13.2 SECONDS (11.7-14.9) 01/14/24 11:44 Pre-Assessment Diagnosis/Proposed Procedure Planned Operative Procedure(s): CYSTO, BOTX INJ Anesthesia History Anesthesia History - supervisor electronics testing: Anesthesia History - supervisor electronics testing Hx Hospitalization No 03/09/24 11:52 Any Problems With Anesthesia No 03/09/24 11:52 Cholinesterase deficiency No 03/09/24 11:52 You/Your Family Experience No 03/09/24 11:52 fever (hyperthermia) with Relationship Recent Exposure to Contagious No 03/11/24 11:28 Disease Does patient have nerve No 03/09/24 11:52 stimulator Patient instructed to have device shut off --Does patient have Pacemaker No 03/11/24 11:28 or ICD? When Was Last Pacemaker Check QUESTION #4 FULL TEXT: You/Your Family Experience fever (hyperthermia) with Anesthesia Last Oral Intake Last Oral intake: Last Oral Intake NPO since 08:30 03/11/24 11:28 Meds taken in AM with sips of Yes 03/11/24 11:28 water? Meds patient instructed to LEVOTHYROXINE 03/11/24 11:28 take am of surgery Any additional information?: Yes NPO since: 08:30 (Patient took her levothyroxine at 8:30 AM.) Meds taken in AM with sips of water?: Yes PONV PONV - supervisor electronics testing: PONV - supervisor electronics testing Female Yes 03/09/24 11:52 HX of Motion Sickness Yes 03/09/24 11:52 HX of N/V After Surgery No 03/09/24 11:52 Non-Smoker Yes 03/09/24 11:52 Duration of Surgery greater No 03/09/24 11:52 than 60 minutes Number of Risk Factors 3 03/09/24 11:52 PONV Score Moderate Risk 03/09/24 11:52 Height & Weight Height & Weight: Anesthesia: Height & Weight Height 5 ft 5 in 03/11/24 11:28 Weight: 84 kg 03/11/24 11:28 Body Mass Index (BMI) 30.8 03/11/24 11:28 Respiratory Assessment Respiratory Assessment - supervisor electronics testing: Respiratory Tract Infection Hx - supervisor electronics testing Hx Respiratory Tract Infection No 03/09/24 11:52 STOP Sleep Apnea STOP Sleep Apnea - supervisor electronics testing: STOP Sleep Apnea - supervisor electronics testing Hx Hypertension No 03/09/24 11:52 Hx Sleep Apnea No 03/09/24 11:52 CPAP BIPAP Do you snore loudly (louder No 03/09/24 11:52 than talking or can be heard Do you often feel tired/ No 03/09/24 11:52 fatigued/ sleepy during daytime? Has anyone observed you stop No 03/09/24 11:52 breathing during sleep? STOP Results Negative 03/09/24 11:52 QUESTION #5 FULL TEXT : Do you snore loudly (louder than talking or can be heard through closed doors)? Tobacco Use History Tobacco Use History - supervisor electronics testing: Tobacco Use History - supervisor electronics testing Tobacco Use Smoking Status Never smoker 03/09/24 11:52 Hx Tobacco Use No 03/09/24 11:52 Years Smoking Packs Smoked per Day Smoking Cessation Date was within the last 15 years Hx Smoking Cessation Date Hx Smoking Cessation Counseling Hematologic Medial History Hematologic Hx - supervisor electronics testing: Hematologic Medical Hx - manager advertising Hx of Blood Transfusion No 03/09/24 11:52 Hx of Transfusion in last 3 No 03/09/24 11:52 Months Date of Last Transfusion (if within last 3 months) Ever experience any problems No 03/09/24 11:52 with transfusion(s)? Specify any problems Hx of Preganancy in last 3 N/A 03/09/24 11:52 Months Nurse Filling Out Transfusion NBUCHER 03/09/24 11:52 & Questions: Date: 03/09/24 03/09/24 11:52 Time: 11:54 03/09/24 11:52 Patient unable to answer at this time (ie. confused, unrespo /Reproduction History /Reproductive History - supervisor electronics testing: /Reproductive Hx- supervisor electronics testing Hx Now Gestational Age (in weeks): EDC: Hx Hx Para Hx Section SAB No 03/09/24 11:52 Active Medications Active Medications: Current Medications Generic Name Dose Route Start Last Admin Trade Name Freq PRN Reason Stop Dose Admin Botulinum Toxin Type A 100 units 03/11/24 12:30 Botulinum Toxin A 100 Units Vial IJ 03/11/24 12:31 X1 ONE Cefazolin Sodium 2 gm/ N/A 20 mls @ 400 mls/hr 03/11/24 12:30 IV 03/11/24 12:32 PREOP ONE [facility] Medical History (Updated 03/11/24 @ 12:[address] Enoc Whiting MD) Sjogren syndrome UTI (urinary tract infection) History of pain when walking Non-smoker Kyphoscoliosis Wears glasses Post-menopausal Depression Anxiety Alcohol use Thyroid disease Arthritis Ambulates with cane Bladder disease Restless legs Back pain Injury of head and neck History of IBS Gastric reflux Former smoker Shortness of breath on exertion History of stress test Insomnia Anxiety Fibromyalgia Home Medications ?Medication ?Instructions ?Recorded ?Last Taken ?Type duloxetine 30 mg capsule,delayed 20 mg PO DAILY Mood 09/23/19 03/10/24 History release omeprazole 20 mg capsule,delayed 20 mg PO BID GERD 09/23/19 03/10/24 History release trazodone 100 mg tablet 150 mg PO QHS Sleep 09/23/19 03/10/24 History fluticasone propionate 50 2 spray intranasal DAILY PRN PRN 12/15/22 03/10/24 History mcg/actuation nasal allergies spray,suspension cholecalciferol (vitamin D3) 25 25 mcg PO DAILY Supplment #30 tabs 12/17/22 03/10/24 Rx mcg (1,000 unit) tablet Lactobacillus acidophilus 10 100 mmu cells PO DAILY 02/20/23 03/10/24 History billion cell capsule (Probiotic) magnesium 200 mg tablet 400 mg PO QHS 02/20/23 03/10/24 History pregabalin 100 mg capsule 100 mg PO QHS 11/24/23 03/10/24 History levothyroxine 75 mcg tablet 75 mcg PO DAILY 12/30/23 03/11/24 History methylsulfonylmethane 1,000 mg 2,000 mg PO DAILY 12/30/23 03/10/24 History tablet (MSM) nitrofurantoin 1 cap PO DAILY UTI 12/30/23 03/10/24 History monohydrate/macrocrystals 100 mg capsule tolterodine 4 mg capsule,extended 4 mg PO DAILY 12/30/23 03/10/24 History release 24 hr indomethacin 50 mg capsule 50 mg PO BID PRN pain #60 caps 02/06/24 03/10/24 Rx acetaminophen 500 mg tablet 1,000 mg PO Q6H PRN pain 03/09/24 03/10/24 History Allergy/AdvReac Type Severity Reaction Status Date / Time albuterol Allergy Other Verified 03/11/24 11:07 gabapentin AdvReac Other Verified 03/11/24 11:07 Sulfa (Sulfonamide AdvReac Vomiting Verified 03/11/24 11:07 Antibiotics) Family History Father Myocardial infarction Leukemia Mother Hypertension Alzheimer disease Surgical History History of total left knee replacement (TKR) (~01/2024) Hx of cystoscopy Status post left hip replacement Salivary gland stone History of bunionectomy History of LAVH Social History household members: spouse number of children: 2 current occupational status: retired Smoking Status: Never smoker alcohol intake: current details: social substance use type: does not use caffeine: Yes what type of physical activity do you participate in: none seatbelt use: always do you feel safe at home: Yes additional social history: Ragini Benítez Review of Systems (Anesthesia) ROS Narrative System reviewed and no additional complaints, except as documented.
--- NOTE | 2024-03-11 12:42 | EX.PCM.DISCH ---
Discharge Instructions Diet Discharge Diet: No restrictions Activity Discharge Activity: Return to Normal Activity Dressing / Incision Call your doctor if you observe: Fever of 101 or Higher, Inability to urinate and Inability to have a bowel movement Follow Up Care Please Follow Up With: Jennifer Grayson MD When: In the office in 1 week. Test Results: Test results from this visit will be discussed in further detail at your follow-up appointment, if applicable. Discharge Plan Admission Attending Provider: Jennifer Grayson Primary Care Provider: Iesha Burciaga Instructions Print Language: Comoran Discharge Orders/Prescriptions Prescriptions: Continued pregabalin 100 mg capsule 100 mg PO QHS trazodone 100 MG tablet 150 mg PO QHS omeprazole 20 MG capsule,delayed release(DR/EC) 20 mg PO BID duloxetine 30 MG capsule,delayed release(DR/EC) 20 mg PO DAILY fluticasone propionate 50 mcg/actuation spray,suspension 2 spray INTRANASAL DAILY PRN PRN (Reason: allergies) cholecalciferol (vitamin D3) 25 mcg (1,000 unit) Tablet 25 mcg PO DAILY Qty: 30 0RF Probiotic 10 billion cell capsule 100 mmu cells PO DAILY magnesium 200 mg tablet 400 mg PO QHS levothyroxine 75 mcg tablet 75 mcg PO DAILY nitrofurantoin monohyd/m-cryst 100 mg capsule 1 cap PO DAILY tolterodine 4 mg capsule,extended release 24hr 4 mg PO DAILY methylsulfonylmethane [MSM] 1,000 mg tablet 2,000 mg PO DAILY acetaminophen 500 mg tablet 1,000 mg PO Q6H PRN (Reason: pain) indomethacin 50 mg capsule 50 mg PO BID PRN (Reason: pain) Qty: 60 0RF Rx Instructions: administer with food or milk, do NOT take until completion of blood thinner. Referrals / Follow Up: Iesha Burciaga MD [Primary Care Provider] - Disposition Disposition (needs filled in before D/C Order can be placed): Home, Self Care
--- NOTE | 2024-03-11 12:43 | OP.PCM_ITS ---
Operative Report (Standard) Operative Information Date of Procedure: 03/11/24 Pre-Operative Diagnosis: Overactive bladder Post-Operative Diagnosis: Same Surgery/Procedure Performed: Cystoscopy, injection of Botox 100 units supervisory investigative specialist: No Type of Anesthesia: MAC RN Documented Start/Stop Times: Operation Date: 03/11/24 12:30 Case Time Into Pre-Op 03/11/24 11:09 Anesthesia Start 03/11/24 13:00 Into Room 03/11/24 13:00 Procedure Start 03/11/24 13:11 Procedure End 03/11/24 13:15 Procedure Start Time: 13:11 Procedure Stop Time: 13:15 Select all DRAINS/GRAFTS/IMPLANTS that apply: None Estimated Blood Loss: <5cc Specimen collected: No Description of surgery: The patient is a 73-year-old female who has had multiple Botox injections for her overactive bladder that have been successful at 100 units. It has now worn off and she presents for repeat injection. Informed consent has been obtained. She is currently on antibiotics for her urine culture. She has no symptoms of infection today. She was taken to the operating room and placed in a supine position on the operating room table. Anesthesia monitored the head, neck, airway, IV access and vital signs throughout the case. Once anesthesia was appropriately administered, she was placed into dorsolithotomy position and was prepped and draped in usual sterile fashion. The cystoscope was inserted through the urethra under direct visualization into the urinary bladder finding no evidence of mass, erythema, ulceration or foreign body. A total of 20 injections of 0.5 cc of Botox were made focusing on areas of increased trabeculation in systematic fashion throughout the bladder wall. At the conclusion of the procedure, the patient's bladder was emptied and the cystoscope was removed. She was awakened and taken to the recovery room in good condition. There were no complications during the procedure. Surgical Findings: No abnormal findings on cystoscopy Complications Complications: No Admit VTE Documentation VTE Present on Admission: Yes VTE Mechan Device Prophylaxis: SCD's VTE Pharm Prophylaxis ordered?: No Reason prophylaxis not ordered: Treatment Not Indicated
[2024-03-11] MEDS: Cefazolin 2 GM in Syringe IV (13:00)
[2024-03-11] MEDS: Botulinum Toxin A 100 Units Vial IJ (13:14)
[2024-03-11] MEDS: 0.9% Normal Saline (Pres. free 10 ML Vial (13:22)
--- NOTE | 2024-03-11 13:26 | PCM.POST.ANE ---
Anesthesia: Postop Eval I Current Vital Signs Temperature: 98.5 F Pulse Rate: 81 Blood Pressure: 113/63 Respiratory Rate: 14 Pulse Ox: 95 Assessment Airway patent: Yes Spontaneous unlabored respirations: Yes nausea: No Vomiting: No Anesthesia Complication: No Fluid Hydration Crystalloid volume administer (ml): 20 Total IV fluid infused: 20 Progress Note Anesthesia document: Postop Eval 1 completed: Yes
--- NOTE | 2024-03-11 19:14 | POSTOPAN2_ITS ---
Anesthesia Postop Eval I Sum Postop Eval Completion status Anesthesia document: Postop Eval 1 completed: Yes Anesthesia Postop Eval I Summary Anesthesia Postop Eval I Summary: Anesthesia Postop Eval I: Assessment Summary Airway patent Yes 03/11/24 13:26 [email or web address] Spontaneous unlabored Yes 03/11/24 13:26 [email or web address] respirations Mental status nausea No 03/11/24 13:26 [email or web address] Vomiting No 03/11/24 13:26 [email or web address] Anesthesia Postop Eval I: Fluid Summary Crystalloid volume administer 20 03/11/24 13:26 [email or web address] (ml) Colloids volume administered ( ml) Blood Product volume administered (ml) Total IV fluid infused 20 03/11/24 13:26 [email or web address] Anesthesia Postop Eval I: Summary Notes Anesthesia Complication No 03/11/24 13:26 [email or web address] Anesthesia Complication Comment: Post-operative progress note Anesthesia: Postop Eval II Evaluation Mental status: Awake and Calm Pain Level: 1 nausea: No Vomiting: No Complications Anesthesia Complication: No
--- NOTE | 2024-03-11 19:14 | PCM.POSTANE2 ---
Anesthesia Postop Eval I Sum Postop Eval Completion status Anesthesia document: Postop Eval 1 completed: Yes Anesthesia Postop Eval I Summary Anesthesia Postop Eval I Summary: Anesthesia Postop Eval I: Assessment Summary Airway patent Yes 03/11/24 13:26 MOBILE SECURITY [email or web address] Spontaneous unlabored Yes 03/11/24 13:26 MOBILE SECURITY [email or web address] respirations Mental status nausea No 03/11/24 13:26 MOBILE SECURITY [email or web address] Vomiting No 03/11/24 13:26 MOBILE SECURITY [email or web address] Anesthesia Postop Eval I: Fluid Summary Crystalloid volume administer 20 03/11/24 13:26 MOBILE SECURITY [email or web address] (ml) Colloids volume administered ( ml) Blood Product volume administered (ml) Total IV fluid infused 20 03/11/24 13:26 MOBILE SECURITY [email or web address] Anesthesia Postop Eval I: Summary Notes Anesthesia Complication No 03/11/24 13:26 MOBILE SECURITY [email or web address] Anesthesia Complication Comment: Post-operative progress note Anesthesia: Postop Eval II Evaluation Mental status: Awake and Calm Pain Level: 1 nausea: No Vomiting: No Complications Anesthesia Complication: No
== END 2024-03-11 14:17 | disposition home or self-care (01) ==
LOC: SDC 11:05 → AC 11:06
PROVIDERS: PCP Family Medicine; Referring Provider Urology; Visit Provider Urology
PROC: 3E0K8GC Introduction of Other Therapeutic Substance into Genitourinary Tract, Via Natural or Artificial Opening Endoscopic (ICD-10-PCS; CPT 52287; principal; 2024-03-11 12:20)
DX: N32.81 Overactive bladder (principal); E03.9 Hypothyroidism, unspecified; N39.41 Urge incontinence; R35.1 Nocturia; N39.44 Nocturnal enuresis; Z90.710 Acquired absence of both cervix and uterus; M35.00 Sjogren syndrome, unspecified
CPT/HCPCS: 52287; 00910; A4216; J0585

== ENCOUNTER → 2024-07-15 | Outpatient (CLI) | payer MEDICARE, SELFPAY ==
[2024-07-15 18:01] LABS: Hemoglobin A1c 5.9 % (<=5.6)
== END | disposition home or self-care (01) ==
PROVIDERS: Family Medicine; PCP Family Medicine; Referring Provider Family Medicine; Visit Provider Family Medicine
DX: E03.9 Hypothyroidism, unspecified (principal); R73.03 Prediabetes
CPT/HCPCS: 36415; 83036; 84443

== ENCOUNTER → 2024-07-30 | Outpatient (CLI) | payer MEDICARE, SELFPAY ==
--- NOTE | 2024-07-30 14:37 | BI_ITS ---
EXAM: SCRN MAMM (CAD)W/TANYA BILAT 07/30/2024 CLINICAL HISTORY: F, Age 73 y/o , ANNUAL TECHNIQUE: Bilateral screening digital breast tomosynthesis with 2D and 3D images. Computer aided detection. COMPARISON: Prior exam(s) dated 04/10/2021, 03/27/2020, 03/24/2019. FINDINGS: TISSUE DENSITY: The breast tissue is composed of scattered area of fibroglandular density. Bilateral Breast Mammographic Findings: There is a skin marker indicating an area of palpable concern/hematoma in the upper-outer left breast at anterior depth. Underlying the skin marker is a heterogeneous area with interspersed fat, this may represent fat necrosis/trauma. No significant masses, calcifications or other abnormalities are identified in the right breast. BI/SCRN MAMM (CAD)W/TANYA BILAT IMPRESSION: 1. The area of palpable concern in the upper outer left breast at anterior dep th with mammographic findings of fat necrosis/trauma requires further evaluation. Recommend diagnostic ultrasound o f the left breast. Right Breast: BIRADS 1 NEGATIVE. Left Breast: BIRADS 0 Incomplete: Need additional imaging evaluation and/or pr ior mammograms for comparison.. OVERALL FINAL ASSESSMENT: BIRADS 0 Incomplete: Need additional imaging evaluati on and/or prior mammograms for comparison.. RECOMMENDATION: Ultrasound. A letter with findings and recommendations will be mailed to the patient. Reading Location: [id number]
== END | disposition home or self-care (01) ==
LOC: OPBI 14:36
PROVIDERS: PCP Family Medicine; Referring Provider Family Medicine; Visit Provider Family Medicine
DX: Z12.31 Encounter for screening mammogram for malignant neoplasm of breast (principal)
CPT/HCPCS: 77063; 77067

== ENCOUNTER → 2024-08-05 | Outpatient (CLI) | payer MEDICARE, SELFPAY ==
--- NOTE | 2024-08-05 12:27 | US_ITS ---
PROCEDURE: BREAST LIMITED UNILATERAL 08/05/2024 REASON FOR EXAM: ABN MAMM Abnormal screening mammogram. TECHNIQUE: BREAST LIMITED UNILATERAL COMPARISON: Prior mammogram dated July 30, 2004.. FINDINGS: Left breast ultrasound was targeted to the upper lateral aspect of the left breast.. There is an 2.8 cm 2.2 cm x 1.6 cm sagittally heterogeneous density at the 2 o'clock position of the breast at 3 cm from the nipple. With the patient's history of trauma, this may represent a possible resolving hematoma. Follow-up sonogram in 3 months recommended. US/Breast Limited Unilateral IMPRESSION: Impression: Follow-up sonogram in 3 months to assess the questionable area of h ematoma as described. Birads: BI-RADS 3: PROBABLY BENIGN. Reading Location: [place] [id number]
== END | disposition home or self-care (01) ==
LOC: OPUS 12:26
PROVIDERS: PCP Family Medicine; Referring Provider Family Medicine; Visit Provider Family Medicine
DX: R92.8 Other abnormal and inconclusive findings on diagnostic imaging of breast (principal)
CPT/HCPCS: 76642

== ENCOUNTER → 2024-09-09 | Outpatient (CLI) | payer MEDICARE, SELFPAY ==
--- NOTE | 2024-09-09 16:26 | RAD_ITS ---
EXAM: XR Right Knee Complete, 4 or More Views CLINICAL INDICATION: PRIMARY OSTEOARTHRITIS TECHNIQUE: Four or more views of the right knee. COMPARISON: No relevant prior studies available. FINDINGS: BONES/JOINTS: Mild tricompartmental degenerative changes. No acute fracture. No dislocation. SOFT TISSUES: Unremarkable. RAD/Knee 4 or More Views IMPRESSION: Degenerative changes as above. Reading Location: [id number]
== END | disposition home or self-care (01) ==
LOC: RAD 16:14
PROVIDERS: PCP Family Medicine; Referring Provider Anesthesiology Pain Medicine; Visit Provider Anesthesiology Pain Medicine
DX: M17.11 Unilateral primary osteoarthritis, right knee (principal)
CPT/HCPCS: 73564

== ENCOUNTER 2024-11-30 07:35 | Day surgery (SDC) | payer MEDICARE, SELFPAY ==
[2024-11-30] VITALS (7 sets, daily range): BP systolic 97–128; BP diastolic 64–73; PULSE 77–81; RESP 16; TEMP 36.2–36.6; O2SAT 93–99; BMI 28.8
[2024-11-30] MEDS: Lactated Ringers 1,000 ML 15 ML IV (08:04)
--- NOTE | 2024-11-30 08:22 | PRE.ANES_ITS ---
ASA Classification* ASA Classification ASA Classification: 2 Assessment & Plan Anesthesia* Anesthesia Assessment Anesthesia Assessment: Discussed sedation and/or anesthesia options, risks, benefits, and alternatives with patient/parents/legal guardian/POA. Questions invited. The patient/parents/legal guardian/POA seems to understand and agrees to proceed with anesthesia plan. Reviewed the physical assessment, medical history, allergy history and patient home medications list prior to surgery/procedure/anesthetic and documented any changes. Performed airway and anesthesia risk assessments. Anesthesia Type Anesthesia Type: MAC History Source History Obtained from:: Patient and Chart Anesthesia Focused Assessment* Temperature: 97.2 F Pulse Rate: 79 Respiratory Rate: 16 Pulse Ox: 99 Oxygen Delivery Method: Room Air Airway Assessment Mouth opens: >3 cm Mallampati Score: I Teeth Condition: Partial (Upper partials out.) Neck Range of motion (ROM): Limited ROM (Slight Decrease) Labs Anesthesia Preop lab: CBC WBC, (4.4-11.0) 7.8 K/mm3 01/14/24, 11:44 RBC, (4.2-5.4) 5.06 M/mm3 01/14/24, 11:44 Hgb, (12.0-15.0) 14.4 g/dL 01/14/24, 11:44 Hct, (37-47) 44.2 % 01/14/24, 11:44 Plt Count, (150-450) 303 K/mm3 01/14/24, 11:44 CHEMISTRY Potassium, (3.5-5.1) 3.7 mmol/L 01/06/24, 15:58 Sodium, (136-145) 137 mmol/L 01/06/24, 15:58 Magnesium, (1.6-2.6) 2.1 mg/dL 01/14/24, 11:44 Phosphorus, (2.5-4.9) 3.0 mg/dL 12/18/22, 06:12 BUN, (7-18) 14 mg/dL 01/06/24, 15:58 Creatinine, (0.55-1.02) 1.07 mg/dL H 01/06/24, 15:58 Glucose, (74-106) 119 mg/dL H 01/06/24, 15:58 POC Glucose, (74-106) 123 mg/dL H 01/22/24, 06:10 TSH, (0.300-4.200) 2.790 uIU/mL 07/15/24, 17:02 COAG PT, (11.7-14.9) 13.2 SECONDS 01/14/24, 11:44 Pre-Assessment Diagnosis/Proposed Procedure Planned Operative Procedure(s): COLONOSCOPY Anesthesia History Anesthesia History - bilingual sales consultant: Anesthesia History - bilingual sales consultant Hx Hospitalization No 11/25/24 17:41 Any Problems With Anesthesia No 11/25/24 17:41 Cholinesterase deficiency No 11/25/24 17:41 You/Your Family Experience No 11/25/24 17:41 fever (hyperthermia) with Relationship Recent Exposure to Contagious No 11/30/24 07:57 Disease Does patient have nerve No 11/25/24 17:41 stimulator Patient instructed to have device shut off --Does patient have Pacemaker No 11/30/24 07:57 or ICD? When Was Last Pacemaker Check QUESTION #4 FULL TEXT: You/Your Family Experience fever (hyperthermia) with Anesthesia Last Oral Intake Last Oral intake: Last Oral Intake NPO since 20:00 11/30/24 07:57 Meds taken in AM with sips of No 11/30/24 07:57 water? Meds patient instructed to take am of surgery PONV PONV - bilingual sales consultant: PONV - bilingual sales consultant Female Yes 11/25/24 17:41 HX of Motion Sickness Yes 11/25/24 17:41 HX of N/V After Surgery No 11/25/24 17:41 Non-Smoker Yes 11/25/24 17:41 Duration of Surgery greater No 11/25/24 17:41 than 60 minutes Number of Risk Factors 3 11/25/24 17:41 PONV Score Moderate Risk 11/25/24 17:41 Height & Weight Height & Weight: Anesthesia: Height & Weight Height 5 ft 5 in 11/30/24 07:57 Weight: 78.7 kg 11/30/24 07:57 Body Mass Index (BMI) 28.8 11/30/24 07:57 Respiratory Assessment Respiratory Assessment - bilingual sales consultant: Respiratory Tract Infection Hx - bilingual sales consultant Hx Respiratory Tract Infection No 11/25/24 17:41 STOP Sleep Apnea STOP Sleep Apnea - bilingual sales consultant: STOP Sleep Apnea - bilingual sales consultant Hx Hypertension No 11/25/24 17:41 Hx Sleep Apnea No 11/25/24 17:41 CPAP BIPAP Do you snore loudly (louder No 11/25/24 17:41 than talking or can be heard Do you often feel tired/ No 11/25/24 17:41 fatigued/ sleepy during daytime? Has anyone observed you stop No 11/25/24 17:41 breathing during sleep? STOP Results Negative 11/25/24 17:41 QUESTION #5 FULL TEXT : Do you snore loudly (louder than talking or can be heard through closed doors)? 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 Specify any problems Hx of Preganancy in last 3 No 11/25/24 17:41 Months Nurse Filling Out Transfusion MGRIFFITH 11/25/24 17:41 & Questions: Date: 11/25/24 11/25/24 17:41 Time: 17:43 11/25/24 17:41 Patient unable to answer at this time (ie. confused, unrespo /Reproduction History /Reproductive History - bilingual sales consultant: /Reproductive Hx- bilingual sales consultant Hx Now No 11/25/24 17:41 Gestational Age (in weeks): EDC: Hx Hx Para Hx Section SAB No 11/25/24 17:41 Active Medications Active Medications: Current Medications Generic Name Dose Route Start Last Admin Trade Name Freq PRN Reason Stop Dose Admin Lactated Ringer's 1,000 mls @ 15 mls/hr 11/30/24 07:45 11/30/24 08:04 IV 15 mls/hr .Q48H MANUELA Administration PFSH Medical History Substance abuse Easy bruising Chronic cough Intrinsic (urethral) sphincter deficiency (ISD) Rectocele Vaginal atrophy Nocturnal enuresis Nocturia Mixed incontinence Overactive bladder Sjogren syndrome UTI (urinary tract infection) History of pain when walking Non-smoker Kyphoscoliosis Wears glasses Post-menopausal Depression Anxiety Alcohol use Thyroid disease Arthritis Ambulates with cane Bladder disease Restless legs Back pain Injury of head and neck History of IBS Gastric reflux Shortness of breath on exertion History of stress test Insomnia Anxiety Fibromyalgia Home Medications ?Medication ?Instructions ?Recorded ?Last Taken ?Type duloxetine 30 mg capsule,delayed 20 mg PO DAILY Mood 0 09/23/19 11/29/24 History release omeprazole 20 mg capsule,delayed 20 mg PO BID GERD 08/0611/29/24 History release trazodone 100 mg tablet 150 mg PO QHS Sleep 09/23/19 03/10/24 History fluticasone propionate 50 2 spray intranasal DAILY PRN PRN 12/15/22 11/29/24 History mcg/actuation nasal allergies spray,suspension cholecalciferol (vitamin D3) 25 25 mcg PO DAILY Supplm ent #30 tabs 12/17/22 11/29/24 Rx mcg (1,000 unit) tablet Lactobacillus acidophilus 10 100 mmu cells PO DAILY OH N 02/20/23 11/29/24 History billion cell capsule (Probiotic) SUPPLEMENT levothyroxine 75 mcg tablet 75 mcg PO DAILY 12/30/23 1 History tramadol 50 mg tablet 50 mg PO TID PRN pain Unknown History peg 3350-electrolytes 236 4,000 ml PO ONCE #4,000 mL 0 11/15/24 11/29/24 Rx gram-22.74 gram-6.74 gram-5.86 gram solution Gemtesa 75 mg tablet (vibegron) 75 mg PO QDAY #90 tabs 11/22/24 11/29/24 Rx CBD Oral (INFORMATIONAL USE 1 gum QHS 11/25/2411/17 History ONLY-PT USES ORAL CBD) Allergy/AdvReac Type Severity Reaction Status Date / Time albuterol Allergy Other Verified 11/25/24 17:35 gabapentin AdvReac Other Verified 11/25/24 17:35 Sulfa (Sulfonamide AdvReac Vomiting Verified 11/25/24 17:35 Antibiotics) Family History Father Myocardial infarction Leukemia Mother Hypertension Alzheimer disease Surgical History History of colonoscopy History of total left knee replacement (TKR) (~01/2024) Hx of cystoscopy Status post left hip replacement Salivary gland stone History of bunionectomy History of LAVH Social History household members: spouse number of children: 2 current occupational status: retired Smoking Status: Never smoker alcohol intake: current details: social substance use type: does not use caffeine: Yes what type of physical activity do you participate in: none seatbelt use: always do you feel safe at home: Yes additional social history: Ragini Benítez Review of Systems (Anesthesia) ROS Narrative System reviewed and no additional complaints, except as documented.
--- NOTE | 2024-11-30 08:29 | HP.PCM_ITS ---
HPI - General HPI Narrative GALLO STEELE, is a 74 F who presents for screening colonoscopy. The patient had a colonoscopy 5 years ago and a polyp was removed. She denies abdominal pain or blood in the stool. She says she has IBS as well. [facility] Medical History Substance abuse Easy bruising Chronic cough Intrinsic (urethral) sphincter deficiency (ISD) Rectocele Vaginal atrophy Nocturnal enuresis Nocturia Mixed incontinence Overactive bladder Sjogren syndrome UTI (urinary tract infection) History of pain when walking Non-smoker Kyphoscoliosis Wears glasses Post-menopausal Depression Anxiety Alcohol use Thyroid disease Arthritis Ambulates with cane Bladder disease Restless legs Back pain Injury of head and neck History of IBS Gastric reflux Shortness of breath on exertion History of stress test Insomnia Anxiety Fibromyalgia Home Medications ?Medication ?Instructions ?Recorded ?Last Taken ?Type duloxetine 30 mg capsule,delayed 20 mg PO DAILY Mood 0 09/23/19 11/29/24 History release omeprazole 20 mg capsule,delayed 20 mg PO BID GERD 08/0611/29/24 History release trazodone 100 mg tablet 150 mg PO QHS Sleep 09/23/19 03/10/24 History fluticasone propionate 50 2 spray intranasal DAILY PRN PRN 12/15/22 11/29/24 History mcg/actuation nasal allergies spray,suspension cholecalciferol (vitamin D3) 25 25 mcg PO DAILY Supplm ent #30 tabs 12/17/22 11/29/24 Rx mcg (1,000 unit) tablet Lactobacillus acidophilus 10 100 mmu cells PO DAILY [place] N 02/20/23 11/29/24 History billion cell capsule (Probiotic) SUPPLEMENT levothyroxine 75 mcg tablet 75 mcg PO DAILY 12/30/23 1 History tramadol 50 mg tablet 50 mg PO TID PRN pain Unknown History peg 3350-electrolytes 236 4,000 ml PO ONCE #4,000 mL 0 11/15/24 11/29/24 Rx gram-22.74 gram-6.74 gram-5.86 gram solution Gemtesa 75 mg tablet (vibegron) 75 mg PO QDAY #90 tabs 11/22/24 11/29/24 Rx CBD Oral (INFORMATIONAL USE 1 gum QHS 11/25/2411/17 History ONLY-PT USES ORAL CBD) Allergy/AdvReac Type Severity Reaction Status Date / Time albuterol Allergy Other Verified 11/25/24 17:35 gabapentin AdvReac Other Verified 11/25/24 17:35 Sulfa (Sulfonamide AdvReac Vomiting Verified 11/25/24 17:35 Antibiotics) Family History Father Myocardial infarction Leukemia Mother Hypertension Alzheimer disease Surgical History History of colonoscopy History of total left knee replacement (TKR) (~01/2024) Hx of cystoscopy Status post left hip replacement Salivary gland stone History of bunionectomy History of LAVH Social History household members: spouse number of children: 2 current occupational status: retired Smoking Status: Never smoker alcohol intake: current details: social substance use type: does not use caffeine: Yes what type of physical activity do you participate in: none seatbelt use: always do you feel safe at home: Yes additional social history: Ragini Benítez Past Medical/Surgical History Planned Operation Planned Operative Procedure(s): COLONOSCOPY S.O.S: No Previous Hospitalizations/Surgeries HX Hospitalizations: No HX of Surgeries: hYSTER, GALLBLADDER, APPENDECTOMY 01/2019 BUNIONECTOMY R FOOT 03/2018 R FOOT PLATE REMOVED Any Problems With Anesthesia: No You/Your Family Experience Fever (Hyperthermia) With Anes: No Cholinesterase deficiency: No Cardiovascular Hx Chest Pain within Last 2 months: No Hx of Irregular Heartbeat and/or Afib: No Hx Heart Attack: No Hx Congestive Heart Failure: No Hx Rheumatic Fever: No Hx Hypertension: No Hx Internal Defibrillator: No Hx Pacemaker: No Hx Cardiac Catheterization: No Hx Cardiac Surgery/Stents/Etc.: No Hx Stress Test: Yes (>5 YRS AGO) Hx Pain in Legs when Walking/Leg Cramps: No Respiratory Chronic Cough: No HX of Shortness of Breath: No Hoarseness: No Hx Chronic Obstructive Pulmonary Disease (COPD): No Hx Asthma: No Hx Emphysema: No Hx Sleep Apnea: No Hx Respiratory Tract Infection/Cold (presently): No Do You Snore Loudly (louder than talking or can be heard): No Do You Often Feel Tired/ Fatigued/ Sleepy Dring Daytime?: No Has Anyone Observed You Stop Breathing During Sleep?: No Result (for STOP score): Negative Hx Smoking: Yes Smoking Status: Never smoker Gastrointestinal Controlled With Meds: Yes Hx Gastrointestinal Disorders: Yes (DIVERTICULOSIS) Hx Gastrointestinal Bleed: No Hx Ulcer: No Hx Hiatal Hernia: No Difficulty Chewing/Swallowing: No Special diet followed at home: No Hx Unplanned Weight Loss of 20#: No HX Unplanned Weight Gain of 20#: No Neurological Hx Seizures: No HX Syncope/Blackout Spells/Unconsciousness: No Hx Transient Ischemic Attacks (TIA): No Hx Multiple Sclerosis: No Hx Parkinson's Disease: No Hx Head/Neck Injury: No Hx Headaches: Yes (MIGRAINES) Hx Back Injury/Pain: Yes (KYPHOSIS, FIBROMYALGIA) Recent Onset of Speech Difficulty: No Restless Legs: No Does patient have nerve stimulator: No Blood Disorder Hx Leukemia: No Bleeding Tendencies: No Hx Deep Vein Thrombosis: No Hx High Cholesterol: No Blood Transmitted Disease: No Hx Hepatitis: No Hx Cirrhosis: No Hx Anemia: No Hx Blood Disorders: No Reproduction : No Is Patient Lactating: No Hx Hysterectomy: No Hx Tubal Ligation: No Are You Post Menopause: Yes Genitourinary Hx Renal Disease: No Musculoskeletal Hx Arthritis: Yes Hx Rheumatoid Arthritis: Yes (RECENT DX) Hx Gout: No Recent Onset of an Orthopedic Problem: No Endocrine Hx Diabetes: No Thyroid Disease: Yes (ON MED) Hx Steroid Therapy: Yes Psycho/Social Hx Substance Use: No Hx Alcohol Use: No Hx Anxiety: Yes Hx Depression: Yes Mental Illness: No Hx Dementia: No Miscellaneous Hx Cancer: No Recent Exposure to Contagious Disease: No Hx of C-Diff: No Any Loose Teeth: No Allergies albuterol Allergy (Verified 11/25/24 17:35) Other gabapentin Adverse Reaction (Verified 11/25/24 17:35) Other Sulfa (Sulfonamide Antibiotics) Adverse Reaction (Verified 11/25/24 17:35) Vomiting Maternal: Family History Father Myocardial infarction Leukemia Mother Hypertension Alzheimer disease No pertinent history Discharge Is Pt Admitted From a Group Home, or a Assisted: No Who Could Help: After D/C, Where Do you Plan to Go: Return Home From the [facility] History Number of Risk Factors: 4 Vital Signs Vital Signs Vital Signs: 11/30/24 07:57 11/30/24 07:57 11/30/24 08:28 Temperature 97.2 F L 97.2 F L Temperature Source Temporal Pulse Rate 79 79 Respiratory Rate 16 16 Respiratory Pattern Normal Blood Pressure Source Monitor Blood Pressure Position Semi-Fowlers Blood Pressure Location Right Arm Pulse Ox 99 99 Oxygen Delivery Method Room Air Room Air Weight Weight: 173 lb 8.061 oz Body Mass Index (BMI) 28.8 Physical Exam Const alert and oriented x3 HEENT normocephalic Eyes PERRL Resp normal respiratory effort and normal air movement Cardio regular rate and regular rhythm GI soft to palpation, non-tender and non-distended Extremity normal to inspection Assessment & Plan Assessment/Plan (1) History of colon polyps: PLAN: Patient had a colonoscopy 5 years ago and polyps were removed. She is here for surveillance colonoscopy. I explained endoscopy in detail to the patient. I explained the risks including but not limited to stroke or heart attack with anesthesia, perforation of the GI tract, bleeding, infection. I explained that any of these could necessitate further emergency surgery. The patient understands and all questions were answered sufficiently. The patient wishes to proceed with procedure. Vinny Gould MD Pager: [facility] [address] [place] [address], [address] [place] [address] Office: Surgery Risks - Colonoscopy Risks Include but are not Limited To: Risks include but are not limited to: Bleeding, perforation requiring further surgery, inability to complete colonoscopy requiring barium enema.
--- NOTE | 2024-11-30 08:57 | OP.PROVAT_ITS ---
11/30/2024 Iesha Burciaga Md Re : Colonoscopy procedure for Letha Owusu Dear Gualberto This procedure was performed on Saturday, November 30, 2024. My impressions and recommendations are as follows: Impressions : - The entire examined colon is normal on direct and retroflexion views. - No specimens collected. Recommendations : - Discharge patient to home. - Resume previous diet. - Continue present medications. - Repeat colonoscopy is not recommended due to current age (66 years or older) for screening purposes. My findings are described in the full procedure note, which is enclosed. If I can be of further assistance, please feel free to contact me at Doctor phone number(s): , Work: . Sincerely, Vinny Gould MD 11/30/2024 8:56:40 AM This report has been signed electronically.
--- NOTE | 2024-11-30 08:57 | OP.COLON_ITS ---
Patient Name: Letha Owusu Procedure Date: 11/30/2024 8:32 AM Date of : 1950 Age: 74 Procedure: Colonoscopy Indications: High risk colon cancer surveillance: Personal history of colonic polyps Providers: Vinny Gould MD Referring MD: Iesha Burciaga Md Medicines: Propofol per Anesthesia Patient Profile: This is a 74 year old female. Refer to note in patient chart for documentation of history and physical. Last Colonoscopy: 5 years ago. Complications: No immediate complications. Procedure: Pre-Anesthesia Assessment: - Prior to the procedure, a History and Physical was performed, and patient medications and allergies were reviewed. The patient's tolerance of previous anesthesia was also reviewed. The risks and benefits of the procedure and the sedation options and risks were discussed with the patient. All questions were answered, and informed consent was obtained. Prior Anticoagulants: The patient has taken no anticoagulant or antiplatelet agents. After reviewing the risks and benefits, the patient was deemed in satisfactory condition to undergo the procedure. After I obtained informed consent, the scope was passed under direct vision. Throughout the procedure, the patient's blood pressure, pulse, and oxygen saturations were monitored continuously. The pediatric colonoscope was introduced through the anus and advanced to the cecum, identified by appendiceal orifice and ileocecal valve. The colonoscopy was performed without difficulty. The patient tolerated the procedure well. The quality of the bowel preparation was good. The ileocecal valve, appendiceal orifice, and rectum were photographed. Scope In: 8:41:58 AM Scope Withdrawal Time 0 hours 6 minutes 7 seconds Scope Out: 8:56:15 AM Total Procedure Duration Time 0 hours 14 minutes 17 seconds Findings: The entire examined colon appeared normal on direct and retroflexion views. Impression: - The entire examined colon is normal on direct and retroflexion views. - No specimens collected. Recommendation: - Discharge patient to home. - Resume previous diet. - Continue present medications. - Repeat colonoscopy is not recommended due to current age (66 years or older) for screening purposes. Procedure Code(s): --- Professional --- 53880, Colonoscopy, flexible; diagnostic, including collection of specimen(s) by brushing or washing, when performed (separate procedure) Diagnosis Code(s): --- Professional --- Z86.010, Personal history of colonic polyps CPT copyright 2021 [employer]. All rights reserved. The codes documented in this report are preliminary and upon sweep press operator review may be revised to meet current compliance requirements. Vinny Gould MD 11/30/2024 8:56:40 AM This report has been signed electronically. Number of Addenda: 0 Note Initiated On: 11/30/2024 8:32 AM
--- NOTE | 2024-11-30 09:08 | PCM.POST.ANE ---
Anesthesia: Postop Eval I Current Vital Signs Temperature: 97.8 F Pulse Rate: 78 Blood Pressure: 100/70 Respiratory Rate: 16 Pulse Ox: 95 Oxygen Delivery Method: Room Air Assessment Airway patent: Yes Spontaneous unlabored respirations: Yes Mental status: Awake and Calm nausea: No Vomiting: No Anesthesia Complication: No Fluid Hydration Crystalloid volume administer (ml): 500 Total IV fluid infused: 500 Progress Note Anesthesia document: Postop Eval 1 completed: Yes
--- NOTE | 2024-11-30 12:06 | PCM.POSTANE2 ---
Anesthesia Postop Eval I Sum Postop Eval Completion status Anesthesia document: Postop Eval 1 completed: Yes Anesthesia Postop Eval I Summary Anesthesia Postop Eval I Summary: Anesthesia Postop Eval I: Assessment Summary Airway patent Yes 11/30/24 09:09 [email or web address] Spontaneous unlabored Yes 11/30/24 09:09 [email or web address] respirations Mental status Awake,Calm 11/30/24 09:09 [email or web address] nausea No 11/30/24 09:09 [email or web address] Vomiting No 11/30/24 09:09 [email or web address] Anesthesia Postop Eval I: Fluid Summary Crystalloid volume administer 500 11/30/24 09:09 [email or web address] (ml) Colloids volume administered ( ml) Blood Product volume administered (ml) Total IV fluid infused 500 11/30/24 09:09 [email or web address] Anesthesia Postop Eval I: Summary Notes Anesthesia Complication No 11/30/24 09:09 [email or web address] Anesthesia Complication Comment: Post-operative progress note Anesthesia: Postop Eval II Evaluation Mental status: Awake and Calm Pain Level: 0 nausea: No Vomiting: No Complications Anesthesia Complication: No
== END 2024-11-30 09:41 | disposition home or self-care (01) ==
LOC: EN 07:35 → AC 07:36
PROVIDERS: PCP Family Medicine; Referring Provider Family Medicine; Visit Provider Surgery
PROC: 0DJD8ZZ Inspection of Lower Intestinal Tract, Via Natural or Artificial Opening Endoscopic (ICD-10-PCS; CPT 45378; principal; 2024-11-30 08:25)
DX: Z12.11 Encounter for screening for malignant neoplasm of colon (principal); K21.9 Gastro-esophageal reflux disease without esophagitis; K58.9 Irritable bowel syndrome, unspecified; Z86.0100 Personal history of colon polyps, unspecified; Z79.899 Other long term (current) drug therapy; Z79.890 Hormone replacement therapy
CPT/HCPCS: G0105; J2405

== ENCOUNTER 2025-02-04 14:17 | Inpatient (IN) | payer MEDICARE, SELFPAY ==
[2025-02-04] VITALS (14 sets, daily range): BP systolic 119–151; BP diastolic 76–125; PULSE 70–95; RESP 16–25; TEMP 36.2–37.1; O2SAT 96–100; BMI 28.6; BMI 30.7
--- NOTE | 2025-02-04 14:23 | ED.VIS.CHEST ---
HPI History of Present Illness Chief Complaint: Chest Pain Informant: patient and EMS Onset/Context/Timing Onset: Today Activity at onset: sudden Timing: Continuous Quality: Positive for Pressure Location: Substernal Worsened By: Nothing Relieved By: Nothing Associated Symptoms: Positive for Nausea, Vomiting, Diaphoresis and Dyspnea; Negative for Cough, Fever, Lightheadedness, Acid Reflux or Palpitations Narrative Narrative: Patient presents with chest pain that began today. Patient was sitting and watching TV when this began. Patient states began just prior to arrival. Patient called EMS. EMS obtained an EKG which showed inferior ST elevation. EMS administered 4 baby aspirin. Patient admits to some nausea and vomiting. Patient mitts to some shortness of breath and diaphoresis. Patient denies any cough or lightheadedness. Prior Similar Symptoms: No CVD Risk Factors: Positive for Family History 1' </=55; Negative for Hypertension, Diabetes, Hypercholesterolemia or Smoking [facility] Medical History Substance abuse Easy bruising Chronic cough Intrinsic (urethral) sphincter deficiency (ISD) Rectocele Vaginal atrophy Nocturnal enuresis Nocturia Mixed incontinence Overactive bladder Sjogren syndrome UTI (urinary tract infection) History of pain when walking Non-smoker Kyphoscoliosis Wears glasses Post-menopausal Depression Anxiety Alcohol use Thyroid disease Arthritis Ambulates with cane Bladder disease Restless legs Back pain Injury of head and neck History of IBS Gastric reflux Shortness of breath on exertion History of stress test Insomnia Anxiety Fibromyalgia Home Medications ?Medication ?Instructions ?Recorded ?Last Taken ?Type duloxetine 30 mg capsule,delayed 20 mg PO DAILY Mood 09/23/19 11/29/24 History release omeprazole 20 mg capsule,delayed 20 mg PO BID GERD 09/23/19 11/29/24 History release trazodone 100 mg tablet 150 mg PO QHS Sleep 09/23/19 03/10/24 History fluticasone propionate 50 2 spray intranasal DAILY PRN PRN 12/15/22 11/29/24 History mcg/actuation nasal allergies spray,suspension cholecalciferol (vitamin D3) 25 25 mcg PO DAILY Supplment #30 tabs 12/17/22 11/29/24 Rx mcg (1,000 unit) tablet Lactobacillus acidophilus 10 100 mmu cells PO DAILY PRN 02/20/23 11/29/24 History billion cell capsule (Probiotic) SUPPLEMENT levothyroxine 75 mcg tablet 75 mcg PO DAILY 12/30/23 11/29/24 History tramadol 50 mg tablet 50 mg PO TID PRN pain 10/13/24 Unknown History peg 3350-electrolytes 236 4,000 ml PO ONCE #4,000 mL 11/15/24 11/29/24 Rx gram-22.74 gram-6.74 gram-5.86 gram solution Gemtesa 75 mg tablet (vibegron) 75 mg PO QDAY #90 tabs 11/22/24 11/29/24 Rx CBD Oral (INFORMATIONAL USE 1 gum QHS 11/25/24 11/29/24 History ONLY-PT USES ORAL CBD) Allergy/AdvReac Type Severity Reaction Status Date / Time albuterol Allergy Other Verified 02/04/25 14:26 gabapentin AdvReac Other Verified 02/04/25 14:26 Sulfa (Sulfonamide AdvReac Vomiting Verified 02/04/25 14:26 Antibiotics) Family History Father Myocardial infarction Leukemia Mother Hypertension Alzheimer disease Surgical History History of colonoscopy History of total left knee replacement (TKR) (~01/2024) Hx of cystoscopy Status post left hip replacement Salivary gland stone History of bunionectomy History of LAVH Social History household members: spouse number of children: 2 current occupational status: retired Smoking Status: Never smoker alcohol intake: current details: social substance use type: does not use caffeine: Yes what type of physical activity do you participate in: none seatbelt use: always do you feel safe at home: Yes additional social history: Ragini DHILLON ED Constitutional Constitutional ED: Reports sweats; Denies chills or fever(s) Eyes Eyes: Denies blurry vision or change in vision ENT ENT ED: Denies rhinorrhea or sore throat Cardiovascular Cardiovascular: Reports chest pain; Denies palpitations Respiratory/Chest Respiratory/Chest: Reports dyspnea; Denies cough Gastrointestinal Gastrointestinal: Reports diarrhea, nausea and vomiting Genitourinary Genitourinary ED: Denies dysuria or hematuria Musculoskeletal Musculoskeletal: Denies back pain or neck pain Integumentary Denies abscess or rash Neurologic Neurologic: Denies headache(s) or weakness Allergic/Immunologic Allergic/Immunologic ED: Denies mouth swelling or urticaria EXAM Physical Exam Const Vital Signs: 02/04/25 14:18 02/04/25 14:18 02/04/25 14:19 Temperature 98.7 F Temperature Source Oral Pulse Rate 76 Respiratory Rate 18 Respiratory Effort Normal Blood Pressure 143/113 H Blood Pressure Mean Pulse Ox 99 Oxygen Delivery Method Room Air 02/04/25 14:19 02/04/25 14:30 Temperature Temperature Source Pulse Rate 73 Respiratory Rate 25 H Respiratory Effort Blood Pressure 143/113 H Blood Pressure Mean 123 Pulse Ox 99 Oxygen Delivery Method Room Air Room Air Positive well nourished and well developed Constitutional Narrative: BMI is 28.7. General Appearance ED: well developed and NAD HEENT Reports moist mucous membranes Neck supple and no JVD Resp normal respiratory effort and clear to auscultation bilaterally Cardio regular rate and regular rhythm GI soft to palpation, non-tender and non-distended Extremity normal to inspection General Extremety ED: Negative for edema or tenderness General Extremity: Negative for edema Neuro oriented x3, CN's II-XII intact bilaterally and no sensory deficits noted Sensorium / Orientation: awake and alert Motor Exam: strength 5/5 throughout Psych mental status grossly normal Heart Score History: Highly Suspicious ECG: Significant ST-Depression Age: >/= 65 years Risk Factors: 1 or 2 Risk Factors Score: 7 MDM MDM MDM Narrative Medical decision making narrative: EKG was obtained upon arrival. STEMI alert was called. Patient was given Brilinta and heparin. Case was discussed with computer forensic specialist, Dr. Turner. He will take the patient to the [facility]. Case was also discussed with the hospitalist, Dr. Montaño. She will admit the patient to her service after heart cath. Patient understands and is agreeable with the plan. All questions were answered. Lab Data Attestation: I reviewed the patient's lab results. Lab results narrative: CBC was reviewed. There is a mild leukocytosis of 13.5. Platelets were slightly elevated at 487. The remainder is within normal limits. PT with INR and PTT were reviewed. Pro time was 13.8 and INR is 1.0. PTT was greater than 250. (This was drawn shortly after heparin was administered). Basic metabolic profile was reviewed and showed a slightly elevated glucose of 129. The remainder is within normal limits. Initial high-sensitivity troponin was reviewed and was normal at 13. Serum magnesium level was reviewed and was slightly elevated at 2.7. proBNP was reviewed and was 86. Labs: Laboratory Results - last 24 hr 02/04/25 14:28 WBC 13.5 H RBC 5.40 Hgb 15.3 H Hct 45.6 MCV 84.4 MCH 28.3 MCHC 33.6 RDW Std Deviation 45.1 H RDW Coeff of Kristofer 14.8 H Plt Count 487 H MPV 9.9 Immature Gran % (Auto) 0.500 Neut % (Auto) 46.5 L Lymph % (Auto) 41.6 H Johnson % (Auto) 9.6 Eos % (Auto) 1.0 Baso % (Auto) 0.8 Absolute Neuts (auto) 6.3 Absolute Lymphs (auto) 5.61 H Nucleated RBC % 0 Differential Comment SCANNED Platelet Estimate ADEQUATE PT 13.8 INR 1.0 APTT > 250.0 H* Sodium 136 Potassium 3.6 Chloride 100 Carbon Dioxide 19.6 L Anion Gap 17 H BUN 11 Creatinine 1.08 Estim Creat Clear Calc 47.93 L Est GFR (MDRD) Non-Af 54 L BUN/Creatinine Ratio 10.0 Glucose 129 H Calcium 10.2 Magnesium 2.7 H Troponin T High Sens 13 NT pro BNP II 86 EKG Initial EKG: Attestation: I personally reviewed and interpreted this EKG as follows: Interpretation: Sinus Rhythm (66), S-T Elevation (Leads II, III, aVF) and S-T Depression (Leads I, aVL, V1, and V2) Comments: EKG was obtained. On my independent interpretation, shows normal sinus rhythm with a rate of 66. IN interval was normal at 182 ms. QRS and was normal at 66 ms. QTc interval was normal at 402 ms. There is borderline left axis deviation at -8. There is ST elevation in leads II, III, and aVF. There are reciprocal ST depressions noted in leads I, aVL, V1, and V2. Prior EKG tracings: available for review Prior: Changed (Compared to EKG dated 01/22/2024, the ST elevation is new.) Management Discussion w/another healthcare provider: Hospitalist and Chinese Medicine Practitioner Critical Care Time Critical care time (excluding procedures): 30-74 minutes (31), Including time spent:, Discussing w/Patient &/or Family/Lehr Cutter, Discussing w/Consultants, Arranging Admission or Transfer and Performing Direct Patient Care at Bedside Discharge Plan Dx/Rx/DC Orders Clinical Impression: Acute ST elevation myocardial infarction (STEMI), Fibromyalgia, Hypothyroidism Disposition Disposition: Acute Care Hospital [facility] Discharge Date/Time: 02/04/25 14:54
[2025-02-04] MEDS: TICAGRELOR 90 MG TABLET 180 MG PO (14:24)
[2025-02-04] MEDS: Heparin Injection (Vial) 5,000 UNIT/ML VIAL 4000 UNIT IV (14:24)
--- NOTE | 2025-02-04 14:30 | EKG12_ITS ---
Test Reason : CP Blood Pressure : */* mmHG Vent. Rate : 66 BPM Atrial Rate : 66 BPM P-R Int : 182 ms QRS Dur : 66 ms QT Int : 384 ms P-R-T Axes : -1 -8 89 degrees QTcB Int : 402 ms Critical Test Result: STEMI Undetermined rhythm Inferior-posterior infarct , possibly acute T wave abnormality, consider lateral ischemia ACUTE CO / STEMI Consider right ventricular involvement in acute inferior infarct Abnormal ECG artifact possible afib Reconfirmed by Montana Turner ([id number]), film or videotape editor MELISSA ROBINS ([id number]) on 02/07/2025 10:18:30 AM Also confirmed by Montana Turner ([id number]), film or videotape editor MELISSA ROBINS ([id number]) on 02/08/2025 8:15:33 AM Referred By: Montana Turner Confirmed By: Montana Turner
--- NOTE | 2025-02-04 14:36 | CPS ---
At 1415 This RT received phone call for possible stemi by EMS, Arrived bedside at arrival of patient with Dr. Montero was bedside when EKG was ran with a STEMI, he called STEMI overhead at the same time. Dr. Montero was handed EKG.
[2025-02-04 14:40] LABS: Hematocrit 45.6 % (37-47); Hemoglobin 15.3 g/dL (12.0-15.0); Immature Granulocytes Count 0.070 X10^3/uL (0.0-0.0); Mean Corp Hgb Conc 33.6 g/dL (32-36); Mean Corpuscular Volume 84.4 fL (81-99); Mean Platelet Vol. 9.9 fl (6.2-12.0); NRBC Flagged by Analyzer 0 % (0-5); POSITIVE DIFFERENTIAL YES; Platelet Count 487 K/mm3 (150-450); RBC Distribution Width CV 14.8 % (11.6-14.6); RBC Distribution Width SD 45.1 fl (35.1-43.9); Red Blood Count 5.40 M/mm3 (4.2-5.4); White Blood Count 13.5 K/mm3 (4.4-11.0)
--- NOTE | 2025-02-04 14:41 | HP.PCM.HOS_ITS ---
HPI - General General Date of Admission: 02/04/25 Date of Service: 02/04/25 Chief Complaint: Chest pain HPI Narrative GALLO STEELE, is a 74 F with a history of hypothyroidism, GERD, anxiety, overactive bladder who presented [facility] ED 02/04/2025 due to chest pressure that started suddenly when watching TV. She printed scented to the ED and was a STEMI alert due to EKG changes consistent with inferior wall GA. Initial vitals temp 98.7, heart rate 76, blood pressure 143/113, respiratory rate 18 pulse ox 99% on room air. Hospitalist contacted for admission. Lab workup pending however patient seen in the ED prior to going to the [facility]. She reports still having chest pressure and shortness of breath, slightly better than it was but still significant. Notes that she was just sitting there watching TV when she developed the chest pressure and had associated significant sweats, shortness of breath, she also had nausea and had emesis prior to arrival to the hospital. ROS reviewed and only other thing she reported was a little bit of diarrhea earlier today. No other new or acute complaints. Denies tobacco use, denies alcohol or drug use. Does have family history of heart disease in her father at a young age but denies any personal history of hypertension or hyperlipidemia. [facility] Medical History Substance abuse Easy bruising Chronic cough Intrinsic (urethral) sphincter deficiency (ISD) Rectocele Vaginal atrophy Nocturnal enuresis Nocturia Mixed incontinence Overactive bladder Sjogren syndrome UTI (urinary tract infection) History of pain when walking Non-smoker Kyphoscoliosis Wears glasses Post-menopausal Depression Anxiety Alcohol use Thyroid disease Arthritis Ambulates with cane Bladder disease Restless legs Back pain Injury of head and neck History of IBS Gastric reflux Shortness of breath on exertion History of stress test Insomnia Anxiety Fibromyalgia Home Medications ?Medication ?Instructions ?Recorded ?Last Taken ?Type duloxetine 30 mg capsule,delayed 20 mg PO DAILY Mood 0 09/23/19 11/29/24 History release omeprazole 20 mg capsule,delayed 20 mg PO BID GERD 08/0611/29/24 History release trazodone 100 mg tablet 150 mg PO QHS Sleep 09/23/19 03/10/24 History fluticasone propionate 50 2 spray intranasal DAILY PRN PRN 12/15/22 11/29/24 History mcg/actuation nasal allergies spray,suspension cholecalciferol (vitamin D3) 25 25 mcg PO DAILY Supplm ent #30 tabs 12/17/22 11/29/24 Rx mcg (1,000 unit) tablet Lactobacillus acidophilus 10 100 mmu cells PO DAILY DC N 02/20/23 11/29/24 History billion cell capsule (Probiotic) SUPPLEMENT levothyroxine 75 mcg tablet 75 mcg PO DAILY 12/30/23 1 History tramadol 50 mg tablet 50 mg PO TID PRN pain Unknown History peg 3350-electrolytes 236 4,000 ml PO ONCE #4,000 mL 0 11/15/24 11/29/24 Rx gram-22.74 gram-6.74 gram-5.86 gram solution Gemtesa 75 mg tablet (vibegron) 75 mg PO QDAY #90 tabs 11/22/24 11/29/24 Rx CBD Oral (INFORMATIONAL USE 1 gum QHS 11/25/2411/17 History ONLY-PT USES ORAL CBD) Allergy/AdvReac Type Severity Reaction Status Date / Time albuterol Allergy Other Verified 02/04/25 14:26 gabapentin AdvReac Other Verified 02/04/25 14:26 Sulfa (Sulfonamide AdvReac Vomiting Verified 02/04/25 14:26 Antibiotics) Family History Father Myocardial infarction Leukemia Mother Hypertension Alzheimer disease Surgical History History of colonoscopy History of total left knee replacement (TKR) (~01/2024) Hx of cystoscopy Status post left hip replacement Salivary gland stone History of bunionectomy History of LAV Social History household members: spouse number of children: 2 current occupational status: retired Smoking Status: Never smoker alcohol intake: current details: social substance use type: does not use caffeine: Yes what type of physical activity do you participate in: none seatbelt use: always do you feel safe at home: Yes additional social history: Ragini DHILLON ROS Narrative General: Denies fever/chills HENT: Denies headache, denies stuffy nose, denies sore throat EYES: Denies changes in vision Resp: Denies cough, shortness of breath since this began Cardiac: Substernal chest pressure GI: Denies abdominal pain, little bit of diarrhea this morning, nausea with emesis prior to arrival : Denies changes in urination Extremity: Denies swelling MSK: Denies weakness Neuro: Does get a little bit of tingling in her fingers and toes when she goes to bed but patient anxious and uncomfortable and unable to give further information Heme: Denies any bleeding or bruising Skin: Denies rashes Psychiatric: No complaints voiced Patient's Goals Of Care . What would you like to achieve or improve as a result of your hospital stay?: I mprovement of symptoms Vital Signs Vital Signs Vital Signs: 02/04/25 14:18 02/04/25 14:18 02/04/25 14:19 Temperature 98.7 F Temperature Source Oral Pulse Rate 76 Respiratory Rate 18 Respiratory Effort Normal Blood Pressure 143/113 H Blood Pressure Mean Pulse Ox 99 Oxygen Delivery Method Room Air 02/04/25 14:19 02/04/25 14:30 Temperature Temperature Source Pulse Rate 73 Respiratory Rate 25 H Respiratory Effort Blood Pressure 143/113 H Blood Pressure Mean 123 Pulse Ox 99 Oxygen Delivery Method Room Air Room Air Weight Weight: 78.1 kg Body Mass Index (BMI) 28.6 Physical Exam Narrative General: Alert, oriented, appears anxious and uncomfortable HEENT: Atraumatic, normocephalic Eyes: Anicteric, normal conjunctiva, extraocular movements grossly intact Neck: Supple Respiratory: Clear to auscultation bilaterally, normal respiratory effort Cardiovascular: Regular rate and rhythm GI: Soft, nontender, nondistended Extremities: No edema Musculoskeletal: Moving all extremities Neuro: No overt focal neurological deficits Skin: No rashes appreciated Psych: Anxious Results Lab / Micro Data 02/04/25 14:28 02/04/25 14:28 Assessment & Plan Assessment/Plan (1) Acute ST elevation myocardial infarction (STEMI): PLAN: Plan #STEMI - Patient presented with substernal chest pressure that began suddenly and EKG changes consistent with inferior wall GA/STEMI - Patient was a STEMI alert, cardiology contacted and patient to go to the [facility] imminently - Patient given aspirin, heparin, Brilinta - Post-cath management per cardiology pending findings - Patient will be admitted to the ICU and monitored on telemetry postcatheterization #Hypothyroidism -Continue Synthroid #GERD -Continue PPI # Anxiety - Continue home medications # Overactive bladder - Follows with Dr. Grayson on an outpatient basis - Continue home medications #DVT ppx: SCDs Kathi Montaño MD Charges/Coding Visit Charges Inpatient E&M: 76877 Init Hosp L2
[2025-02-04 14:46] LABS: Differential Indicated SCAN CRITERIA MET
[2025-02-04 14:47] LABS: Prothrombin Time (Protime)PT. 13.8 SECONDS (11.7-14.9)
[2025-02-04 14:57] LABS: Troponin T High Sensitivity 13 ng/L (<=14)
[2025-02-04 15:00] LABS: Anion Gap 17 (5-15); BUN 11 mg/dL (4-19); BUN/Creat Ratio 10.0 RATIO (10-20); Calcium,Total 10.2 mg/dL (7.6-11.0); Carbon Dioxide 19.6 mmol/L (21.0-32.0); Chloride 100 mmol/L (98-108); Estimated Creatinine Clearance 47.93 ml/min (50-250); Glucose 129 mg/dL (70-99); Magnesium 2.7 mg/dL (1.5-2.2); Potassium 3.6 mmol/L (3.3-5.1); Pro- Brain NATRIURETIC PEPTIDE 86 pg/mL (<=900)
--- NOTE | 2025-02-04 15:14 | CM.ED ---
Social work Reason for referral: stemi alert SW responded to the STEMI alert called in the ED. Patient had no family present when SW checked in and patient was taken to laboratory geneticist. SW handoff via email to acute SW team. Gi Jacobs, TRANSFORMER BUILDER, FULFILLMENT REPRESENTATIVE
[2025-02-04 15:42] LABS: Differential Comment SCANNED
--- NOTE | 2025-02-04 16:31 | PCI.CARDCATH ---
PCI Cardiac Cath Report PCI Report: Procedure indications. 74-year-old female past medical history noted for hypertension, hyperlipidemia, GERD, hypothyroidism presenting for urgent catheterization in the setting of STEMI. Procedures performed: 1. Ultrasound guided vascular access 2. Left heart catheterization 3. Coronary angiography 4. IVUS of the RCA 6. PCI of the RCA with 2.75x24 Jeff BRAXTON post dilated to 3.25 Patient is brought back to the Bobbin Collector draped in usual sterile fashion the region of the right wrist was anesthetized using lidocaine fluid and a seizure 10X and a 6 [place] sheath was inserted to the right radial artery. 5 [place] JL 4 catheter advanced over wire into the left ventricle LVEDP was obtained pullback performed this catheter since the left coronary ostium and coronary chart for the informed. Attempted to see a 6 [place] JR 4 guide in the right coronary ostium however there is significance of living tortuous and the patient was agitated repeatedly moving her hands and arms. Attempted to see a 6 [place] AR-1 guide catheter and due to concerns of patient safety due to repeated hand motions movement and and able to lay still with her head decision made to proceed with femoral artery access. Using ultrasound guidance, leg and foot anesthesia, micropuncture needle obtain x-ray of the right comfortable artery 6 [place]an sheath inserted we then advanced a 6 [place] AR-1 guide this could not be seated this was then removed and a 6 [place] JR4 guide catheter see the right coronary ostium.Patient had dislodged the sheath in the right radial artery, a TR band was placed with adequate hemostasis. Selective angiography then performed. Advanced a run-through wire into the right coronary artery. Advanced a 2.5 x 15 NC balloon serial flexions performed up to 16 annette. This balloon was removed. Advanced an IVUS catheter and pullback was performed from the R PDA into the RCA ostium. Advanced a run-through wire into the RPL And advanced a 2.75 x 34 Jeff BRAXTON over the wire extending to the RPL Deployed with inflations up to 16 annette. Advanced a 3.0 x 15 NC balloon serial flexion performed throughout the stent postdilated up to 3.25 Repeat IVUS showed good stent apposition and expansion no dissections at the edges Final angiography showed good stent apposition expansion, no perforation dissections EDGARD III flow throughout. EDGARD I flow prior to intervention. Limited femoral angiography showed sheath placement minimal to vascular closure device. The sheath was removed and a 6 [place]an Perclose was deployed with adequate hemostasis. Findings: 1. Left main: Short vessel that bifurcates to LAD and LCx, no angiographically significant disease 2. LAD: Large caliber vessel that gives rise a to a large branching diagonal branch. Discal LAd with diffuse 70% stenosis 3. Left circumflex: Moderate caliber vessel that terminates into a branching PL system. PL2 with 70% proximal disease, however small caliber distally. PL1 tortuous with a segment of 70-80% stenosis 4. RCA: Moderate caliber vessel that gives rise to a large PL and a PDA. The PDA is tortuous with multiple segments of 70-80% diffuse disease. There is a 99% stenosis of the mid RCA prior to the bifurcation, s/p IVUS guided PCI 2.75x34 Hasty BRAXTON postdilated to 3.25 LVEDP: 20 Conclusions and plan: 1. Bed rest for 2 hours 2. Routine post-STEMI care, including TTE, respiratory status monitoring, and telemtry 3. DAPT with ASA and ticagrelor at least 6 months 4. Followup in cardiology clinic for consideration of staged PCI, however, with small vessels, difficult to ascertain feasibility 5. initiation of GDMT, aggressive lipid lowering therapy.
[2025-02-04 16:35] LABS: ACT Activated Clotting Time 322 sec (74-137)
[2025-02-04 16:35] LABS: ACT Activated Clotting Time 271 sec (74-137)
--- NOTE | 2025-02-04 16:40 | CRPHASE1 ---
Patient Communication Patient Information Former Patient:: Phase I PHII Cardiac Rehab Discussed with Patient:: Yes Guide to Cardiac Rehab Given to Patient:: Yes Cardiac Rehab Facility Choice List Given to Patient:: Yes Communication to Cardiac Rehab Choice Program [facility] CR PHII:: Communication Given to CR Choice Program Other:: Communication Given to CR Autocad Electrical Designer:: Montana Turner Sessions:: 36 sessions - 3 days/wk, 12 weeks Cardiac Rehabilitation Info Program Information Cardiac Rehabilitation Program Information: Cardiac Rehab The cardiac rehab team at [facility] consists of highly skilled exercise physiologists, nurses, respiratory therapists and physicians working together with you. Our purpose is to help you have a full recovery and achieve the goals you set for yourself. Over the years many of our patients have returned to activities they assumed they would never do again! We can help restore your confidence and motivation to make lifestyle changes that can have a significant impact on your health and quality of life! We can help answer questions and concerns you may have about exercise, lifestyle, medications, diet, stress and anxiety which are common following a hospitalization. WE monitor ECG and vital signs during exercise and discuss your progress with you and report to your physician(s). Cardiac Rehab is proven to help reduce readmissions, improve functional capacity and lower recurrence of problems with your heart. Our Cardiac Rehab program is Certified by the [place] [employer]-Vascular and Pulmonary [employer] (AACVPR) and Accredited by the [place] [employer] through our [facility]. You can contact us at . We invite you to call us with your questions or to get started in our program. If you have other questions or concerns be sure to ask your physician/provider during your follow-up visit. WE look forward to seeing you!
--- NOTE | 2025-02-04 16:40 | CRPH1.INSTRU ---
General Education Discussed with Patient CAD and cardiac anatomy and function:: Needs reinforcement Explanation of diagnoses and procedures:: Needs reinforcement Sign/Symptoms of NM:: Needs reinforcement Antiplatelet therapy: Needs reinforcement Proper use of NTG-SL: Needs reinforcement Emergency procedures and activation of EMS: Needs reinforcement Compliance of all prescribed medications: Needs reinforcement Smoking Risk Factors Patient Nicotine/Smoking Risk Factors Are:: Never smoked Recommendations Recommendations Include:: Second-hand smoke recommendation Response Code Nicotine/Smoking Response Code:: Needs reinforcement Dyslipidemia Recommendations Recommendations Include:: Lipid profile not available Response Code Dyslipidemia Response Code:: Needs reinforcement Overweight/Obesity Risk Factors Patient Overweight/Obesity Risk Factors Are:: BMI Normal [24-29 & > 65 years old] Response Code Overweight/Obesity:: Needs reinforcement Hypertension Risk Factors Patient Hypertension Risk Factors Are:: No documented hx of HTN Response Code Hypertension:: Needs reinforcement Heart Disease Recommendations Recommendations Include:: Educated family members of their risk Response Code Heart Disease Response Code:: Family returns demonstration Diabetes Risk Factors Patient Diabetes Risk Factors Are:: No documented hx of diabetes Response Code Diabetes:: Needs reinforcement Metabolic Syndrome Recommendations Recommendations Include:: Does not meet criteria Sedentary Recommendations Recommendations Include:: Monitored Outpatient Cardiac Rehab Response Code Sedentary Response Code:: Needs reinforcement Stress Recommendations Recommendations Include:: Identification of stressors, and assessment of coping skills and Stress management techniques Response Code Stress Response Code:: Needs reinforcement
--- NOTE | 2025-02-04 17:05 | ECQM.STEMI ---
STEMI STEMI ED Door Time / Other REG STEMI EKG Time (1) ST elevation (STEMI) myocardial infarction involving right coronary artery: Acute 02/04/25 14:17 Balloon/Aspiration Date-Time Date of Balloon/Aspiration:: 02/04/25 Time of Balloon/Aspiration:: 15:23
--- NOTE | 2025-02-04 18:19 | ECHOD_ITS ---
Reason For Study Reason For Study: post stemi Procedure This was a 2D Doppler, Color Flow transthoracic echocardiogram. Exam performed portable in ICU/CCU. Left Ventricle Mild concentric left ventricular hypertrophy. The LV ejection fraction is 55 %. Inferior Halfway : Hypokinetic. Right Ventricle Normal right ventricle. Normal systolic function. Atria The left and right atria are normal. Mitral Valve The mitral valve is structurally normal. No prolapse or stenosis seen. Trivial mitral valve insufficiency. Tricuspid Valve Normal tricuspid valve. Trivial tricuspid valve insufficiency. Aortic Valve Trisinus/trileaflet aortic valve. There is no aortic stenosis. Pulmonic Valve The pulmonic valve is not well visualized. No eccentric pulmonic valve insufficiency. Great Vessels Normal inferior vena cava. Pericardium/Pleural No pericardial effusion. MMode/2D Measurements & Calculations RVDd: 2.9 cm LAV(MOD-bp): 23.5 ml LVAd ap4: 18.5 cm2 LAV(MOD-bp) Indexed: 12.8 ml/m2 LVLd ap4: 7.4 cm LAV(MOD-sp2): 27.9 ml EDV(MOD-sp4): 39.4 ml LAV(MOD-sp4): 19.8 ml EDV(sp4-el): 39.5 ml LVAs ap4: 7.9 cm2 LVLs ap4: 5.8 cm ESV(MOD-sp4): 9.4 ml ESV(sp4-el): 9.3 ml EF(MOD-sp4): 76.3 % EF(sp4-el): 76.5 % SV(MOD-sp4): 30.0 ml SV(sp4-el): 30.2 ml LA A4 area: 11.5 cm2 SI(MOD-sp4): 16.4 ml/m2 RA A4 area: 7.7 cm2 Time Measurements MV dec time: 0.37 sec Doppler Measurements & Calculations MV E max robert: 78.1 cm/sec Lat Peak E' Robert: 9.5 cm/sec MV V2 max: 120.6 cm/sec MV A max robert: 111.8 cm/sec E/E' lat: 8.2 MV max P.8 mmHg MV E/A: 0.70 MV V2 mean: 65.7 cm/sec MV mean P.0 mmHg MV V2 VTI: 25.6 cm MV dec slope: 214.0 cm/sec2 Ao V2 max: 147.5 cm/sec LV V1 max: 122.8 cm/sec Ao max P.7 mmHg LV V1 max P.0 mmHg Ao V2 mean: 93.4 cm/sec LV V1 mean P.6 mmHg Ao mean P.2 mmHg LV V1 mean: 73.8 cm/sec Ao V2 VTI: 24.0 cm LV V1 VTI: 21.1 cm AV (velocity ratio): 0.88 ECHO/Echo Complete Interpretation Summary Mild concentric left ventricular hypertrophy. The LVEF is 55%. There is subtle hypokinesis of the distal inferior wall. Normal RV systolic function. No pericardial effusion. Ordering Physician: Kathi Montaño Referring Physician: Montana Turner Performed By: Amelia Bagley RCS
[2025-02-04] MEDS: TICAGRELOR 90 MG TABLET PO (21:00)
[2025-02-04] MEDS: MELATONIN 10 MG TABLET PO (21:07)
--- NOTE | 2025-02-04 21:15 | NURSING ---
2044- assisted patient with 2 assist to [facility]. Patient hard to direct/ having trouble following commands and seemingly restless. When asked patient able to tell this RN her own name, and location but unsure of year. This RN privately asked if patient had ever been diagnosed with parkinsons/ dementia. informed me that the patient had testing previously for parkinsons and dementia but the tests were negative. 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 The did inform me that she has had 1 fall where she fell onto bed at home within the last 2 months.
--- NOTE | 2025-02-04 23:19 | PCM.HOSP.N ---
Hospitalist Note Pt c/o not being able to sleep d/t pain from fibromyalgia. She states, Tylenol does nothing for me. I used CBD oil at home and this helps greatly. I am open to trying oxy. Reviewed allergies, I ordered tramadol 50mg PO q6h PRN pain 6-10 and tizanidine 2mg PO q12h PRN spasm/pain.
[2025-02-04] MEDS: Sodium Chloride 0.65% 1 SPRAY SPRAY.BTL NASAL (23:46)
[2025-02-05] VITALS (16 sets, daily range): BP systolic 92–134; BP diastolic 61–82; PULSE 65–91; RESP 15–23; TEMP 36.4–37; O2SAT 96–100; BMI 28.7
[2025-02-05 01:40] LABS: Partial Thromboplast Time > 250.0 Seconds (24.1-36.2)
[2025-02-05 03:50] LABS: Hematocrit 36.3 % (37-47); Hemoglobin 12.3 g/dL (12.0-15.0); Immature Granulocytes Count 0.110 X10^3/uL (0.0-0.0); Mean Corp Hgb Conc 33.9 g/dL (32-36); Mean Corpuscular Volume 83.4 fL (81-99); Mean Platelet Vol. 10.0 fl (6.2-12.0); NRBC Flagged by Analyzer 0 % (0-5); Platelet Count 401 K/mm3 (150-450); RBC Distribution Width CV 14.8 % (11.6-14.6); RBC Distribution Width SD 44.6 fl (35.1-43.9); Red Blood Count 4.35 M/mm3 (4.2-5.4); White Blood Count 17.3 K/mm3 (4.4-11.0)
[2025-02-05 04:20] LABS: Anion Gap 13 (5-15); BUN 11 mg/dL (4-19); BUN/Creat Ratio 12.1 RATIO (10-20); Calcium,Total 9.1 mg/dL (7.6-11.0); Carbon Dioxide 19.0 mmol/L (21.0-32.0); Chloride 101 mmol/L (98-108); Estimated Creatinine Clearance 55.72 ml/min (50-250); Glucose 127 mg/dL (70-99); Potassium 4.2 mmol/L (3.3-5.1)
--- NOTE | 2025-02-05 05:54 | NURSING ---
0519- patient hit call light and stated that there was something beeping in her room and she couldn't stand it. This RN to bedside. Patient Spo2 monitor had been removed and the monitoring and evaluation advisor was beeping due to spo2 not reading. I informed the patient the monitor was beeping because she had removed the spo2 monitor and it couldn't read her pulse ox. Patient stated I know I don't want it. I attempted to educate patient on the importance of monitoring her blood oxygen level after having a stemi and ICU protocols. Patient refused further pulse ox monitoring. Will continue to monitor.
[2025-02-05 08:38] LABS: Cholesterol 176 mg/dL (<=200); Low Density Lipoprotein Calc. 102 mg/dL; Triglycerides 176 mg/dL; Very Low Density Lipoprotein 35 mg/dL (5-40); cholesterol:hdl ratio screen 4.08
--- NOTE | 2025-02-05 10:08 | PCM.CONS.C ---
Assessment & Plan Assessment/Plan (1) ST elevation (STEMI) myocardial infarction involving right coronary artery: (2) Mixed hyperlipidemia: PLAN: Plan DAPT with ASA / Ticagrelor for at least 6 months Metoprolol tartrate 12.5mg BID not started on ELIECER/ARB due to low BP, can revisit this as outpatient atorvastatin 40mg started Homegoing cardiac med rec (will need new prescriptions for all of these): -Metoprolol tartrate 12.5mg BID -Aspirin 81mg daily -ticagrelor 90mg BID -atorvastatin 40mg daily -followup in cardiology clinic in 1-2 weeks HPI Consult Data Date of Consult: 02/05/25 HPI Narrative Reason for Consultation: STEMI HPI Narrative: 74 y/o F PMH HTN DLD fibromyalgia, hypothyroidism, presented with chief complaint of sudden onset chest pain, found to have inferior stemi. S/p urgent catheterization and PCI of subtotally occluded RCA with 2.75x34 BRAXTON post-dilated to 3.25. She has residual disease. Patient states prior to this, did not have any CP or TELLEZ. Has fibromyalgia and fatigue, and had difficulty sleeping overnight. No complaints this AM, chest pain completely resolved. No events on telemetry overnight. Discussed importance of med management and adherence. All questions answered. [facility] Medical History Substance abuse Easy bruising Chronic cough Intrinsic (urethral) sphincter deficiency (ISD) Rectocele Vaginal atrophy Nocturnal enuresis Nocturia Mixed incontinence Overactive bladder Sjogren syndrome UTI (urinary tract infection) History of pain when walking Non-smoker Kyphoscoliosis Wears glasses Post-menopausal Depression Anxiety Alcohol use Thyroid disease Arthritis Ambulates with cane Bladder disease Restless legs Back pain Injury of head and neck History of IBS Gastric reflux Shortness of breath on exertion History of stress test Insomnia Anxiety Fibromyalgia Home Medications ?Medication ?Instructions ?Recorded ?Last Taken ?Type duloxetine 30 mg capsule,delayed 20 mg PO DAILY Mood 09/23/19 11/29/24 History release omeprazole 20 mg capsule,delayed 20 mg PO BID GERD 09/23/19 11/29/24 History release trazodone 100 mg tablet 150 mg PO QHS Sleep 09/23/19 03/10/24 History fluticasone propionate 50 2 spray intranasal DAILY PRN PRN 12/15/22 11/29/24 History mcg/actuation nasal allergies spray,suspension cholecalciferol (vitamin D3) 25 25 mcg PO DAILY Supplment #30 tabs 12/17/22 11/29/24 Rx mcg (1,000 unit) tablet Lactobacillus acidophilus 10 100 mmu cells PO DAILY PRN 02/20/23 11/29/24 History billion cell capsule (Probiotic) SUPPLEMENT levothyroxine 75 mcg tablet 75 mcg PO DAILY 12/30/23 11/29/24 History tramadol 50 mg tablet 50 mg PO TID PRN pain 10/13/24 Unknown History peg 3350-electrolytes 236 4,000 ml PO ONCE #4,000 mL 11/15/24 11/29/24 Rx gram-22.74 gram-6.74 gram-5.86 gram solution Gemtesa 75 mg tablet (vibegron) 75 mg PO QDAY #90 tabs 11/22/24 11/29/24 Rx CBD Oral (INFORMATIONAL USE 1 gum QHS 11/25/24 11/29/24 History ONLY-PT USES ORAL CBD) Allergy/AdvReac Type Severity Reaction Status Date / Time albuterol Allergy Other Verified 02/04/25 14:26 gabapentin AdvReac Other Verified 02/04/25 14:26 Sulfa (Sulfonamide AdvReac Vomiting Verified 02/04/25 14:26 Antibiotics) Family History Father Myocardial infarction Leukemia Mother Hypertension Alzheimer disease Surgical History History of colonoscopy History of total left knee replacement (TKR) (~01/2024) Hx of cystoscopy Status post left hip replacement Salivary gland stone History of bunionectomy History of [facility] Social History household members: spouse number of children: 2 current occupational status: retired Smoking Status: Never smoker alcohol intake: current details: social substance use type: does not use caffeine: Yes what type of physical activity do you participate in: none seatbelt use: always do you feel safe at home: Yes additional social history: Ragini Benítez Physical Exam Narrative Gen NAD a/ox3 neck no jvd cardio s1 s2 normal, no murmur resp CTAB extrem: R Wrist w palpable pulse, bruising present, brisk capillary refill. Right groin site c/d/i Charges/Coding Visit Charges Inpatient E&M: 04169 Init Hosp L2 Objective Data Vital Signs: Vital Signs Temp Pulse Resp BP Pulse Ox O2 Del Method 98.1 F 72 23 H 134/64 H 97 Room Air 02/05/25 04:00 02/05/25 07:00 02/05/25 07:00 02/05/25 07:00 02/05/25 05:00 02/05/25 05:00 Oxygen Delivery Method Room Air Weight: 172 lb 6.424 oz Body Mass Index (BMI) 28.7 Intake & Output: Intake and Output for Last 24 Hours 02/03/25 02/04/25 02/05/25 23:59 23:59 23:59 Intake Total 0 / 0 Output Total 0 / 0 0 / 0 Balance 0 / 0 0 / 0 Lab / Micro Data 02/05/25 03:44 02/05/25 03:44 Labs: Laboratory Results - last 24 hr 02/04/25 14:28: WBC 13.5 H, RBC 5.40, Hgb 15.3 H, Hct 45.6, MCV 84.4, MCH 28.3, MCHC 33.6, RDW Std Deviation 45.1 H, RDW Coeff of Kristofer 14.8 H, Plt Count 487 H, MPV 9.9, Immature Gran % (Auto) 0.500, Neut % (Auto) 46.5 L, Lymph % (Auto) 41.6 H, Heard % (Auto) 9.6, Eos % (Auto) 1.0, Baso % (Auto) 0.8, Absolute Neuts (auto) 6.3, Absolute Lymphs (auto) 5.61 H, Nucleated RBC % 0, Differential Comment SCANNED, Platelet Estimate ADEQUATE, PT 13.8, INR 1.0, APTT > 250.0 H*, Sodium 136, Potassium 3.6, Chloride 100, Carbon Dioxide 19.6 L, Anion Gap 17 H, BUN 11, Creatinine 1.08, Estim Creat Clear Calc 47.93 L, Est GFR (MDRD) Non-Af 54 L, BUN/Creatinine Ratio 10.0, Glucose 129 H, Calcium 10.2, Magnesium 2.7 H, Troponin T High Sens 13, NT pro BNP II 86 02/04/25 15:03: Activated Clotting Time 271 H 02/04/25 15:20: Activated Clotting Time 322 H 02/05/25 03:44: WBC 17.3 H, RBC 4.35, Hgb 12.3, Hct 36.3 L, MCV 83.4, MCH 28.3, MCHC 33.9, RDW Std Deviation 44.6 H, RDW Coeff of Kristofer 14.8 H, Plt Count 401, MPV 10.0, Immature Gran % (Auto) 0.600, Neut % (Auto) 71.1 H, Lymph % (Auto) 20.0, Heard % (Auto) 7.6, Eos % (Auto) 0.2, Baso % (Auto) 0.5, Absolute Neuts (auto) 12.3 H, Absolute Lymphs (auto) 3.46, Nucleated RBC % 0, Sodium 133, Potassium 4.2, Chloride 101, Carbon Dioxide 19.0 L, Anion Gap 13, BUN 11, Creatinine 0.91, Estim Creat Clear Calc 55.72, Est GFR (MDRD) Non-Af 67, BUN/Creatinine Ratio 12.1, Glucose 127 H, Calcium 9.1, Triglycerides 176, Cholesterol 176, LDL Cholesterol, Calc 102, VLDL Cholesterol 35, HDL Cholesterol 43, Cholesterol/HDL Ratio 4.08, TSH 3.240 Cardiology Labs/Tests 02/04/25 14:28: WBC 13.5 H, RBC 5.40, Hgb 15.3 H, Hct 45.6, MCV 84.4, MCH 28.3, MCHC 33.6, Plt Count 487 H, MPV 9.9, Immature Gran % (Auto) 0.500, Neut % (Auto) 46.5 L, Lymph % (Auto) 41.6 H, Heard % (Auto) 9.6, Eos % (Auto) 1.0, Baso % (Auto) 0.8, Absolute Neuts (auto) 6.3, Nucleated RBC % 0, PT 13.8, INR 1.0, APTT > 250.0 H*, Sodium 136, Potassium 3.6, Chloride 100, Carbon Dioxide 19.6 L, Anion Gap 17 H, BUN 11, Creatinine 1.08, Est GFR (MDRD) Non-Af 54 L, BUN/Creatinine Ratio 10.0, Glucose 129 H, Calcium 10.2, Magnesium 2.7 H 02/05/25 03:44: WBC 17.3 H, RBC 4.35, Hgb 12.3, Hct 36.3 L, MCV 83.4, MCH 28.3, MCHC 33.9, Plt Count 401, MPV 10.0, Immature Gran % (Auto) 0.600, Neut % (Auto) 71.1 H, Lymph % (Auto) 20.0, Heard % (Auto) 7.6, Eos % (Auto) 0.2, Baso % (Auto) 0.5, Absolute Neuts (auto) 12.3 H, Nucleated RBC % 0, Sodium 133, Potassium 4.2, Chloride 101, Carbon Dioxide 19.0 L, Anion Gap 13, BUN 11, Creatinine 0.91, Est GFR (MDRD) Non-Af 67, BUN/Creatinine Ratio 12.1, Glucose 127 H, Calcium 9.1, Triglycerides 176, Cholesterol 176, VLDL Cholesterol 35, HDL Cholesterol 43, Cholesterol/HDL Ratio 4.08 Rhythm: EKG: ECHO: Stress Test: Cardiac Cath: PCI: CT Surgery: Holter monitor: EPS: PPM: CXR: Chest CT Scan: EDGARD Risk Score for UA/STEMI Assesmment (YES = 1) Risk Stratification Applicable: Yes Age > or = 65: Yes > or = 3 CAD risk factors (HTN, Hypercholesterolemia, Diabetes, family hx, current smoker): Yes Known CAD (Stenosis > or = 50%): Yes ASA used in past 7 days: Yes Severe angina (> or = 2 episodes in 24 hrs): Yes EKG ST change > or = 0.5mm: Yes Positive cardiac markers: Yes Score EDGARD Risk Score of mortality/ recurrent ischemic event over the next 14 days: 6-7 = 40.9% - HIGH RISK
--- NOTE | 2025-02-05 10:18 | PCM.PN.HOSP ---
Reason for Visit Chief Complaint: Chest pain Subjective Subjective Saw patient at bedside this morning. Patient was sitting comfortably in bedside chair and eating breakfast, in no acute distress. Denies any chest pain or any other acute pain or discomfort today. No other acute concerns at this time. Objective Data Objective Data Vital Signs: Vital Signs Temp Pulse Resp BP Pulse Ox O2 Del Method 98.1 F 72 23 H 134/64 H 97 Room Air 02/05/25 04:00 02/05/25 07:00 02/05/25 07:00 02/05/25 07:00 02/05/25 05:00 02/05/25 05:00 Oxygen Delivery Method Room Air Weight: 78.2 kg Body Mass Index (BMI) 28.7 Intake & Output: Intake and Output for Last 24 Hours 02/03/25 02/04/25 02/05/25 23:59 23:59 23:59 Intake Total 0 / 0 Output Total 0 / 0 0 / 0 Balance 0 / 0 0 / 0 Lab / Micro Data 02/05/25 03:44 02/05/25 03:44 Labs: Laboratory Results - last 24 hr 02/04/25 14:28: WBC 13.5 H, RBC 5.40, Hgb 15.3 H, Hct 45.6, MCV 84.4, MCH 28.3, MCHC 33.6, RDW Std Deviation 45.1 H, RDW Coeff of Kristofer 14.8 H, Plt Count 487 H, MPV 9.9, Immature Gran % (Auto) 0.500, Neut % (Auto) 46.5 L, Lymph % (Auto) 41.6 H, [place] % (Auto) 9.6, Eos % (Auto) 1.0, Baso % (Auto) 0.8, Absolute Neuts (auto) 6.3, Absolute Lymphs (auto) 5.61 H, Nucleated RBC % 0, Differential Comment SCANNED, Platelet Estimate ADEQUATE, PT 13.8, INR 1.0, APTT > 250.0 H*, Sodium 136, Potassium 3.6, Chloride 100, Carbon Dioxide 19.6 L, Anion Gap 17 H, BUN 11, Creatinine 1.08, Estim Creat Clear Calc 47.93 L, Est GFR (MDRD) Non-Af 54 L, BUN/Creatinine Ratio 10.0, Glucose 129 H, Calcium 10.2, Magnesium 2.7 H, Troponin T High Sens 13, NT pro BNP II 86 02/04/25 15:03: Activated Clotting Time 271 H 02/04/25 15:20: Activated Clotting Time 322 H 02/05/25 03:44: WBC 17.3 H, RBC 4.35, Hgb 12.3, Hct 36.3 L, MCV 83.4, MCH 28.3, MCHC 33.9, RDW Std Deviation 44.6 H, RDW Coeff of Kristofer 14.8 H, Plt Count 401, MPV 10.0, Immature Gran % (Auto) 0.600, Neut % (Auto) 71.1 H, Lymph % (Auto) 20.0, [place] % (Auto) 7.6, Eos % (Auto) 0.2, Baso % (Auto) 0.5, Absolute Neuts (auto) 12.3 H, Absolute Lymphs (auto) 3.46, Nucleated RBC % 0, Sodium 133, Potassium 4.2, Chloride 101, Carbon Dioxide 19.0 L, Anion Gap 13, BUN 11, Creatinine 0.91, Estim Creat Clear Calc 55.72, Est GFR (MDRD) Non-Af 67, BUN/Creatinine Ratio 12.1, Glucose 127 H, Calcium 9.1, Triglycerides 176, Cholesterol 176, LDL Cholesterol, Calc 102, VLDL Cholesterol 35, HDL Cholesterol 43, Cholesterol/HDL Ratio 4.08, TSH 3.240 Patient's Goals Of Care - F/U Goals Reviewed Goals of care reviewed with patient: NA-No significant change in clinical Status /major procedure scheduled Physical Exam Const alert, oriented x3, no apparent distress and average body habitus Constitutional Narrative: Pleasant elderly female, sitting back comfortably in bed, conversing normally, in no acute distress. General Appearance: cooperative and comfortable HEENT normocephalic, head/scalp atraumatic, hearing grossly normal bilaterally, nasal mucous membranes and turbinates normal and moist oral mucous membranes Eyes PERRL, EOMs intact bilaterally and conjunctivae normal Neck full ROM Chest inspection of chest normal Resp normal respiratory effort, normal air movement, no use of accessory muscles and clear to auscultation bilaterally Cardio regular rate, regular rhythm, no murmurs and peripheral pulses 2+ throughout GI normal to inspection, nondistended, normoactive bowel sounds, soft to palpation, non-tender and non-distended Back/Spine normal ROM Extremity normal to inspection, full ROM and no pedal edema Skin no rashes or lesions noted Psych mental status grossly normal Assessment & Plan Assessment/Plan (1) ST elevation (STEMI) myocardial infarction involving right coronary artery: PLAN: Plan Patient is a 74-year-old female who presented to [facility] ED on 02/04/2025 with chest pain. 1. STEMI ? Cardiology following. EKG on admit consistent with inferior STEMI. Left heart cath showed 99% mid RCA lesion s/p BRAXTON x 1, diffuse 70% distal LAD stenosis, and 70% disease in branches of left circumflex. Hemodynamically stable post cath. Echo pending. Lipid panel with total cholesterol 136, LDL 102, HDL 43. Continue aspirin, Brilinta, and high intensity statin. Per cardiology, will start low-dose losartan but hold off on beta-sondra for now as BP is slightly low. Continue cardiac monitoring. If patient remains stable overnight, likely ready for discharge home tomorrow. Chronic medical conditions: ? Hypothyroidism: TSH normal. Continue home Synthroid. ? GERD: Continue home PPI. ? Anxiety/depression: Continue home duloxetine and trazodone at night. ? Overactive bladder: Follows with Dr. Grayson. Continue home vibegron. ? Fibromyalgia: Continue home tramadol as needed. DVT prophylaxis: Lovenox CODE STATUS: Full code, verified Expected disposition: Home, 1 to 2 days Total clinical time spent by myself addressing the patient's medical issues, reviewing all the data, and collaborating with patient's care team: 37 minutes. Charges/Coding Visit Charges Inpatient E&M: 43345 Subs Hosp L2
[2025-02-05] MEDS: TICAGRELOR 90 MG TABLET PO ×2 (11:17→22:10)
--- NOTE | 2025-02-05 14:42 | CASEMGMT ---
Spoke with pt nurse, states pt reported that pt was worked up for dementia a couple of years ago. States pt was ambulating in halls but with assistance. 6cl=13, ordered therapy at this time for eval. RONALD GUZMÁN Assessment: Face to Face with pt for initial transition planning/care coordination assessment. RONALD GUZMÁN introduced self and role at [facility], pt voices understanding and consents to assessment. Pt is A&O x3 and answers all questions appropriately at this time. Care providers, pharmacy, and demographics verified/updated. Admitting Dx: acute STEMI PCP:Gualberto Specialists:virgil Grayson Preferred [facility]acy: [facility] Insurance: [facility] Prescription Benefit: yes LNOK: Jordy Owusu, ; Heather Quiros dtr Living Arrangements: Pt lives with in a single story home with a couple of steps to enter. Pt reports she is I in ADLs but does cooking and getting groceries. She states they share in the laundry tasks. Pt denies concerns at home. Transportation: Pt drives self and denies concerns with transportation. DME:walk in shower with seat, 4 prong cane, rollator HHC/SNF: Pt has had HHC in the past but cannot recall name of agency. Pt denies SNF stays. Pt states no concerns with going home at time of dc. She denies need for RONALD GUZMÁN to call her to discuss dc planning. She states she just sent him home to watch football. Pt is aware that therapy will be ordered. Pt states she does not want it and wants to go home and use her walker. She states she does not want any homegoing services. Plan for pt to be dc'd on brilinta. Pt states no further concerns/needs. CM to follow. Advised pt to ask CM if any further questions/concerns/needs arise, voices understanding. Pt Goal: Home Plan: Home pending therapy edwin Elise RN, CM
[2025-02-05] MEDS: MELATONIN 10 MG TABLET PO (22:08)
[2025-02-06] VITALS: PULSE 75; PULSE 82
[2025-02-06 04:00] VITALS: BP 116/67; PULSE 68; PULSE 82; PULSE 91; RESP 19; O2SAT 97
[2025-02-06 04:42] LABS: Hematocrit 37.4 % (37-47); Hemoglobin 12.5 g/dL (12.0-15.0); Mean Corp Hgb Conc 33.4 g/dL (32-36); Mean Corpuscular Volume 83.5 fL (81-99); Mean Platelet Vol. 10.0 fl (6.2-12.0); Platelet Count 359 K/mm3 (150-450); RBC Distribution Width CV 14.7 % (11.6-14.6); RBC Distribution Width SD 44.6 fl (35.1-43.9); Red Blood Count 4.48 M/mm3 (4.2-5.4); White Blood Count 12.1 K/mm3 (4.4-11.0)
[2025-02-06 05:10] LABS: Anion Gap 16 (5-15); BUN 9 mg/dL (4-19); BUN/Creat Ratio 10.0 RATIO (10-20); Calcium,Total 9.5 mg/dL (7.6-11.0); Carbon Dioxide 18.1 mmol/L (21.0-32.0); Chloride 102 mmol/L (98-108); Estimated Creatinine Clearance 59.53 ml/min (50-250); Glucose 124 mg/dL (70-99); Potassium 4.0 mmol/L (3.3-5.1)
[2025-02-06 06:00] VITALS: BMI 28.7
[2025-02-06 08:00] VITALS: PULSE 86
[2025-02-06] MEDS: TICAGRELOR 90 MG TABLET PO (08:38)
--- NOTE | 2025-02-06 09:54 | DS.PCM_ITS ---
Providers Date of Admission: 02/04/25 Date of Discharge: 02/06/25 Primary Care Physician: Iesha Burciaga MD Consultations 02/04/25 14:43 Consult: Cardiology Stat Consulting Provider: Montana Turner Reason for Consult: stemi EMERGENT Consult: Yes MD Notified: Yes Date Notified: 02/04/25 Time Notified: 14:42 Method of Notification: Verbal Reason For Visit: ACUTE STEMI Diagnosis Discharge Diagnosis (1) ST elevation (STEMI) myocardial infarction involving right coronary artery: Status: Acute Code(s): I21.11 - ST elevation (STEMI) myocardial infarction involving right coronary artery Medications at Discharge Home Medications duloxetine 30 mg capsule,delayed release 20 mg PO DAILY Mood 09/23/19 omeprazole 20 mg capsule,delayed release 20 mg PO BID GERD 09/23/19 trazodone 100 mg tablet 150 mg PO QHS Sleep 09/23/19 fluticasone propionate 50 mcg/actuation nasal spray,suspension 2 spray intranasal DAILY PRN PRN allergies 12/15/22 cholecalciferol (vitamin D3) 25 mcg (1,000 unit) tablet 25 mcg PO DAILY Supplment #30 tabs 12/17/22 Lactobacillus acidophilus 10 billion cell capsule (Probiotic) 100 mmu cells PO DAILY PRN SUPPLEMENT 02/20/23 levothyroxine 75 mcg tablet 75 mcg PO DAILY 12/30/23 tramadol 50 mg tablet 50 mg PO TID PRN pain 10/13/24 peg 3350-electrolytes 236 gram-22.74 gram-6.74 gram-5.86 gram solution 4,000 ml PO ONCE #4,000 mL 11/15/24 Gemtesa 75 mg tablet (vibegron) 75 mg PO QDAY #90 tabs 11/22/24 CBD Oral (INFORMATIONAL USE ONLY-PT USES ORAL CBD) 1 gum QHS 11/25/24 aspirin 81 mg chewable tablet 81 mg PO BREAKFAST 90 days #90 tabs 02/06/25 atorvastatin 40 mg tablet 40 mg PO QHS 90 days #90 tabs 02/06/25 losartan 25 mg tablet 25 mg PO DAILY 90 days #90 tabs 02/06/25 ticagrelor 90 mg tablet 90 mg PO BID 90 days #180 tabs 02/06/25 Hospital Course Operations None Procedures Cardiac catheterization, EKG and Transthoracic echo Summary of Care Provided Minutes Spent on Discharge: 36 Hospital Course: Patient is a 74-year-old female who presented to [facility] ED on 02/04/2025 with chest pain. Hospital course as noted below. Patient discharged home in stable condition on 02/06. 1. STEMI ? Cardiology followed. EKG on admit consistent with inferior STEMI. Left heart cath showed 99% mid RCA lesion s/p BRAXTON x 1, diffuse 70% distal LAD stenosis, and 70% disease in branches of left circumflex. Hemodynamically stable post cath. Echo with EF 55%, hypokinetic inferior apex noted, otherwise no other abnormalities. Lipid panel with total cholesterol 136, LDL 102, HDL 43. Continue aspirin, Brilinta, high intensity statin and low-dose losartan on discharge. Was initiated on low-dose beta-zoila but had mild hypotension with this so per cardiology, will hold off on this. No ectopy noted on cardiac monitoring. Stable for discharge home on 02/06 with plan for close outpatient follow-up with cardiology. Chronic medical conditions: ? Hypothyroidism: TSH normal. Continue home Synthroid. ? GERD: Continue home PPI. ? Anxiety/depression: Continue home duloxetine and trazodone at night. ? Overactive bladder: Follows with Dr. Grayson. Continue home vibegron. ? Fibromyalgia: Continue home tramadol as needed. Total clinical time spent by myself addressing the patient's medical issues, reviewing all the data, and collaborating with patient's care team: 36 minutes. Physical Exam Const alert, oriented x3, no apparent distress and average body habitus Constitutional Narrative: Pleasant elderly female, sitting back comfortably in bed, conversing normally, in no acute distress. General Appearance: cooperative and comfortable HEENT normocephalic, head/scalp atraumatic, hearing grossly normal bilaterally, nasal mucous membranes and turbinates normal and moist oral mucous membranes Eyes PERRL, EOMs intact bilaterally and conjunctivae normal Neck full ROM Chest inspection of chest normal Resp normal respiratory effort, normal air movement, no use of accessory muscles and clear to auscultation bilaterally Cardio regular rate, regular rhythm, no murmurs and peripheral pulses 2+ throughout GI normal to inspection, nondistended, normoactive bowel sounds, soft to palpation, non-tender and non-distended Back/Spine normal ROM Extremity normal to inspection, full ROM and no pedal edema Skin no rashes or lesions noted Psych mental status grossly normal Weight / BMI Weight Weight: 78.1 kg Body Mass Index (BMI) 28.7 ABG / Lab / Microbiology Data 02/06/25 04:30 02/06/25 04:30 Laboratory: Laboratory Results - last 24 hr 02/06/25 04:30: WBC 12.1 H, RBC 4.48, Hgb 12.5, Hct 37.4, MCV 83.5, MCH 27.9, MCHC 33.4, RDW Std Deviation 44.6 H, RDW Coeff of Kristofer 14.7 H, Plt Count 359, MPV 10.0, Sodium 136, Potassium 4.0, Chloride 102, Carbon Dioxide 18.1 L, Anion Gap 16 H, BUN 9, Creatinine 0.87, Estim Creat Clear Calc 59.53, Est GFR (MDRD) Non- Af 71, BUN/Creatinine Ratio 10.0, Glucose 124 H, Calcium 9.5 Radiography Diagnostic Testing: Radiology Impression Echocardiogram 02/04/25 18:19 Interpretation Summary Mild concentric left ventricular hypertrophy. The LVEF is 55%. There is subtle hypokinesis of the distal inferior wall. Normal RV systolic function. No pericardial effusion. Ordering Physician: Kathi Montaño Referring Physician: Montana Turner Performed By: Amelia Bagley RCS D/C Instructions DC O2, CPAP, BIPAP Needs Home O2 Discharge instructions: No Patient's Goals Of Care - F/U Goals Reviewed Goals of care reviewed with patient: NA-No significant change in clinical Status /major procedure scheduled Meaningful Use Info Meaningful Use Meaningful Use Diagnoses (Choose all that apply): AMI AMI/Post PCI/Angioplasty Aspirin given w/in 24hrs of arrival?: Yes ASA at discharge?: Yes Statins at discharge?: Yes Juventino/ARB at discharge?: Yes Beta Zoila at discharge?: No Reason Beta Zoila not ordered:: Hypotension Done w/ Acute IL measure.: Yes Discharge Plan Admission Admit Date/Time: 02/04/25 14:41 Primary Reason for Your Visit: Chest pain Attending Provider: Mahendra Garcia Primary Care Provider: Iesha Burciaga Consulting Providers: Montana Turner; Kathi Montaño Instructions Additional Instructions / Restrictions: ? Please start taking the following medications as below. ? Continue your other home indications as normal. ? Please call the cardiology office to schedule a follow-up appointment in the next few weeks. Discharge Orders/Prescriptions Prescriptions: New atorvastatin 40 mg Tablet 40 mg PO QHS 90 Days Qty: 90 0RF losartan 25 mg Tablet 25 mg PO DAILY 90 Days Qty: 90 0RF aspirin 81 mg Tablet,Chewable 81 mg PO BREAKFAST 90 Days Qty: 90 0RF ticagrelor 90 mg Tablet 90 mg PO BID 90 Days Qty: 180 0RF Continued tramadol 50 mg tablet 50 mg PO TID PRN (Reason: pain) Gemtesa 75 mg tablet 75 mg PO QDAY Qty: 90 3RF trazodone 100 MG tablet 150 mg PO QHS omeprazole 20 MG capsule,delayed release(DR/EC) 20 mg PO BID duloxetine 30 MG capsule,delayed release(DR/EC) 20 mg PO DAILY fluticasone propionate 50 mcg/actuation spray,suspension 2 spray INTRANASAL DAILY PRN PRN (Reason: allergies) cholecalciferol (vitamin D3) 25 mcg (1,000 unit) Tablet 25 mcg PO DAILY Qty: 30 0RF Probiotic 10 billion cell capsule 100 mmu cells PO DAILY PRN (Reason: SUPPLEMENT) levothyroxine 75 mcg tablet 75 mcg PO DAILY CBD Oral (INFORMATIONAL USE ONLY-PT USES ORAL CBD) 1 gum QHS Rx Instructions: GUMMIES = 5MG THC, 50 MG CBD, 3 MG MELATONIN; AND OI peg 3350-electrolytes 236-22.74-6.74 -5.86 gram recon soln 4,000 ml PO ONCE Qty: 4000 0RF Rx Instructions: until fecal effluent is clear; do not exceed a total volume of 4000 mL Referrals / Follow Up: Iesha Burciaga MD [Primary Care Provider, Family Practice] Fredy Leroy MD [Med Staff - Active Staff, Cardiology] Disposition Disposition (needs filled in before D/C Order can be placed): Home, Self Care Charges/Coding Visit Charges Inpatient E&M: 48932 Disch Hosp >30min
[2025-02-06 11:15] VITALS: BP 126/67; PULSE 95; RESP 21; TEMP 36.9; O2SAT 99
--- NOTE | 2025-02-07 15:01 | CASEMGMT ---
Pt DC'd over the weekend. Therapy recommended additional therapy at time of DC. RONALD GUZMÁN called and spoke with Pt about C services vs OP therapy. Pt States I have had therapy before and I hated it. RONALD GUZMÁN encouraged patient to think about it and if she changes her mind to follow up with PCP. RONALD GUZMÁN discussed Pt safety and wanting to make sure she regains her strength so she doesn't fall and have a set back. Pt states I don't want that for myself either, but I really don't want to do therapy. Pt denies any additional needs at this time. States he works [employer] in the morning and is off the rest of the day with her and helps her at home.
== END 2025-02-06 12:24 | disposition home or self-care (01) | DRG 322 ==
LOC: ED 14:28 → ICU 14:47
PROVIDERS: Emergency Medicine; Admitting Provider Internal Medicine; Emergency Provider Emergency Medicine; PCP Family Medicine; Referring Provider Internal Medicine; Visit Provider Hospitalist
DX: I21.11 ST elevation (STEMI) myocardial infarction involving right coronary artery (principal); E03.9 Hypothyroidism, unspecified; I10 Essential (primary) hypertension; F32.A Depression, unspecified; E78.2 Mixed hyperlipidemia; M79.7 Fibromyalgia; K21.9 Gastro-esophageal reflux disease without esophagitis; F41.9 Anxiety disorder, unspecified; N32.81 Overactive bladder; Z79.890 Hormone replacement therapy; Z79.899 Other long term (current) drug therapy
CPT/HCPCS: 80048; 80061; 83735; 83880; 84443; 84484; 85025; 85027; 85347; 85610; 85730; 92941; 92978; 93005; 93306; 93458; 97162; 97165; 97802; 99152; 99153; 99285; C1874; C1887; C1894; Q9967; A4216; C1725; C1753; C1760; C1769; C9606